=== PATIENT | female | born 1975 ===

== ENCOUNTER 2020-05-04 12:50 | Outpatient (REF) | payer OTHER, SELFPAY ==
[2020-05-04 13:48] LABS: MANUAL DIFF FLAG NO
[2020-05-04 13:55] LABS: Basophils Percent Auto 0.4 % (0-2); Eosinophils Absolute Auto 0.2 X10*3/uL (0.0-0.4); Eosinophils Percent Auto 2.7 % (0-4); Hematocrit 44.9 % (37-47); Hemoglobin 14.5 g/dl (12.0-16.0); Imm Gran Abs Auto 0.04 X10*3/uL (0.00-0.03); Imm Gran Pct Auto 0.5 % (0.0-0.4); Lymphocytes Absolute Auto 1.8 X10*3/uL (1.2-4.9); Lymphocytes Percent Auto 20.6 % (20-40); Mean Corpuscular HGB Conc 32.3 g/dl (31.0-35.0); Mean Corpuscular Hemoglobin 30.3 pg (27.0-33.0); Mean Corpuscular Volume 93.9 fL (80-98); Mean Platelet Volume 10.6 fL (9.4-12.3); Monocytes Absolute Auto 0.7 X10*3/uL (0.1-1.2); Monocytes Percent Auto 7.8 % (2-11); Neutrophils Absolute Auto 5.8 X10*3/uL (2.0-8.3); Platelet Count 310 X10*3/uL (160-400); Red Blood Count 4.78 X10*6/uL (4.20-5.50); White Blood Count 8.5 X10*3/uL (4.8-10.8)
[2020-05-04 14:03] LABS: Estimated Average Glucose 123 mg/dL; Hemoglobin A1C 155.4979 umol/L; Hemoglobin A1c % 5.9 %
[2020-05-04 14:20] LABS: Alanine Aminotransferase 41 U/L (0-31); Albumin Level 3.8 g/dL (3.5-5.0); Alkaline Phosphatase 142 U/L (39-117); Anion Gap 10 (12-20); Aspartate Amino Transferase 20 U/L (5-31); Bilirubin Total 0.7 mg/dL (0.0-1.0); Blood Urea Nitrogen 9 mg/dL (9-16); Carbon Dioxide 29 mmol/L (22-29); Chloride 106 mmol/L (96-108); Cholesterol 189 mg/dL; Estimated Glomerular Filt Rate > 60; Glucose Fasting 106 mg/dL (60-99); HDL Cholesterol 42 mg/dL; LDL Cholesterol Calculated 130 mg/dl; Potassium 4.4 mmol/L (3.3-5.1); Sodium 141 mmol/L (135-145); Total Protein 6.8 g/dL (6.5-8.0); Triglycerides 89 mg/dL
[2020-05-04 14:35] LABS: Glucose Urine UA NEG (NEG); Leukocyte Esterase Urine NEG (NEG); Nitrite Urine NEG (NEG); Urine Blood NEG (NEG); Urine Ketones NEG (NEG); Urine Protein NEG (NEG-TRACE)
[2020-05-04 14:39] LABS: Appearance Urine HAZY; Color Urine YELLOW
[2020-05-04 14:40] LABS: Erythrocyte Sedimentation Rate 18 MM/HR (0-20); Vitamin D 25-OH Total 44.2 ng/mL (>30)
[2020-05-04 14:57] LABS: Bacteria Urine 1+ /LPF; RBC Urine 0 /HPF (0); Squamous Epithelial Cell Urine 2+ /LPF; WBC Urine 0-2 /HPF (0-4)
[2020-05-04 15:26] LABS: Microalbum/Creatinine Ratio Ur 5.2 ug/mg cr
[2020-05-04 17:40] LABS: Folate 7.5 ng/mL (> or = 4.0); Vitamin B12 855 pg/mL (200-900)
== END 2020-05-04 12:51 | disposition home or self-care (01) ==
LOC: HO.LAB 12:50
PROVIDERS: PCP Internal Medicine; Visit Provider Internal Medicine
DX: E78.5 Hyperlipidemia, unspecified (principal); E11.9 Type 2 diabetes mellitus without complications; E53.8 Deficiency of other specified B group vitamins; K21.9 Gastro-esophageal reflux disease without esophagitis; G43.109 Migraine with aura, not intractable, without status migrainosus; M79.7 Fibromyalgia; J30.9 Allergic rhinitis, unspecified; E55.9 Vitamin D deficiency, unspecified; Z20.822 Contact with and (suspected) exposure to COVID-19
CPT/HCPCS: 36415; 80053; 80061; 81001; 82043; 82306; 82607; 82746; 83036; 85025; 85652; U0003; U0005

== ENCOUNTER 2020-07-18 16:57 | Outpatient (REF) | payer OTHER, SELFPAY ==
--- NOTE | ~2020-07-18 | XR_ITS ---
EXAMINATION: XR HAND, RIGHT CLINICAL INFORMATION: Right hand pain. COMPARISON: None TECHNIQUE: PA, lateral, and oblique views of the right hand. FINDINGS: There is no evidence of acute fracture or dislocation of the right hand. No erosive change is seen. Joint spaces are maintained. No radiopaque foreign body is appreciated. There is minimal spurring seen at the 1st carpometacarpal joint. XR/XR hand RT 2V IMPRESSION: No significant bony abnormality of the right hand.
== END 2020-07-18 16:58 | disposition home or self-care (01) ==
LOC: HO.XRAY 16:57
PROVIDERS: PCP Internal Medicine; Visit Provider Internal Medicine
DX: M79.641 Pain in right hand (principal); E53.8 Deficiency of other specified B group vitamins
CPT/HCPCS: 73120

== ENCOUNTER 2020-07-20 11:27 | Outpatient (REF) | payer OTHER, SELFPAY ==
--- NOTE | 2020-07-20 11:40 | ECG_ITS ---
Test Reason : R00.2 Blood Pressure : / mmHG Vent. Rate : 074 BPM Atrial Rate : 074 BPM P-R Int : 160 ms QRS Dur : 096 ms QT Int : 338 ms P-R-T Axes : 051 048 034 degrees QTc Int : 375 ms Normal sinus rhythm Normal ECG When compared with ECG of 04-FEB-2018 12:37, No significant change was found Referred By: Mihir Elmore Electronically Signed By:NISHANT PEREIRA MD
[2020-07-20 12:29] LABS: MANUAL DIFF FLAG NO
[2020-07-20 12:34] LABS: Basophils Absolute Auto 0.1 X10*3/uL (0.0-0.2); Basophils Percent Auto 0.7 % (0-2); Eosinophils Absolute Auto 0.3 X10*3/uL (0.0-0.4); Eosinophils Percent Auto 3.1 % (0-4); Hematocrit 44.9 % (37-47); Hemoglobin 14.1 g/dl (12.0-16.0); Imm Gran Abs Auto 0.04 X10*3/uL (0.00-0.03); Imm Gran Pct Auto 0.4 % (0.0-0.4); Lymphocytes Absolute Auto 1.7 X10*3/uL (1.2-4.9); Lymphocytes Percent Auto 19.4 % (20-40); Mean Corpuscular HGB Conc 31.4 g/dl (31.0-35.0); Mean Corpuscular Hemoglobin 29.9 pg (27.0-33.0); Mean Corpuscular Volume 95.3 fL (80-98); Mean Platelet Volume 11.4 fL (9.4-12.3); Monocytes Absolute Auto 0.9 X10*3/uL (0.1-1.2); Neutrophils Percent Auto 66.4 % (45-73); Platelet Count 306 X10*3/uL (160-400); Red Blood Count 4.71 X10*6/uL (4.20-5.50); Red Cell Distribution Width 15.3 % (11.0-16.0)
[2020-07-20 13:12] LABS: TSH reflex Free T4 2.03 uIU/mL (0.32-4.0)
== END 2020-07-20 11:28 | disposition home or self-care (01) ==
LOC: HO.LAB 11:27
PROVIDERS: PCP Internal Medicine; Visit Provider Internal Medicine
DX: R00.2 Palpitations (principal); I10 Essential (primary) hypertension; K62.5 Hemorrhage of anus and rectum; E78.00 Pure hypercholesterolemia, unspecified
CPT/HCPCS: 36415; 84443; 85025; 93005

== ENCOUNTER 2020-08-02 08:44 | Emergency (ER) | payer OTHER, SELFPAY ==
--- NOTE | 2020-08-02 08:48 | ED.EXTPRO ---
HPI - Extremity Problem General Chief complaint: Extremity Injury, Lower Stated complaint: AKI LEG PAIN,H/O VARICOSE VEINS Time Seen by Provider: 08/02/20 08:48 Source: patient Mode of arrival: EMS Limitations: no limitations History of Present Illness HPI Narrative: patient with 2 days of leg bilateral, no fever, slight new rash. No new medications. patient concerned that she has a blood clot MD Complaint: extremity pain and extremity swelling Onset (ago): day(s) Pain Consistency: constant Location: left and right Quality: burning and sharp Radiation: none Relieving factors: nothing Related Data Home Medications Medication Instructions Recorded Confirmed cholecalciferol (vitamin D3) 125 125 mcg PO DAILY 05/12/20 05/12/20 mcg (5,000 unit) tablet cyanocobalamin (vitamin B-12) mcg IM 05/12/20 05/12/20 1,000 mcg/mL injection solution docusate sodium 100 mg capsule 100 mg PO BID 05/12/20 05/12/20 fluticasone propionate 50 1 spray INTRANASAL DAILY 05/12/20 05/12/20 mcg/actuation nasal spray,suspension omeprazole 20 mg capsule,delayed 20 mg PO DAILY 05/12/20 05/12/20 release simvastatin 20 mg tablet 20 mg PO BEDTIME 05/12/20 05/12/20 sumatriptan succinate 100 mg tablet 100 mg PO DAILY PRN 05/12/20 05/12/20 syringe with needle 3 mL 23 x 1 #1 ea 05/12/20 Previous Rx's Medication Instructions Recorded cyanocobalamin (vitamin B-12) 100 100 mcg PO DAILY #90 tab 04/22/20 mcg tablet albuterol sulfate 2.5 mg CONTINUOUS NEBULIZATION Q6H 05/12/20 PRN 30 Days #120 vial albuterol sulfate 90 mcg/actuation 2 puff PO Q6H PRN 30 Days #8.5 g 05/12/20 aerosol inhaler lancets 28 gauge #100 ea 05/12/20 nystatin 100,000 unit/gram topical 1 appl TOPICAL TID 10 Days #60 g 05/12/20 powder loratadine 10 mg tablet 10 mg PO DAILY PRN 90 Days #90 tab 05/26/20 blood sugar diagnostic See Rx Instructions .ROUTE DAILY 06/01/20 #100 strip epinephrine 0.3 mg/0.3 mL 0.3 mg IM ONCE PRN 360 Days #2 ea 06/13/20 injection, auto-injector topiramate 25 mg tablet 25 mg PO BEDTIME #90 tab 06/30/20 fluocinolone 1 appl TOPICAL BID #60 g 08/02/20 naproxen [Naprosyn] 500 mg PO BID #20 tab 08/02/20 Allergies Allergy/AdvReac Type Severity Reaction Status Date / Time Gadolinium-Containing Allergy Severe ANAPHYLAXIS Verified 05/12/20 12:10 Contrast Medi [GADOLINIUM-CONTAINING CONTRAST] Iodinated Contrast Media Allergy Severe ANAPHYLAXIS Verified 05/12/20 12:10 [IV Dye, Iodine Containing] acetaminophen [From Percocet] Allergy Mild RASH Verified 05/12/20 12:10 aspirin [Aspirin] Allergy Mild ITCH Verified 05/12/20 12:10 ibuprofen [Ibuprofen] Allergy Mild NAUSEA Verified 05/12/20 12:10 oxycodone [From Percocet] Allergy Mild RASH Verified 05/12/20 12:10 Penicillins Allergy Mild ITCH Verified 05/12/20 12:10 Sulfa (Sulfonamide Allergy Mild ITCH Verified 05/12/20 12:10 Antibiotics) morphine [MORPHINE] Allergy Unknown NAUSEA Verified 05/12/20 12:10 penicillin V Allergy Unknown Itch Verified 05/12/20 12:10 seafoods Allergy Unknown Unknown Verified 05/12/20 12:10 LIQUID SOAPS Allergy Intermediate ITCHING Uncoded 05/12/20 12:10 AND REDNESS CHIHUAHUA Allergy Mild RASH Uncoded 05/12/20 12:10 ITCHING Review of Systems Constitutional: Constitutional: Reports no additional constitutional complaints Eyes: Eyes: Reports no additional eye complaints ENT: Denies dizziness Cardiovascular: Cardiovascular: Reports no additional cardiovascular complaints Respiratory: Respiratory: Reports as per HPI Gastrointestinal: Gastrointestinal: Reports no additional gastrointestinal complaints Genitourinary: Genitourinary: Reports no additional female genitourinary complaints Musculoskeletal: Musculoskeletal: Reports no additional musculoskeletal complaints Integumentary/Breasts: Skin/Breast: Denies rash Neurologic: Reports system reviewed and no additional complaints, except as documented, Denies dizziness and Denies Sensory deficit (Neuro) Psychiatric: Psychiatric: Denies anxiety PMFSH Past Medical History Medical History Asthma Constipation Diabetes mellitus Fibromyalgia GERD without esophagitis Hand pain, right Intertrigo Migraine headache with aura Mixed stress and urge urinary incontinence Morbid obesity with BMI of 50.0-59.9, adult Obstructive sleep apnea Palpitations Primary osteoarthritis of both knees Pure hypercholesterolemia Rectal bleeding Tremor of both hands Vitamin B12 deficiency Vitamin D deficiency Surgical History No pertinent past surgical history Family History Family History Father Medical history unknown Mother Hypertension Kidney stones Maternal Grandmother Colon cancer Maternal Aunt Breast cancer Sister No problems noted. Sister No problems noted. Social History Social History Alcohol intake: never Advance Directives: No Advance Directives Information Provided: No Physical Exam Vital Signs: Vital Signs: Last Vital Signs Temp 98.6 F 08/02/20 08:50 Pulse 89 08/02/20 08:50 Resp 14 08/02/20 08:50 BP 185/96 H 08/02/20 08:50 Pulse Ox 100 08/02/20 08:50 Body Mass Index 48.4 Const: Other: resting comfortably Nutritional Appearance: obese Orientation/consciousness: oriented to person and patient oriented x3 Limitations: no limitations HENMT: Head: Yes normal to inspection Ears: external ears normal General nose exam: Normal external nose present Mouth: Normal oral and palatal mucosa present and oropharynx normal Throat: Yes posterior oropharynx normal Eyes: General: appearance normal, both eyes and all related structures Neck: Other: supple Neck: Yes normal visual inspection Chest: Chest palpation & inspection: normal inspection of the chest Resp: Auscultation: clear to auscultation bilaterally Cardio: Jugular venous distension: no JVD Rate: regular rate Rhythm: regular rhythm Heart sounds: S1 normal heart sound present and S2 normal heart sound present GI: Inspection: Yes normal to inspection Palpation (GI): Soft to palpation, nontender and No hepatosplenomegaly present Auscultation: normal bowel sounds : General: Yes no CVA tenderness Back/Spine/Pelvis: Back: no CVA tenderness Skin: Other: eczematous changes on lower legs Neuro: General: oriented to person and patient oriented x3 Cranial nerves: Yes CN's II-XII intact bilaterally Motor exam (neuro): 5/5 motor strength present throughout Sensory Exam: No Sensory deficit (Neuro) Extrem: Other: large legs bilaterally, good DP and PT pulses Psych: Appearance: grossly normal Course Course Course Narrative: DDimer negative, labs normal, no physical evidence for clot. Will dc home. Will start steroid cream for excema on legs MDM - Extremity (Nontraumatic) Lab Data Result diagrams: 08/02/20 09:20 08/02/20 09:20 Labs: Lab Results 08/02/20 08/02/20 08/02/20 Range/Units 09:19 09:20 09:20 WBC 8.3 (4.8-10.8) X10*3/uL RBC 4.67 (4.20-5.50) X10*6/uL Hgb 14.2 (12.0-16.0) g/dl Hct 44.0 (37-47) % MCV 94.2 (80-98) fL MCH 30.4 (27.0-33.0) pg MCHC 32.3 (31.0-35.0) g/dl RDW 15.5 (11.0-16.0) % Plt Count 305 (160-400) X10*3/uL MPV 10.7 (9.4-12.3) fL Immature Gran % (Auto) 0.5 H (0.0-0.4) % Neut % (Auto) 69.5 (45-73) % Lymph % (Auto) 17.9 L (20-40) % [place] % (Auto) 8.6 (2-11) % Eos % (Auto) 3.0 (0-4) % Baso % (Auto) 0.5 (0-2) % Lymph # (Auto) 1.5 (1.2-4.9) X10*3/uL [place] # (Auto) 0.7 (0.1-1.2) X10*3/uL Eos # (Auto) 0.3 (0.0-0.4) X10*3/uL Baso # (Auto) 0.0 (0.0-0.2) X10*3/uL Abs Immat Gran (auto) 0.04 H (0.00-0.03) X10*3/uL Absolute Neuts (auto) 5.8 (2.0-8.3) X10*3/uL Absolute Nucleated RBC 0.000 (0.0-0.012) X10*3/uL Nucleated RBC % (auto) 0.0 (0.0-0.2) /100WBC D-Dimer < 200 NG/ML Sodium (135-145) mmol/L Potassium (3.3-5.1) mmol/L Chloride (96-108) mmol/L Carbon Dioxide (22-29) mmol/L Anion Gap (12-20) BUN (9-16) mg/dL Creatinine (0.5-1.4) mg/dL Estim Creat Clear Calc Estimated GFR Random Glucose (60-115) mg/dL Calcium (8.4-10.2) mg/dL Total Creatine Kinase (26-140) U/L Urine Color YELLOW Urine Appearance CLEAR Urine pH 7.0 (5.0-8.0) Ur Specific [place] 1.020 (1.005-1.025) Urine Protein NEG (NEG-TRACE) MG/DL Urine Glucose (UA) NEG (NEG) MG/DL Urine Ketones NEG (NEG) MG/DL Urine Blood NEG (NEG) Urine Nitrite NEG (NEG) Ur Leukocyte Esterase NEG (NEG) 08/02/20 Range/Units 09:20 WBC (4.8-10.8) X10*3/uL RBC (4.20-5.50) X10*6/uL Hgb (12.0-16.0) g/dl Hct (37-47) % MCV (80-98) fL MCH (27.0-33.0) pg MCHC (31.0-35.0) g/dl RDW (11.0-16.0) % Plt Count (160-400) X10*3/uL MPV (9.4-12.3) fL Immature Gran % (Auto) (0.0-0.4) % Neut % (Auto) (45-73) % Lymph % (Auto) (20-40) % [place] % (Auto) (2-11) % Eos % (Auto) (0-4) % Baso % (Auto) (0-2) % Lymph # (Auto) (1.2-4.9) X10*3/uL [place] # (Auto) (0.1-1.2) X10*3/uL Eos # (Auto) (0.0-0.4) X10*3/uL Baso # (Auto) (0.0-0.2) X10*3/uL Abs Immat Gran (auto) (0.00-0.03) X10*3/uL Absolute Neuts (auto) (2.0-8.3) X10*3/uL Absolute Nucleated RBC (0.0-0.012) X10*3/uL Nucleated RBC % (auto) (0.0-0.2) /100WBC D-Dimer NG/ML Sodium 141 (135-145) mmol/L Potassium 4.7 (3.3-5.1) mmol/L Chloride 105 (96-108) mmol/L Carbon Dioxide 28 (22-29) mmol/L Anion Gap 13 (12-20) BUN 13 (9-16) mg/dL Creatinine 0.80 (0.5-1.4) mg/dL Estim Creat Clear Calc 123.5 Estimated GFR > 60 Random Glucose 115 (60-115) mg/dL Calcium 10.4 H (8.4-10.2) mg/dL Total Creatine Kinase 99 (26-140) U/L Urine Color Urine Appearance Urine pH (5.0-8.0) Ur Specific [place] (1.005-1.025) Urine Protein (NEG-TRACE) MG/DL Urine Glucose (UA) (NEG) MG/DL Urine Ketones (NEG) MG/DL Urine Blood (NEG) Urine Nitrite (NEG) Ur Leukocyte Esterase (NEG) Discharge Plan Discharge Clinical Impression: Myalgia Eczema Qualifiers: Eczema type: other Qualified Code(s): L30.8 - Other specified dermatitis Patient Disposition: Home, Self-Care Instructions: Eczema (ED), Musculoskeletal Pain (ED) Prescriptions: New naproxen [Naprosyn] 500 mg tablet 500 mg PO BID Qty: 20 RF: 0 fluocinolone 0.025 % cream 1 appl topical BID Qty: 60 RF: 0 No Action cyanocobalamin (vitamin B-12) 100 mcg tablet 100 mcg PO DAILY Qty: 90 RF: 2 loratadine 10 mg tablet 10 mg PO DAILY PRN (Reason: allergy symptoms) 90 Days Qty: 90 RF: 3 blood sugar diagnostic [FreeStyle Lite Strips] Strip See Rx Instructions .ROUTE DAILY Qty: 100 RF: 3 epinephrine [EpiPen 2-Fili] 0.3 mg/0.3 mL auto-injector 0.3 mg IM ONCE PRN (Reason: anaphylaxis) 360 Days Qty: 2 RF: 0 topiramate 25 mg tablet 25 mg PO BEDTIME Qty: 90 RF: 1 fluticasone propionate 50 mcg/actuation spray,suspension 1 spray intranasal DAILY RF: 0 cholecalciferol (vitamin D3) 125 mcg (5,000 unit) tablet 125 mcg PO DAILY RF: 0 (DME) BD Luer-Delia Syringe 3 mL 23 x 1 syringe See Rx Instructions syringe IM Q2W Qty: 1 RF: 0 simvastatin 20 mg tablet 20 mg PO BEDTIME RF: 0 omeprazole 20 mg capsule,delayed release(DR/EC) 20 mg PO DAILY RF: 0 cyanocobalamin (vitamin B-12) 1,000 mcg/mL solution IM RF: 0 docusate sodium 100 mg capsule 100 mg PO BID RF: 0 sumatriptan succinate 100 mg tablet 100 mg PO DAILY PRNRF: 0 nystatin 100,000 unit/gram powder 1 appl topical TID 10 Days Qty: 60 RF: 3 albuterol sulfate 90 mcg/actuation HFA aerosol inhaler 2 puff PO Q6H PRN (Reason: shortness of breath or wheezing) 30 Days Qty: 8.5 RF: 5 albuterol sulfate 2.5 mg /3 mL (0.083 %) solution for nebulization 2.5 mg continuous nebulization Q6H PRN (Reason: shortness of breath or wheezing) 30 Days Qty: 120 RF: 5 (DME) lancets 28 gauge misc See Rx Instructions ea topical DAILY Qty: 100 RF: 5
[2020-08-02 08:50] VITALS: BP 136/86; BP 185/96; PULSE 76; PULSE 89; RESP 14; TEMP 37; O2SAT 100; O2SAT 98; BMI 48.4
[2020-08-02 09:25] LABS: MANUAL DIFF FLAG NO
[2020-08-02] MEDS: Ketorolac Tromethamine 30 MG/ML VIAL IVPUSH (09:26)
[2020-08-02 09:28] LABS: Basophils Percent Auto 0.5 % (0-2); Eosinophils Absolute Auto 0.3 X10*3/uL (0.0-0.4); Hemoglobin 14.2 g/dl (12.0-16.0); Imm Gran Abs Auto 0.04 X10*3/uL (0.00-0.03); Imm Gran Pct Auto 0.5 % (0.0-0.4); Lymphocytes Absolute Auto 1.5 X10*3/uL (1.2-4.9); Lymphocytes Percent Auto 17.9 % (20-40); Mean Corpuscular HGB Conc 32.3 g/dl (31.0-35.0); Mean Corpuscular Hemoglobin 30.4 pg (27.0-33.0); Mean Corpuscular Volume 94.2 fL (80-98); Mean Platelet Volume 10.7 fL (9.4-12.3); Monocytes Absolute Auto 0.7 X10*3/uL (0.1-1.2); Monocytes Percent Auto 8.6 % (2-11); Neutrophils Absolute Auto 5.8 X10*3/uL (2.0-8.3); Neutrophils Percent Auto 69.5 % (45-73); Platelet Count 305 X10*3/uL (160-400); Red Blood Count 4.67 X10*6/uL (4.20-5.50); Red Cell Distribution Width 15.5 % (11.0-16.0); White Blood Count 8.3 X10*3/uL (4.8-10.8)
[2020-08-02 09:30] LABS: Glucose Urine UA NEG (NEG); Leukocyte Esterase Urine NEG (NEG); Nitrite Urine NEG (NEG); Urine Blood NEG (NEG); Urine Ketones NEG (NEG); Urine Protein NEG (NEG-TRACE)
[2020-08-02 09:31] LABS: Appearance Urine CLEAR; Color Urine YELLOW
[2020-08-02 09:40] LABS: D Dimer < 200 NG/ML
[2020-08-02] MEDS: Magnesium Hydrox/Alum Hydrox 30 ML ORAL.SUSP PO (09:43)
[2020-08-02 10:09] LABS: Anion Gap 13 (12-20); Blood Urea Nitrogen 13 mg/dL (9-16); Calcium 10.4 mg/dL (8.4-10.2); Carbon Dioxide 28 mmol/L (22-29); Chloride 105 mmol/L (96-108); Creatinine Clr Calc Pharmacy 123.5; Estimated Glomerular Filt Rate > 60; Glucose Random 115 mg/dL (60-115); Potassium 4.7 mmol/L (3.3-5.1); Sodium 141 mmol/L (135-145)
== END 2020-08-02 11:45 | disposition home or self-care (01) ==
PROVIDERS: Emergency Provider Emergency Medicine; PCP Internal Medicine
DX: L30.8 Other specified dermatitis (principal); M79.605 Pain in left leg; M79.604 Pain in right leg; Z79.899 Other long term (current) drug therapy
CPT/HCPCS: 36415; 80048; 81003; 82550; 85025; 85379; 96374; 99283; 99284; J1885

== ENCOUNTER 2020-10-18 08:27 | Outpatient (REF) | payer OTHER, SELFPAY ==
--- NOTE | ~2020-10-18 | US_ITS ---
EXAMINATION: US ABDOMEN COMPLETE CLINICAL INFORMATION: Right upper quadrant pain. COMPARISON: CT abdomen and pelvis 08/17/2019. Ultrasound abdomen complete 10/29/2018. TECHNIQUE: Real-time imaging of the abdominal viscera. Technically limited study secondary to bowel gas and body habitus. FINDINGS: Limited exam due to patient's body habitus. PANCREAS: The pancreas is homogeneous in echotexture without enlargement. ABDOMINAL AORTA: The abdominal aorta is normal in its course and caliber. INFERIOR VENA CAVA: Visualized portions are normal. LIVER: The liver is normal in size. The liver contour is normal. There is diffuse increased liver echogenicity. No focal hepatic lesion. There is no intrahepatic biliary duct dilatation seen. GALLBLADDER: There are echogenic non-mobile lesions measuring 0.4 x 0.4 cm question polyp versus radiolucent stones. The gallbladder is physiologically distended. No gallbladder wall thickening or pericholecystic fluid collection. COMMON BILE DUCT: Normal in caliber measuring 0.5 cm in diameter. RIGHT KIDNEY: The lower pole is not well visualized. No hydronephrosis. No renal calculi or focal parenchymal lesions. The kidney measures 10.2 cm in maximum dimension. LEFT KIDNEY: Normal. No hydronephrosis. No renal calculi or focal parenchymal lesions. The kidney measures 10.2 cm in maximum dimension. SPLEEN: Normal. The spleen measures 9.8 cm in maximum dimension. FREE FLUID: None. US/US abdomen complete IMPRESSION: Likely non mobile echogenic gallbladder polyp or radiolucent stone. No wall thickening. Mild hepatic steatosis without focal lesion.
== END 2020-10-18 08:28 | disposition home or self-care (01) ==
LOC: HO.US 08:27
PROVIDERS: Visit Provider Internal Medicine
DX: R10.11 Right upper quadrant pain (principal)
CPT/HCPCS: 76700

== ENCOUNTER 2020-11-09 10:32 | Outpatient (REF) | payer OTHER, SELFPAY ==
[2020-11-09 11:20] LABS: MANUAL DIFF FLAG NO
[2020-11-09 11:30] LABS: Basophils Percent Auto 0.5 % (0-2); Eosinophils Absolute Auto 0.3 X10*3/uL (0.0-0.4); Hematocrit 44.1 % (37-47); Hemoglobin 14.2 g/dl (12.0-16.0); Imm Gran Abs Auto 0.03 X10*3/uL (0.00-0.03); Imm Gran Pct Auto 0.3 % (0.0-0.4); Lymphocytes Absolute Auto 1.7 X10*3/uL (1.2-4.9); Lymphocytes Percent Auto 19.1 % (20-40); Mean Corpuscular HGB Conc 32.2 g/dl (31.0-35.0); Mean Platelet Volume 11.5 fL (9.4-12.3); Monocytes Absolute Auto 0.9 X10*3/uL (0.1-1.2); Monocytes Percent Auto 10.7 % (2-11); Neutrophils Absolute Auto 5.8 X10*3/uL (2.0-8.3); Neutrophils Percent Auto 66.4 % (45-73); Platelet Count 297 X10*3/uL (160-400); Red Blood Count 4.74 X10*6/uL (4.20-5.50); Red Cell Distribution Width 14.7 % (11.0-16.0); White Blood Count 8.7 X10*3/uL (4.8-10.8)
[2020-11-09 11:31] LABS: Glucose Urine UA NEG (NEG); Leukocyte Esterase Urine NEG (NEG); Nitrite Urine NEG (NEG); Specific Gravity - Urine >= 1.030 (1.005-1.025); Urine Blood NEG (NEG); Urine Ketones NEG (NEG); Urine Protein NEG (NEG-TRACE)
[2020-11-09 11:34] LABS: Appearance Urine CLEAR; Color Urine YELLOW
[2020-11-09 12:04] LABS: Alanine Aminotransferase 34 U/L (0-31); Albumin Level 3.9 g/dL (3.5-5.0); Alkaline Phosphatase 148 U/L (39-117); Anion Gap 9 (12-20); Aspartate Amino Transferase 17 U/L (5-31); Bilirubin Total 0.5 mg/dL (0.0-1.0); Blood Urea Nitrogen 13 mg/dL (9-16); C Reactive Protein 1.11 mg/dL (< or = 0.50); Calcium 10.3 mg/dL (8.4-10.2); Carbon Dioxide 27 mmol/L (22-29); Chloride 108 mmol/L (96-108); Cholesterol 178 mg/dL; Estimated Glomerular Filt Rate > 60; Glucose Fasting 129 mg/dL (60-99); HDL Cholesterol 39 mg/dL; LDL Cholesterol Calculated 110 mg/dl; Potassium 4.2 mmol/L (3.3-5.1); Sodium 140 mmol/L (135-145); Total Protein 6.8 g/dL (6.5-8.0); Triglycerides 148 mg/dL
[2020-11-09 12:05] LABS: TSH reflex Free T4 1.83 uIU/mL (0.32-4.0); Vitamin D 25-OH Total 35.7 ng/mL (>30)
[2020-11-09 12:14] LABS: Erythrocyte Sedimentation Rate 16 MM/HR (0-20)
[2020-11-09 12:15] LABS: Creatinine Urine 115.15 mg/dL; Microalbum/Creatinine Ratio Ur 4.3 ug/mg cr
[2020-11-09 12:19] LABS: Estimated Average Glucose 117 mg/dL; Hemoglobin A1c % 5.7 %
[2020-11-09 12:31] LABS: Folate 7.2 ng/mL (> or = 4.0); Vitamin B12 651 pg/mL (200-900)
== END 2020-11-09 10:33 | disposition home or self-care (01) ==
LOC: HO.LAB 10:32
PROVIDERS: PCP Internal Medicine; Visit Provider Internal Medicine
DX: K82.4 Cholesterolosis of gallbladder (principal); E66.01 Morbid (severe) obesity due to excess calories; Z68.43 Body mass index [BMI] 50.0-59.9, adult; M94.0 Chondrocostal junction syndrome [Tietze]; E11.9 Type 2 diabetes mellitus without complications; E55.9 Vitamin D deficiency, unspecified; E53.8 Deficiency of other specified B group vitamins; K21.9 Gastro-esophageal reflux disease without esophagitis; M79.7 Fibromyalgia; E78.00 Pure hypercholesterolemia, unspecified
CPT/HCPCS: 36415; 80053; 80061; 81003; 82043; 82306; 82607; 82746; 83036; 84443; 85025; 85652; 86140; 99202

== ENCOUNTER 2020-11-23 01:17 | Emergency (ER) | payer OTHER, SELFPAY ==
[2020-11-23 01:24] VITALS: BP 140/90; BP 154/81; PULSE 86; PULSE 88; RESP 16; TEMP 36.5; O2SAT 98; BMI 50.1
--- NOTE | 2020-11-23 01:39 | ED.GENADULT ---
HPI - General Adult General Chief complaint: General Medical Stated complaint: difficulty swallowing Time Seen by Provider: 11/23/20 01:26 Source: patient Limitations: no limitations History of Present Illness HPI narrative: Patient presents complaining of sore throat. Pain is mostly on the right side of her throat. It started yesterday. She has never had this before. It is difficult to swallow. No difficulty breathing. The pain goes down into her chest and occasionally radiates to her right ear. No fevers or chills. No cough. No sick contacts Related Data Home Medications Medication Instructions Recorded Confirmed docusate sodium 100 mg capsule 100 mg PO BID 05/12/20 11/09/20 fluticasone propionate 50 1 spray INTRANASAL DAILY 05/12/20 11/09/20 mcg/actuation nasal spray,suspension sumatriptan succinate 100 mg tablet 100 mg PO DAILY PRN 05/12/20 11/09/20 syringe with needle 3 mL 23 x 1 #1 ea 05/12/20 11/09/20 cetirizine 10 mg tablet 10 mg PO DAILY PRN 11/07/20 11/09/20 Previous Rx's Medication Instructions Recorded cyanocobalamin (vitamin B-12) 100 100 mcg PO DAILY #90 tab 04/22/20 mcg tablet albuterol sulfate 90 mcg/actuation 2 puff PO Q6H PRN 30 Days #8.5 g 05/12/20 aerosol inhaler lancets 28 gauge #100 ea 05/12/20 nystatin 100,000 unit/gram topical 1 appl TOPICAL TID 10 Days #60 g 05/12/20 powder loratadine 10 mg tablet 10 mg PO DAILY PRN 90 Days #90 tab 05/26/20 blood sugar diagnostic (FreeStyle See Rx Instructions .ROUTE DAILY 06/01/20 Lite Strips) #100 strip epinephrine 0.3 mg/0.3 mL 0.3 mg IM ONCE PRN 360 Days #2 ea 06/13/20 injection, auto-injector (EpiPen 2-Fili) topiramate 25 mg tablet 25 mg PO BEDTIME #90 tab 06/30/20 fluocinolone 0.025 % topical cream 1 appl TOPICAL BID #60 g 08/02/20 naproxen 500 mg tablet (Naprosyn) 500 mg PO BID #20 tab 08/02/20 albuterol sulfate 2.5 mg INHALATION Q4H PRN #600 ml 08/09/20 cyanocobalamin (vitamin B-12) 1,000 mcg IM Q4W 90 Days #4 ml 09/08/20 1,000 mcg/mL injection solution gabapentin 100 mg capsule 100 mg PO TID 30 Days #90 cap 09/08/20 lancets 28 gauge (FreeStyle #100 ea 09/08/20 Lancets) simvastatin 20 mg tablet 20 mg PO BEDTIME 90 Days #90 tab 09/08/20 cholecalciferol (vitamin D3) 125 125 mcg PO DAILY #30 cap 09/28/20 mcg (5,000 unit) capsule clindamycin HCl 300 mg capsule 300 mg PO TID #30 cap 11/23/20 prednisone 20 mg tablet 40 mg PO DAILY #10 tab 11/23/20 Allergies Allergy/AdvReac Type Severity Reaction Status Date / Time Gadolinium-Containing Allergy Severe ANAPHYLAXIS Verified 11/09/20 11:09 Contrast Medi [GADOLINIUM-CONTAINING CONTRAST] Iodinated Contrast Media Allergy Severe ANAPHYLAXIS Verified 11/09/20 11:09 [IV Dye, Iodine Containing] aspirin [Aspirin] Allergy Mild ITCH Verified 11/09/20 11:09 ibuprofen [Ibuprofen] Allergy Mild NAUSEA Verified 11/09/20 11:09 oxycodone [From Percocet] Allergy Mild RASH Verified 11/09/20 11:09 Penicillins Allergy Mild ITCH Verified 11/09/20 11:09 Sulfa (Sulfonamide Allergy Mild ITCH Verified 11/09/20 11:09 Antibiotics) morphine [MORPHINE] Allergy Unknown NAUSEA Verified 11/09/20 11:09 penicillin V Allergy Unknown Itch Verified 11/09/20 11:09 seafoods Allergy Unknown Unknown Verified 11/09/20 11:09 LIQUID SOAPS Allergy Intermediate ITCHING Uncoded 09/08/20 11:31 AND REDNESS CHIHUAHUA Allergy Mild RASH Uncoded 09/08/20 11:31 ITCHING Review of Systems Constitutional: Constitutional: Denies fever(s) ENT: Comments: Sore throat. Mostly on right Cardiovascular: Cardiovascular: Denies chest pain and Denies dyspnea Respiratory: Respiratory: Denies cough and Denies dyspnea Gastrointestinal: Gastrointestinal: Denies abdominal pain, Denies nausea and Denies vomiting Hematologic/Lymphatic: Comments: Positive swollen lymph nodes, right submandibular PMFSH Past Medical History Medical History (Updated 11/23/20 @ 01:45 by Joao John MD) Asthma Calculus of kidney Constipation Costochondritis Diabetes mellitus Fibromyalgia Gallbladder polyp GERD without esophagitis Hand pain, right Intertrigo Migraine headache with aura Mixed stress and urge urinary incontinence Morbid obesity Morbid obesity with BMI of 50.0-59.9, adult Obstructive sleep apnea Palpitations Primary osteoarthritis of both knees Pure hypercholesterolemia Rectal bleeding Tremor of both hands Vitamin B12 deficiency Vitamin D deficiency Surgical History No pertinent past surgical history Family History Family History Father Medical history unknown Mother Hypertension Kidney stones Maternal Grandmother Colon cancer Maternal Aunt Breast cancer Sister No problems noted. Sister No problems noted. Social History Social History Housing: Apartment Alcohol intake: never Patient Tobacco Use Status: Never used Tobacco Second Hand Smoke Exposure: No Advance Directives: No Advance Directives Information Provided: Yes service: No Current occupational status: disabled Physical Exam Vital Signs: Vital Signs: Last Vital Signs Temp 97.7 F 11/23/20 01:24 Pulse 86 11/23/20 01:24 Resp 16 11/23/20 01:24 BP 154/81 H 11/23/20 01:24 Pulse Ox 98 11/23/20 01:24 Body Mass Index 50.1 Const: Other: Is awake and alert. Nontoxic but very anxious, tearful HENMT: Other: Throat shows right tonsillar enlargement without obvious abscess formation. Rugae still intact. No tonsillar exudate. Right-sided anterior and submandibular lymphadenopathy. No Yobani's angina Resp: Other: Clear and equal bilaterally without wheezes rales or rhonchi. Good air entry Cardio: Other: Regular rate and rhythm without murmurs rubs or gallops. Chest wall is tender and reproduces symptoms GI: Other: Abdomen soft nontender nondistended Skin: Other: Warm pink and dry without diaphoresis Neuro: Other: Alert and oriented x3 without obvious focal neuro deficit Course Course Course Narrative: Pharyngitis Peritonsillar cellulitis without evidence of abscess. Strep throat possible. Chest pain, musculoskeletal versus cardiac EKG shows normal sinus rhythm without ischemia or dysrhythmia. Given the reproducible nature of pain radiating from obvious tonsillitis, there is no evidence for acute coronary syndrome at this time Given discomfort will treat with IV fluids, IV Solu-Medrol, IV clindamycin this patient is pen allergic. Tylenol for pain as she has multiple other pain medication allergies. Although acetaminophen is listed as an allergy, patient states that she takes at home without difficulty. Discharge Plan Discharge Clinical Impression: Infective tonsillitis Patient Disposition: Home, Self-Care Instructions: Tonsillitis (ED) Additional Instructions: Drink plenty of water. Take clindamycin to treat the throat infection. Prednisone is to help with swelling. Without take Tylenol/acetaminophen for discomfort. Prescriptions: New clindamycin HCl 300 mg capsule 300 mg PO TID Qty: 30 RF: 0 prednisone 20 mg tablet 40 mg PO DAILY Qty: 10 RF: 0 No Action cyanocobalamin (vitamin B-12) 100 mcg tablet 100 mcg PO DAILY Qty: 90 RF: 2 loratadine 10 mg tablet 10 mg PO DAILY PRN (Reason: allergy symptoms) 90 Days Qty: 90 RF: 3 blood sugar diagnostic [FreeStyle Lite Strips] Strip See Rx Instructions .ROUTE DAILY Qty: 100 RF: 3 epinephrine [EpiPen 2-Fili] 0.3 mg/0.3 mL auto-injector 0.3 mg IM ONCE PRN (Reason: anaphylaxis) 360 Days Qty: 2 RF: 0 topiramate 25 mg tablet 25 mg PO BEDTIME Qty: 90 RF: 1 albuterol sulfate 2.5 mg /3 mL (0.083 %) solution for nebulization 2.5 mg inhalation Q4H PRN (Reason: shortness of breath or wheezing) Qty: 600 RF: 1 cholecalciferol (vitamin D3) 125 mcg (5,000 unit) capsule 125 mcg PO DAILY Qty: 30 RF: 6 naproxen [Naprosyn] 500 mg tablet 500 mg PO BID Qty: 20 RF: 0 fluocinolone 0.025 % cream 1 appl topical BID Qty: 60 RF: 0 cetirizine 10 mg tablet 10 mg PO DAILY PRNRF: 0 fluticasone propionate 50 mcg/actuation spray,suspension 1 spray intranasal DAILY RF: 0 (DME) BD Luer-Delia Syringe 3 mL 23 x 1 syringe See Rx Instructions syringe IM Q2W Qty: 1 RF: 0 docusate sodium 100 mg capsule 100 mg PO BID RF: 0 sumatriptan succinate 100 mg tablet 100 mg PO DAILY PRNRF: 0 nystatin 100,000 unit/gram powder 1 appl topical TID 10 Days Qty: 60 RF: 3 albuterol sulfate 90 mcg/actuation HFA aerosol inhaler 2 puff PO Q6H PRN (Reason: shortness of breath or wheezing) 30 Days Qty: 8.5 RF: 5 (DME) lancets 28 gauge misc See Rx Instructions ea topical DAILY Qty: 100 RF: 5 gabapentin 100 mg capsule 100 mg PO TID 30 Days Qty: 90 RF: 3 cyanocobalamin (vitamin B-12) 1,000 mcg/mL solution 1,000 mcg IM Q4W 90 Days Qty: 4 RF: 3 simvastatin 20 mg tablet 20 mg PO BEDTIME 90 Days Qty: 90 RF: 3 (DME) lancets [FreeStyle Lancets] 28 gauge misc See Rx Instructions .ROUTE .MEDSUPPLY Qty: 100 RF: 12
--- NOTE | 2020-11-23 01:40 | ECG_ITS ---
Test Reason : CP Blood Pressure : / mmHG Vent. Rate : 084 BPM Atrial Rate : 084 BPM P-R Int : 170 ms QRS Dur : 088 ms QT Int : 328 ms P-R-T Axes : 054 041 032 degrees QTc Int : 387 ms Normal sinus rhythm Normal ECG When compared with ECG of 20-JUL-2020 11:54, No significant change was found Referred By: Joao John Electronically Signed By:WOOD OLGUIN
[2020-11-23] MEDS: Acetaminophen 325 MG TABLET 650 MG PO (01:52)
[2020-11-23] MEDS: LORazepam 2 MG/ML VIAL 0.5 MG IVPUSH (01:52)
[2020-11-23] MEDS: Clindamycin Phosphate/D5W 300 MG/50 ML PIGGYBACK 100 MG IV (01:52)
[2020-11-23] MEDS: methylPREDNISolone Sod Succ 125 MG/2 ML VIAL IVPUSH (01:52)
== END 2020-11-23 02:33 | disposition home or self-care (01) ==
PROVIDERS: Emergency Provider Emergency Medicine
DX: J03.90 Acute tonsillitis, unspecified (principal); R13.10 Dysphagia, unspecified; Z79.899 Other long term (current) drug therapy
CPT/HCPCS: 93005; 96365; 96375; 99284; J2060; J2930

== ENCOUNTER 2020-12-07 08:38 | Outpatient (REF) | payer OTHER, SELFPAY ==
--- NOTE | ~2020-12-07 | US_ITS ---
EXAMINATION: US RETROPERITONEAL LIMITED (RENAL ONLY) CLINICAL INFORMATION: Calculus of kidney. COMPARISON: Ultrasound abdomen complete 10/18/2020 and 10/29/2018. CT abdomen and pelvis 08/17/2019. TECHNIQUE: Real-time imaging of the kidneys. Technically limited study secondary to bowel gas and body habitus. FINDINGS: RIGHT KIDNEY: 11.0 x 4.7 x 4.5 cm (SAG x AP x TRV). The kidney is normal in size, contour, and echogenicity. Renal cortical thickness is normal. No calculi or focal parenchymal lesions. No hydronephrosis. LEFT KIDNEY: 11.2 x 5.3 x 4.5 cm (SAG x AP x TRV). The kidney is normal in size, contour, and echogenicity. Renal cortical thickness is normal. There is question of a 2 x 4 mm stone in the midpole. No focal parenchymal lesions or hydronephrosis. US/US renal BI IMPRESSION: Limited exam. Question small left renal stone.
== END 2020-12-07 08:39 | disposition home or self-care (01) ==
LOC: HO.US 08:38
PROVIDERS: Visit Provider Urology
DX: N20.0 Calculus of kidney (principal)
CPT/HCPCS: 76775

== ENCOUNTER → 2020-12-26 10:24 | Outpatient (BNVA) | payer OTHER, SELFPAY | PROVIDERS: PCP Internal Medicine; Referring Provider Internal Medicine; Visit Provider Nurse Practitioner Family | DX: K58.2 Mixed irritable bowel syndrome (principal); K21.9 Gastro-esophageal reflux disease without esophagitis; R10.11 Right upper quadrant pain; R14.0 Abdominal distension (gaseous) | CPT/HCPCS: 99202 ==

== ENCOUNTER 2021-01-03 09:09 | Outpatient (REF) | payer OTHER, SELFPAY ==
[2021-01-03 10:38] LABS: Alanine Aminotransferase 32 U/L (0-31); Albumin Level 4.1 g/dL (3.5-5.0); Alkaline Phosphatase 143 U/L (39-117); Aspartate Amino Transferase 17 U/L (5-31); Bilirubin Direct 0.2 mg/dL (0.0-0.5); Bilirubin Total 0.5 mg/dL (0.0-1.0); Lipase 29 U/L (8-78)
[2021-01-03 10:59] LABS: TSH reflex Free T4 2.37 uIU/mL (0.32-4.0)
[2021-01-04 16:15] LABS: Transglutaminase Ab IgG <1.0 U/mL; Transglutaminase IgA <1.0 U/mL
[2021-01-07 13:17] LABS: Vitamin D 25-OH, D2 <4 ng/mL; Vitamin D 25-OH, D3 38 ng/mL; Vitamin D 25-OH, Total 38 ng/mL (30-100)
== END 2021-01-03 09:10 | disposition home or self-care (01) ==
LOC: HO.LAB 09:09
PROVIDERS: Visit Provider Nurse Practitioner Family
DX: R10.11 Right upper quadrant pain (principal); R14.0 Abdominal distension (gaseous); Z12.11 Encounter for screening for malignant neoplasm of colon
CPT/HCPCS: 36415; 80076; 82306; 83516; 83690; 84443

== ENCOUNTER 2021-01-05 10:30 | Outpatient (REF) | payer OTHER, SELFPAY | END 2021-01-05 10:31 | disposition home or self-care (01) | LOC: HO.LNP 10:30 | PROVIDERS: Visit Provider Nurse Practitioner Family | DX: K21.9 Gastro-esophageal reflux disease without esophagitis (principal) | CPT/HCPCS: 87338 ==

== ENCOUNTER 2021-01-17 13:49 | Outpatient (REF) | payer OTHER, SELFPAY ==
[2021-01-17 14:49] LABS: Influenza A PCR NEGATIVE (Negative); Influenza B PCR NEGATIVE (Negative); Resp Syncy Virus RNA Qual PCR NEGATIVE (Negative); SARS COV2 PCR INHOUSE NEGATIVE (Negative)
== END 2021-01-17 13:50 | disposition home or self-care (01) ==
LOC: HO.LAB 13:49
PROVIDERS: PCP Internal Medicine; Visit Provider Internal Medicine
DX: Z20.822 Contact with and (suspected) exposure to COVID-19 (principal); R07.2 Precordial pain; R00.2 Palpitations; E66.01 Morbid (severe) obesity due to excess calories; E11.8 Type 2 diabetes mellitus with unspecified complications; G47.33 Obstructive sleep apnea (adult) (pediatric)
CPT/HCPCS: 0241U; 36415; 99202

== ENCOUNTER 2021-01-19 08:26 | Emergency (ER) | payer OTHER, SELFPAY ==
--- NOTE | ~2021-01-19 | XR_ITS ---
EXAMINATION: XR CHEST CLINICAL INFORMATION: Shortness of breath COMPARISON: Chest radiographs 05/02/2017, 05/02/2013 TECHNIQUE: Portable upright AP view of the chest was obtained. FINDINGS: There are low lung volumes with inspiration to the eighth posterior intercostal spaces. There is no lobar or segmental airspace consolidation or groundglass opacity or effusion. The vascularity is normal. The heart is normal in size. The hilar and mediastinal contours are unremarkable. There is a mild dextrocurvature thoracic spine. No visible acute bony abnormality. XR/XR chest 1V IMPRESSION: Unremarkable examination.
--- NOTE | 2021-01-19 08:39 | ED.ASTHMA ---
HPI - Asthma General Chief Complaint: Upper Respiratory Symptoms Stated Complaint: cough, flank pain Time Seen by Provider: 01/19/21 08:34 History of Present Illness HPI Narrative: Patient is a 45-year-old female with a history of coughing congestion upper respiratory symptoms. Seen in the emergency department 2 days prior had a COVID test which was negative. Patient is already immunized for COVID. Patient complaining of continuing coughing postnasal drip that is done resolving. She has a history of asthma never been hospitalized. Patient from home. Claims the albuterol inhalers are not working. There is no fever no chills. There is positive postnasal drip. No history of congestive heart failure no history of heart attacks in the past. Related Data Home Medications Medication Instructions Recorded Confirmed fluticasone propionate 50 1 spray INTRANASAL DAILY 05/12/20 01/17/21 mcg/actuation nasal spray,suspension sumatriptan succinate 100 mg tablet 100 mg PO DAILY PRN 05/12/20 01/17/21 syringe with needle 3 mL 23 x 1 #1 ea 05/12/20 01/17/21 Previous Rx's Medication Instructions Recorded nystatin 100,000 unit/gram topical 1 appl TOPICAL TID 10 Days #60 g 05/12/20 powder loratadine 10 mg tablet 10 mg PO DAILY PRN 90 Days #90 tab 05/26/20 epinephrine 0.3 mg/0.3 mL 0.3 mg (0.3 mL) IM ONCE PRN 360 06/13/20 injection, auto-injector (Epi Days #2 ea 2-Fili) fluocinolone 0.025 % topical cream 1 appl TOPICAL BID #60 g 08/02/20 naproxen 500 mg tablet (Naprosyn) 500 mg PO BID #20 tab 08/02/20 cyanocobalamin (vitamin B-12) 1,000 mcg IM Q4W 90 Days #4 ml 09/08/20 1,000 mcg/mL injection solution gabapentin 100 mg capsule 100 mg PO TID 30 Days #90 cap 09/08/20 lancets 28 gauge (FreeStyle #100 ea 09/08/20 Lancets) simvastatin 20 mg tablet 20 mg PO BEDTIME 90 Days #90 tab 09/08/20 cetirizine 10 mg tablet 10 mg PO DAILY PRN #30 tab 11/27/20 cholecalciferol (vitamin D3) 125 125 mcg PO DAILY #30 cap 11/27/20 mcg (5,000 unit) capsule docusate sodium 100 mg capsule 100 mg PO BEDTIME #30 cap 12/26/20 famotidine 20 mg tablet (Pepcid) 20 mg PO BEDTIME #30 tab 12/26/20 sennosides 8.6 mg tablet (Natural 8.6 mg PO BEDTIME #30 tab 12/26/20 Senna Laxative) topiramate 25 mg tablet 25 mg PO BEDTIME #90 tab 12/27/20 blood-glucose meter (FreeStyle #1 ea 01/05/21 Lite Meter) metformin 500 mg tablet,extended 500 mg PO DAILY #30 tab 01/05/21 release 24 hr albuterol sulfate 2.5 mg (3 mL) INHALATION Q4-6H PRN 01/17/21 #180 ml albuterol sulfate 90 mcg/actuation 2 puff PO Q6H PRN #8.5 ea 01/17/21 aerosol inhaler fluticasone propionate 50 2 spray INTRANASAL DAILY 14 Days g 01/19/21 mcg/actuation nasal spray,suspension (Flonase Allergy Relief) fluticasone propionate 50 2 spray INTRANASAL DAILY 14 Days g 01/19/21 mcg/actuation nasal spray,suspension (Flonase Allergy Relief) prednisone 20 mg tablet 40 mg PO DAILY #10 tab 01/19/21 prednisone 20 mg tablet 40 mg PO DAILY #10 tab 01/19/21 Allergies Allergy/AdvReac Type Severity Reaction Status Date / Time Gadolinium-Containing Allergy Severe ANAPHYLAXIS Verified 01/17/21 14:13 Contrast Medi [GADOLINIUM-CONTAINING CONTRAST] Iodinated Contrast Media Allergy Severe ANAPHYLAXIS Verified 01/17/21 14:13 [IV Dye, Iodine Containing] aspirin [Aspirin] Allergy Mild ITCH Verified 01/17/21 14:13 ibuprofen [Ibuprofen] Allergy Mild NAUSEA Verified 01/17/21 14:13 oxycodone [From Percocet] Allergy Mild RASH Verified 01/17/21 14:13 Penicillins Allergy Mild ITCH Verified 01/17/21 14:13 Sulfa (Sulfonamide Allergy Mild ITCH Verified 01/17/21 14:13 Antibiotics) morphine [MORPHINE] Allergy Unknown NAUSEA Verified 01/17/21 14:13 penicillin V Allergy Unknown Itch Verified 01/17/21 14:13 seafoods Allergy Unknown Unknown Verified 01/17/21 14:13 LIQUID SOAPS Allergy Intermediate ITCHING Uncoded 01/17/21 14:13 AND REDNESS CHIHUAHUA Allergy Mild RASH Uncoded 01/17/21 14:13 ITCHING Review of Systems Review of Systems: Positive coughing upper respiratory symptoms Positive generalized malaise All systems reviewed otherwise negative Yes all other systems are reviewed and are negative [facility] Past Medical History Attestation statement: The following information was validated with the patient. Medical History Asthma Calculus of kidney Constipation Costochondritis Diabetes mellitus Fibromyalgia Gallbladder polyp GERD without esophagitis Hand pain, right Intertrigo Migraine headache with aura Mixed stress and urge urinary incontinence Morbid obesity Morbid obesity with BMI of 50.0-59.9, adult Obstructive sleep apnea Palpitations Primary osteoarthritis of both knees Pure hypercholesterolemia Rectal bleeding Tremor of both hands Vitamin B12 deficiency Vitamin D deficiency Surgical History No pertinent past surgical history Family History Family History Father Medical history unknown Mother Hypertension Kidney stones Maternal Grandmother Colon cancer Maternal Aunt Breast cancer Sister No problems noted. Sister No problems noted. Social History Social History Housing: Apartment Alcohol intake: never Patient Tobacco Use Status: Never used Tobacco e-Cigarette/Vaping Use: Never Used Second Hand Smoke Exposure: No Use of substances other than those prescribed or required for medical reasons: No Advance Directives: Yes Advance Directives on File: Yes Advance Directives Date on File: 01/03/21 service: No Current occupational status: disabled Physical Exam Vital Signs: Vital Signs: Last Vital Signs Temp 98.4 F 01/19/21 08:40 Pulse 99 01/19/21 08:40 Resp 20 01/19/21 08:40 BP 155/86 H 01/19/21 08:40 Pulse Ox 98 01/19/21 08:40 Body Mass Index 46.0 Appearance: Alert. Oriented X3. No acute distress. Eyes: Pupils equal, round and reactive to light. ENT: Pharynx normal. Neck: Normal inspection. Neck supple. No lymph nodes noted. No crepitus CVS: Normal heart rate and rhythm. Pulses normal. Normal S1 and S2 Respiratory: No respiratory distress. Breath sounds normal. No Wheezing. No rales Abdomen: Soft and nontender. No rigidity. No distention. good BS x4 Skin: Skin warm and dry. Normal skin color. Normal skin turgor. Extremities: No lower extremity edema. Neurovascular intact to all extremities. No Lacerations. No Rash Neuro: Oriented X 3. No motor deficit. No sensory deficit. Moving all extermities. No slurred speech MDM - Asthma MDM Narrative Medical decision making narrative: Well-appearing lungs are clear O2 sat is normal positive chest pain with coughing. Will get chest x-ray to rule out pneumonia pneumothorax. Will give steroids. Patient to follow-up on an outpatient basis. In stable condition. Patient's chest x-ray grossly negative for any acute evidence of infiltrate. Will start patient on a tapered dose of steroid. Follow-up on an outpatient basis. Flonase ordered. In stable condition. Lab Data Labs: Lab Results 01/19/21 Range/Units 09:08 S. pyogenes GrpA RADHA Negative (Negative) Discharge Plan Discharge Clinical Impression: Asthma Patient Disposition: Home, Self-Care Instructions: Asthma (ED) Prescriptions: New fluticasone propionate [Flonase Allergy Relief] 50 mcg/actuation spray,suspension 2 spray intranasal DAILY 14 Days RF: 0 prednisone 20 mg tablet 40 mg PO DAILY Qty: 10 RF: 0 prednisone 20 mg tablet 40 mg PO DAILY Qty: 10 RF: 0 fluticasone propionate [Flonase Allergy Relief] 50 mcg/actuation spray,suspension 2 spray intranasal DAILY 14 Days RF: 0 No Action loratadine 10 mg tablet 10 mg PO DAILY PRN (Reason: allergy symptoms) 90 Days Qty: 90 RF: 3 epinephrine [EpiPen 2-Fili] 0.3 mg/0.3 mL auto-injector 0.3 mg IM ONCE PRN (Reason: anaphylaxis) 360 Days Qty: 2 RF: 0 cetirizine 10 mg tablet 10 mg PO DAILY PRN (Reason: allergy symptoms) Qty: 30 RF: 3 cholecalciferol (vitamin D3) 125 mcg (5,000 unit) capsule 125 mcg PO DAILY Qty: 30 RF: 6 topiramate 25 mg tablet 25 mg PO BEDTIME Qty: 90 RF: 1 albuterol sulfate 90 mcg/actuation HFA aerosol inhaler 2 puff PO Q6H PRN (Reason: bronchospasm) Qty: 8.5 RF: 5 albuterol sulfate 2.5 mg /3 mL (0.083 %) solution for nebulization 2.5 mg inhalation Q4-6H PRN (Reason: shortness of breath or wheezing) Qty: 180 RF: 0 naproxen [Naprosyn] 500 mg tablet 500 mg PO BID Qty: 20 RF: 0 fluocinolone 0.025 % cream 1 appl topical BID Qty: 60 RF: 0 fluticasone propionate 50 mcg/actuation spray,suspension 1 spray intranasal DAILY RF: 0 (DME) BD Luer-Delia Syringe 3 mL 23 x 1 syringe See Rx Instructions syringe IM Q2W Qty: 1 RF: 0 sumatriptan succinate 100 mg tablet 100 mg PO DAILY PRNRF: 0 nystatin 100,000 unit/gram powder 1 appl topical TID 10 Days Qty: 60 RF: 3 gabapentin 100 mg capsule 100 mg PO TID 30 Days Qty: 90 RF: 3 cyanocobalamin (vitamin B-12) 1,000 mcg/mL solution 1,000 mcg IM Q4W 90 Days Qty: 4 RF: 3 simvastatin 20 mg tablet 20 mg PO BEDTIME 90 Days Qty: 90 RF: 3 (DME) lancets [FreeStyle Lancets] 28 gauge misc See Rx Instructions .ROUTE .MEDSUPPLY Qty: 100 RF: 12 (DME) blood-glucose meter [FreeStyle Lite Meter] Kit See Rx Instructions .Route Qty: 1 RF: 0 metformin 500 mg tablet extended release 24 hr 500 mg PO DAILY Qty: 30 RF: 0 docusate sodium 100 mg capsule 100 mg PO BEDTIME Qty: 30 RF: 3 sennosides [Natural Senna Laxative] 8.6 mg tablet 8.6 mg PO BEDTIME Qty: 30 RF: 3 famotidine [Pepcid] 20 mg tablet 20 mg PO BEDTIME Qty: 30 RF: 3 Referrals: Mihir Elmore MD [Primary Care Provider] - 2 days
[2021-01-19 08:40] VITALS: BP 128/80; BP 155/86; PULSE 94; PULSE 99; RESP 20; TEMP 36.9; O2SAT 100; O2SAT 98; BMI 46.0
[2021-01-19] MEDS: predniSONE 20 MG TABLET 60 MG PO (08:51)
[2021-01-19 09:27] LABS: IDNOW Serial# 9DD0AD1C; Strep A Nucleic Acid Negative (Negative)
== END 2021-01-19 09:45 | disposition home or self-care (01) ==
PROVIDERS: Emergency Provider Emergency Medicine Emergency Medical Services; PCP Internal Medicine
DX: J45.909 Unspecified asthma, uncomplicated (principal); E11.9 Type 2 diabetes mellitus without complications; Z79.899 Other long term (current) drug therapy
CPT/HCPCS: 36415; 71045; 87651; 99283; 99284

== ENCOUNTER → 2021-02-06 06:53 | Outpatient (REF) | payer OTHER, SELFPAY ==
--- NOTE | 2021-02-06 06:55 | HM_ITS ---
Conclusion: 1. Patient was monitored for total period of 2 days and 23 hours 2. Baseline was normal sinus rhythm with average heart rate 93 beats per minute 3. Frequent sinus tachycardia noted with 34.3% of the time heart rate greater than 100 beats per minute 4. No significant arrhythmias or ectopy noted 5. No patient reported events MTDD
== END ==
LOC: HO.CARD 06:53
PROVIDERS: Visit Provider Internal Medicine
DX: R00.2 Palpitations (principal)
CPT/HCPCS: 93242

== ENCOUNTER 2021-02-09 07:16 | Outpatient (REF) | payer OTHER, SELFPAY ==
[2021-02-09 08:41] LABS: Alanine Aminotransferase 36 U/L (0-31); Albumin Level 3.8 g/dL (3.5-5.0); Alkaline Phosphatase 127 U/L (39-117); Anion Gap 11 (12-20); Aspartate Amino Transferase 18 U/L (5-31); Bilirubin Total 0.6 mg/dL (0.0-1.0); Blood Urea Nitrogen 13 mg/dL (9-16); Calcium 10.5 mg/dL (8.4-10.2); Carbon Dioxide 30 mmol/L (22-29); Chloride 107 mmol/L (96-108); Estimated Glomerular Filt Rate 59; Glucose Random 107 mg/dL (60-115); Potassium 4.7 mmol/L (3.3-5.1); Sodium 143 mmol/L (135-145); Total Protein 6.6 g/dL (6.5-8.0)
[2021-02-09 10:50] LABS: Creatinine Urine 133.58 mg/dL; Microalbum/Creatinine Ratio Ur 3.7 ug/mg cr
== END 2021-02-09 07:17 | disposition home or self-care (01) ==
LOC: HO.LAB 07:16
PROVIDERS: PCP Internal Medicine; Visit Provider Nurse Practitioner Family
DX: E11.65 Type 2 diabetes mellitus with hyperglycemia (principal)
CPT/HCPCS: 36415; 80053; 82043

== ENCOUNTER → 2021-02-12 11:02 | Outpatient (BNVA) | payer OTHER, SELFPAY | PROVIDERS: PCP Internal Medicine; Referring Provider Internal Medicine; Visit Provider Surgery | DX: K82.4 Cholesterolosis of gallbladder (principal) | CPT/HCPCS: 99212 ==

== ENCOUNTER → 2021-04-09 08:43 | Outpatient (REF) | payer OTHER, SELFPAY ==
--- NOTE | 2021-04-09 08:46 | CA_ITS ---
Transthoracic Echocardiogram Patient (Last, First, Middle): Ivy Vazquez, Gender: Female Date of : 1975 Age: 46 Procedure Date: 04/09/2021 Procedure Type: Transthoracic Echocardiogram Location: OP Height: 167.64 cm Weight: 134.27 kg BSA: 2.36 m2 Heart Rate: bpm BP: 136 / 84 mmHg Director Marketing Communications: Referring MD: Chin Chavez MD Symptoms: R07.2 - Precordial pain Study Quality: Fair ECG Rhythm: Sinus Conclusions: - The left ventricular systolic function is normal. The visually estimated ejection fraction is between 55-60%. - No obvious valvular pathology seen on this study. Findings Left Ventricle Normal left ventricular cavity size. There is mildly increased left ventricular wall thickness. The left ventricular systolic function is normal. The visually estimated ejection fraction is between 55-60%. There is no evidence of regional wall motion abnormalities. Diastolic function is normal for age. Right Ventricle Normal right ventricular cavity size and systolic function. Atria Both atria are normal in size. Aortic Valve The aortic valve was not well visualized. There is no aortic valve stenosis. The mean gradient is 5 mmHg. There is no aortic valve regurgitation. Minimal speck of calcium on aortic valve. Mitral Valve The mitral valve appears normal. There is trace mitral valve regurgitation. There is no mitral valve stenosis. Pulmonic Valve The pulmonic valve was not well visualized. Tricuspid Valve There is trace tricuspid valve regurgitation. The pulmonary artery systolic pressure is normal. Great Vessels The aortic annulus, sinuses of valsalva, and asc aorta are normal in size. Venous The inferior vena cava is normal in size and collapses greater than 50% with inspiration. Pericardium/Pleural There is no evidence of pericardial effusion. Prior Study Comparison No prior study available for comparison. Recommendations, Care & Conclusions No obvious valvular pathology seen on this study. Measurements 2D Linear Measurements IVSd: 1.09 0.6-0.9/0.6-1.0 cm LVIDd: 4.45 3.9-5.3/4.2-5.9 cm LVIDd Index: 1.89 2.4-3.2/2.2-3.1 cm/m2 LVIDs: 2.95 2.0-3.6 cm LVPWd: 1.14 0.7-1.1 cm Ao Root: 2.80 2.1-3.5 cm LA Diam: 3.00 2.7-3.8/3.0-4.0 cm LAIDs Index: 1.27 1.5-2.3 cm/m2 LV Mass: 218.35 67-162/88-224 g LV Mass Index: 92.52 43-95/49-115 g/m2 LVOT Diam: 2.10 3.0+(-)1.3 cm Mitral Valve MV Pk E: 1.08 MV PK A: 0.91 MV Decel Time: 123.00 E/A: 1.20 E'Lateral: 10.00 E'Medial: 13.30 E/E' Med: 8.10 E/E' Lat: 10.80 PHT: 36.00 MVA PHT: 6.11 Decel Dallas: 8.82 Aortic Valve AoV Pk Reuben: 1.59 AoV Mn Reuben: 1.00 AoV VTI: 0.32 AoV Pk Grad: 10.00 Aov Mn Grad: 5.00 CAITLIN Cont.VTI: 2.16 LVOT LVOT Pk Reuben: 0.97 LVOT Mn Reuben: 0.72 LVOT VTI: 0.20 LVOT Pk Grad: 4.00 LVOT Mn Grad: 2.00 LVOT Diam: 2.10 LVOT Area: 3.46 Diastolic Function MV Pk E: 1.08 MV Pk A: 0.91 E/A: 1.20 E'Medial: 13.30 E/E' Med: 8.10 E' Laterial: 10.00 E/E' Lat: 10.80 Right Ventricle TAPSE (mm): 27.00 Tricuspid Valve TR Pk Reuben: 1.95 TR Pk Grad: 15.00 Great Vessels Aorta Ao Root-2D: 2.80 2.0-3.7 cm Pulmonary Valve PV Pk Reuben: 1.11 Peak PV Grad: 5.00 Updated in Other Vendor System with Status of Final Chin Chavez MD electronically signed on 04/09/2021 1:15:04 PM with status of Final
== END ==
LOC: HO.CARD 08:43
PROVIDERS: PCP Internal Medicine; Visit Provider Internal Medicine
DX: R07.2 Precordial pain (principal)
CPT/HCPCS: 93306

== ENCOUNTER → 2021-04-12 12:27 | Outpatient (BNVA) | payer OTHER, SELFPAY | PROVIDERS: PCP Internal Medicine; Referring Provider Internal Medicine; Visit Provider Internal Medicine | DX: R07.2 Precordial pain (principal); R00.2 Palpitations; I51.7 Cardiomegaly; G47.33 Obstructive sleep apnea (adult) (pediatric); E66.01 Morbid (severe) obesity due to excess calories; E11.8 Type 2 diabetes mellitus with unspecified complications; Z68.42 Body mass index [BMI] 45.0-49.9, adult | CPT/HCPCS: 99212 ==

== ENCOUNTER → 2021-05-11 10:03 | Outpatient (BNVA) | payer OTHER, SELFPAY | PROVIDERS: PCP Internal Medicine; Referring Provider Internal Medicine; Visit Provider Nurse Practitioner Family | DX: K59.00 Constipation, unspecified (principal); K21.9 Gastro-esophageal reflux disease without esophagitis; R10.10 Upper abdominal pain, unspecified | CPT/HCPCS: 99212 ==

== ENCOUNTER 2021-05-16 12:29 | Outpatient (REF) | payer OTHER, SELFPAY ==
[2021-05-16 13:00] LABS: MANUAL DIFF FLAG NO
[2021-05-16 13:15] LABS: Basophils Absolute Auto 0.1 X10*3/uL (0.0-0.2); Basophils Percent Auto 0.7 % (0-2); Eosinophils Absolute Auto 0.2 X10*3/uL (0.0-0.4); Eosinophils Percent Auto 2.3 % (0-4); Hemoglobin 14.7 g/dl (12.0-16.0); Imm Gran Abs Auto 0.05 X10*3/uL (0.00-0.03); Imm Gran Pct Auto 0.6 % (0.0-0.4); Lymphocytes Absolute Auto 1.9 X10*3/uL (1.2-4.9); Lymphocytes Percent Auto 21.4 % (20-40); Mean Corpuscular Hemoglobin 30.1 pg (27.0-33.0); Mean Corpuscular Volume 94.1 fL (80.0-98.0); Mean Platelet Volume 10.3 fL (9.4-12.3); Monocytes Absolute Auto 0.8 X10*3/uL (0.1-1.2); Monocytes Percent Auto 9.3 % (2-11); Neutrophils Absolute Auto 5.8 x10*3/uL (2.0-8.3); Neutrophils Percent Auto 65.7 % (45-73); Platelet Count 307 X10*3/uL (160-400); Red Blood Count 4.89 X10*6/uL (4.20-5.50); Red Cell Distribution Width 15.2 % (11.0-16.0); White Blood Count 8.8 X10*3/uL (4.8-10.8)
[2021-05-16 13:44] LABS: Alanine Aminotransferase 45 U/L (0-31); Albumin Level 3.7 g/dL (3.5-5.0); Alkaline Phosphatase 117 U/L (39-117); Anion Gap 10 (12-20); Aspartate Amino Transferase 20 U/L (5-31); Bilirubin Total 0.5 mg/dL (0.0-1.0); Blood Urea Nitrogen 9 mg/dL (9-16); Calcium 10.8 mg/dL (8.4-10.2); Carbon Dioxide 30 mmol/L (22-29); Chloride 106 mmol/L (96-108); Estimated Glomerular Filt Rate > 60; Glucose Random 104 mg/dL (60-115); Potassium 4.4 mmol/L (3.3-5.1); Sodium 142 mmol/L (135-145); Total Protein 6.7 g/dL (6.5-8.0)
[2021-05-16 13:48] LABS: Cholesterol 169 mg/dL; HDL Cholesterol 43 mg/dL; LDL Cholesterol Calculated 105 mg/dl; Triglycerides 106 mg/dL
[2021-05-16 14:07] LABS: Estimated Average Glucose 120 mg/dL; Hemoglobin A1c % 5.8 %
[2021-05-16 14:08] LABS: TSH reflex Free T4 2.85 uIU/mL (0.32-4.0); Vitamin D 25-OH Total 62.3 ng/mL (>30)
[2021-05-16 14:55] LABS: Appearance Urine HAZY; Color Urine YELLOW; Glucose Urine UA NEG (NEG); Leukocyte Esterase Urine NEG (NEG); Nitrite Urine NEG (NEG); Specific Gravity - Urine 1.025 (1.005-1.025); Urine Blood NEG (NEG); Urine Ketones NEG (NEG); Urine Protein NEG (NEG-TRACE)
[2021-05-16 15:28] LABS: Creatinine Urine 147.91 mg/dL
== END 2021-05-16 12:30 | disposition home or self-care (01) ==
LOC: HO.LAB 12:29
PROVIDERS: Nurse Practitioner Family; Absent Provider Internal Medicine; PCP Internal Medicine; Visit Provider Nurse Practitioner Family
DX: I10 Essential (primary) hypertension (principal); E11.9 Type 2 diabetes mellitus without complications; E78.00 Pure hypercholesterolemia, unspecified; E66.01 Morbid (severe) obesity due to excess calories; E55.9 Vitamin D deficiency, unspecified
CPT/HCPCS: 36415; 80053; 80061; 81003; 82043; 82306; 83036; 84443; 85025

== ENCOUNTER 2021-05-21 02:30 | Emergency (ER) | payer OTHER, SELFPAY ==
--- NOTE | ~2021-05-21 | CT_ITS ---
EXAMINATION: CT ABDOMEN AND PELVIS WITHOUT CONTRAST CLINICAL INFORMATION: Right lower quadrant pain COMPARISON: 08/17/2019 TECHNIQUE: Multidetector volumetric imaging was performed from the superior aspect of the liver through the pubic symphysis. Sagittal and coronal reformatted images were obtained on the technologist's workstation. This CT examination was performed using dose optimization techniques as appropriate, variously including the following: *Automated exposure control *Adjustment of mA and/or kV according to patient size (this includes techniques or standardized protocols for targeted exams where dose is matched to indication/reason for exam; i.e. extremities or head) *Use of iterative reconstruction technique DLP: 1227 mGy-cm FINDINGS: LUNG BASES: Mild bibasilar atelectasis. LIVER, GALLBLADDER, AND BILIARY TREE: There is hypoattenuation of the liver consistent with fatty infiltration. No focal hepatic lesion or biliary ductal dilatation is identified. Gallbladder is physiologically distended. There are several scattered, approximately 4 mm calcific foci along the periphery of the gallbladder, in keeping with ultrasound from 10/18/2020 which demonstrated small polyps versus gallstones. PANCREAS: Unremarkable. SPLEEN: Unremarkable. ADRENAL GLANDS: Unremarkable. KIDNEYS AND URETERS: The kidneys are normal in size, shape, and attenuation. No hydronephrosis, hydroureter, or calculi seen. BLADDER: Minimally distended and grossly unremarkable. GASTROINTESTINAL TRACT: No evidence of bowel obstruction or significant wall thickening. The appendix is unremarkable. No free fluid or free air is seen. ABDOMINAL WALL: No significant hernia is appreciated. LYMPH NODES: Normal. VASCULAR: Trace atherosclerotic calcification is noted. PELVIC VISCERA: Unremarkable. OSSEOUS STRUCTURES: Degenerative changes are noted in the spine at L4-L5 and L5-S1 with degenerative disc disease and surrounding endplate osteophyte formation. CT/CT abdomen pelvis wo con IMPRESSION: 1. Several scattered tiny calcifications along the periphery of the gallbladder, in keeping with ultrasound findings from 10/18/2020 which demonstrated small polyps versus gallstones. 2. Hepatic steatosis. 3. Normal appendix. Fleischner guidelines were followed.
[2021-05-21 03:21] VITALS: BP 149/89; PULSE 100; O2SAT 97
[2021-05-21 03:25] VITALS: BP 175/95; PULSE 96; RESP 20; TEMP 37.1; O2SAT 100; BMI 48.4
[2021-05-21 03:41] LABS: MANUAL DIFF FLAG NO
[2021-05-21 03:43] LABS: Basophils Percent Auto 0.4 % (0-2); Eosinophils Absolute Auto 0.2 X10*3/uL (0.0-0.4); Eosinophils Percent Auto 1.9 % (0-4); Hematocrit 46.4 % (37.0-47.0); Hemoglobin 14.8 g/dl (12.0-16.0); Imm Gran Abs Auto 0.04 X10*3/uL (0.00-0.03); Imm Gran Pct Auto 0.4 % (0.0-0.4); Lymphocytes Absolute Auto 1.8 X10*3/uL (1.2-4.9); Lymphocytes Percent Auto 16.1 % (20-40); Mean Corpuscular HGB Conc 31.9 g/dl (31.0-35.0); Mean Corpuscular Hemoglobin 30.5 pg (27.0-33.0); Mean Corpuscular Volume 95.7 fL (80.0-98.0); Mean Platelet Volume 10.8 fL (9.4-12.3); Monocytes Percent Auto 9.1 % (2-11); Neutrophils Percent Auto 72.1 % (45-73); Platelet Count 334 X10*3/uL (160-400); Red Blood Count 4.85 X10*6/uL (4.20-5.50); Red Cell Distribution Width 15.2 % (11.0-16.0)
[2021-05-21 03:46] LABS: Appearance Urine HAZY; Color Urine YELLOW; Glucose Urine UA NEG (NEG); Leukocyte Esterase Urine NEG (NEG); Nitrite Urine NEG (NEG); Specific Gravity - Urine 1.025 (1.005-1.025); UPreg QC Valid YES; Urine Blood NEG (NEG); Urine Ketones NEG (NEG); Urine Pregnancy NEGATIVE (NEGATIVE); Urine Protein NEG (NEG-TRACE)
[2021-05-21 04:08] LABS: Alanine Aminotransferase 52 U/L (0-31); Alkaline Phosphatase 121 U/L (39-117); Anion Gap 12 (12-20); Aspartate Amino Transferase 25 U/L (5-31); Bilirubin Direct 0.2 mg/dL (0.0-0.5); Bilirubin Total 0.4 mg/dL (0.0-1.0); Blood Urea Nitrogen 9 mg/dL (9-16); Calcium 11.1 mg/dL (8.4-10.2); Carbon Dioxide 30 mmol/L (22-29); Chloride 103 mmol/L (96-108); Creatinine Clr Calc Pharmacy 88.8; Estimated Glomerular Filt Rate 53; Glucose Random 96 mg/dL (60-115); Lipase 35 U/L (8-78); Potassium 4.7 mmol/L (3.3-5.1); Sodium 140 mmol/L (135-145); Total Protein 7.1 g/dL (6.5-8.0)
--- NOTE | 2021-05-21 05:29 | ED_ITS ---
HPI - Abdominal Pain General Chief Complaint: Abdominal Pain Stated Complaint: ABD Pain Time Seen by Provider: 05/21/21 05:18 Source: patient Mode of arrival: ambulatory Limitations: no limitations History of Present Illness HPI narrative: Patient comes to emergency room complaining of nausea, vomiting, diarrhea, right lower quadrant pain. Patient's symptoms started 2-3 days ago. Patient also complaining of rectal bleeding. However, patient is known to have internal hemorrhoids. Patient also complaining of dysuria. Related Data Home Medications Medication Instructions Recorded Confirmed sumatriptan succinate 100 mg tablet 100 mg PO DAILY PRN 05/12/20 04/12/21 syringe with needle 3 mL 23 x 1 #1 ea 05/12/20 04/12/21 Previous Rx's Medication Instructions Recorded nystatin 100,000 unit/gram topical 1 appl TOPICAL TID 10 Days #60 g 05/12/20 powder epinephrine 0.3 mg/0.3 mL 0.3 mg (0.3 mL) IM ONCE PRN 360 06/13/20 injection, auto-injector (EpiPen Days #2 ea 2-Fili) fluocinolone 0.025 % topical cream 1 appl TOPICAL BID #60 g 08/02/20 naproxen 500 mg tablet (Naprosyn) 500 mg PO BID #20 tab 08/02/20 gabapentin 100 mg capsule 100 mg PO TID 30 Days #90 cap 09/08/20 lancets 28 gauge (FreeStyle #100 ea 09/08/20 Lancets) simvastatin 20 mg tablet 20 mg PO BEDTIME 90 Days #90 tab 09/08/20 cholecalciferol (vitamin D3) 125 125 mcg PO DAILY #30 cap 11/27/20 mcg (5,000 unit) capsule docusate sodium 100 mg capsule 100 mg PO BEDTIME #30 cap 12/26/20 topiramate 25 mg tablet 25 mg PO BEDTIME #90 tab 12/27/20 blood-glucose meter (FreeStyle #1 ea 01/05/21 Lite Meter) albuterol sulfate 2.5 mg (3 mL) INHALATION Q4-6H PRN 01/17/21 #180 ml albuterol sulfate 90 mcg/actuation 2 puff PO Q6H PRN #8.5 ea 01/17/21 aerosol inhaler fluticasone propionate 50 2 spray INTRANASAL DAILY 14 Days g 11/12/21 mcg/actuation nasal spray,suspension (Flonase Allergy Relief) cyanocobalamin (vitamin B-12) 1,000 mcg IM Q4W 90 Days #4 ml 02/05/21 1,000 mcg/mL injection solution benzonatate 200 mg capsule 200 mg PO TID PRN #30 cap 02/12/21 fluticasone 250 mcg-salmeterol 50 1 inh INHALATION BID 30 Days #60 ea 02/12/21 mcg/dose blistr powdr for inhalation (Wixela Inhub) metformin 500 mg tablet,extended 500 mg PO DAILY #90 tab 02/12/21 release 24 hr cetirizine 10 mg tablet 10 mg PO DAILY PRN #90 tab 02/20/21 famotidine 40 mg tablet 40 mg PO BEDTIME #30 tab 05/11/21 sennosides 8.6 mg tablet (Natural 17.2 mg PO BEDTIME #60 tab 05/11/21 Senna Laxative) blood sugar diagnostic (FreeStyle #50 ea 05/14/21 Lite Strips) loratadine 10 mg tablet 10 mg PO DAILY PRN 90 Days #90 tab 05/15/21 hydrochlorothiazide 25 mg tablet 25 mg PO DAILY #30 tab 05/21/21 hyoscyamine sulfate 0.125 mg tablet 0.125 mg PO QID PRN #7 tab 05/21/21 loperamide 2 mg capsule 2 mg PO Q6H PRN #10 cap 05/21/21 ondansetron HCl 4 mg tablet 4 mg PO Q6H PRN #10 tab 05/21/21 Allergies Allergy/AdvReac Type Severity Reaction Status Date / Time Gadolinium-Containing Allergy Severe ANAPHYLAXIS Verified 05/11/21 10:13 Contrast Medi [GADOLINIUM-CONTAINING CONTRAST] Iodinated Contrast Media Allergy Severe ANAPHYLAXIS Verified 05/11/21 10:13 [IV Dye, Iodine Containing] aspirin [Aspirin] Allergy Mild ITCH Verified 05/11/21 10:13 ibuprofen [Ibuprofen] Allergy Mild NAUSEA Verified 05/11/21 10:13 oxycodone [From Percocet] Allergy Mild RASH Verified 05/11/21 10:13 Penicillins Allergy Mild ITCH Verified 05/11/21 10:13 Sulfa (Sulfonamide Allergy Mild ITCH Verified 05/11/21 10:13 Antibiotics) morphine [MORPHINE] Allergy Unknown NAUSEA Verified 05/11/21 10:13 penicillin V Allergy Unknown Itch Verified 05/11/21 10:13 seafoods Allergy Unknown Unknown Verified 05/11/21 10:13 LIQUID SOAPS Allergy Intermediate ITCHING Uncoded 05/11/21 10:13 AND REDNESS CHIHUAHUA Allergy Mild RASH Uncoded 05/11/21 10:13 ITCHING Review of Systems Review of Systems Constitutional : No Weight loss, No Fever, No Chills, No Night Sweats, No Fatigue, No Malaise ENT/Mouth : No Hearing loss, No Ear Pain, No Nasal Congestion, No Sinus Pain, No Hoarseness, No sore throat, No Rhinorrhea, No Swallowing Difficulty Eyes: No Eye Pain, No Swelling, No Redness, No Foreign Body, No Discharge, No Vision Changes Cardiovascular : No Chest Pain, No SOB, No Dyspnea on Exertion, No Orthopnea, No Edema, No Palpitations Respiratory : No Cough, No Sputum, No Wheezing, No Smoke Exposure, No Dyspnea Gastrointestinal : Complaining of nausea vomiting and diarrhea No Constipation, complaining of right lower quadrant pain No Hematochezia, No Melena. Complaining of rectal bleeding intermittently with bowel movements Genitourinary : no irregular bleeding, complaining of Dysuria, No Urinary Frequency, No Hematuria, No Urinary Incontinence, No Urgency, No Flank Pain, No Urinary Flow Changes, No Hesitancy Musculoskeletal : No joint pain, No Myalgias, No Joint Swelling Skin : No Skin Lesions, No rash Neuro : No Weakness, No Numbness, No Paresthesias, No Loss of Consciousness, No Dizziness, No Headache Psych : No Anxiety/Panic, No Depression, No SI/HI/AH/VH, No Social Issues, Heme/Lymph: No Bruising, No Bleeding,No Lymphadenopathy Endocrine : No Polyuria, No Polydipsia, No Temperature Intolerance FOR[facility]LY [facility] Past Medical History Medical History Asthma Calculus of kidney Constipation Costochondritis Diabetes mellitus Fibromyalgia Gallbladder polyp GERD without esophagitis Hand pain, right Intertrigo Migraine headache with aura Mixed stress and urge urinary incontinence Morbid obesity Morbid obesity with BMI of 50.0-59.9, adult Obstructive sleep apnea Palpitations Primary osteoarthritis of both knees Pure hypercholesterolemia Rectal bleeding Tremor of both hands Vitamin B12 deficiency Vitamin D deficiency Surgical History No pertinent past surgical history Family History Family History Father Medical history unknown Mother Hypertension Kidney stones Maternal Grandmother Colon cancer Maternal Aunt Breast cancer Sister No problems noted. Sister No problems noted. Social History Social History Housing: Apartment Alcohol intake: never Patient Tobacco Use Status: Never used Tobacco e-Cigarette/Vaping Use: Never Used Second Hand Smoke Exposure: No Advance Directives: Yes Advance Directives on File: Yes Advance Directives Date on File: 01/03/21 Patient : No service: No Current occupational status: disabled Physical Exam ED Vital Signs: Vital Signs - 24 hr 05/21/21 03:25 Temperature 98.8 F Pulse Rate 96 Respiratory Rate 20 Blood Pressure 175/95 H Pulse Oximetry 100 BMI result Body Mass Index 48.4 Const Other: Appearance: Alert. Oriented X3. No acute distress. Eyes: Pupils equal, round and reactive to light. ENT: Pharynx normal. Neck: Normal inspection. Neck supple. No lymph nodes noted. No crepitus CVS: Normal heart rate and rhythm. Pulses normal. Normal S1 and S2 Respiratory: No respiratory distress. Breath sounds normal. No Wheezing. No rales Abdomen: Soft, distended, tenderness to palpation in the right inguinal canal, not so much on the right lower quadrant. Digital rectal exam shows brown stool Skin: Skin warm and dry. Normal skin color. Normal skin turgor. Extremities: No lower extremity edema. No Lacerations. No Rash Neuro: Oriented X 3. No motor deficit. No sensory deficit. Moving all extremit ies. No slurred speech. CN 2 through 12 grossly intact Psych: calm, cooperative, normal affect Course Course Course Narrative: I discussed the labs and CT scan with the patient, no acute findings. Patient likely having a viral syndrome. Patient states that her blood pressure has been elevated between 160 and 170 for almost year and half. Patient states that every time she goes to a different appointment with either Gastroenterology, pulmonology, to the emergency room or even a when she checks it in pharmacy, her blood pressure is always elevated. And states that she has never been started on treatment. Since patient has had multiple reads of high blood pressure and it has been going on for several years, we will go ahead and start treatment patient states that she will follow- up with the primary care physician. MDM - Abdominal Pain Lab Data Result diagrams: 05/21/21 03:33 05/21/21 03:33 Labs: Lab Results 05/21/21 05/21/21 05/21/21 Range/Units 03:33 03:33 03:33 WBC 11.0 H (4.8-10.8) X10*3/uL RBC 4.85 (4.20-5.50) X10*6/uL Hgb 14.8 (12.0-16.0) g/dl Hct 46.4 (37.0-47.0) % MCV 95.7 (80.0-98.0) fL MCH 30.5 (27.0-33.0) pg MCHC 31.9 (31.0-35.0) g/dl RDW 15.2 (11.0-16.0) % Plt Count 334 (160-400) X10*3/uL MPV 10.8 (9.4-12.3) fL Immature Gran % (Auto) 0.4 (0.0-0.4) % Neut % (Auto) 72.1 (45-73) % Lymph % (Auto) 16.1 L (20-40) % [place] % (Auto) 9.1 (2-11) % Eos % (Auto) 1.9 (0-4) % Baso % (Auto) 0.4 (0-2) % Lymph # (Auto) 1.8 (1.2-4.9) X10*3/uL [place] # (Auto) 1.0 (0.1-1.2) X10*3/uL Eos # (Auto) 0.2 (0.0-0.4) X10*3/uL Baso # (Auto) 0.0 (0.0-0.2) X10*3/uL Abs Immat Gran (auto) 0.04 H (0.00-0.03) X10*3/uL Absolute Neuts (auto) 8.0 (2.0-8.3) x10*3/uL Absolute Nucleated RBC 0.000 (0.0-0.012) X10*3/uL Nucleated RBC % (auto) 0.0 (0.0-0.2) /100WBC Sodium 140 (135-145) mmol/L Potassium 4.7 (3.3-5.1) mmol/L Chloride 103 (96-108) mmol/L Carbon Dioxide 30 H (22-29) mmol/L Anion Gap 12 (12-20) BUN 9 (9-16) mg/dL Creatinine 1.10 (0.5-1.4) mg/dL Estim Creat Clear Calc 88.8 Estimated GFR 53 Random Glucose 96 (60-115) mg/dL Calcium 11.1 H (8.4-10.2) mg/dL Total Bilirubin 0.4 (0.0-1.0) mg/dL Direct Bilirubin 0.2 (0.0-0.5) mg/dL AST 25 (5-31) U/L ALT 52 H (0-31) U/L Alkaline Phosphatase 121 H (39-117) U/L Total Protein 7.1 (6.5-8.0) g/dL Albumin 4.0 (3.5-5.0) g/dL Lipase 35 (8-78) U/L Urine Color YELLOW Urine Appearance HAZY Urine pH 7.0 (5.0-8.0) Ur Specific [place] 1.025 (1.005-1.025) Urine Protein NEG (NEG-TRACE) MG/DL Urine Glucose (UA) NEG (NEG) MG/DL Urine Ketones NEG (NEG) MG/DL Urine Blood NEG (NEG) Urine Nitrite NEG (NEG) Ur Leukocyte Esterase NEG (NEG) Urine Test (NEGATIVE) Stool Occult Blood (NEGATIVE) 05/21/21 05/21/21 Range/Units 03:33 05:31 WBC (4.8-10.8) X10*3/uL RBC (4.20-5.50) X10*6/uL Hgb (12.0-16.0) g/dl Hct (37.0-47.0) % MCV (80.0-98.0) fL MCH (27.0-33.0) pg MCHC (31.0-35.0) g/dl RDW (11.0-16.0) % Plt Count (160-400) X10*3/uL MPV (9.4-12.3) fL Immature Gran % (Auto) (0.0-0.4) % Neut % (Auto) (45-73) % Lymph % (Auto) (20-40) % [place] % (Auto) (2-11) % Eos % (Auto) (0-4) % Baso % (Auto) (0-2) % Lymph # (Auto) (1.2-4.9) X10*3/uL [place] # (Auto) (0.1-1.2) X10*3/uL Eos # (Auto) (0.0-0.4) X10*3/uL Baso # (Auto) (0.0-0.2) X10*3/uL Abs Immat Gran (auto) (0.00-0.03) X10*3/uL Absolute Neuts (auto) (2.0-8.3) x10*3/uL Absolute Nucleated RBC (0.0-0.012) X10*3/uL Nucleated RBC % (auto) (0.0-0.2) /100WBC Sodium (135-145) mmol/L Potassium (3.3-5.1) mmol/L Chloride (96-108) mmol/L Carbon Dioxide (22-29) mmol/L Anion Gap (12-20) BUN (9-16) mg/dL Creatinine (0.5-1.4) mg/dL Estim Creat Clear Calc Estimated GFR Random Glucose (60-115) mg/dL Calcium (8.4-10.2) mg/dL Total Bilirubin (0.0-1.0) mg/dL Direct Bilirubin (0.0-0.5) mg/dL AST (5-31) U/L ALT (0-31) U/L Alkaline Phosphatase (39-117) U/L Total Protein (6.5-8.0) g/dL Albumin (3.5-5.0) g/dL Lipase (8-78) U/L Urine Color Urine Appearance Urine pH (5.0-8.0) Ur Specific [place] (1.005-1.025) Urine Protein (NEG-TRACE) MG/DL Urine Glucose (UA) (NEG) MG/DL Urine Ketones (NEG) MG/DL Urine Blood (NEG) Urine Nitrite (NEG) Ur Leukocyte Esterase (NEG) Urine Test NEGATIVE (NEGATIVE) Stool Occult Blood NEGATIVE (NEGATIVE) Imaging Data CT scan - abdomen: Radiologist's impression: FINDINGS: LUNG BASES: Mild bibasilar atelectasis.? LIVER, GALLBLADDER, AND BILIARY TREE: There is hypoattenuation of the liver consistent with fatty infiltration. No focal hepatic lesion or biliary ductal dilatation is identified. Gallbladder is physiologically distended. There are several scattered, approximately 4 mm calcific foci along the periphery of the gallbladder, in keeping with ultrasound from 10/18/2020 which demonstrated small polyps versus gallstones. PANCREAS: Unremarkable.? SPLEEN: Unremarkable.? ADRENAL GLANDS: Unremarkable.? KIDNEYS AND URETERS: The kidneys are normal in size, shape, and attenuation. No hydronephrosis, hydroureter, or calculi seen. BLADDER: Minimally distended and grossly unremarkable. GASTROINTESTINAL TRACT: No evidence of bowel obstruction or significant wall thickening. The appendix is unremarkable. No free fluid or free air is seen. ABDOMINAL WALL: No significant hernia is appreciated.? LYMPH NODES: Normal. VASCULAR: Trace atherosclerotic calcification is noted. PELVIC VISCERA: Unremarkable.? OSSEOUS STRUCTURES: Degenerative changes are noted in the spine at L4-L5 and L5-S1 with degenerative disc disease and surrounding endplate osteophyte formation. CT/CT abdomen pelvis wo con IMPRESSION: 1.? Several scattered tiny calcifications along the periphery of the gallbladder, in keeping with ultrasound findings from 10/18/2020 which demonstrated small polyps versus gallstones. 2.? Hepatic steatosis. 3.? Normal appendix. ? Fleischner guidelines were followed. Discharge Plan Discharge Clinical Impression: Abdominal pain, Hypertension, Nausea vomiting and diarrhea Patient Disposition: Home, Self-Care Instructions: Acute Nausea and Vomiting (ED), Abdominal Pain (ED), Hypertension (ED) Additional Instructions: Please follow-up with your primary care physician tomorrow. If you have any worsening or new symptoms, please return to the emergency room or call 911 Prescriptions: New ondansetron HCl 4 mg tablet 4 mg PO Q6H PRN (Reason: nausea and vomiting) Qty: 10 0RF loperamide 2 mg capsule 2 mg PO Q6H PRN (Reason: loose stool) Qty: 10 0RF hyoscyamine sulfate 0.125 mg tablet 0.125 mg PO QID PRN (Reason: dyspepsia) Qty: 7 0RF hydrochlorothiazide 25 mg tablet 25 mg PO DAILY Qty: 30 1RF No Action epinephrine [EpiPen 2-Fili] 0.3 mg/0.3 mL auto-injector 0.3 mg IM ONCE PRN (Reason: anaphylaxis) 360 Days Qty: 2 0RF Rx Instructions: for 2 doses cholecalciferol (vitamin D3) 125 mcg (5,000 unit) capsule 125 mcg PO DAILY Qty: 30 6RF topiramate 25 mg tablet 25 mg PO BEDTIME Qty: 90 1RF albuterol sulfate 90 mcg/actuation HFA aerosol inhaler 2 puff PO Q6H PRN (Reason: bronchospasm) Qty: 8.5 5RF albuterol sulfate 2.5 mg /3 mL (0.083 %) solution for nebulization 2.5 mg inhalation Q4-6H PRN (Reason: shortness of breath or wheezing) Qty: 180 0RF cetirizine 10 mg tablet 10 mg PO DAILY PRN (Reason: for allergies) Qty: 90 1RF (DME) FreeStyle Lite Strips Strip See Rx Instructions .Route Qty: 50 1RF Rx Instructions: As directed- to test blood sugar once a day loratadine 10 mg tablet 10 mg PO DAILY PRN (Reason: allergy symptoms) 90 Days Qty: 90 3RF naproxen [Naprosyn] 500 mg tablet 500 mg PO BID Qty: 20 0RF fluocinolone 0.025 % cream 1 appl topical BID Qty: 60 0RF fluticasone propionate [Flonase Allergy Relief] 50 mcg/actuation spray,suspension 2 spray intranasal DAILY 14 Days 0RF Rx Instructions: administer into each nostril benzonatate 200 mg capsule 200 mg PO TID PRN (Reason: cough) Qty: 30 0RF fluticasone propion-salmeterol [Wixela Inhub] 250-50 mcg/dose blister with device 1 inh inhalation BID 30 Days Qty: 60 3RF metformin 500 mg tablet extended release 24 hr 500 mg PO DAILY Qty: 90 1RF (DME) BD Luer-Delia Syringe 3 mL 23 x 1 syringe See Rx Instructions syringe IM Q2W Qty: 1 0RF Rx Instructions: As directed sumatriptan succinate 100 mg tablet 100 mg PO DAILY PRN0RF nystatin 100,000 unit/gram powder 1 appl topical TID 10 Days Qty: 60 3RF gabapentin 100 mg capsule 100 mg PO TID 30 Days Qty: 90 3RF simvastatin 20 mg tablet 20 mg PO BEDTIME 90 Days Qty: 90 3RF (DME) lancets [FreeStyle Lancets] 28 gauge misc See Rx Instructions .ROUTE .MEDSUPPLY Qty: 100 12RF Rx Instructions: As directed - E11.9 -- Diabetes (DME) blood-glucose meter [FreeStyle Lite Meter] Kit See Rx Instructions .Route Qty: 1 0RF Rx Instructions: Test Once Daily cyanocobalamin (vitamin B-12) 1,000 mcg/mL solution 1,000 mcg IM Q4W 90 Days Qty: 4 3RF docusate sodium 100 mg capsule 100 mg PO BEDTIME Qty: 30 3RF famotidine 40 mg tablet 40 mg PO BEDTIME Qty: 30 3RF sennosides [Natural Senna Laxative] 8.6 mg tablet 17.2 mg PO BEDTIME Qty: 60 1RF
[2021-05-21 05:34] LABS: OBS Int Ctl Valid YES; OBS1 NEGATIVE (NEGATIVE)
--- NOTE | 2021-05-21 05:48 | PC.NURSE ---
provider into assess pt. Rectal examination with Rn at the bedside. pt awaiting to be scanned .
[2021-05-21 06:26] VITALS: BP 166/103; PULSE 81; RESP 14; O2SAT 97
[2021-05-21] MEDS: Ondansetron ODT 4 MG TAB.RAPDIS TRANSLINGU (06:33)
[2021-05-21] MEDS: Loperamide HCl 2 MG CAPSULE 4 MG PO (06:33)
[2021-05-21] MEDS: hydroCHLOROthiazide 25 MG TABLET PO (06:33)
--- NOTE | 2021-05-21 06:35 | PC.NURSE ---
pt medicated per May. Reviewed with discharge instructions .
== END 2021-05-21 06:42 | disposition home or self-care (01) ==
PROVIDERS: Emergency Provider Emergency Medicine; PCP Internal Medicine
DX: R10.9 Unspecified abdominal pain (principal); I10 Essential (primary) hypertension; R11.2 Nausea with vomiting, unspecified; R19.7 Diarrhea, unspecified; E11.9 Type 2 diabetes mellitus without complications; E66.01 Morbid (severe) obesity due to excess calories; E78.00 Pure hypercholesterolemia, unspecified; Z79.02 Long term (current) use of antithrombotics/antiplatelets
CPT/HCPCS: 36415; 74176; 80048; 80076; 81003; 81025; 82272; 83690; 85025; 99283; 99284

== ENCOUNTER 2021-06-19 02:43 | Emergency (ER) | payer OTHER, SELFPAY ==
--- NOTE | 2021-06-19 | ECG_ITS ---
Test Reason : CHEST PAIN Blood Pressure : / mmHG Vent. Rate : 093 BPM Atrial Rate : 093 BPM P-R Int : 168 ms QRS Dur : 084 ms QT Int : 334 ms P-R-T Axes : 049 033 019 degrees QTc Int : 415 ms Normal sinus rhythm Normal ECG When compared with ECG of 23-NOV-2020 01:44, No significant change was found Referred By: Generic ED Physician Electronically Signed By:Cliff Cartagena
--- NOTE | ~2021-06-19 | XR_ITS ---
EXAMINATION: XR CHEST CLINICAL INFORMATION: Chest pain COMPARISON: 01/19/2021 TECHNIQUE: 2 views of the chest were obtained. FINDINGS: Normal symmetric lung volumes. No parenchymal consolidation. No pleural effusion. No pneumothorax. Cardiomediastinal silhouette and pulmonary vascularity are within normal limits. Aorta is atherosclerotic. No acute osseous abnormalities. XR/XR chest 2V IMPRESSION: Unremarkable examination.
[2021-06-19 02:49] VITALS: BP 128/79; PULSE 100; O2SAT 100; BMI 46.1
[2021-06-19 03:12] LABS: MANUAL DIFF FLAG NO
[2021-06-19 03:13] LABS: Basophils Percent Auto 0.4 % (0-2); Eosinophils Absolute Auto 0.2 X10*3/uL (0.0-0.4); Eosinophils Percent Auto 2.1 % (0-4); Hematocrit 44.8 % (37.0-47.0); Hemoglobin 14.7 g/dl (12.0-16.0); Imm Gran Abs Auto 0.02 X10*3/uL (0.00-0.03); Imm Gran Pct Auto 0.2 % (0.0-0.4); Lymphocytes Absolute Auto 1.7 X10*3/uL (1.2-4.9); Lymphocytes Percent Auto 16.3 % (20-40); Mean Corpuscular HGB Conc 32.8 g/dl (31.0-35.0); Mean Corpuscular Hemoglobin 30.7 pg (27.0-33.0); Mean Corpuscular Volume 93.5 fL (80.0-98.0); Mean Platelet Volume 10.9 fL (9.4-12.3); Monocytes Absolute Auto 0.7 X10*3/uL (0.1-1.2); Monocytes Percent Auto 6.8 % (2-11); Neutrophils Absolute Auto 7.7 x10*3/uL (2.0-8.3); Neutrophils Percent Auto 74.2 % (45-73); Platelet Count 304 X10*3/uL (160-400); Red Blood Count 4.79 X10*6/uL (4.20-5.50); Red Cell Distribution Width 15.3 % (11.0-16.0); White Blood Count 10.4 X10*3/uL (4.8-10.8)
[2021-06-19 03:31] LABS: Troponin-I High Sensitivity < 3.5 ng/L (<3.5-17.0)
[2021-06-19 03:36] LABS: Alanine Aminotransferase 56 U/L (0-31); Albumin Level 3.8 g/dL (3.5-5.0); Alkaline Phosphatase 105 U/L (39-117); Anion Gap 18 (12-20); Aspartate Amino Transferase 32 U/L (5-31); Bilirubin Total 0.4 mg/dL (0.0-1.0); Blood Urea Nitrogen 11 mg/dL (9-16); Calcium 10.8 mg/dL (8.4-10.2); Carbon Dioxide 22 mmol/L (22-29); Chloride 105 mmol/L (96-108); Creatinine Clr Calc Pharmacy 104.4; Estimated Glomerular Filt Rate > 60; Glucose Random 141 mg/dL (60-115); Potassium 4.1 mmol/L (3.3-5.1); Sodium 141 mmol/L (135-145); Total Protein 6.9 g/dL (6.5-8.0)
--- NOTE | 2021-06-19 03:50 | ED.CHESTPAIN ---
HPI - Chest Pain General Chief Complaint: Chest Pain Stated Complaint: high bp/cp Time Seen by Provider: 06/19/21 03:50 Source: patient Mode of arrival: EMS Limitations: no limitations History of Present Illness HPI narrative: epigastric and chest pain that happened 7 times. The pain radiated to the left arm. She also feels that she is having reflux. Yesterday her blood pressure was high. She was feeling headache and nausea yesterday so she has been rechecking her blood pressure. The pain lasted a few seconds and it comes and goes. Patient was admitted for chest pain and her work up was negative. MD complaint: chest discomfort Onset (ago): minute(s) Timing of current episode: episodic Onset: during rest Pain location: epigastric Pain radiation: left arm Quality: aching Related Data Home Medications Medication Instructions Recorded Confirmed syringe with needle 3 mL 23 x 1 #1 ea 05/12/20 05/28/21 Previous Rx's Medication Instructions Recorded nystatin 100,000 unit/gram topical 1 appl TOPICAL TID 10 Days #60 g 05/12/20 powder epinephrine 0.3 mg/0.3 mL 0.3 mg (0.3 mL) IM ONCE PRN 360 06/13/20 injection, auto-injector (EpiPen Days #2 ea 2-Fili) fluocinolone 0.025 % topical cream 1 appl TOPICAL BID #60 g 08/02/20 naproxen 500 mg tablet (Naprosyn) 500 mg PO BID #20 tab 08/02/20 gabapentin 100 mg capsule 100 mg PO TID 30 Days #90 cap 09/08/20 lancets 28 gauge (FreeStyle #100 ea 09/08/20 Lancets) simvastatin 20 mg tablet 20 mg PO BEDTIME 90 Days #90 tab 09/08/20 cholecalciferol (vitamin D3) 125 125 mcg PO DAILY #30 cap 11/27/20 mcg (5,000 unit) capsule docusate sodium 100 mg capsule 100 mg PO BEDTIME #30 cap 12/26/20 topiramate 25 mg tablet 25 mg PO BEDTIME #90 tab 12/27/20 blood-glucose meter (FreeStyle #1 ea 01/05/21 Lite Meter) albuterol sulfate 2.5 mg (3 mL) INHALATION Q4-6H PRN 01/17/21 #180 ml fluticasone propionate 50 2 spray INTRANASAL DAILY 14 Days g 01/19/21 mcg/actuation nasal spray,suspension (Flonase Allergy Relief) cyanocobalamin (vitamin B-12) 1,000 mcg IM Q4W 90 Days #4 ml 02/05/21 1,000 mcg/mL injection solution fluticasone 250 mcg-salmeterol 50 1 inh INHALATION BID 30 Days #60 ea 02/12/21 mcg/dose blistr powdr for inhalation (Wixela Inhub) cetirizine 10 mg tablet 10 mg PO DAILY PRN #90 tab 02/20/21 famotidine 40 mg tablet 40 mg PO BEDTIME #30 tab 05/11/21 sennosides 8.6 mg tablet (Natural 17.2 mg PO BEDTIME #60 tab 05/11/21 Senna Laxative) blood sugar diagnostic (FreeStyle #50 ea 05/14/21 Lite Strips) loratadine 10 mg tablet 10 mg PO DAILY PRN 90 Days #90 tab 05/15/21 hyoscyamine sulfate 0.125 mg tablet 0.125 mg PO QID PRN #7 tab 05/21/21 loperamide 2 mg capsule 2 mg PO Q6H PRN #10 cap 05/21/21 albuterol sulfate 90 mcg/actuation 2 puff PO Q6H PRN #8.5 ea 05/28/21 aerosol inhaler blood pressure monitor #1 ea 05/28/21 citalopram 10 mg tablet 10 mg PO DAILY 30 Days #30 tab 05/28/21 hydrochlorothiazide 25 mg tablet 25 mg PO QAM 30 Days #30 tab 05/28/21 metformin 500 mg tablet,extended 500 mg PO DAILY #90 tab 05/28/21 release 24 hr ondansetron HCl 4 mg tablet 4 mg PO Q6H PRN 10 Days #40 tab 05/28/21 quetiapine 100 mg tablet 100 mg PO BEDTIME 30 Days #30 tab 05/28/21 sumatriptan succinate 100 mg tablet 100 mg PO DAILY PRN #9 tab 06/06/21 Allergies Allergy/AdvReac Type Severity Reaction Status Date / Time Gadolinium-Containing Allergy Severe ANAPHYLAXIS Verified 05/28/21 12:31 Contrast Medi [GADOLINIUM-CONTAINING CONTRAST] Iodinated Contrast Media Allergy Severe ANAPHYLAXIS Verified 05/28/21 12:31 [IV Dye, Iodine Containing] aspirin [Aspirin] Allergy Mild ITCH Verified 05/28/21 12:31 ibuprofen [Ibuprofen] Allergy Mild NAUSEA Verified 05/28/21 12:31 oxycodone [From Percocet] Allergy Mild RASH Verified 05/28/21 12:31 Penicillins Allergy Mild ITCH Verified 05/28/21 12:31 Sulfa (Sulfonamide Allergy Mild ITCH Verified 05/28/21 12:31 Antibiotics) morphine [MORPHINE] Allergy Unknown NAUSEA Verified 05/28/21 12:31 penicillin V Allergy Unknown Itch Verified 05/28/21 12:31 seafoods Allergy Unknown Unknown Verified 05/28/21 12:31 LIQUID SOAPS Allergy Intermediate ITCHING Uncoded 05/28/21 12:31 AND REDNESS CHIHUAHUA Allergy Mild RASH Uncoded 05/28/21 12:31 ITCHING Review of Systems Constitutional: Constitutional: Reports no additional constitutional complaints Eyes: Eyes: Reports no additional eye complaints ENT: Denies dizziness Cardiovascular: Cardiovascular: Reports no additional cardiovascular complaints Respiratory: Respiratory: Reports as per HPI Gastrointestinal: Gastrointestinal: Reports no additional gastrointestinal complaints Genitourinary: Genitourinary: Reports no additional female genitourinary complaints Musculoskeletal: Musculoskeletal: Reports no additional musculoskeletal complaints Integumentary/Breasts: Skin/Breast: Denies rash Neurologic: Reports system reviewed and no additional complaints, except as documented, Denies dizziness and Denies Sensory deficit (Neuro) Psychiatric: Psychiatric: Denies anxiety PMFSH Past Medical History Medical History Asthma Benign essential hypertension Calculus of kidney Constipation Costochondritis Diabetes mellitus Fibromyalgia Gallbladder polyp GERD without esophagitis Hand pain, right Intertrigo Migraine headache with aura Mixed stress and urge urinary incontinence Morbid obesity Morbid obesity with BMI of 50.0-59.9, adult Obstructive sleep apnea Palpitations Primary osteoarthritis of both knees Pure hypercholesterolemia Rectal bleeding Tremor of both hands Vitamin B12 deficiency Vitamin D deficiency Surgical History No pertinent past surgical history Family History Family History Father Medical history unknown Mother Hypertension Kidney stones Maternal Grandmother Colon cancer Maternal Aunt Breast cancer Sister No problems noted. Sister No problems noted. Social History Social History Housing: Apartment Alcohol intake: never Patient Tobacco Use Status: Never used Tobacco e-Cigarette/Vaping Use: Never Used Second Hand Smoke Exposure: No Use of substances other than those prescribed or required for medical reasons: No Advance Directives: Yes Advance Directives on File: Yes Advance Directives Date on File: 01/03/21 service: No Current occupational status: disabled Physical Exam Vital Signs: Vital Signs: BMI result Body Mass Index 46.1 Const: General: healthy appearing Nutritional Appearance: obese Orientation/consciousness: oriented to person and patient oriented x3 Limitations: no limitations HEENT: Head: Yes normal to inspection Ears: external ears normal General nose exam: Normal external nose present Mouth: Normal oral and palatal mucosa present and oropharynx normal Throat: Yes posterior oropharynx normal Eyes: General: appearance normal, both eyes and all related structures Neck: Other: supple Neck: Yes normal visual inspection Chest: Chest palpation & inspection: normal inspection of the chest Resp: Auscultation: clear to auscultation bilaterally Cardio: Jugular venous distension: no JVD Rate: regular rate Rhythm: regular rhythm Heart sounds: S1 normal heart sound present and S2 normal heart sound present GI: Inspection: Yes normal to inspection Palpation (GI): Soft to palpation, nontender and No hepatosplenomegaly present Auscultation: normal bowel sounds : General: Yes no CVA tenderness Back/Spine/Pelvis: Back: no CVA tenderness Skin: General skin exam: no rashes or lesions noted Neuro: General: oriented to person and patient oriented x3 Cranial nerves: Yes CN's II-XII intact bilaterally Motor exam (neuro): 5/5 motor strength present throughout Sensory Exam: No Sensory deficit (Neuro) Extrem: General: Yes normal to inspection Psych: Appearance: grossly normal Course Reevaluation(s) Reevaluation #1: patient remains pain free, EKG and troponins are normal will dc home Time: 06:11 MDM - Chest Pain Lab Data Result diagrams: 06/19/21 03:06 06/19/21 03:06 Labs: Lab Results 06/19/21 06/19/21 06/19/21 Range/Units 03:06 03:06 03:06 WBC 10.4 (4.8-10.8) X10*3/uL RBC 4.79 (4.20-5.50) X10*6/uL Hgb 14.7 (12.0-16.0) g/dl Hct 44.8 (37.0-47.0) % MCV 93.5 (80.0-98.0) fL MCH 30.7 (27.0-33.0) pg MCHC 32.8 (31.0-35.0) g/dl RDW 15.3 (11.0-16.0) % Plt Count 304 (160-400) X10*3/uL MPV 10.9 (9.4-12.3) fL Immature Gran % (Auto) 0.2 (0.0-0.4) % Neut % (Auto) 74.2 H (45-73) % Lymph % (Auto) 16.3 L (20-40) % [place] % (Auto) 6.8 (2-11) % Eos % (Auto) 2.1 (0-4) % Baso % (Auto) 0.4 (0-2) % Lymph # (Auto) 1.7 (1.2-4.9) X10*3/uL [place] # (Auto) 0.7 (0.1-1.2) X10*3/uL Eos # (Auto) 0.2 (0.0-0.4) X10*3/uL Baso # (Auto) 0.0 (0.0-0.2) X10*3/uL Abs Immat Gran (auto) 0.02 (0.00-0.03) X10*3/uL Absolute Neuts (auto) 7.7 (2.0-8.3) x10*3/uL Absolute Nucleated RBC 0.000 (0.0-0.012) X10*3/uL Nucleated RBC % (auto) 0.0 (0.0-0.2) /100WBC Sodium 141 (135-145) mmol/L Potassium 4.1 (3.3-5.1) mmol/L Chloride 105 (96-108) mmol/L Carbon Dioxide 22 (22-29) mmol/L Anion Gap 18 (12-20) BUN 11 (9-16) mg/dL Creatinine 0.91 (0.5-1.4) mg/dL Estim Creat Clear Calc 104.4 Estimated GFR > 60 Random Glucose 141 H (60-115) mg/dL Calcium 10.8 H (8.4-10.2) mg/dL Total Bilirubin 0.4 (0.0-1.0) mg/dL AST 32 H (5-31) U/L ALT 56 H (0-31) U/L Alkaline Phosphatase 105 (39-117) U/L Troponin I High Sens < 3.5 (<3.5-17.0) ng/L Total Protein 6.9 (6.5-8.0) g/dL Albumin 3.8 (3.5-5.0) g/dL 06/19/21 Range/Units 05:16 WBC (4.8-10.8) X10*3/uL RBC (4.20-5.50) X10*6/uL Hgb (12.0-16.0) g/dl Hct (37.0-47.0) % MCV (80.0-98.0) fL MCH (27.0-33.0) pg MCHC (31.0-35.0) g/dl RDW (11.0-16.0) % Plt Count (160-400) X10*3/uL MPV (9.4-12.3) fL Immature Gran % (Auto) (0.0-0.4) % Neut % (Auto) (45-73) % Lymph % (Auto) (20-40) % [place] % (Auto) (2-11) % Eos % (Auto) (0-4) % Baso % (Auto) (0-2) % Lymph # (Auto) (1.2-4.9) X10*3/uL [place] # (Auto) (0.1-1.2) X10*3/uL Eos # (Auto) (0.0-0.4) X10*3/uL Baso # (Auto) (0.0-0.2) X10*3/uL Abs Immat Gran (auto) (0.00-0.03) X10*3/uL Absolute Neuts (auto) (2.0-8.3) x10*3/uL Absolute Nucleated RBC (0.0-0.012) X10*3/uL Nucleated RBC % (auto) (0.0-0.2) /100WBC Sodium (135-145) mmol/L Potassium (3.3-5.1) mmol/L Chloride (96-108) mmol/L Carbon Dioxide (22-29) mmol/L Anion Gap (12-20) BUN (9-16) mg/dL Creatinine (0.5-1.4) mg/dL Estim Creat Clear Calc Estimated GFR Random Glucose (60-115) mg/dL Calcium (8.4-10.2) mg/dL Total Bilirubin (0.0-1.0) mg/dL AST (5-31) U/L ALT (0-31) U/L Alkaline Phosphatase (39-117) U/L Troponin I High Sens < 3.5 (<3.5-17.0) ng/L Total Protein (6.5-8.0) g/dL Albumin (3.5-5.0) g/dL Imaging Data Chest x-ray: Radiologist's impression: FINDINGS: Normal symmetric lung volumes. No parenchymal consolidation. No pleural effusion. No pneumothorax.? Cardiomediastinal silhouette and pulmonary vascularity are within normal limits. Aorta is atherosclerotic. No acute osseous abnormalities. XR/XR chest 2V IMPRESSION: Unremarkable examination. Discharge Plan Discharge Clinical Impression: Chest pain Patient Disposition: Home, Self-Care Instructions: Chest Pain (ED) Prescriptions: No Action epinephrine [EpiPen 2-Fili] 0.3 mg/0.3 mL auto-injector 0.3 mg IM ONCE PRN (Reason: anaphylaxis) 360 Days Qty: 2 0RF Rx Instructions: for 2 doses cholecalciferol (vitamin D3) 125 mcg (5,000 unit) capsule 125 mcg PO DAILY Qty: 30 6RF topiramate 25 mg tablet 25 mg PO BEDTIME Qty: 90 1RF albuterol sulfate 2.5 mg /3 mL (0.083 %) solution for nebulization 2.5 mg inhalation Q4-6H PRN (Reason: shortness of breath or wheezing) Qty: 180 0RF cetirizine 10 mg tablet 10 mg PO DAILY PRN (Reason: for allergies) Qty: 90 1RF (DME) FreeStyle Lite Strips Strip See Rx Instructions .Route Qty: 50 1RF Rx Instructions: As directed- to test blood sugar once a day loratadine 10 mg tablet 10 mg PO DAILY PRN (Reason: allergy symptoms) 90 Days Qty: 90 3RF sumatriptan succinate 100 mg tablet 100 mg PO DAILY PRN (Reason: migraine headache) Qty: 9 12RF naproxen [Naprosyn] 500 mg tablet 500 mg PO BID Qty: 20 0RF fluocinolone 0.025 % cream 1 appl topical BID Qty: 60 0RF fluticasone propionate [Flonase Allergy Relief] 50 mcg/actuation spray,suspension 2 spray intranasal DAILY 14 Days 0RF Rx Instructions: administer into each nostril loperamide 2 mg capsule 2 mg PO Q6H PRN (Reason: loose stool) Qty: 10 0RF hyoscyamine sulfate 0.125 mg tablet 0.125 mg PO QID PRN (Reason: dyspepsia) Qty: 7 0RF fluticasone propion-salmeterol [Wixela Inhub] 250-50 mcg/dose blister with device 1 inh inhalation BID 30 Days Qty: 60 3RF (DME) BD Luer-Delia Syringe 3 mL 23 x 1 syringe See Rx Instructions syringe IM Q2W Qty: 1 0RF Rx Instructions: As directed nystatin 100,000 unit/gram powder 1 appl topical TID 10 Days Qty: 60 3RF gabapentin 100 mg capsule 100 mg PO TID 30 Days Qty: 90 3RF simvastatin 20 mg tablet 20 mg PO BEDTIME 90 Days Qty: 90 3RF (DME) lancets [FreeStyle Lancets] 28 gauge misc See Rx Instructions .ROUTE .MEDSUPPLY Qty: 100 12RF Rx Instructions: As directed - E11.9 -- Diabetes (DME) blood-glucose meter [FreeStyle Lite Meter] Kit See Rx Instructions .Route Qty: 1 0RF Rx Instructions: Test Once Daily cyanocobalamin (vitamin B-12) 1,000 mcg/mL solution 1,000 mcg IM Q4W 90 Days Qty: 4 3RF hydrochlorothiazide 25 mg tablet 25 mg PO QAM 30 Days Qty: 30 2RF ondansetron HCl 4 mg tablet 4 mg PO Q6H PRN (Reason: nausea and vomiting) 10 Days Qty: 40 2RF citalopram 10 mg tablet 10 mg PO DAILY 30 Days Qty: 30 1RF quetiapine 100 mg tablet 100 mg PO BEDTIME 30 Days Qty: 30 1RF metformin 500 mg tablet extended release 24 hr 500 mg PO DAILY Qty: 90 1RF albuterol sulfate 90 mcg/actuation HFA aerosol inhaler 2 puff PO Q6H PRN (Reason: bronchospasm) Qty: 8.5 5RF (DME) blood pressure monitor Kit See Rx Instructions .Route Qty: 1 0RF Rx Instructions: As directed docusate sodium 100 mg capsule 100 mg PO BEDTIME Qty: 30 3RF famotidine 40 mg tablet 40 mg PO BEDTIME Qty: 30 3RF sennosides [Natural Senna Laxative] 8.6 mg tablet 17.2 mg PO BEDTIME Qty: 60 1RF
[2021-06-19] MEDS: Pantoprazole Sodium 40 MG/10 ML VIAL IVPUSH (04:11)
[2021-06-19 05:34] VITALS: PULSE 84
--- NOTE | 2021-06-19 05:36 | PC.NURSE ---
I assumed nursing care of Ivy upon her arrival to bed 19 via EMS. She presents for evaluation of chest pain. Ivy is alert, oriented x 3, makes eye contact with Rn and is calm and cooperative. Respirations are spontaneous and non-labored, no cyanosis, she speaks in full sentences, room air sats are WNL. She denies nausea, denies vomiting. She denies any changes in her bowel or bladder pattern. IV access/labs/EKG were obtained. Second troponin obtained at 0500. Pt has ambulated throughout her room independently and with steady gait. She has taken PO food and fluids without difficulty. We will continue to monitor Ivy.
[2021-06-19 05:41] LABS: Troponin-I High Sensitivity < 3.5 ng/L (<3.5-17.0)
== END 2021-06-19 06:28 | disposition home or self-care (01) ==
PROVIDERS: Emergency Provider Emergency Medicine; PCP Internal Medicine
DX: R07.9 Chest pain, unspecified (principal); E11.9 Type 2 diabetes mellitus without complications; I10 Essential (primary) hypertension
CPT/HCPCS: 36415; 71046; 80053; 84484; 85025; 93005; 96374; 99284; 99285

== ENCOUNTER → 2021-06-22 09:24 | Outpatient (BNVA) | payer OTHER, SELFPAY | PROVIDERS: PCP Internal Medicine; Referring Provider Internal Medicine; Visit Provider Nurse Practitioner Family | DX: G47.33 Obstructive sleep apnea (adult) (pediatric) (principal); K21.9 Gastro-esophageal reflux disease without esophagitis; K62.5 Hemorrhage of anus and rectum; R14.0 Abdominal distension (gaseous); R10.13 Epigastric pain | CPT/HCPCS: 99212 ==

== ENCOUNTER 2021-06-27 09:29 | Outpatient (REF) | payer OTHER, SELFPAY ==
[2021-06-27 09:52] LABS: Appearance Urine CLOUDY; Color Urine YELLOW; Glucose Urine UA NEG (NEG); Leukocyte Esterase Urine NEG (NEG); Nitrite Urine NEG (NEG); PH 5.5 (5.0-8.0); Specific Gravity - Urine >= 1.030 (1.005-1.025); Urine Blood NEG (NEG); Urine Ketones NEG (NEG); Urine Protein NEG (NEG-TRACE)
[2021-06-27 09:59] LABS: MANUAL DIFF FLAG NO
[2021-06-27 10:29] LABS: Basophils Absolute Auto 0.1 X10*3/uL (0.0-0.2); Basophils Percent Auto 0.6 % (0-2); Eosinophils Absolute Auto 0.3 X10*3/uL (0.0-0.4); Eosinophils Percent Auto 2.7 % (0-4); Hematocrit 44.6 % (37.0-47.0); Hemoglobin 14.6 g/dl (12.0-16.0); Imm Gran Abs Auto 0.03 X10*3/uL (0.00-0.03); Imm Gran Pct Auto 0.3 % (0.0-0.4); Lymphocytes Percent Auto 20.4 % (20-40); Mean Corpuscular HGB Conc 32.7 g/dl (31.0-35.0); Mean Corpuscular Hemoglobin 30.4 pg (27.0-33.0); Mean Corpuscular Volume 92.9 fL (80.0-98.0); Monocytes Absolute Auto 0.9 X10*3/uL (0.1-1.2); Neutrophils Absolute Auto 6.5 x10*3/uL (2.0-8.3); Platelet Count 339 X10*3/uL (160-400); White Blood Count 9.7 X10*3/uL (4.8-10.8)
[2021-06-27 10:54] LABS: Creatinine Urine 241.29 mg/dL; Microalbum/Creatinine Ratio Ur 4.1 ug/mg cr
[2021-06-27 10:56] LABS: Estimated Average Glucose 120 mg/dL; Hemoglobin A1c % 5.8 %
[2021-06-27 11:15] LABS: TSH reflex Free T4 1.91 uIU/mL (0.32-4.0); Vitamin D 25-OH Total 66.3 ng/mL (>30)
[2021-06-27 11:16] LABS: Alanine Aminotransferase 54 U/L (0-31); Alkaline Phosphatase 114 U/L (39-117); Anion Gap 13 (12-20); Aspartate Amino Transferase 24 U/L (5-31); Bilirubin Total 0.4 mg/dL (0.0-1.0); Blood Urea Nitrogen 13 mg/dL (9-16); Calcium 11.7 mg/dL (8.4-10.2); Carbon Dioxide 30 mmol/L (22-29); Chloride 101 mmol/L (96-108); Cholesterol 165 mg/dL; Estimated Glomerular Filt Rate 59; Glucose Fasting 112 mg/dL (60-99); HDL Cholesterol 44 mg/dL; LDL Cholesterol Calculated 103 mg/dl; Potassium 4.3 mmol/L (3.3-5.1); Sodium 140 mmol/L (135-145); Total Protein 7.2 g/dL (6.5-8.0); Triglycerides 94 mg/dL
[2021-07-05 19:35] LABS: Pancreatic Elastase-1 >500 mcg/g
== END 2021-06-27 09:30 | disposition home or self-care (01) ==
LOC: HO.LAB 09:29
PROVIDERS: PCP Internal Medicine; Visit Provider Nurse Practitioner Family
DX: R10.9 Unspecified abdominal pain (principal); I10 Essential (primary) hypertension; E11.9 Type 2 diabetes mellitus without complications; K21.9 Gastro-esophageal reflux disease without esophagitis; E78.00 Pure hypercholesterolemia, unspecified; E55.9 Vitamin D deficiency, unspecified
CPT/HCPCS: 36415; 80053; 80061; 81003; 82043; 82306; 82656; 83036; 84443; 85025; 87338

== ENCOUNTER → 2021-07-25 09:56 | Outpatient (BNVA) | payer OTHER, SELFPAY | PROVIDERS: PCP Internal Medicine; Visit Provider Internal Medicine | DX: E66.01 Morbid (severe) obesity due to excess calories (principal); G47.33 Obstructive sleep apnea (adult) (pediatric); J45.41 Moderate persistent asthma with (acute) exacerbation; J98.4 Other disorders of lung; Z68.42 Body mass index [BMI] 45.0-49.9, adult | CPT/HCPCS: 99212 ==

== ENCOUNTER → 2021-08-29 11:06 | Outpatient (BNVA) | payer OTHER, SELFPAY | PROVIDERS: PCP Internal Medicine; Visit Provider Internal Medicine | DX: R07.89 Other chest pain (principal); J45.41 Moderate persistent asthma with (acute) exacerbation; G47.33 Obstructive sleep apnea (adult) (pediatric); E66.01 Morbid (severe) obesity due to excess calories; Z68.42 Body mass index [BMI] 45.0-49.9, adult | CPT/HCPCS: 99212 ==

== ENCOUNTER 2021-09-25 02:21 | Emergency (ER) | payer OTHER, SELFPAY ==
[2021-09-25 02:25] VITALS: BP 142/80; PULSE 91; O2SAT 99
[2021-09-25 02:33] VITALS: BP 152/103; PULSE 98; RESP 22; TEMP 36.8; O2SAT 99; BMI 46.0
[2021-09-25 02:45] LABS: MANUAL DIFF FLAG NO
[2021-09-25 02:46] LABS: Basophils Absolute Auto 0.1 X10*3/uL (0.0-0.2); Basophils Percent Auto 0.4 % (0-2); Eosinophils Absolute Auto 0.2 X10*3/uL (0.0-0.4); Eosinophils Percent Auto 1.8 % (0-4); Hematocrit 43.9 % (37.0-47.0); Hemoglobin 14.6 g/dl (12.0-16.0); Imm Gran Abs Auto 0.09 X10*3/uL (0.00-0.03); Imm Gran Pct Auto 0.7 % (0.0-0.4); Lymphocytes Absolute Auto 2.2 X10*3/uL (1.2-4.9); Lymphocytes Percent Auto 17.1 % (20-40); Mean Corpuscular HGB Conc 33.3 g/dl (31.0-35.0); Mean Corpuscular Hemoglobin 31.3 pg (27.0-33.0); Mean Corpuscular Volume 94.2 fL (80.0-98.0); Mean Platelet Volume 10.2 fL (9.4-12.3); Neutrophils Absolute Auto 9.4 x10*3/uL (2.0-8.3); Platelet Count 340 X10*3/uL (160-400); Red Blood Count 4.66 X10*6/uL (4.20-5.50); Red Cell Distribution Width 15.2 % (11.0-16.0); White Blood Count 13.1 X10*3/uL (4.8-10.8)
[2021-09-25] MEDS: Ondansetron ODT 4 MG TAB.RAPDIS TRANSLINGU (03:02)
[2021-09-25 03:12] LABS: Alanine Aminotransferase 69 U/L (0-31); Alkaline Phosphatase 107 U/L (39-117); Anion Gap 11 (12-20); Aspartate Amino Transferase 31 U/L (5-31); Bilirubin Direct 0.3 mg/dL (0.0-0.5); Bilirubin Total 0.5 mg/dL (0.0-1.0); Blood Urea Nitrogen 10 mg/dL (9-16); Calcium 11.5 mg/dL (8.4-10.2); Carbon Dioxide 31 mmol/L (22-29); Chloride 100 mmol/L (96-108); Creatinine Clr Calc Pharmacy 95.7; Estimated Glomerular Filt Rate 60; Glucose Random 119 mg/dL (60-115); Lipase 23 U/L (8-78); Potassium 4.3 mmol/L (3.3-5.1); Sodium 138 mmol/L (135-145); Total Protein 7.1 g/dL (6.5-8.0)
--- NOTE | 2021-09-25 04:46 | PC.NURSE ---
pt a&o, no sob or chest pain. pt transported by EMS and sent to triage and waiting room. Labs drawn. Pt upset that she was not given a room right away. Due to acuity and bed available pt was sent to waiting room. Pt is being monitored. Regulatory Affairs Coordinator aware and addressed pt concerns.
== END 2021-09-25 08:35 | disposition left against medical advice (07) ==
PROVIDERS: Emergency Provider Emergency Medicine; PCP Internal Medicine
DX: R10.11 Right upper quadrant pain (principal); E11.9 Type 2 diabetes mellitus without complications; I10 Essential (primary) hypertension; E78.00 Pure hypercholesterolemia, unspecified; K21.9 Gastro-esophageal reflux disease without esophagitis; E66.01 Morbid (severe) obesity due to excess calories; Z68.42 Body mass index [BMI] 45.0-49.9, adult; Z87.442 Personal history of urinary calculi
CPT/HCPCS: 36415; 80053; 82248; 83690; 85025; 99281; 99283

== ENCOUNTER 2021-10-01 12:39 | Outpatient (REF) | payer OTHER, SELFPAY ==
--- NOTE | 2021-10-01 14:20 | PFT_ITS ---
FLOWS: FEV1 49% of predicted at 1.50 L. FVC 45% of predicted at 1.69 L. FEV1 to FVC ratio of 0.89. No bronchodilator response. LUNG VOLUMES: Total lung capacity 58% of predicted at 3.13 L. Residual volume 53% of predicted at 1.00 L. Slow vital capacity 61% of predicted at 2.13 L. Diffusion capacity is moderately decreased, diffusion capacity corrects to normal after adjustment for alveolar ventilation. IMPRESSION: Moderate restrictive ventilatory defect with no bronchodilator response. Decreased expiratory reserve volume suggests extrathoracic restriction likely secondary to abdominal obesity. Rodriguez Fernandes MD AP/MODL / [id number]
== END 2021-10-01 12:40 | disposition home or self-care (01) ==
LOC: HO.RESP 12:39
PROVIDERS: PCP Internal Medicine; Visit Provider Internal Medicine
DX: G47.33 Obstructive sleep apnea (adult) (pediatric) (principal); J45.41 Moderate persistent asthma with (acute) exacerbation; J98.4 Other disorders of lung
CPT/HCPCS: 94060; 94727; 94729

== ENCOUNTER 2021-10-10 08:29 | Day surgery (SDC) | payer OTHER, SELFPAY ==
--- NOTE | 2021-10-09 08:16 | HO.ANESPROP2 ---
Documented by User: Felipa Camacho NP 10/09/21 08:22 HPI - Anesthesia Eval Consult details Narrative: 46yo F for Upper Endoscopy and Colonoscopy Cardiac cleared *Multiple Med Allergies* PMFSH Active Problems Active Problems: All Active Problems (Updated 08/29/21 @ 12:08 by Maritza Dorado MD) Right-sided chest wall pain (Acute) Restrictive lung disease (Acute) GERD (gastroesophageal reflux disease) (Acute) Vaginal bleeding (Acute) Hallucinations (Acute) Benign essential hypertension (Acute) LVH (left ventricular hypertrophy) (Acute) Onychomycosis (Acute) Type 2 diabetes mellitus with unspecified complications (Acute) Precordial chest pain (Acute) Diabetes mellitus with hyperglycemia (Acute) Heavy menses (Acute) Morbid obesity (Acute) Costochondritis (Acute) Gallbladder polyp (Acute) Cholelithiasis (Acute) Calculus of kidney (Acute) RUQ abdominal pain (Acute) Rectal bleeding (Acute) Palpitations (Acute) Morbid obesity with BMI of 50.0-59.9, adult (Acute) Vitamin D deficiency (Acute) Vitamin B12 deficiency (Acute) Primary osteoarthritis of both knees (Acute) Fibromyalgia (Acute) Obstructive sleep apnea (Acute) Asthma (Acute) Migraine headache with aura (Acute) Diabetes mellitus (Acute) Pure hypercholesterolemia (Acute) Mixed stress and urge urinary incontinence (Acute) Tremor of both hands (Acute) Hand pain, right (Acute) Intertrigo (Acute) Past Medical History Medical History Asthma Benign essential hypertension Calculus of kidney Costochondritis Diabetes mellitus Fibromyalgia Gallbladder polyp GERD (gastroesophageal reflux disease) Hand pain, right Intertrigo Migraine headache with aura Mixed stress and urge urinary incontinence Morbid obesity Morbid obesity with BMI of 50.0-59.9, adult Obstructive sleep apnea Palpitations Primary osteoarthritis of both knees Pure hypercholesterolemia Rectal bleeding Restrictive lung disease Tremor of both hands Vitamin B12 deficiency Vitamin D deficiency Family History Family History Father Medical history unknown Mother Hypertension Kidney stones Maternal Grandmother Colon cancer Maternal Aunt Breast cancer Sister No problems noted. Sister No problems noted. Surgical History Surgical History No pertinent past surgical history Social History Social History Housing: Apartment Alcohol intake: never Patient Tobacco Use Status: Never used Tobacco e-Cigarette/Vaping Use: Never Used Second Hand Smoke Exposure: No Advance Directives: Yes Advance Directives on File: Yes Advance Directives Date on File: 01/03/21 service: No Current occupational status: disabled Meds Allergies Allergy/AdvReac Type Severity Reaction Status Date / Time Gadolinium-Containing Allergy Severe ANAPHYLAXIS Verified 10/04/21 16:47 Contrast Medi [GADOLINIUM-CONTAINING CONTRAST] Iodinated Contrast Media Allergy Severe ANAPHYLAXIS Verified 10/04/21 16:47 [IV Dye, Iodine Containing] aspirin [Aspirin] Allergy Mild ITCH Verified 10/04/21 16:47 ibuprofen [Ibuprofen] Allergy Mild NAUSEA Verified 10/04/21 16:47 oxycodone [From Percocet] Allergy Mild RASH Verified 10/04/21 16:47 Penicillins Allergy Mild ITCH Verified 10/04/21 16:47 Sulfa (Sulfonamide Allergy Mild ITCH Verified 10/04/21 16:47 Antibiotics) morphine [MORPHINE] Allergy Unknown NAUSEA Verified 10/04/21 16:47 penicillin V Allergy Unknown Itch Verified 10/04/21 16:47 seafoods Allergy Unknown Unknown Verified 10/04/21 16:47 LIQUID SOAPS Allergy Intermediate ITCHING Uncoded 10/04/21 16:47 AND REDNESS CHIHUAHUA Allergy Mild RASH Uncoded 10/04/21 16:47 ITCHING Home Medications Medication Instructions Recorded Confirmed Last Taken Type syringe with needle 3 mL 23 x 1 #1 ea 05/12/20 05/28/21 Unknown History mecobalamin (vitamin B12) 1,000 1,000 mcg PO DAILY 07/02/21 10/04/21 Unknown History mcg chewable tablet Exam Exam Date and Time: October 09, 2021 0816 Pertinent Lab Results Pertinent Lab Results: Laboratory Tests 09/25/21 09/25/21 02:40 02:40 WBC 13.1 H Hgb 14.6 Hct 43.9 Plt Count 340 Sodium 138 Potassium 4.3 Chloride 100 Carbon Dioxide 31 H BUN 10 Creatinine 0.99 Narrative Narrative: EKG 06/2021 Vent. Rate : 093 BPM ? ? Atrial Rate : 093 BPM ?? P-R Int : 168 ms? QRS Dur : 084 ms ? ? QT Int : 334 ms ? ? ? P-R-T Axes : 049 033 019 degrees ?? QTc Int : 415 ms ? Normal sinus rhythm Normal ECG When compared with ECG of 23-NOV-2020 01:44, No significant change was found ECHO 03/2021 Conclusions: - The left ventricular systolic function is normal.? The visually estimated ejection fraction is between 55-60%. ? - No obvious valvular pathology seen on this study.?? Holter 01/2021 Conclusion: 1. Patient was monitored for total period of 2 days and 23 hours 2. Baseline was normal sinus rhythm with average heart rate 93 beats per minute 3. Frequent sinus tachycardia noted with 34.3% of the time heart rate greater than 100 beats per minute 4. No significant arrhythmias or ectopy noted 5. No patient reported events Assessment and Plan Assessment Anesthesia Assessment: Chart Reviewed Documented by User: Jose Enrique Mcdonald MD 10/10/21 08:47 PMFSH Past Medical History Medical History Asthma Benign essential hypertension Calculus of kidney Costochondritis Diabetes mellitus Fibromyalgia Gallbladder polyp GERD (gastroesophageal reflux disease) Hand pain, right Intertrigo Migraine headache with aura Mixed stress and urge urinary incontinence Morbid obesity Morbid obesity with BMI of 50.0-59.9, adult Obstructive sleep apnea Palpitations Primary osteoarthritis of both knees Pure hypercholesterolemia Rectal bleeding Restrictive lung disease Tremor of both hands Vitamin B12 deficiency Vitamin D deficiency Family History Family History Father Medical history unknown Mother Hypertension Kidney stones Maternal Grandmother Colon cancer Maternal Aunt Breast cancer Sister No problems noted. Sister No problems noted. Family history of problems with anesthesia: No Surgical History Surgical History No pertinent past surgical history History of Problems with Anesthesia: No Social History Social History Housing: Apartment Alcohol intake: never Patient Tobacco Use Status: Never used Tobacco e-Cigarette/Vaping Use: Never Used Second Hand Smoke Exposure: No Advance Directives: Yes Advance Directives on File: Yes Advance Directives Date on File: 01/03/21 service: No Current occupational status: disabled Meds Allergies Allergy/AdvReac Type Severity Reaction Status Date / Time Gadolinium-Containing Allergy Severe ANAPHYLAXIS Verified 10/04/21 16:47 Contrast Medi [GADOLINIUM-CONTAINING CONTRAST] Iodinated Contrast Media Allergy Severe ANAPHYLAXIS Verified 10/04/21 16:47 [IV Dye, Iodine Containing] aspirin [Aspirin] Allergy Mild ITCH Verified 10/04/21 16:47 ibuprofen [Ibuprofen] Allergy Mild NAUSEA Verified 10/04/21 16:47 oxycodone [From Percocet] Allergy Mild RASH Verified 10/04/21 16:47 Penicillins Allergy Mild ITCH Verified 10/04/21 16:47 Sulfa (Sulfonamide Allergy Mild ITCH Verified 10/04/21 16:47 Antibiotics) morphine [MORPHINE] Allergy Unknown NAUSEA Verified 10/04/21 16:47 penicillin V Allergy Unknown Itch Verified 10/04/21 16:47 seafoods Allergy Unknown Unknown Verified 10/04/21 16:47 LIQUID SOAPS Allergy Intermediate ITCHING Uncoded 10/04/21 16:47 AND REDNESS CHIHUAHUA Allergy Mild RASH Uncoded 10/04/21 16:47 ITCHING Home Medications Medication Instructions Recorded Confirmed Last Taken Type syringe with needle 3 mL 23 x 1 #1 ea 05/12/20 05/28/21 Unknown History mecobalamin (vitamin B12) 1,000 1,000 mcg PO DAILY 07/02/21 10/04/21 Unknown History mcg chewable tablet Exam Airway Mallampati Class: III TM Dist: >3cm Neck ROM: Full Assessment and Plan Assessment Anesthesia Assessment: Anesthesia Plan Discussed Final Anesthetic Review Family History of Problems with Anesthesia: No History of Problems with Anesthesia: No NPO: Yes ASA Class: III Final Preanesthetic Review: No Changes in Pt Med Stat, Meds/Allgs Chart Reviewed, Consent Obtained/Reviewed and Anes Risks/Benef Reviewed Patient Risk: Intermediate Procedure Risk: Low Anesthetic Plan Anesthetic Plan: MAC: Disposition: Standard PACU
[2021-10-10] VITALS (9 sets, daily range): BP systolic 116–159; BP diastolic 59–95; PULSE 77–103; RESP 16–20; TEMP 36–36.4; O2SAT 96–99; BMI 46.7
[2021-10-10 08:50] LABS: Glucose, Whole Blood 102 mg/dL (60-115)
[2021-10-10 09:11] LABS: UPreg QC Valid YES; Urine Pregnancy NEGATIVE (NEGATIVE)
[2021-10-10] MEDS: Lactated Ringers 1,000 ML 100 ML IVCONT (09:22)
--- NOTE | 2021-10-10 11:25 | P.BOP_ITS ---
Brief Operative Note Date of Service: 10/10/21 Pre-op diagnosis: GERD, Rectal bleeding Post-op diagnosis: other (Colon polyps, Gastric polyps, GERD) Procedure: Colonoscopy to the cecum and TI with hot snare polypectomy x 2, placement of 2 Resolution clips at 25cm, submucosal ink marking at 25cm; EGD with biopsies Surgeon: Anirudh Lino Anesthesia: GETA and MAC Was an Doweling Machine Operator used for this Procedure?: No Estimated blood loss (mL): 2.0 Pathology: other (A. Colon polyp at 50cm B. Colon polyp at 25cm C. Gastric antrum D. EG Junction at 39cm E. Gastric polyps)
[2021-10-10] MEDS: ondansetron HCL 4 MG/2 ML VIAL IVPUSH (12:18)
--- NOTE | 2021-10-10 12:43 | OP_ITS ---
SURGEON: Anirudh Lino MD INDICATIONS: The patient presents for evaluation of intermittent hematochezia and gastroesophageal reflux. Full consent has been obtained from her for both procedures, including risks of bleeding and perforation. PREOPERATIVE DIAGNOSIS: POSTOPERATIVE DIAGNOSIS: PROCEDURE PERFORMED: Colonoscopy to the cecum and terminal ileum with hot snare polypectomy, placement of 2 resolution clips, marking with submucosal ink, and esophagogastroduodenoscopy with biopsies. ESTIMATED BLOOD LOSS: COMPLICATIONS: ANESTHESIA: Monitored anesthesia care was used for the colonoscopy, but the procedure was converted to general anesthesia for the upper endoscopy. ASSISTANTS: SPECIMENS: PREOPERATIVE DIAGNOSES: Hematochezia and gastroesophageal reflux. POSTOPERATIVE DIAGNOSES: Hematochezia, gastroesophageal reflux, colon polyps, diverticulosis, internal hemorrhoids, small hiatal hernia, gastric polyps. DESCRIPTION OF PROCEDURE: The patient was placed in the left lateral decubitus position. The digital rectal exam revealed no abnormalities. The Velostack video pediatric colonoscope was entered into the rectum and advanced easily to the cecum. Once in the cecum, I did identify a normal-appearing cecal pouch with appendiceal orifice and a normal-appearing ileocecal valve. The terminal ileum was cannulated and appeared normal. The scope was withdrawn back in the colon. The entire cecum and ileocecal valve appeared normal. The scope was slowly withdrawn assessing all mucosal surfaces carefully. Preparation was excellent. At 50 cm was an approximately 6 to 8 mm polyp, which was removed by hot snare polypectomy and recovered by suction. The polypectomy site appeared clean, without any sign of residual polyp nor bleeding. At 25 cm was a large approximately 2.5 cm polyp with some associated friability and small areas of ulceration on a stalk. The polyp was removed at the base of the stalk with hot snare polypectomy and then recovered with the retrieval net by taking the scope out of the patient. The scope was advanced back to the polypectomy site. Two resolution clips were placed on the polypectomy site with good deployment and good hemostasis. I also placed a submucosal ink shea just proximal and just distal to the polypectomy site. There was no sign of any residual polyp nor bleeding. I did not visualize any other polyps, colitis, or angiodysplasia. There were occasional diverticula in the sigmoid colon. In the rectum, the scope was retroflexed visualizing some small internal hemorrhoids, but no other pathology. The rectal mucosa appeared normal. The scope was straightened and withdrawn from the patient. She was then turned around for the upper endoscopy. The patient was under General Anesthesia for the upper endoscopy. The patient was in the supine position. The Olympus video gastroscope was passed in the posterior oropharynx and upper esophagus under direct vision. The scope was passed slowly into the distal esophagus. The gastroesophageal junction appeared at 39 cm. There was some slight erythema and edema but no ulceration nor Espinoza's mucosa. The scope entered into the stomach. There was a small hiatal hernia. The scope was advanced to the pylorus, and the duodenum was cannulated to the descending portion. The duodenum including the bulb appeared normal without mass or ulceration. The scope was withdrawn back into the stomach. The gastric antrum and body appeared normal with good peristalsis. Biopsies were obtained from the gastric antrum. The scope was retroflexed visualizing the proximal stomach carefully, which appeared normal, without mass or ulceration, other than multiple hyperplastic-appearing gastric polyps. Two of the larger ones in the more proximal stomach were biopsied. The scope was withdrawn back in the esophagus. Biopsies were obtained at the EG junction at 39 cm. Proximal to that, the esophageal mucosa appeared normal. The scope was withdrawn from the patient. She tolerated both procedures well and was returned to the recovery area in stable condition. IMPRESSION: 1. Colon polyps. 2. Diverticulosis. 3. Internal hemorrhoids. 4. Small hiatal hernia, gastroesophageal reflux. 5. Gastric polyps. PLAN: The results of the pathology will be checked. If the larger polyp is only adenomatous, and without any sign of carcinoma, then I would recommend repeat colonoscopy in 1 year. She was advised not to use any aspirin or NSAIDs for at least 1 week. She will start omeprazole 20 mg daily since she reports that her famotidine is not helping her reflux. She was advised to see me by the [facility] for a followup visit as well. MD SUDHIR Rowe/ADONIS / [phone] LAURIE
== END 2021-10-10 13:47 | disposition home or self-care (01) ==
PROVIDERS: Nurse Practitioner; PCP Internal Medicine; Visit Provider Internal Medicine
PROC: (CPT 45385; principal; 2021-10-10 08:30)
DX: K62.5 Hemorrhage of anus and rectum (principal); D12.5 Benign neoplasm of sigmoid colon; K57.30 Diverticulosis of large intestine without perforation or abscess without bleeding; K64.8 Other hemorrhoids; K58.0 Irritable bowel syndrome with diarrhea; K21.9 Gastro-esophageal reflux disease without esophagitis; K31.7 Polyp of stomach and duodenum; K44.9 Diaphragmatic hernia without obstruction or gangrene; J45.909 Unspecified asthma, uncomplicated; G47.33 Obstructive sleep apnea (adult) (pediatric); F41.8 Other specified anxiety disorders; E11.9 Type 2 diabetes mellitus without complications; E78.00 Pure hypercholesterolemia, unspecified; E66.01 Morbid (severe) obesity due to excess calories; Z68.42 Body mass index [BMI] 45.0-49.9, adult; Z79.51 Long term (current) use of inhaled steroids; Z79.84 Long term (current) use of oral hypoglycemic drugs; Z99.89 Dependence on other enabling machines and devices; Z79.899 Other long term (current) drug therapy; Z88.0 Allergy status to penicillin; Z88.2 Allergy status to sulfonamides; Z88.8 Allergy status to other drugs, medicaments and biological substances; Z91.041 Radiographic dye allergy status
CPT/HCPCS: 45385; 45381; 43239; 81025; 82947; 88305; 88342; J0330; J2250; J2405

== ENCOUNTER → 2021-12-06 11:18 | Outpatient (BNVA) | payer OTHER, SELFPAY | PROVIDERS: PCP Internal Medicine; Referring Provider Internal Medicine; Visit Provider Surgery | DX: K82.4 Cholesterolosis of gallbladder (principal); E66.01 Morbid (severe) obesity due to excess calories; Z68.42 Body mass index [BMI] 45.0-49.9, adult | CPT/HCPCS: 99212 ==

== ENCOUNTER → 2021-12-12 10:05 | Outpatient (BNVA) | payer OTHER, SELFPAY | PROVIDERS: PCP Internal Medicine; Referring Provider Internal Medicine; Visit Provider Internal Medicine | DX: R00.2 Palpitations (principal); R07.2 Precordial pain; G47.33 Obstructive sleep apnea (adult) (pediatric); E66.01 Morbid (severe) obesity due to excess calories; E11.8 Type 2 diabetes mellitus with unspecified complications; I51.7 Cardiomegaly; Z68.42 Body mass index [BMI] 45.0-49.9, adult | CPT/HCPCS: 99212 ==

== ENCOUNTER 2021-12-26 11:59 | Outpatient (REF) | payer OTHER, SELFPAY ==
[2021-12-26 13:12] LABS: Alanine Aminotransferase 70 U/L (0-31); Albumin Level 3.9 g/dL (3.5-5.0); Alkaline Phosphatase 123 U/L (39-117); Anion Gap 14 (12-20); Aspartate Amino Transferase 30 U/L (5-31); Bilirubin Total 0.5 mg/dL (0.0-1.0); Blood Urea Nitrogen 11 mg/dL (9-16); Calcium 10.8 mg/dL (8.4-10.2); Carbon Dioxide 28 mmol/L (22-29); Chloride 103 mmol/L (96-108); Estimated Glomerular Filt Rate > 60; Glucose Fasting 119 mg/dL (60-99); Sodium 141 mmol/L (135-145); Total Protein 6.8 g/dL (6.5-8.0)
== END 2021-12-26 12:00 | disposition home or self-care (01) ==
LOC: HO.LAB 11:59
PROVIDERS: PCP Internal Medicine; Visit Provider Internal Medicine
DX: E78.00 Pure hypercholesterolemia, unspecified (principal); J98.4 Other disorders of lung; E66.01 Morbid (severe) obesity due to excess calories; J45.41 Moderate persistent asthma with (acute) exacerbation; G47.33 Obstructive sleep apnea (adult) (pediatric)
CPT/HCPCS: 36415; 80053; 99212

== ENCOUNTER 2022-01-04 10:53 | Outpatient (REF) | payer OTHER, SELFPAY ==
[2022-01-04 11:10] LABS: MANUAL DIFF FLAG NO
[2022-01-04 12:14] LABS: Basophils Absolute Auto 0.1 X10*3/uL (0.0-0.2); Basophils Percent Auto 0.6 % (0-2); Eosinophils Absolute Auto 0.3 X10*3/uL (0.0-0.4); Eosinophils Percent Auto 2.7 % (0-4); Hematocrit 44.3 % (37.0-47.0); Hemoglobin 14.6 g/dl (12.0-16.0); Imm Gran Abs Auto 0.05 X10*3/uL (0.00-0.03); Imm Gran Pct Auto 0.5 % (0.0-0.4); Lymphocytes Absolute Auto 1.9 X10*3/uL (1.2-4.9); Mean Corpuscular Hemoglobin 30.9 pg (27.0-33.0); Mean Corpuscular Volume 93.9 fL (80.0-98.0); Mean Platelet Volume 11.2 fL (9.4-12.3); Monocytes Absolute Auto 0.9 X10*3/uL (0.1-1.2); Monocytes Percent Auto 8.6 % (2-11); Neutrophils Absolute Auto 6.9 x10*3/uL (2.0-8.3); Neutrophils Percent Auto 68.6 % (45-73); Platelet Count 318 X10*3/uL (160-400); Red Blood Count 4.72 X10*6/uL (4.20-5.50); Red Cell Distribution Width 14.6 % (11.0-16.0)
[2022-01-04 12:26] LABS: Estimated Average Glucose 123 mg/dL; Hemoglobin A1C 148.9552 umol/L; Hemoglobin A1c % 5.9 %
[2022-01-04 12:32] LABS: Appearance Urine Clear; Color Urine Yellow; Glucose Urine UA Negative (Negative); Leukocyte Esterase Urine Negative (Negative); Nitrite Urine Negative (Negative); PH 5.5 (5.0-9.0); Specific Gravity - Urine 1.025 (1.005-1.025); Urine Blood Negative (Negative); Urine Ketones Trace mg/dL (Negative); Urine Protein Negative (Neg-Trace)
[2022-01-04 12:51] LABS: Cholesterol 168 mg/dL; HDL Cholesterol 40 mg/dL; LDL Cholesterol Calculated 103 mg/dl; Triglycerides 129 mg/dL
[2022-01-04 13:04] LABS: TSH reflex Free T4 2.85 uIU/mL (0.32-4.0); Vitamin D 25-OH Total 61.5 ng/mL (>30)
== END 2022-01-04 10:54 | disposition home or self-care (01) ==
LOC: HO.LAB 10:53
PROVIDERS: PCP Internal Medicine; Visit Provider Internal Medicine
DX: E78.00 Pure hypercholesterolemia, unspecified (principal); I10 Essential (primary) hypertension; E55.9 Vitamin D deficiency, unspecified; E11.9 Type 2 diabetes mellitus without complications; R30.0 Dysuria
CPT/HCPCS: 36415; 80061; 81003; 82306; 83036; 84443; 85025

== ENCOUNTER 2022-01-14 11:18 | Emergency (ER) | payer OTHER, SELFPAY ==
--- NOTE | ~2022-01-14 | CT_ITS ---
EXAMINATION: CT ABDOMEN AND PELVIS WITHOUT CONTRAST CLINICAL INFORMATION: Left flank pain. COMPARISON: 05/21/2021 TECHNIQUE: Multidetector volumetric imaging was performed from the superior aspect of the liver through the pubic symphysis. Sagittal and coronal reformatted images were obtained on the technologist's workstation. This CT examination was performed using dose optimization techniques as appropriate, variously including the following: *Automated exposure control *Adjustment of mA and/or kV according to patient size (this includes techniques or standardized protocols for targeted exams where dose is matched to indication/reason for exam; i.e. extremities or head) *Use of iterative reconstruction technique DLP: 1240 mGy-cm FINDINGS: LUNG BASES: The visualized lung bases are unremarkable. LIVER, GALLBLADDER, AND BILIARY TREE: Hepatic steatosis. No focal lesions. No biliary dilatation. Cholelithiasis. Nondistended gallbladder. PANCREAS: Unremarkable. SPLEEN: Unremarkable. ADRENAL GLANDS: Unremarkable. KIDNEYS AND URETERS: There is a 2.5 mm stone in the distal left ureter, just proximal to the ureterovesical junction associated with mild upstream hydroureter and pelvocaliectasis and trace perinephric fat stranding. An additional punctate nonobstructive calculus is present in the lower pole left kidney. Right kidney unremarkable. BLADDER: Unremarkable. GASTROINTESTINAL TRACT: Scattered colonic diverticula. No evidence of diverticulitis. Normal appendix. Stomach and small bowel unremarkable. ABDOMINAL WALL: No significant hernia is appreciated. LYMPH NODES: Normal. VASCULAR: Unremarkable. PELVIC VISCERA: Unremarkable. OSSEOUS STRUCTURES: Discogenic degenerative disease at L4-L5 and L5-S1 with vacuum disc phenomena. Small endplate osteophytes present at these levels. CT/CT abdomen pelvis wo IV con IMPRESSION: * There is a 2.5 mm stone in the distal LEFT ureter, just proximal to the ureterovesical junction associated with mild upstream hydroureter and pelvocaliectasis. * Additional punctate nonobstructive calculus in the lower pole left kidney. * Hepatic steatosis. * Cholelithiasis. * Scattered colonic diverticula without evidence of diverticulitis. Fleischner guidelines were followed.
[2022-01-14 11:25] VITALS: BP 160/80; BP 189/96; PULSE 80; PULSE 81; RESP 16; TEMP 36.4; O2SAT 100; O2SAT 98; BMI 46.9
--- NOTE | 2022-01-14 11:32 | ED_ITS ---
HPI - Abdominal Pain General Chief Complaint: Urogenital-Female Stated Complaint: ABD PAIN,BLOOD IN URINE Time Seen by Provider: 01/14/22 11:22 Source: patient and EMS Mode of arrival: EMS Limitations: no limitations History of Present Illness HPI narrative: 46-year-old female came in for evaluation of left flank pain. Pain is started this morning few hours ago, pain was localized to the left flank area described as severe sudden dull aching pain with radiation to the left groin area, pain has moved to the left groin area, pain is associated with nausea, frequent urination, and dark urine, may be blood in the urine not sure. No vomiting, no diarrhea, no chest pain, no fever, no chills. no history of abdominal surgery. Related Data Home Medications Medication Instructions Recorded Confirmed syringe with needle 3 mL 23 x 1 #1 ea 05/12/20 01/01/22 aripiprazole 2 mg tablet 2 mg PO DAILY 12/06/21 01/01/22 Previous Rx's Medication Instructions Recorded fluocinolone 0.025 % topical cream 1 appl topical BID #60 grams 08/02/20 docusate sodium 100 mg capsule 100 mg PO BEDTIME #30 caps 12/26/20 blood-glucose meter (FreeStyle #1 ea 01/05/21 Lite Meter kit) albuterol sulfate 2.5 mg/3 mL 2.5 mg (3 mL) inhalation Q4-6H PRN 01/17/21 (0.083 %) solution for nebulization shortness of breath or wheezing #180 mL blood sugar diagnostic (FreeStyle #50 ea 05/14/21 Lite Strips) loratadine 10 mg tablet 10 mg PO DAILY PRN allergy 05/15/21 symptoms 90 days #90 tabs loperamide 2 mg capsule 2 mg PO Q6H PRN loose stool #10 05/21/21 caps blood pressure monitor #1 ea 05/28/21 ondansetron HCl 4 mg tablet 4 mg PO Q6H PRN nausea and 05/28/21 vomiting 10 days #40 tabs sumatriptan succinate 100 mg tablet 100 mg PO DAILY PRN migraine 06/06/21 headache #9 tabs sucralfate 1 gram tablet 1 g PO BID #60 tabs 06/22/21 lancets 28 gauge (FreeStyle #100 ea 11/23/21 Lancets) topiramate 25 mg tablet 25 mg PO BEDTIME #90 tabs 12/19/21 DIABETIC SHOES (1 pair) #2 ea 12/31/21 albuterol sulfate 90 mcg/actuation 2 puff PO Q6H PRN bronchospasm 01/01/22 aerosol inhaler #8.5 ea cetirizine 10 mg tablet 10 mg PO DAILY PRN for allergies 01/01/22 90 days #90 tabs cholecalciferol (vitamin D3) 125 125 mcg PO DAILY #30 caps 01/01/22 mcg (5,000 unit) capsule cyanocobalamin (vitamin B-12) 1,000 mcg IM Q4W 90 days #4 mL 01/01/22 1,000 mcg/mL injection solution cyanocobalamin (vitamin B-12) 100 100 mcg PO DAILY #90 tabs 01/01/22 mcg tablet epinephrine 0.3 mg/0.3 mL 0.3 mg (0.3 mL) IM ONCE PRN 01/01/22 injection, auto-injector (EpiPen anaphylaxis 360 days #2 ea 2-Fili) fluticasone 250 mcg-salmeterol 50 1 inh inhalation BID 30 days #60 ea 01/01/22 mcg/dose blistr powdr for inhalation (Wixela Inhub) fluticasone propionate 50 2 spray intranasal DAILY 2 weeks 01/01/22 mcg/actuation nasal #16 grams spray,suspension (Flonase Allergy Relief) hydrochlorothiazide 25 mg tablet 25 mg PO QAM 30 days #30 tabs 01/01/22 metformin 500 mg tablet,extended 500 mg PO DAILY #90 tabs 01/01/22 release 24 hr simvastatin 20 mg tablet 20 mg PO BEDTIME 90 days #90 tabs 01/01/22 hydromorphone 2 mg tablet 2 mg PO Q8H PRN pain #7 tabs 01/14/22 (Dilaudid) prednisone 20 mg tablet 20 mg PO BID #10 tabs 01/14/22 tamsulosin 0.4 mg capsule (Flomax) 0.4 mg PO BEDTIME #6 caps 01/14/22 Allergies Allergy/AdvReac Type Severity Reaction Status Date / Time Gadolinium-Containing Allergy Severe ANAPHYLAXIS Verified 01/01/22 04:32 Contrast Medi [GADOLINIUM-CONTAINING CONTRAST] Iodinated Contrast Media Allergy Severe ANAPHYLAXIS Verified 01/01/22 04:32 [IV Dye, Iodine Containing] aspirin [Aspirin] Allergy Mild ITCH Verified 01/01/22 04:32 ibuprofen [Ibuprofen] Allergy Mild NAUSEA Verified 01/01/22 04:32 oxycodone [From Percocet] Allergy Mild RASH Verified 01/01/22 04:32 Penicillins Allergy Mild ITCH Verified 01/01/22 04:32 Sulfa (Sulfonamide Allergy Mild ITCH Verified 01/01/22 04:32 Antibiotics) morphine [MORPHINE] Allergy Unknown NAUSEA Verified 01/01/22 04:32 penicillin V Allergy Unknown Itch Verified 01/01/22 04:32 seafoods Allergy Unknown Unknown Verified 01/01/22 04:32 LIQUID SOAPS Allergy Intermediate ITCHING Uncoded 01/01/22 04:32 AND REDNESS CHIHUAHUA Allergy Mild RASH Uncoded 01/01/22 04:32 ITCHING Review of Systems Review of Systems All other systems are reviewed and are negative Constitutional: Reports as per HPI and Reports no additional constitutional complaints Eyes: Reports as per HPI and Reports no additional eye complaints Reports system reviewed and no additional complaints, except as documented Cardiovascular: Reports as per HPI and Reports no additional cardiovascular complaints Respiratory: Reports as per HPI and Reports no additional respiratory complaints Gastrointestinal: Reports as per HPI and Reports no additional gastrointestinal complaints Genitourinary: Reports no additional female genitourinary complaints Musculoskeletal: Reports no additional musculoskeletal complaints Skin/Breast: Reports system reviewed and no additional complaints, except as docu Psychiatric: Reports no additional psychiatric complaints Endocrine: Reports no additional endocrine complaints Hematologic/Lymphatic: Reports no additional hematologic/lymphatic complaints Allergic/Immunologic: Reports no additional allergic/immunologic complaints Reports system reviewed and no additional complaints, except as documented and Reports Abnormal speech present [facility] Past Medical History Medical History Asthma Benign essential hypertension Calculus of kidney Costochondritis Diabetes mellitus Fibromyalgia Gallbladder polyp GERD (gastroesophageal reflux disease) Hand pain, right Intertrigo Migraine headache with aura Mixed stress and urge urinary incontinence Morbid obesity Morbid obesity with BMI of 50.0-59.9, adult Obstructive sleep apnea Palpitations Primary osteoarthritis of both knees Pure hypercholesterolemia Rectal bleeding Restrictive lung disease Tremor of both hands Vitamin B12 deficiency Vitamin D deficiency Surgical History No pertinent past surgical history Family History Family History Father Medical history unknown Mother Hypertension Kidney stones Maternal Grandmother Colon cancer Maternal Aunt Breast cancer Sister No problems noted. Sister No problems noted. Social History Social History Housing: Apartment Alcohol intake: never Patient Tobacco Use Status: Never used Tobacco e-Cigarette/Vaping Use: Never Used Second Hand Smoke Exposure: No Advance Directives: Yes Advance Directives on File: Yes Advance Directives Date on File: 01/03/21 service: No Current occupational status: disabled Cognitive needs: No Hearing needs: No Vision needs: No Physical Exam ED Vital Signs: Vital Signs - 24 hr 01/14/22 11:25 01/14/22 12:00 Temperature 97.6 F 97.4 F Pulse Rate 80 53 Respiratory Rate 16 17 Blood Pressure 189/96 H 164/85 H Pulse Oximetry 98 96 Oxygen Delivery Method Room Air Room Air BMI result Body Mass Index 46.9 vital signs have been reviewed as appeared to be correct. Blood pressure normal. Heart rate normal. Respiration rate normal. Temperature normal. Oxygen saturation normal. Appearance: Alert. Oriented X3. No acute distress. Head: Normal external exam. Normocephalic. Atraumatic. No Norman signs noted. No raccoon eyes noted Eyes: PERRLA. EOMI. Conjunctiva and sclera normal. Eyelids normal. ENT: TM's Normal. Pharynx normal. Uvula midline. Moist mucous membranes. No trismus noted. No drooling noted. No muffled voice noted. Neck: Normal inspection. Neck supple. FROM. No adenopathy. Thyroid Normal. No meningeal signs. No neck mass noted. CVS: Normal heart rate and rhythm. Heart sound normal. No murmurs noted. Pulses normal throughout. Respiratory: No respiratory distress. Painless inspiration. Breath sounds normal. No wheezes/rales/rhonchi noted. Chest nontender. No accessory muscle usage noted or decreased air movement noted. Abdomen: Soft and nontender. Bowel sounds normal in all 4 quadrants. No distention noted. No organomegaly noted. No visible injury noted. Back: Left CVA tenderness. Full range of motion noted. Skin: Skin warm and dry. Normal skin color. Normal skin turgor. No rashes/lesions/lacerations noted. Extremities: No lower extremity edema. Extremities exhibit normal range of motion. Extremities nontender. Neuro: Oriented X 3. Cranial nerve exam: II-XII are grossly intact No motor deficit. No sensory deficit. Reflexes normal. Course Course Course Narrative: 46-year-old female came in with sudden left flank pain with history of kidney stone physical exam, UA findings, CT scan is consistent with 2.5 mm ureteric stone. in the ED patient received Dilaudid that relieved the pain, patient was instructed to drink plenty of fluids and patient will be prescribed Flomax, Dilaudid p.o., prednisone and follow up with Dr. Hastings as an outpatient. Medications Administered Discontinued Medications Generic Name Dose Route Start Last Admin Trade Name Freq PRN Reason Stop Dose Admin Hydromorphone HCl 0.5 mg 01/14/22 11:31 01/14/22 11:46 Hydromorphone Hcl 0.5 Mg/0.5 Ml Syringe IVPUSH 01/14/22 11:32 0.5 mg ONCE ONE Administration Protocol Sodium Chloride 1,000 mls @ 999 mls/hr 01/14/22 11:29 01/14/22 11:47 Ns IV 01/14/22 12:29 999 mls/hr .Q1H1M ONE Administration Ondansetron HCl 4 mg 01/14/22 12:46 01/14/22 13:06 Ondansetron Hcl 4 Mg/2 Ml Vial IVPUSH 01/14/22 12:47 4 mg ONCE ONE Administration MDM - Abdominal Pain Lab Data Attestation: I reviewed the patient's lab results. Result diagrams: 01/14/22 11:39 01/14/22 11:40 Labs: Lab Results 01/14/22 01/14/22 01/14/22 Range/Units 11:35 11:39 11:40 WBC 8.6 (4.8-10.8) X10*3/uL RBC 5.05 (4.20-5.50) X10*6/uL Hgb 15.3 (12.0-16.0) g/dl Hct 47.2 H (37.0-47.0) % MCV 93.5 (80.0-98.0) fL MCH 30.3 (27.0-33.0) pg MCHC 32.4 (31.0-35.0) g/dl RDW 14.8 (11.0-16.0) % Plt Count 327 (160-400) X10*3/uL MPV 10.8 (9.4-12.3) fL Immature Gran % (Auto) 0.3 (0.0-0.4) % Neut % (Auto) 67.3 (45-73) % Lymph % (Auto) 20.6 (20-40) % [place] % (Auto) 8.5 (2-11) % Eos % (Auto) 3.0 (0-4) % Baso % (Auto) 0.3 (0-2) % Lymph # (Auto) 1.8 (1.2-4.9) X10*3/uL [place] # (Auto) 0.7 (0.1-1.2) X10*3/uL Eos # (Auto) 0.3 (0.0-0.4) X10*3/uL Baso # (Auto) 0.0 (0.0-0.2) X10*3/uL Abs Immat Gran (auto) 0.03 (0.00-0.03) X10*3/uL Absolute Neuts (auto) 5.8 (2.0-8.3) x10*3/uL Absolute Nucleated RBC 0.000 (0.0-0.012) X10*3/uL Nucleated RBC % (auto) 0.0 (0.0-0.2) /100WBC Sodium 142 (135-145) mmol/L Potassium 4.2 (3.3-5.1) mmol/L Chloride 103 (96-108) mmol/L Carbon Dioxide 28 (22-29) mmol/L Anion Gap 15 (12-20) BUN 14 (9-16) mg/dL Creatinine 1.14 (0.5-1.4) mg/dL Estim Creat Clear Calc 81.3 Estimated GFR 51 Random Glucose 152 H (60-115) mg/dL Calcium 11.4 H (8.4-10.2) mg/dL Total Bilirubin 0.6 (0.0-1.0) mg/dL Direct Bilirubin 0.2 (0.0-0.5) mg/dL AST 30 (5-31) U/L ALT 73 H (0-31) U/L Alkaline Phosphatase 139 H (39-117) U/L Total Protein 7.3 (6.5-8.0) g/dL Albumin 4.1 (3.5-5.0) g/dL Lipase 37 (8-78) U/L Urine Color Yellow Urine Appearance Turbid Urine pH 7.0 (5.0-9.0) Ur Specific [place] 1.020 (1.005-1.025) Urine Protein Negative (Neg-Trace) mg/dL Urine Glucose (UA) Negative (Negative) mg/dL Urine Ketones Negative (Negative) mg/dL Urine Blood Large (3+) H (Negative) Urine Nitrite Negative (Negative) Ur Leukocyte Esterase Trace H (Negative) Urine RBC >20 H (0-2) /HPF Urine WBC 0-5 (0-5) /HPF Ur Squamous Epith Cells 3-5 (0-2) /HPF Urine Bacteria None Seen (None Seen) Hyaline Casts 0-2 (0-2) /LPF Imaging Data Abdomen and pelvis CT: Attestation: I personally reviewed and interpreted this imaging study as follows: Radiologist's impression: There is a 2.5 mm stone in the distal LEFT ureter, just proximal to the ureterovesical junction associated with mild upstream hydroureter and pelvocaliectasis. *? Additional punctate nonobstructive calculus in the lower pole left kidney. *? Hepatic steatosis. *? Cholelithiasis. *? Scattered colonic diverticula without evidence of diverticulitis. ? Discharge Plan Discharge Clinical Impression: Calculus of left ureter, Renal colic Patient Disposition: Home, Self-Care Instructions: Ureteral Stones (ED) Prescriptions: New hydromorphone [Dilaudid] 2 mg tablet 2 mg PO Q8H PRN (Reason: pain) Qty: 7 0RF Rx Instructions: Partial Fill upon patient request. tamsulosin [Flomax] 0.4 mg capsule 0.4 mg PO BEDTIME Qty: 6 0RF prednisone 20 mg tablet 20 mg PO BID Qty: 10 0RF No Action albuterol sulfate 2.5 mg /3 mL (0.083 %) solution for nebulization 2.5 mg inhalation Q4-6H PRN (Reason: shortness of breath or wheezing) Qty: 180 0RF (DME) FreeStyle Lite Strips Strip See Rx Instructions .Route Qty: 50 1RF Rx Instructions: As directed- to test blood sugar once a day loratadine 10 mg tablet 10 mg PO DAILY PRN (Reason: allergy symptoms) 90 Days Qty: 90 3RF sumatriptan succinate 100 mg tablet 100 mg PO DAILY PRN (Reason: migraine headache) Qty: 9 12RF (DME) lancets [FreeStyle Lancets] 28 gauge misc See Rx Instructions .ROUTE .MEDSUPPLY Qty: 100 12RF Rx Instructions: As directed - E11.9 -- Diabetes topiramate 25 mg tablet 25 mg PO BEDTIME Qty: 90 1RF fluocinolone 0.025 % cream 1 appl topical BID Qty: 60 0RF loperamide 2 mg capsule 2 mg PO Q6H PRN (Reason: loose stool) Qty: 10 0RF (DME) BD Luer-Delia Syringe 3 mL 23 x 1 syringe See Rx Instructions IM Q2W Qty: 1 Rx Instructions: As directed (DME) blood-glucose meter [FreeStyle Lite Meter] Kit See Rx Instructions .Route Qty: 1 0RF Rx Instructions: Test Once Daily (DME) DIABETIC SHOES (1 pair) 10 W See Rx Instructions .Route .MEDSUPPLY Qty: 2 0RF Rx Instructions: As directed albuterol sulfate 90 mcg/actuation HFA aerosol inhaler 2 puff PO Q6H PRN (Reason: bronchospasm) Qty: 8.5 5RF cholecalciferol (vitamin D3) 125 mcg (5,000 unit) capsule 125 mcg PO DAILY Qty: 30 6RF cyanocobalamin (vitamin B-12) 1,000 mcg/mL solution 1,000 mcg IM Q4W 90 Days Qty: 4 3RF cyanocobalamin (vitamin B-12) 100 mcg tablet 100 mcg PO DAILY Qty: 90 2RF epinephrine [EpiPen 2-Fili] 0.3 mg/0.3 mL auto-injector 0.3 mg IM ONCE PRN (Reason: anaphylaxis) 360 Days Qty: 2 0RF Rx Instructions: for 2 doses fluticasone propion-salmeterol [Wixela Inhub] 250-50 mcg/dose blister with device 1 inh inhalation BID 30 Days Qty: 60 3RF fluticasone propionate [Flonase Allergy Relief] 50 mcg/actuation spray,suspension 2 spray intranasal DAILY 14 Days Qty: 16 5RF Rx Instructions: administer into each nostril hydrochlorothiazide 25 mg tablet 25 mg PO QAM 30 Days Qty: 30 2RF metformin 500 mg tablet extended release 24 hr 500 mg PO DAILY Qty: 90 1RF simvastatin 20 mg tablet 20 mg PO BEDTIME 90 Days Qty: 90 3RF cetirizine 10 mg tablet 10 mg PO DAILY PRN (Reason: for allergies) 90 Days Qty: 90 3RF ondansetron HCl 4 mg tablet 4 mg PO Q6H PRN (Reason: nausea and vomiting) 10 Days Qty: 40 2RF (DME) blood pressure monitor Kit See Rx Instructions .Route Qty: 1 0RF Rx Instructions: As directed docusate sodium 100 mg capsule 100 mg PO BEDTIME Qty: 30 3RF sucralfate 1 gram tablet 1 g PO BID Qty: 60 1RF aripiprazole 2 mg tablet 2 mg PO DAILY Referrals: Mihir Elmore MD [Primary Care Provider] - Beto Hastings MD [Physician] -
[2022-01-14 11:43] LABS: MANUAL DIFF FLAG NO
[2022-01-14] MEDS: HYDROmorphone HCl 0.5 MG/0.5 ML SYRINGE IVPUSH ×2 (11:46→14:16)
[2022-01-14] MEDS: 0.9 % Sodium Chloride 1,000 ML 999 ML IV (11:47)
[2022-01-14 11:51] LABS: Appearance Urine Turbid; Glucose Urine UA Negative (Negative); Leukocyte Esterase Urine Trace (Negative); Nitrite Urine Negative (Negative); UMIC TRIGGER UACC YES; Urine Blood Large (3+) (Negative); Urine Ketones Negative (Negative); Urine Protein Negative (Neg-Trace)
[2022-01-14 11:52] LABS: Color Urine Yellow
[2022-01-14 11:52] LABS: Basophils Percent Auto 0.3 % (0-2); Eosinophils Absolute Auto 0.3 X10*3/uL (0.0-0.4); Hematocrit 47.2 % (37.0-47.0); Hemoglobin 15.3 g/dl (12.0-16.0); Imm Gran Abs Auto 0.03 X10*3/uL (0.00-0.03); Imm Gran Pct Auto 0.3 % (0.0-0.4); Lymphocytes Absolute Auto 1.8 X10*3/uL (1.2-4.9); Lymphocytes Percent Auto 20.6 % (20-40); Mean Corpuscular HGB Conc 32.4 g/dl (31.0-35.0); Mean Corpuscular Hemoglobin 30.3 pg (27.0-33.0); Mean Corpuscular Volume 93.5 fL (80.0-98.0); Mean Platelet Volume 10.8 fL (9.4-12.3); Monocytes Absolute Auto 0.7 X10*3/uL (0.1-1.2); Monocytes Percent Auto 8.5 % (2-11); Neutrophils Absolute Auto 5.8 x10*3/uL (2.0-8.3); Neutrophils Percent Auto 67.3 % (45-73); Platelet Count 327 X10*3/uL (160-400); Red Blood Count 5.05 X10*6/uL (4.20-5.50); Red Cell Distribution Width 14.8 % (11.0-16.0); White Blood Count 8.6 X10*3/uL (4.8-10.8)
[2022-01-14 11:53] LABS: Bacteria Urine None Seen (None Seen); Hyaline Casts Urine 0-2 /LPF (0-2); RBC Urine >20 /HPF (0-2); WBC Urine 0-5 /HPF (0-5)
[2022-01-14 12:00] VITALS: BP 164/85; PULSE 53; RESP 17; TEMP 36.3; O2SAT 96
[2022-01-14 12:08] LABS: Alanine Aminotransferase 73 U/L (0-31); Albumin Level 4.1 g/dL (3.5-5.0); Alkaline Phosphatase 139 U/L (39-117); Anion Gap 15 (12-20); Aspartate Amino Transferase 30 U/L (5-31); Bilirubin Direct 0.2 mg/dL (0.0-0.5); Bilirubin Total 0.6 mg/dL (0.0-1.0); Blood Urea Nitrogen 14 mg/dL (9-16); Carbon Dioxide 28 mmol/L (22-29); Chloride 103 mmol/L (96-108); Creatinine Clr Calc Pharmacy 81.3; Estimated Glomerular Filt Rate 51; Glucose Random 152 mg/dL (60-115); Lipase 37 U/L (8-78); Potassium 4.2 mmol/L (3.3-5.1); Sodium 142 mmol/L (135-145); Total Protein 7.3 g/dL (6.5-8.0)
[2022-01-14 12:13] LABS: Calcium 11.4 mg/dL (8.4-10.2)
[2022-01-14] MEDS: ondansetron HCL 4 MG/2 ML VIAL IVPUSH (13:06)
[2022-01-14 14:46] VITALS: BP 143/86; PULSE 79; RESP 18; O2SAT 100
[2022-01-14 14:48] VITALS: BP 133/74; PULSE 80; RESP 18; TEMP 36.4; O2SAT 96
--- NOTE | 2022-01-14 15:05 | PC.NURSE ---
PLAN IS FOR DC HOME. PT REPORTS FEELING BETTER AFTER DILAUDID IV REMOVED AMBULATORY, GAIT STEADY
== END 2022-01-14 15:12 | disposition home or self-care (01) ==
PROVIDERS: Emergency Provider Emergency Medicine; PCP Internal Medicine
DX: N13.4 Hydroureter (principal); N20.1 Calculus of ureter; R10.9 Unspecified abdominal pain; I10 Essential (primary) hypertension; E78.5 Hyperlipidemia, unspecified; E11.9 Type 2 diabetes mellitus without complications; E66.9 Obesity, unspecified; Z68.42 Body mass index [BMI] 45.0-49.9, adult; Z87.442 Personal history of urinary calculi; Z79.02 Long term (current) use of antithrombotics/antiplatelets; Z79.899 Other long term (current) drug therapy
CPT/HCPCS: 36415; 74176; 80048; 80076; 81001; 83690; 85025; 96361; 96374; 96375; 96376; 99283; 99284; J1170; J2405

== ENCOUNTER → 2022-01-24 08:57 | Outpatient (BNVA) | payer OTHER, SELFPAY | PROVIDERS: PCP Internal Medicine; Visit Provider Dietitian, Registered | DX: E11.65 Type 2 diabetes mellitus with hyperglycemia (principal) | CPT/HCPCS: 97802 ==

== ENCOUNTER → 2022-02-08 11:00 | Outpatient (BNVA) | payer OTHER, SELFPAY | PROVIDERS: PCP Internal Medicine; Visit Provider Urology | DX: N13.2 Hydronephrosis with renal and ureteral calculous obstruction (principal) | CPT/HCPCS: 99202 ==

== ENCOUNTER → 2022-03-05 13:07 | Outpatient (BNVA) | payer OTHER, SELFPAY | PROVIDERS: PCP Internal Medicine; Visit Provider Internal Medicine | DX: J45.41 Moderate persistent asthma with (acute) exacerbation (principal); J98.4 Other disorders of lung; K21.9 Gastro-esophageal reflux disease without esophagitis; R05.9 Cough, unspecified; G47.33 Obstructive sleep apnea (adult) (pediatric); Z79.899 Other long term (current) drug therapy | CPT/HCPCS: 99212 ==

== ENCOUNTER 2022-04-09 09:01 | Outpatient (REF) | payer OTHER, SELFPAY ==
[2022-04-09 09:18] LABS: MANUAL DIFF FLAG NO
[2022-04-09 10:10] LABS: Appearance Urine Clear; Color Urine Yellow; Glucose Urine UA Negative (Negative); Leukocyte Esterase Urine Negative (Negative); Nitrite Urine Negative (Negative); PH 6.5 (5.0-9.0); Specific Gravity - Urine 1.025 (1.005-1.025); Urine Blood Negative (Negative); Urine Ketones Negative (Negative); Urine Protein Negative (Neg-Trace)
[2022-04-09 10:11] LABS: Basophils Absolute Auto 0.1 X10*3/uL (0.0-0.2); Basophils Percent Auto 0.6 % (0-2); Eosinophils Absolute Auto 0.3 X10*3/uL (0.0-0.4); Eosinophils Percent Auto 3.4 % (0-4); Hematocrit 44.4 % (37.0-47.0); Hemoglobin 14.4 g/dl (12.0-16.0); Imm Gran Abs Auto 0.03 X10*3/uL (0.00-0.03); Imm Gran Pct Auto 0.3 % (0.0-0.4); Lymphocytes Percent Auto 20.7 % (20-40); Mean Corpuscular HGB Conc 32.4 g/dl (31.0-35.0); Mean Corpuscular Hemoglobin 30.2 pg (27.0-33.0); Mean Corpuscular Volume 93.1 fL (80.0-98.0); Mean Platelet Volume 10.8 fL (9.4-12.3); Monocytes Absolute Auto 0.9 X10*3/uL (0.1-1.2); Monocytes Percent Auto 9.2 % (2-11); Neutrophils Absolute Auto 6.2 x10*3/uL (2.0-8.3); Neutrophils Percent Auto 65.8 % (45-73); Platelet Count 345 X10*3/uL (160-400); Red Blood Count 4.77 X10*6/uL (4.20-5.50); Red Cell Distribution Width 14.8 % (11.0-16.0); White Blood Count 9.4 X10*3/uL (4.8-10.8)
[2022-04-09 10:44] LABS: Estimated Average Glucose 128 mg/dL; Hemoglobin A1c % 6.1 %
[2022-04-09 10:54] LABS: Creatinine Urine 164.59 mg/dL; Microalbum/Creatinine Ratio Ur 4.8 ug/mg cr
[2022-04-09 11:07] LABS: Alanine Aminotransferase 95 U/L (0-31); Albumin Level 3.9 g/dL (3.5-5.0); Alkaline Phosphatase 122 U/L (39-117); Anion Gap 14 (12-20); Aspartate Amino Transferase 48 U/L (5-31); Bilirubin Total 0.5 mg/dL (0.0-1.0); Blood Urea Nitrogen 12 mg/dL (9-16); Calcium 11.1 mg/dL (8.4-10.2); Carbon Dioxide 30 mmol/L (22-29); Chloride 102 mmol/L (96-108); Cholesterol 176 mg/dL; Estimated Glomerular Filt Rate > 60; Glucose Fasting 121 mg/dL (60-99); HDL Cholesterol 38 mg/dL; LDL Cholesterol Calculated 112 mg/dl; Potassium 4.3 mmol/L (3.3-5.1); Sodium 142 mmol/L (135-145); Total Protein 6.8 g/dL (6.5-8.0); Triglycerides 133 mg/dL
[2022-04-09 11:08] LABS: TSH reflex Free T4 3.32 uIU/mL (0.32-4.0); Vitamin D 25-OH Total 60.8 ng/mL (>30)
== END 2022-04-09 09:02 | disposition home or self-care (01) ==
LOC: HO.LAB 09:01
PROVIDERS: PCP Internal Medicine; Visit Provider Internal Medicine
DX: R30.0 Dysuria (principal); E11.9 Type 2 diabetes mellitus without complications; I10 Essential (primary) hypertension; E55.9 Vitamin D deficiency, unspecified; E78.00 Pure hypercholesterolemia, unspecified
CPT/HCPCS: 36415; 80053; 80061; 81003; 82043; 82306; 83036; 84443; 85025

== ENCOUNTER → 2022-04-18 09:22 | Outpatient (REF) | payer OTHER, SELFPAY ==
--- NOTE | 2022-04-18 09:26 | CA_ITS ---
Acquisition Time: 2022-04-18 10:11:12 Total Exercise Time: 00:02:55 Test Indications: CP, PALPITATIONS Medications: SEE H Protocol: PHILIP Max HR: 133 BPM 77% of Pred: 171 BPM Max BP: 164/084 mmHG Max Work Load: 4.3 METS Exercise stress test with exercise 2 min 55 sec of Philip protocol ( for last minute speed reduced to 1.5mph) , achieving 77% MPHR, with moderate sob and fartigue and need to stop, without chest discomfort, with normotensive response to exercise, with nondiagnostic EKG for ischemia due to suboptimal heart rate, however no ischemic changes noted at achieved workload. In recovery her sob quickly improved. Test reviewed with Dr Oswald Referred By: Chin Chavez Overread By: HERO CHEUNG
== END ==
LOC: HO.CARD 09:22
PROVIDERS: PCP Internal Medicine; Visit Provider Internal Medicine
DX: R07.2 Precordial pain (principal)
CPT/HCPCS: 93017

== ENCOUNTER → 2022-05-30 10:21 | Outpatient (BNVA) | payer OTHER, SELFPAY | PROVIDERS: PCP Internal Medicine; Visit Provider Surgery | DX: K80.20 Calculus of gallbladder without cholecystitis without obstruction (principal) | CPT/HCPCS: 99212 ==

== ENCOUNTER → 2022-06-05 11:20 | Outpatient (BNVA) | payer OTHER, SELFPAY | PROVIDERS: PCP Internal Medicine; Visit Provider Internal Medicine | DX: J45.41 Moderate persistent asthma with (acute) exacerbation (principal); J98.4 Other disorders of lung; G47.33 Obstructive sleep apnea (adult) (pediatric); E66.01 Morbid (severe) obesity due to excess calories; Z68.42 Body mass index [BMI] 45.0-49.9, adult | CPT/HCPCS: 99212 ==

== ENCOUNTER → 2022-06-20 11:02 | Outpatient (BNVA) | payer OTHER, SELFPAY | PROVIDERS: PCP Internal Medicine; Referring Provider Internal Medicine; Visit Provider Internal Medicine | DX: R00.2 Palpitations (principal); R07.2 Precordial pain; I51.7 Cardiomegaly; G47.33 Obstructive sleep apnea (adult) (pediatric); E11.9 Type 2 diabetes mellitus without complications; E66.01 Morbid (severe) obesity due to excess calories; Z68.42 Body mass index [BMI] 45.0-49.9, adult | CPT/HCPCS: 93005; 99212 ==

== ENCOUNTER 2022-07-17 09:23 | Outpatient (REF) | payer OTHER, SELFPAY ==
--- NOTE | 2022-07-17 09:37 | HM_ITS ---
* Total monitoring time 1 day 9 hours. * Underlying rhythm is sinus. Average ventricular rate 87/Min. Range 61 to 150/Min. * Sinus tachycardia noted 7% the time. * No significant ectopy, Yonathan or tachyarrhythmias. * No significant pauses or AV blocks. * Patient marker used once in association with sinus rhythm. MTDD
[2022-07-17 10:05] LABS: MANUAL DIFF FLAG NO
[2022-07-17 10:45] LABS: Basophils Percent Auto 0.5 % (0-2); Eosinophils Absolute Auto 0.3 X10*3/uL (0.0-0.4); Eosinophils Percent Auto 4.1 % (0-4); Hematocrit 44.6 % (37.0-47.0); Hemoglobin 14.4 g/dl (12.0-16.0); Imm Gran Abs Auto 0.04 X10*3/uL (0.00-0.03); Imm Gran Pct Auto 0.5 % (0.0-0.4); Lymphocytes Percent Auto 24.4 % (20-40); Mean Corpuscular HGB Conc 32.3 g/dl (31.0-35.0); Mean Corpuscular Hemoglobin 30.1 pg (27.0-33.0); Mean Corpuscular Volume 93.1 fL (80.0-98.0); Mean Platelet Volume 10.8 fL (9.4-12.3); Monocytes Absolute Auto 0.7 X10*3/uL (0.1-1.2); Monocytes Percent Auto 8.6 % (2-11); Neutrophils Absolute Auto 5.2 x10*3/uL (2.0-8.3); Neutrophils Percent Auto 61.9 % (45-73); Platelet Count 304 X10*3/uL (160-400); Red Blood Count 4.79 X10*6/uL (4.20-5.50); Red Cell Distribution Width 15.2 % (11.0-16.0); White Blood Count 8.3 X10*3/uL (4.8-10.8)
[2022-07-17 10:58] LABS: Estimated Average Glucose 126 mg/dL
[2022-07-17 10:58] LABS: Appearance Urine Cloudy; Color Urine Yellow; Glucose Urine UA Negative (Negative); Leukocyte Esterase Urine Trace (Negative); Nitrite Urine Negative (Negative); Specific Gravity - Urine 1.025 (1.005-1.025); UMIC TRIGGER UACC YES; Urine Blood Negative (Negative); Urine Ketones Negative (Negative); Urine Protein Negative (Neg-Trace)
[2022-07-17 11:05] LABS: Bacteria Urine 1+ (None Seen); Hyaline Casts Urine 0-2 /LPF (0-2); WBC Urine 0-5 /HPF (0-5)
[2022-07-17 11:13] LABS: Alanine Aminotransferase 125 U/L (0-31); Alkaline Phosphatase 122 U/L (39-117); Anion Gap 11 (12-20); Aspartate Amino Transferase 59 U/L (5-31); Bilirubin Total 0.7 mg/dL (0.0-1.0); Blood Urea Nitrogen 14 mg/dL (9-16); Calcium 11.4 mg/dL (8.4-10.2); Carbon Dioxide 32 mmol/L (22-29); Chloride 104 mmol/L (96-108); Cholesterol 165 mg/dL; Estimated Glomerular Filt Rate > 60; Glucose Fasting 114 mg/dL (60-99); HDL Cholesterol 42 mg/dL; LDL Cholesterol Calculated 104 mg/dl; Potassium 4.7 mmol/L (3.3-5.1); Sodium 142 mmol/L (135-145); Total Protein 6.8 g/dL (6.5-8.0); Triglycerides 97 mg/dL
[2022-07-17 11:35] LABS: TSH reflex Free T4 2.82 uIU/mL (0.32-4.0); Vitamin D 25-OH Total 83.5 ng/mL (>30)
[2022-07-17 11:37] LABS: Creatinine Urine 187.52 mg/dL; Microalbum/Creatinine Ratio Ur 5.3 ug/mg cr
== END 2022-07-17 09:24 | disposition home or self-care (01) ==
LOC: HO.LAB 09:23
PROVIDERS: PCP Internal Medicine; Visit Provider Internal Medicine
DX: R00.2 Palpitations (principal); E78.00 Pure hypercholesterolemia, unspecified; I10 Essential (primary) hypertension; E55.9 Vitamin D deficiency, unspecified; E11.9 Type 2 diabetes mellitus without complications
CPT/HCPCS: 36415; 80053; 80061; 81001; 82043; 82306; 83036; 84443; 85025; 93246

== ENCOUNTER 2022-07-22 14:30 | Outpatient (AMB) | payer OTHER, SELFPAY ==
[2022-07-22 14:36] VITALS: BP 122/78; PULSE 89; O2SAT 98; BMI 47.8
--- NOTE | 2022-07-22 14:36 | A.OFFPC_ITS ---
Vital Signs 07/22/22 14:36 Height 5 ft 5 in Weight 287 lb 4 oz BMI 47.8 BP 122/78 Blood Pressure Location Lt brachial Position Sitting Pulse 89 Pulse Source Pulse Oximeter Pulse Oximetry (%) 98 Oxygen Delivery Method Room Air Intake Visit Reasons: Follow Up/ Neck Pain, all right side Intake Note: Patient is here for a follow up and is having pain all on the right side of her body. Mill Representative Required: No Accompanied by: Self / Same As Patient Allergies Gadolinium-Containing Contrast Medi [GADOLINIUM-CONTAINING CONTRAST] Allergy (Severe, Verified 10/31/22 11:26) ANAPHYLAXIS Iodinated Contrast Media [IV Dye, Iodine Containing] Allergy (Severe, Verified 10/31/22 11:26) ANAPHYLAXIS aspirin [Aspirin] Allergy (Mild, Verified 10/31/22 11:26) ITCH ibuprofen [Ibuprofen] Allergy (Mild, Verified 10/31/22 11:26) NAUSEA oxycodone [From Percocet] Allergy (Mild, Verified 10/31/22 11:26) RASH Penicillins Allergy (Mild, Verified 10/31/22 11:26) ITCH Sulfa (Sulfonamide Antibiotics) Allergy (Mild, Verified 10/31/22 11:26) ITCH morphine [MORPHINE] Allergy (Unknown, Verified 10/31/22 11:26) NAUSEA penicillin V Allergy (Unknown, Verified 10/31/22 11:26) Itch seafood Allergy (Unknown, Verified 10/31/22 11:26) Unknown LIQUID SOAPS Allergy (Intermediate, Uncoded 10/31/22 11:26) ITCHING AND REDNESS CHIHUAHUA Allergy (Mild, Uncoded 10/31/22 11:26) RASH ITCHING Medication List - Last Reconciled 07/22/22 by Mihir Elmore MD albuterol sulfate 2.5 mg (3 mL) inhalation Q4-6H PRN albuterol sulfate 90 mcg/actuation 2 puffs PO Q6H PRN aripiprazole 2 mg PO DAILY blood pressure monitor As directed blood pressure test kit-wrist As directed blood sugar diagnostic (OneTouch Ultra Test strips) As directed once a day blood sugar diagnostic As directed blood-glucose meter As directed blood-glucose meter (OneTouch Ultra2 Meter kit) As directed cetirizine 10 mg PO DAILY PRN 90 days cholecalciferol (vitamin D3) 125 mcg PO DAILY cyanocobalamin (vitamin B-12) 100 mcg PO DAILY cyanocobalamin (vitamin B-12) 1,000 mcg IM Q4W 90 days [DIABETIC SHOES (1 pair) As directed] docusate sodium 100 mg PO BEDTIME epinephrine (EpiPen 2-Fili) 0.3 mg (0.3 mL) IM ONCE PRN 360 days fluocinolone 0.025% 1 appl topical BID fluticasone propion-salmeterol 250-50 mcg/dose (Wixela Inhub) 1 inh inhalation BID 30 days fluticasone propionate 50 mcg/actuation (Flonase Allergy Relief) 2 sprays intranasal DAILY 2 weeks hydrochlorothiazide 25 mg PO QAM lancets (FreeStyle Lancets) As directed - E11.9 -- Diabetes lancets As directed lancets (OneTouch UltraSoft Lancets) As directed once a day loperamide 2 mg PO Q6H PRN loratadine 10 mg PO DAILY PRN 90 days metformin ER 500 mg PO DAILY omeprazole 40 mg PO QAM simvastatin 20 mg PO BEDTIME 90 days sucralfate 1 g PO BID sumatriptan succinate 100 mg PO DAILY PRN syringe with needle As directed topiramate 25 mg PO BEDTIME Tobacco use date assessed: 07/22/22 HPI Follow Up/ Neck Pain, all right side HPI Details Patient comes in today for her follow up visit States that she has been experiencing recurrent right-sided neck pain, right- sided chest pain and on and off right-sided abdominal pain for few weeks now Also relates right arm and right leg pain at times Is not sure what is causing her symptoms and is concerned that she may be having some symptoms of a stroke Does not recall any recent injury or trauma to her right side Also reports occasional right-sided headaches recently Denies any blurring of her vision; denies any dizziness or unilateral weakness Denies any exertional chest pains, no increased shortness of breath lately - states that she continues to use her asthma inhalers as prescribed and they appear to be helping well No nausea/ vomiting and no change in bowel habits noted recently Had her follow-up labs done a few days ago - to discuss her results [facility] Medical History Acute bronchitis Asthma Benign essential hypertension Calculus of kidney Costochondritis Cough Diabetes mellitus Fibromyalgia Gallbladder polyp GERD (gastroesophageal reflux disease) Hand pain, right Hypercalcemia Intertrigo Migraine headache with aura Mixed stress and urge urinary incontinence Morbid obesity Morbid obesity with BMI of 50.0-59.9, adult Obstructive sleep apnea Palpitations Primary osteoarthritis of both knees Pure hypercholesterolemia Rectal bleeding Restrictive lung disease Tremor of both hands Vitamin B12 deficiency Vitamin D deficiency Surgical History No pertinent past surgical history Family History Father Medical history unknown Mother Hypertension Kidney stones Maternal Grandmother Colon cancer Maternal Aunt Breast cancer Sister No problems noted. Sister No problems noted. Social History Housing: Apartment Alcohol intake: never Patient Tobacco Use Status: Never used Tobacco e-Cigarette/Vaping Use: Never Used Second Hand Smoke Exposure: No Advance Directives Date on File: 01/03/21 service: No Current occupational status: disabled Cognitive needs: No Hearing needs: No Vision needs: No Questionnaire PHQ-9 Over the last 2 weeks, how often have you been bothered by any of the following problems? 1. Little interest or pleasure in doing things: several days 2. Feeling down, depressed, or hopeless: several days 3. Trouble falling or staying asleep, or sleeping too much: several days 4. Feeling tired or having little energy: several days 5. Poor appetite or overeating: not at all 6. Feeling bad about yourself - or that you are a failure or have let yourself or your family down: not at all 7. Trouble concentrating on things, such as reading the newspaper or watching television: not at all 8. Moving or speaking so slowly that other people could have noticed. Or the opposite - being so fidgety or restless that you have been moving around a lot more than usual: not at all 9. Thoughts that you would be better off or of hurting yourself in some way: not at all Total score: 4 Depression Screening Interpretation: Positive Depression Screening Follow-up: Existing condition and Community Mental Health Worker F/U [id number] - PHQ-9 Billing: Yes Source: Developed by Drs. Anirudh Mckeon, Sabas Khalil and colleagues, with an educational marlena from [employer]. Thrive Questionnaire Date Thrive assessed: 07/22/22 I am a: Patient What is your living situation today?: I have a steady place to live Within the past 12 months, did the food you bought not last and you didn't have the money to get more?: Never true Within the past 12 months, did you worry whether your food would run out before you got money to buy more?: Never true Do you have trouble paying for medicines?: No Do you have trouble getting transportation to medical appointments?: No Do you have trouble paying your heating and electricity bill?: No Do you have trouble taking care of your child, family member or friend?: No Do you have trouble with day-to-day activities such as bathing, preparing meals, shopping, managing finances, etc.?: No Are you currently unemployed and looking for a job?: No Are you interested in more education?: No Currently or been in a relationship where the following occur: no concerns reported AUDIT C Alcohol Use Questionnaire (AUDIT-C) 1. How often do you have a drink containing alcohol?: Never 3. How often do you have six or more drinks on one occasion?: Never Total Score: 0 Score Reviewed/Action Taken: Yes KIMO-7 AMB Questionnaire KIMO-7 Date KIMO - 7 assessed: 07/22/22 Feeling nervous, anxious, or on edge: 2 = More than half the days Not being able to stop or control worryin = More than half the days Worrying too much about different things: 2 = More than half the days Trouble relaxin = More than half the days Being so restless that it is hard to sit still: 2 = More than half the days Becoming easily annoyed or irritable: 2 = More than half the days Feeling afraid as if something awful might happen: 2 = More than half the days Total KIMO-7 score (0-4 normal; 5-9 mild; 10-14 moderate; 15-21 severe): 14 Source: Developed by Drs. Anirudh Mckeon, Sabas Khalil and colleagues, with an educational marlena from [employer]. Review of Systems Const Denies chills, Reports fatigue, Denies fever(s) and Reports headache(s) (occasional, right-sided) ENT Denies dysphagia, Denies dizziness, Denies otalgia, Reports headache(s) (occasional, right-sided), Denies nasal congestion, Reports neck pain (especially over the right side), Denies odynophagia and Denies sore throat Card Reports chest pain (on and off right-sided sharp pains), Denies palpitations and Denies dyspnea Resp Denies chest congestion, Reports cough (occasional, non-productive), Denies excessive phlegm production, Denies dyspnea and Denies wheezing GI Reports abdominal pain (on and off right-sided sharp pains), Denies constipation, Denies dysphagia, Denies heartburn, Denies diarrhea, Denies nausea, Denies odynophagia and Denies vomiting Denies hematuria, Denies dysuria and Reports urinary incontinence Musc Reports back pain, Reports arthralgias (multiple) and Reports neck pain (especially over the right side) Neuro Denies dizziness, Reports headache(s) (occasional, right-sided) and Reports tremor(s) (in both hands, occasionally) Endo Reports fatigue and Denies palpitations Aller/Immun Denies wheezing Physical exam (Primary Care) Vital Signs: Last Vital Signs Pulse 89 07/22/22 14:36 BP 122/78 07/22/22 14:36 Pulse Ox 98 07/22/22 14:36 Oxygen Delivery Method Room Air 07/22/22 14:36 BMI result Body Mass Index 47.8 Tobacco/Smoking Status: Tobacco use Status Tobacco use date assessed 07/22/22 07/22/22 14:42 Patient Tobacco Use Status Never used Tobacco 07/22/22 14:42 e-Cigarette/Vaping Use Never Used 07/22/22 14:42 PHQ-9: PHQ-9 Score PHQ-9: Total score 4 11/01/22 05:12 Depression Screening Interpretation: Positive Depression Screening Follow-up: Existing condition and Community Mental Health Worker F/U Thrive Assessment: Date of Thrive Assessment Date Thrive assessed 07/22/22 07/22/22 14:42 Currently or been in a relationship where the following occur: no concerns reported Const General: no acute distress and alert HENMT Ears: TM's normal bilaterally and EAC's normal Throat: Yes posterior oropharynx normal and Yes tonsils normal (no TP congestion) Neck Neck: Yes no lymphadenopathy and Yes supple Resp Auscultation: clear to auscultation bilaterally, no rales and no wheezes Cardio Rate: regular rate Rhythm: regular rhythm Heart sounds: no murmurs GI Palpation (GI): Soft to palpation, nontender, no guarding and No Rebound tenderness present Auscultation: normal bowel sounds Skin Rashes: no rashes Extrem General: Yes no clubbing, cyanosis or edema Results Reviewed Results Reviewed: Laboratory Tests 07/17/22 07/17/22 07/17/22 10:02 10:02 10:03 WBC 8.3 Hgb 14.4 Hct 44.6 Plt Count 304 Sodium Potassium Creatinine Estimated GFR Fasting Glucose Hemoglobin A1c % Calcium AST ALT Triglycerides Cholesterol LDL Cholesterol, Calc HDL Cholesterol 25-OH Vitamin D Total TSH Ur Specific [place] 1.025 Urine Glucose (UA) Negative Urine Blood Negative Microalb/Creat Ratio 5.3 07/17/22 07/17/22 10:03 10:03 WBC Hgb Hct Plt Count Sodium 142 Potassium 4.7 Creatinine 0.89 Estimated GFR > 60 Fasting Glucose 114 H Hemoglobin A1c % 6.0 Calcium 11.4 H AST 59 H ALT 125 H Triglycerides 97 Cholesterol 165 LDL Cholesterol, Calc 104 HDL Cholesterol 42 25-OH Vitamin D Total 83.5 TSH 2.82 Ur Specific [place] Urine Glucose (UA) Urine Blood Microalb/Creat Ratio Assessment and Plan Assessment & Plan (1) Hypercalcemia: Code(s): E83.52 - Hypercalcemia Plan: Advised that her serum calcium level has been noted to be consistently elevated over the past 1-2 years now and despite correction of her vitamin-D level recently, her numbers did not improve or resolve Suspect hypercalcemia - will send her for an additional lab PHILIPPE to check her PTH level and ionized calcium level Advised that if her PTH level is elevated, will need to refer her to Endocrinology for further evaluation and that she may eventually need parathyroidectomy to correct her condition (2) Benign essential hypertension: Code(s): I10 - Essential (primary) hypertension Plan: Reinforced low sodium diet - goal is systolic BP of at least 120 to 130 mm or less Continue HCTZ 25 mg QD Patient is instructed to continue monitoring her blood pressure regularly (3) Asthma: Comment: THE PULMONARY FUNCTION TEST DID NOT SHOW ANY SIGNIFICANT OBSTRUCTIVE DISORDER. BUT CLINICALLY SHE DOES HAVE BRONCHIAL ASTHMA/ MILD COPD. SHE IS BENEFITING FROM THE USE OF WIXELA AND PROAIR P.R.N.. TX: ADVISED CONTINUE USING WIXELA 250-50 1 INHALATION B.I.D. AND PROAIR 2 PUFFS Q 4-6 HOURS P.R.N.( may use it for any persistent bouts of cough also.) Code(s): J45.909 - Unspecified asthma, uncomplicated Qualifiers: Asthma severity: moderate Asthma persistence: persistent Asthma complication type: with acute exacerbation Qualified Code(s): J45.41 - Moderate persistent asthma with (acute) exacerbation Plan: Stable/controlled lately Continue Wixela 250-50 mcg 1 inhalation BID and Albuterol HFA 2 puffs 4 times a day as needed (4) Diabetes mellitus: Code(s): E11.9 - Type 2 diabetes mellitus without complications Qualifiers: Diabetes mellitus type: type 2 Diabetes mellitus skilled nursing insulin use: without skilled nursing use Diabetes mellitus complication status: without complication Qualified Code(s): E11.9 - Type 2 diabetes mellitus without complications Plan: HgbA1c was at 6.0% on her labs done a few days ago (was previously at 6.1% earlier this year) - goal is < 7.0% Reinforced diabetic diet Continue Metformin ER 500 mg QD (5) Pure hypercholesterolemia: Code(s): E78.00 - Pure hypercholesterolemia, unspecified Plan: Results of her labs done a few days ago reviewed and discussed with patient Reinforced low cholesterol diet Continue Simvastatin 20 mg QD Will recheck her labs in 3 months for follow up (6) Migraine headache with aura: Code(s): G43.109 - Migraine with aura, not intractable, without status migrainosus Qualifiers: Status migrainosus presence: without status migrainosus Intractability: not intractable Qualified Code(s): G43.109 - Migraine with aura, not intractable, without status migrainosus Plan: Stable on prophylactic Tx with Topiramate 25 mg Q HS Continue Sumatriptan 100 mg PRN (7) Fibromyalgia: Code(s): M79.7 - Fibromyalgia Plan: Was started on Gabapentin 100 mg TID last year but she stopped taking them due to increased dizziness while on the Rx Follow up with rheumatology as scheduled (8) GERD without esophagitis: Code(s): K21.9 - Gastro-esophageal reflux disease without esophagitis Plan: Dietary restrictions reinforced Follow up with GI as scheduled (9) Vitamin D deficiency: Code(s): E55.9 - Vitamin D deficiency, unspecified Plan: Continue Vitamin D3 5000 units QD Will recheck her vitamin-D level in 3 months for follow-up (10) Vitamin B12 deficiency: Code(s): E53.8 - Deficiency of other specified B group vitamins Plan: Continue Vitamin B12 injections 1000 mcg once a month (11) Psoriasis: Code(s): L40.9 - Psoriasis, unspecified Plan: Follow up with dermatology (Dr. Guardado) as scheduled (12) Morbid obesity with BMI of 50.0-59.9, adult: Code(s): E66.01 - Morbid (severe) obesity due to excess calories; Z68.43 - Body mass index [BMI] 50.0-59.9, adult Plan: Reinforced diet/exercise as tolerated/lose weight Plan Follow up in 3 months Orders: Orders Calcium, Ionized 07/22/22 E83.52 - Hypercalcemia PTHI 07/22/22 E83.52 - Hypercalcemia LUCI Reflex Titer and Pattern 07/22/22 E83.52 - Hypercalcemia, R21 - Rash and other nonspecific skin eruption Comprehensive Carbon. Panel Fast 3 Months E78.00 - Pure hypercholesterolemia, unspecified Hemoglobin A1c 3 Months E11.9 - Type 2 diabetes mellitus without complications Lipid Panel 3 Months E78.00 - Pure hypercholesterolemia, unspecified TSH reflex Free T4 3 Months E78.00 - Pure hypercholesterolemia, unspecified Vitamin D 25-OH Total 3 Months E55.9 - Vitamin D deficiency, unspecified Microalbumin, Random (w Creat) 3 Months E11.9 - Type 2 diabetes mellitus without complications Complete Blood Count Auto Diff 3 Months I10 - Essential (primary) hypertension UA CC w/rflx Micro + Cult 3 Months R30.0 - Dysuria Medications: Changed From albuterol sulfate 2.5 mg (3 mL) inhalation Q4-6H PRN 180 mL 0RF shortness of breath or wheezing To albuterol sulfate 2.5 mg (3 mL) continuous nebulization Q4-6H PRN 180 mL 3RF shortness of breath or wheezing Coding Level of Care Code Est Pt Level 4 (39062) Diagnoses Hypercalcemia E83.52 Benign essential hypertension I10 Asthma J45.41 Asthma severity: moderate Asthma persistence: persistent Asthma complication type: with acute exacerbation Diabetes mellitus E11.9 Diabetes mellitus type: type 2 Diabetes mellitus extermination inspector insulin use: without extermination inspector use Diabetes mellitus complication status: without complication Pure hypercholesterolemia E78.00 Migraine headache with aura G43.109 Status migrainosus presence: without status migrainosus Intractability: not intractable Fibromyalgia M79.7 GERD without esophagitis K21.9 Vitamin D deficiency E55.9 Vitamin B12 deficiency E53.8 Psoriasis L40.9 Morbid obesity with BMI of 50.0-59.9, adult E66.01; Z68.43
== END 2022-07-22 16:13 | disposition home or self-care (01) ==
LOC: HO.HMGH 14:30
PROVIDERS: PCP Internal Medicine; Visit Provider Internal Medicine
DX: E83.52 Hypercalcemia (principal); I10 Essential (primary) hypertension; J45.41 Moderate persistent asthma with (acute) exacerbation; E11.9 Type 2 diabetes mellitus without complications; G43.109 Migraine with aura, not intractable, without status migrainosus; E78.00 Pure hypercholesterolemia, unspecified; M79.7 Fibromyalgia; K21.9 Gastro-esophageal reflux disease without esophagitis; E55.9 Vitamin D deficiency, unspecified; E53.8 Deficiency of other specified B group vitamins; L40.9 Psoriasis, unspecified; E66.01 Morbid (severe) obesity due to excess calories
CPT/HCPCS: 99214

== ENCOUNTER 2022-07-22 16:30 | Outpatient (REF) | payer OTHER, SELFPAY ==
[2022-07-22 17:57] LABS: Appearance Urine Clear; Color Urine Yellow; Glucose Urine UA Negative (Negative); Leukocyte Esterase Urine Negative (Negative); Nitrite Urine Negative (Negative); PH 6.5 (5.0-9.0); Specific Gravity - Urine 1.015 (1.005-1.025); Urine Blood Negative (Negative); Urine Ketones Negative (Negative); Urine Protein Negative (Neg-Trace)
[2022-07-23 14:59] LABS: Calcium (PTHI) 11.3 mg/dL (8.6-10.2); PTHI 147 pg/mL (16-77)
[2022-07-24 14:48] LABS: Anti Nuclear Antibody Screen NEGATIVE (NEGATIVE)
[2022-07-24 15:18] LABS: Calcium, Ionized 5.9 mg/dL (4.7-5.5)
== END 2022-07-22 16:31 | disposition home or self-care (01) ==
LOC: HO.LAB 16:30
PROVIDERS: PCP Internal Medicine; Visit Provider Internal Medicine
DX: E83.52 Hypercalcemia (principal); R30.0 Dysuria; R21 Rash and other nonspecific skin eruption
CPT/HCPCS: 36415; 81003; 82330; 83970; 86038

== ENCOUNTER → 2022-08-12 10:26 | Outpatient (BNVA) | payer OTHER, SELFPAY | PROVIDERS: PCP Internal Medicine; Visit Provider Urology | DX: N20.0 Calculus of kidney (principal); R39.15 Urgency of urination; R32 Unspecified urinary incontinence | CPT/HCPCS: 51798; 99212 ==

== ENCOUNTER 2022-09-27 16:05 | Outpatient (AMB) | payer OTHER, SELFPAY ==
--- NOTE | 2022-09-27 16:38 | AM.OFFVISNUR ---
Intake Intake Visit Reasons: B12 Allergies Gadolinium-Containing Contrast Medi [GADOLINIUM-CONTAINING CONTRAST] Allergy (Severe, Verified 08/12/22 10:35) ANAPHYLAXIS Iodinated Contrast Media [IV Dye, Iodine Containing] Allergy (Severe, Verified 08/12/22 10:35) ANAPHYLAXIS aspirin [Aspirin] Allergy (Mild, Verified 08/12/22 10:35) ITCH ibuprofen [Ibuprofen] Allergy (Mild, Verified 08/12/22 10:35) NAUSEA oxycodone [From Percocet] Allergy (Mild, Verified 08/12/22 10:35) RASH Penicillins Allergy (Mild, Verified 08/12/22 10:35) ITCH Sulfa (Sulfonamide Antibiotics) Allergy (Mild, Verified 08/12/22 10:35) ITCH morphine [MORPHINE] Allergy (Unknown, Verified 08/12/22 10:35) NAUSEA penicillin V Allergy (Unknown, Verified 08/12/22 10:35) Itch seafood Allergy (Unknown, Verified 08/12/22 10:35) Unknown LIQUID SOAPS Allergy (Intermediate, Uncoded 08/12/22 10:35) ITCHING AND REDNESS CHIHUAHUA Allergy (Mild, Uncoded 08/12/22 10:35) RASH ITCHING Office Meds cyanocobalamin (vitamin B-12) Performing Provider: Mihir Elmore MD Administered by: Diane Ragland RN on 09/27/22 16:39 Dose Route Admin Location Lot Number Expiration Date NDC Marker Machine 1,000 mcg IM left deltoid [id number] 12/08/23 47113-290-06 ERYN [employer] Coding Diagnoses Assessment & Plan Assessment & Plan Orders: Orders AMB Vitamin B12 Injection Patient Supplied Today E53.8 - Deficiency of other specified B group vitamins
--- NOTE | 2022-09-27 16:40 | AM.OFFVISNUR ---
Intake Intake Visit Reasons: B12 Allergies Gadolinium-Containing Contrast Medi [GADOLINIUM-CONTAINING CONTRAST] Allergy (Severe, Verified 08/12/22 10:35) ANAPHYLAXIS Iodinated Contrast Media [IV Dye, Iodine Containing] Allergy (Severe, Verified 08/12/22 10:35) ANAPHYLAXIS aspirin [Aspirin] Allergy (Mild, Verified 08/12/22 10:35) ITCH ibuprofen [Ibuprofen] Allergy (Mild, Verified 08/12/22 10:35) NAUSEA oxycodone [From Percocet] Allergy (Mild, Verified 08/12/22 10:35) RASH Penicillins Allergy (Mild, Verified 08/12/22 10:35) ITCH Sulfa (Sulfonamide Antibiotics) Allergy (Mild, Verified 08/12/22 10:35) ITCH morphine [MORPHINE] Allergy (Unknown, Verified 08/12/22 10:35) NAUSEA penicillin V Allergy (Unknown, Verified 08/12/22 10:35) Itch seafood Allergy (Unknown, Verified 08/12/22 10:35) Unknown LIQUID SOAPS Allergy (Intermediate, Uncoded 08/12/22 10:35) ITCHING AND REDNESS CHIHUAHUA Allergy (Mild, Uncoded 08/12/22 10:35) RASH ITCHING Office Meds cyanocobalamin (vitamin B-12) Performing Provider: Mihir Elmore MD Administered by: Diane Ragland RN on 09/27/22 16:39 Dose Route Admin Location Lot Number Expiration Date NDC Improvement Auditor 1,000 mcg IM left deltoid [id number] 12/08/23 02258-546-24 ERYN [employer]ARMACEUT Coding Diagnoses Assessment & Plan Assessment & Plan Orders: Orders AMB Vitamin B12 Injection Patient Supplied Today E53.8 - Deficiency of other specified B group vitamins
== END 2022-09-27 16:38 | disposition home or self-care (01) ==
PROVIDERS: PCP Internal Medicine; Visit Provider Internal Medicine
DX: E53.8 Deficiency of other specified B group vitamins (principal)
CPT/HCPCS: 96372; J3420

== ENCOUNTER 2022-10-15 12:30 | Outpatient (AMB) | payer OTHER, SELFPAY ==
--- NOTE | 2022-10-15 12:45 | MHC.OFFVIS ---
Intake Vital Signs 10/15/22 12:46 Height 5 ft 5 in Weight 288 lb 5.834 oz BMI 48.0 BP 116/70 Blood Pressure Location Rt radial Position Sitting Pulse 86 Pulse Source Pulse Oximeter Intake Visit Reasons: Hypercalcemia, Hyperparathyroidism Intake Note: New patient present today for Hypercalcemia and Hyperparathyroidism. Carpet Layer Helper Required: Yes Carpet Layer Helper Language: Rn Operating Room Name: Yoko, Medical Staff Information Interpreted: non-clinical & clinical Accompanied by: Self / Same As Patient Allergies Gadolinium-Containing Contrast Medi [GADOLINIUM-CONTAINING CONTRAST] Allergy (Severe, Verified 10/15/22 12:50) ANAPHYLAXIS Iodinated Contrast Media [IV Dye, Iodine Containing] Allergy (Severe, Verified 10/15/22 12:50) ANAPHYLAXIS aspirin [Aspirin] Allergy (Mild, Verified 10/15/22 12:50) ITCH ibuprofen [Ibuprofen] Allergy (Mild, Verified 10/15/22 12:50) NAUSEA oxycodone [From Percocet] Allergy (Mild, Verified 10/15/22 12:50) RASH Penicillins Allergy (Mild, Verified 10/15/22 12:50) ITCH Sulfa (Sulfonamide Antibiotics) Allergy (Mild, Verified 10/15/22 12:50) ITCH morphine [MORPHINE] Allergy (Unknown, Verified 10/15/22 12:50) NAUSEA penicillin V Allergy (Unknown, Verified 10/15/22 12:50) Itch seafood Allergy (Unknown, Verified 10/15/22 12:50) Unknown LIQUID SOAPS Allergy (Intermediate, Uncoded 10/15/22 12:50) ITCHING AND REDNESS CHIHUAHUA Allergy (Mild, Uncoded 10/15/22 12:50) RASH ITCHING Medication List - Last Reconciled 10/15/22 by Anirudh Claudio MD albuterol sulfate 2.5 mg (3 mL) continuous nebulization Q4-6H PRN albuterol sulfate 90 mcg/actuation 2 puffs PO Q6H PRN aripiprazole 2 mg PO DAILY blood pressure monitor As directed blood pressure test kit-wrist As directed blood sugar diagnostic ([employer] Ultra Test strips) As directed once a day blood sugar diagnostic As directed blood-glucose meter As directed blood-glucose meter As directed cetirizine 10 mg PO DAILY PRN 90 days cholecalciferol (vitamin D3) 125 mcg PO DAILY cyanocobalamin (vitamin B-12) 100 mcg PO DAILY cyanocobalamin (vitamin B-12) 1,000 mcg IM Q4W 90 days [DIABETIC SHOES (1 pair) As directed] docusate sodium 100 mg PO BEDTIME epinephrine (EpiPen 2-Fili) 0.3 mg (0.3 mL) IM ONCE PRN 360 days fluocinolone 0.025% 1 appl topical BID fluticasone propion-salmeterol 250-50 mcg/dose (Wixela Inhub) 1 inh inhalation BID 30 days fluticasone propionate 50 mcg/actuation (Flonase Allergy Relief) 2 sprays intranasal DAILY 2 weeks hydrochlorothiazide 25 mg PO QAM lancets (FreeStyle Lancets) As directed - E11.9 -- Diabetes lancets As directed lancets (OneTouch UltraSoft Lancets) As directed once a day loperamide 2 mg PO Q6H PRN loratadine 10 mg PO DAILY PRN 90 days metformin ER 500 mg PO DAILY nystatin 1 appl topical TID 10 days omeprazole 40 mg PO QAM [RAISED TOLET SEAT As directed] simvastatin 20 mg PO BEDTIME 90 days solifenacin (Vesicare) 10 mg PO DAILY sucralfate 1 g PO BID sumatriptan succinate 100 mg PO DAILY PRN syringe with needle As directed topiramate 25 mg PO BEDTIME HPI HPI Comments History of Present Illness Details 47 YO F withwho is seen in consultation at the request of PCP for Hypercalcemia. First noted to have high calcium for couple of months . Not Currently using Calcium supplement but . Takes 5000 IU of Vitamin D daily. Currently using HCTZ 25 mg . On HCTZ for 3 yrs Kidney stones: Y Osteoporosis: N History of [place] use: No Biotin use: N Family history of high calcium or kidney stones: mom has kidney stones Renal imagin12/07/20 = COMPARISON: Ultrasound abdomen complete 10/18/2020 and 10/29/2018. CT abdomen and pelvis 08/17/2019. TECHNIQUE: Real-time imaging of the kidneys.? Technically limited study secondary to bowel gas and body habitus. FINDINGS: RIGHT KIDNEY: 11.0 x 4.7 x 4.5 cm (SAG x AP x TRV). The kidney is normal in size, contour, and echogenicity. Renal cortical thickness is normal. No calculi or focal parenchymal lesions. No hydronephrosis. LEFT KIDNEY: 11.2 x 5.3 x 4.5 cm (SAG x AP x TRV). The kidney is normal in size, contour, and echogenicity. Renal cortical thickness is normal. There is question of a 2 x 4 mm stone in the midpole. No focal parenchymal lesions or hydronephrosis. US/US renal BI IMPRESSION: Limited exam. Question small left renal stone DXA: Labs: [facility] Medical History Asthma Benign essential hypertension Calculus of kidney Costochondritis Cough Diabetes mellitus Fibromyalgia Gallbladder polyp GERD (gastroesophageal reflux disease) Hand pain, right Hypercalcemia Intertrigo Migraine headache with aura Mixed stress and urge urinary incontinence Morbid obesity Morbid obesity with BMI of 50.0-59.9, adult Obstructive sleep apnea Palpitations Primary osteoarthritis of both knees Pure hypercholesterolemia Rectal bleeding Restrictive lung disease Tremor of both hands Vitamin B12 deficiency Vitamin D deficiency Surgical History No pertinent past surgical history Family History Father Medical history unknown Mother Hypertension Kidney stones Maternal Grandmother Colon cancer Maternal Aunt Breast cancer Sister No problems noted. Sister No problems noted. Social History Housing: Apartment Alcohol intake: never Patient Tobacco Use Status: Never used Tobacco e-Cigarette/Vaping Use: Never Used Second Hand Smoke Exposure: No Advance Directives Date on File: 01/03/21 service: No Current occupational status: disabled Cognitive needs: No Hearing needs: No Vision needs: No Physical Exam Vital Signs: Last Vital Signs Pulse 86 10/15/22 12:46 BP 116/70 10/15/22 12:46 BMI result Body Mass Index 48.0 There are no Cushingoid features. Neck exam shows nl thyroid about 15 gms. Lungs CTA. Heart S1 S2 Reg R/R -MRG. Abdomina exam benign . Muscle strength 5/5 proximally. No hirsuitism present. t. Skin exam without lesion Assessment & Plan Assessment & Plan (1) Hypercalcemia: Code(s): E83.52 - Hypercalcemia Plan: This is a 47-year-old female with a history of PTH-dependent hypercalcemia. Differential diagnosis includes primary hyperparathyroidism versus hydrochlorothiazide induced hyper calcemia Plan is to communicate with the primary care provider regarding holding the hydrochlorothiazide for 6 weeks time and rechecking calcium and PTH. If calcium and PTH normalized, patient returned to the care of her her primary care provider. If calcium and PTH remained elevated, further workup for primary hyperparathyroidism will be initiated Orders: Orders PTHI 6 Weeks E83.52 - Hypercalcemia Coding Level of Care Code New Pt Level 4 (24686) Diagnoses Hypercalcemia E83.52
[2022-10-15 12:46] VITALS: BP 116/70; PULSE 86; BMI 48.0
== END 2022-10-15 13:22 | disposition home or self-care (01) ==
PROVIDERS: PCP Internal Medicine; Visit Provider Internal Medicine Endocrinology, Diabetes & Metabolism
DX: E83.52 Hypercalcemia (principal)
CPT/HCPCS: 99204

== ENCOUNTER → 2022-10-15 12:30 | Outpatient (BNVA) | payer OTHER, SELFPAY | PROVIDERS: PCP Internal Medicine; Visit Provider Internal Medicine Endocrinology, Diabetes & Metabolism | DX: E83.52 Hypercalcemia (principal) | CPT/HCPCS: 99202 ==

== ENCOUNTER 2022-10-22 10:24 | Outpatient (AMB) | payer OTHER, SELFPAY ==
[2022-10-22 10:56] VITALS: BP 110/62; PULSE 75; O2SAT 100; BMI 46.8
--- NOTE | 2022-10-22 10:56 | A.OFFVIS_ITS ---
Intake Vital Signs 10/22/22 10:56 Height 5 ft 5 in Weight 281 lb BMI 46.8 BP 110/62 Blood Pressure Location Lt radial Position Sitting Pulse 75 Pulse Source Pulse Oximeter Pulse Oximetry (%) 100 Oxygen Delivery Method Room Air Intake Visit Reasons: Asthma Intake Note: pt is here for sick visit, she is wheezy, coughing, nebulizer and inhalers not helping. Allergies Gadolinium-Containing Contrast Medi [GADOLINIUM-CONTAINING CONTRAST] Allergy (Severe, Verified 10/22/22 11:13) ANAPHYLAXIS Iodinated Contrast Media [IV Dye, Iodine Containing] Allergy (Severe, Verified 10/22/22 11:13) ANAPHYLAXIS aspirin [Aspirin] Allergy (Mild, Verified 10/22/22 11:13) ITCH ibuprofen [Ibuprofen] Allergy (Mild, Verified 10/22/22 11:13) NAUSEA oxycodone [From Percocet] Allergy (Mild, Verified 10/22/22 11:13) RASH Penicillins Allergy (Mild, Verified 10/22/22 11:13) ITCH Sulfa (Sulfonamide Antibiotics) Allergy (Mild, Verified 10/22/22 11:13) ITCH morphine [MORPHINE] Allergy (Unknown, Verified 10/22/22 11:13) NAUSEA penicillin V Allergy (Unknown, Verified 10/22/22 11:13) Itch seafood Allergy (Unknown, Verified 10/22/22 11:13) Unknown LIQUID SOAPS Allergy (Intermediate, Uncoded 10/22/22 11:13) ITCHING AND REDNESS CHIHUAHUA Allergy (Mild, Uncoded 10/22/22 11:13) RASH ITCHING Medication List - Last Reconciled 10/22/22 by Maritza Dorado MD albuterol sulfate 2.5 mg (3 mL) continuous nebulization Q4-6H PRN albuterol sulfate 90 mcg/actuation 2 puffs PO Q6H PRN aripiprazole 2 mg PO DAILY blood pressure monitor As directed blood pressure test kit-wrist As directed blood sugar diagnostic ([employer] Ultra Test strips) As directed once a day blood sugar diagnostic As directed blood-glucose meter As directed cetirizine 10 mg PO DAILY PRN 90 days cholecalciferol (vitamin D3) 125 mcg PO DAILY cyanocobalamin (vitamin B-12) 100 mcg PO DAILY cyanocobalamin (vitamin B-12) 1,000 mcg IM Q4W 90 days [DIABETIC SHOES (1 pair) As directed] docusate sodium 100 mg PO BEDTIME epinephrine (EpiPen 2-Fili) 0.3 mg (0.3 mL) IM ONCE PRN 360 days fluocinolone 0.025% 1 appl topical BID fluticasone propion-salmeterol 250-50 mcg/dose (Wixela Inhub) 1 inh inhalation BID 30 days fluticasone propionate 50 mcg/actuation (Flonase Allergy Relief) 2 sprays intranasal DAILY 2 weeks hydrochlorothiazide 25 mg PO QAM lancets (FreeStyle Lancets) As directed - E11.9 -- Diabetes lancets As directed lancets (OneTouch UltraSoft Lancets) As directed once a day loperamide 2 mg PO Q6H PRN loratadine 10 mg PO DAILY PRN 90 days metformin ER 500 mg PO DAILY nystatin 1 appl topical TID 10 days omeprazole 40 mg PO QAM [RAISED TOLET SEAT As directed] simvastatin 20 mg PO BEDTIME 90 days solifenacin (Vesicare) 10 mg PO DAILY sucralfate 1 g PO BID sumatriptan succinate 100 mg PO DAILY PRN syringe with needle As directed topiramate 25 mg PO BEDTIME Do you need a note to return to daycare/school/sports/work: No HPI Asthma HPI Details THIS 47 YEARS OLD VERY PLEASANT FEMALE WHO IS MORBIDLY OBESE AND USES CPAP REGULARLY TO SLEEP. SHE ALSO HAS CHRONIC BRONCHIAL ASTHMA/ COPD. WHICH HAS BEEN WELL CONTROLLED WITH THE USE OF INHALERS. TODAY SHE COMES FOR A URGENT VISIT BECAUSE OF PERSISTENT COUGH FOR ABOUT 2 WEEKS. IT HAS BEEN WORSE FOR THE LAST 1 WEEK TO THE POINT THAT SHE KEEPS ON HAVING FREQUENT COUGH AND CANNOT. SLEEP AT NIGHT. DENIES FEVER OR CH,ILLS BUT DOES HAVE DISCOMFORT IN THE BACK OF HER CHEST MOSTLY DUE TO COUGH. [facility] Medical History (Updated 10/22/22 @ 11:31 by Maritza Dorado MD) Acute bronchitis Asthma Benign essential hypertension Calculus of kidney Costochondritis Cough Diabetes mellitus Fibromyalgia Gallbladder polyp GERD (gastroesophageal reflux disease) Hand pain, right Hypercalcemia Intertrigo Migraine headache with aura Mixed stress and urge urinary incontinence Morbid obesity Morbid obesity with BMI of 50.0-59.9, adult Obstructive sleep apnea Palpitations Primary osteoarthritis of both knees Pure hypercholesterolemia Rectal bleeding Restrictive lung disease Tremor of both hands Vitamin B12 deficiency Vitamin D deficiency Surgical History No pertinent past surgical history Family History Father Medical history unknown Mother Hypertension Kidney stones Maternal Grandmother Colon cancer Maternal Aunt Breast cancer Sister No problems noted. Sister No problems noted. Social History Housing: Apartment Alcohol intake: never Patient Tobacco Use Status: Never used Tobacco e-Cigarette/Vaping Use: Never Used Second Hand Smoke Exposure: No Advance Directives Date on File: 01/03/21 service: No Current occupational status: disabled Cognitive needs: No Hearing needs: No Vision needs: No Review of Systems Const All systems reviewed & are unremarkable except as noted in HPI and below Eyes Reports no additional complaints ENT Reports no additional complaints Card Denies chest pain, Denies irregular heart rhythm and Denies leg edema Resp Reports as per HPI and Reports other (Has the chest pain over the lower right ribcage, probably due to costochond) GI Reports dyspepsia and Reports heartburn Reports no additional complaints Musc Reports myalgias Skin/Breast Reports system reviewed and no additional complaints, except as documented Neuro Reports no additional complaints Physical Exam Vital Signs: Last Vital Signs Pulse 75 10/22/22 10:56 BP 110/62 10/22/22 10:56 Pulse Ox 100 10/22/22 10:56 Oxygen Delivery Method Room Air 10/22/22 10:56 BMI result Body Mass Index 46.8 Const General: healthy appearing (Except for being overweight), comfortable, no acute distress, alert and awake Orientation/consciousness: patient oriented x3 HEENT Head: Yes normal to inspection General nose exam: No nasal polyps present and No nasal discharge present Face and sinus: Yes sinuses nontender Mouth: oropharynx normal Throat: Yes posterior oropharynx normal Eyes General: appearance normal, both eyes and all related structures Neck Neck: Yes normal visual inspection, Yes no lymphadenopathy, Yes trachea midline and Yes no JVD Thyroid: Thyroid normal Chest Chest palpation & inspection: normal inspection of the chest, normal palpation of entire chest wall and no tenderness Resp Other: Percussion note not very perceptible because of obesity, breath sounds are decreased over the basilar areas of the chest, SHE HAS FREQUENT COUGH DURING INSPIRATION. A FEW SCATTER.ED EXPIRATORY WHEEZES ARE HEARD NO CREPITATIONSN. Cardio Palpation: normal PMI Rate: regular rate Rhythm: regular rhythm Heart sounds: no gallops and Murmur heart sound present Peripheral pulses: Peripheral pulses 2+ throughout GI Palpation (GI): Soft to palpation, nontender, No hepatosplenomegaly present, no masses and Other GI palpation findings present (Abdomen is grossly obese and protuberant) Auscultation: normal bowel sounds Back/Spine/Pelvis Thoracic/Lumbar Spine: thoracic and lumbar spine normal to inspection and thoraco-lumbar ROM limited Skin General skin exam: no rashes or lesions noted Neuro General: patient oriented x3 and no focal motor deficits Cranial nerves: Yes CN's II-XII intact bilaterally Extrem General: Yes normal to inspection, Yes no clubbing, cyanosis or edema and Yes no calf tenderness Psych Appearance: grossly normal and well kempt Speech and movement: Normal speech and movement present Assessment & Plan Assessment & Plan (1) Asthma: Comment: THE PULMONARY FUNCTION TEST DID NOT SHOW ANY SIGNIFICANT OBSTRUCTIVE DISORDER. BUT CLINICALLY SHE DOES HAVE BRONCHIAL ASTHMA/ MILD COPD. SHE IS BENEFITING FROM THE USE OF WIXELA AND PROAIR P.R.N.. TX: ADVISED CONTINUE USING WIXELA 250-50 1 INHALATION B.I.D. AND PROAIR 2 PUFFS Q 4-6 HOURS P.R.N.( may use it for any persistent bouts of cough also.) Code(s): J45.909 - Unspecified asthma, uncomplicated Qualifiers: Asthma complication type: with acute exacerbation Asthma persistence: persistent Asthma severity: moderate Qualified Code(s): J45.41 - Moderate persistent asthma with (acute) exacerbation (2) Obstructive sleep apnea: Comment: SHE IS A REGULAR USES OF CPAP WHICH BENEFITS HER, AND WILL CONT.INUE TO USE IT Code(s): G47.33 - Obstructive sleep apnea (adult) (pediatric) (3) Restrictive lung disease: Comment: VERY SIGNIFICANT DEGREE OF RESTRICTIVE LUNG DISEASE SECONDARY TO HER MORBID OBESITY. PLAN : Weight reduction is stressed. Continue doing deep breathing exercises 2 to 3 times a day. Code(s): J98.4 - Other disorders of lung (4) Acute bronchitis: Comment: TODAY SHE HAS ACUTE, DIFFUSE BRONCHITIS. TX: COURSE OF AZITHROMYCIN FOR 5 DAYS. PREDNISONE 20 MG A DAY FOR 1 WEEK. ROBITUSSIN SYRUP 0 2 TSP .T.I.D. FOR COUGH PATIENT WILL BE RECHECKED IN 2 WEEKS. Code(s): J20.9 - Acute bronchitis, unspecified Medications: New azithromycin For 250 mg dose pack: take 500 mg today (day 1), then 250 mg for 4 days (days 2-5) PO 6 tabs 0RF prednisone 10 mg PO BID 14 tabs 0RF eXCEARBATION OF ASTHMA 7 days MDD EXCARBATION OF ASTHMA Coding Level of Care Code Est Pt Level 3 (59449) Diagnoses Asthma J45.41 Asthma complication type: with acute exacerbation Asthma persistence: persistent Asthma severity: moderate Obstructive sleep apnea G47.33 Restrictive lung disease J98.4 Acute bronchitis J20.9
== END 2022-10-22 11:22 | disposition home or self-care (01) ==
PROVIDERS: PCP Internal Medicine; Visit Provider Internal Medicine
DX: J45.41 Moderate persistent asthma with (acute) exacerbation (principal); G47.33 Obstructive sleep apnea (adult) (pediatric); J98.4 Other disorders of lung; J20.9 Acute bronchitis, unspecified
CPT/HCPCS: 99213

== ENCOUNTER → 2022-10-22 10:24 | Outpatient (BNVA) | payer OTHER, SELFPAY | PROVIDERS: PCP Internal Medicine; Visit Provider Internal Medicine | DX: J45.41 Moderate persistent asthma with (acute) exacerbation (principal); G47.33 Obstructive sleep apnea (adult) (pediatric); J98.4 Other disorders of lung; J20.9 Acute bronchitis, unspecified | CPT/HCPCS: 99212 ==

== ENCOUNTER 2022-10-28 08:20 | Outpatient (REF) | payer OTHER, SELFPAY ==
[2022-10-28 08:48] LABS: MANUAL DIFF FLAG NO
[2022-10-28 08:56] LABS: Basophils Absolute Auto 0.1 X10*3/uL (0.0-0.2); Basophils Percent Auto 0.5 % (0-2); Eosinophils Absolute Auto 0.1 X10*3/uL (0.0-0.4); Eosinophils Percent Auto 1.1 % (0-4); Hematocrit 43.9 % (37.0-47.0); Hemoglobin 14.3 g/dl (12.0-16.0); Imm Gran Abs Auto 0.06 X10*3/uL (0.00-0.03); Imm Gran Pct Auto 0.5 % (0.0-0.4); Lymphocytes Absolute Auto 1.8 X10*3/uL (1.2-4.9); Lymphocytes Percent Auto 14.7 % (20-40); Mean Corpuscular HGB Conc 32.6 g/dl (31.0-35.0); Mean Corpuscular Hemoglobin 30.6 pg (27.0-33.0); Mean Platelet Volume 10.8 fL (9.4-12.3); Monocytes Absolute Auto 0.9 X10*3/uL (0.1-1.2); Monocytes Percent Auto 7.2 % (2-11); Neutrophils Absolute Auto 9.4 x10*3/uL (2.0-8.3); Platelet Count 336 X10*3/uL (160-400); Red Blood Count 4.67 X10*6/uL (4.20-5.50); White Blood Count 12.4 X10*3/uL (4.8-10.8)
[2022-10-28 09:05] LABS: Estimated Average Glucose 117 mg/dL; Hemoglobin A1C 151.5554 umol/L; Hemoglobin A1c % 5.7 %
[2022-10-28 09:35] LABS: Alanine Aminotransferase 83 U/L (0-31); Albumin Level 3.7 g/dL (3.5-5.0); Alkaline Phosphatase 123 U/L (39-117); Anion Gap 11 (12-20); Aspartate Amino Transferase 36 U/L (5-31); Bilirubin Total 0.3 mg/dL (0.0-1.0); Blood Urea Nitrogen 13 mg/dL (9-16); Calcium 11.1 mg/dL (8.4-10.2); Carbon Dioxide 29 mmol/L (22-29); Chloride 105 mmol/L (96-108); Cholesterol 166 mg/dL; Estimated Glomerular Filt Rate > 60; Glucose Fasting 144 mg/dL (60-99); HDL Cholesterol 46 mg/dL; LDL Cholesterol Calculated 90 mg/dl; Potassium 4.1 mmol/L (3.3-5.1); Sodium 141 mmol/L (135-145); Total Protein 7.1 g/dL (6.5-8.0); Triglycerides 150 mg/dL
[2022-10-28 09:56] LABS: Appearance Urine Cloudy; Color Urine Yellow; Glucose Urine UA Negative (Negative); Leukocyte Esterase Urine Trace (Negative); Nitrite Urine Negative (Negative); PH 7.5 (5.0-9.0); UMIC TRIGGER UACC YES; Urine Blood Negative (Negative); Urine Ketones Negative (Negative); Urine Protein Negative (Neg-Trace)
[2022-10-28 09:58] LABS: TSH reflex Free T4 1.66 uIU/mL (0.32-4.0); Vitamin D 25-OH Total 58.5 ng/mL (>30)
[2022-10-28 10:07] LABS: Bacteria Urine 1+ (None Seen); Hyaline Casts Urine 0-2 /LPF (0-2); RBC Urine 0-2 /HPF (0-2); WBC Urine 0-5 /HPF (0-5)
[2022-10-28 10:37] LABS: Creatinine Urine 115.75 mg/dL; Microalbumin Urine < 5.0 mg/L
== END 2022-10-28 08:21 | disposition home or self-care (01) ==
LOC: HO.LAB 08:20
PROVIDERS: PCP Internal Medicine; Visit Provider Internal Medicine
DX: E11.9 Type 2 diabetes mellitus without complications (principal); E78.00 Pure hypercholesterolemia, unspecified; I10 Essential (primary) hypertension; E55.9 Vitamin D deficiency, unspecified
CPT/HCPCS: 36415; 80053; 80061; 81001; 81003; 82043; 82306; 83036; 84443; 85025

== ENCOUNTER 2022-10-30 10:22 | Outpatient (REF) | payer OTHER, SELFPAY ==
[2022-10-30 12:43] LABS: Influenza A PCR NEGATIVE (Negative); Influenza B PCR NEGATIVE (Negative); Resp Syncy Virus RNA Qual PCR NEGATIVE (Negative); SARS COV2 PCR INHOUSE NEGATIVE (Negative)
== END 2022-10-30 10:23 | disposition home or self-care (01) ==
LOC: HO.LAB 10:22
PROVIDERS: Absent Provider Internal Medicine; PCP Internal Medicine; Visit Provider Surgery
DX: Z20.822 Contact with and (suspected) exposure to COVID-19 (principal); R05.9 Cough, unspecified; K80.20 Calculus of gallbladder without cholecystitis without obstruction; E66.01 Morbid (severe) obesity due to excess calories
CPT/HCPCS: 0241U; 99212

== ENCOUNTER 2022-10-30 10:22 | Outpatient (AMB) | payer OTHER, SELFPAY ==
--- NOTE | 2022-10-30 10:30 | MHC.OFFVIS ---
Intake Vital Signs 10/30/22 10:55 Height 5 ft 5 in Weight 284 lb BMI 47.3 BP 135/69 Blood Pressure Location Rt radial Position Sitting Pulse 82 Intake Visit Reasons: gallbladder polyp Intake Note: Thsi patient presents for a follow-up assessment for gallbladder polyp. Patient c/o; reports RUQ pain and it has radiated to the RLQ, Hx of gallbladder polyp, reports currently having brochitis which is being treated with abx and prednisone.. Gear Hobber Required: Yes Gear Hobber Language: Health Information Director Name: Pt declined gluer and slicer hand Allergies Gadolinium-Containing Contrast Medi [GADOLINIUM-CONTAINING CONTRAST] Allergy (Severe, Verified 10/30/22 10:55) ANAPHYLAXIS Iodinated Contrast Media [IV Dye, Iodine Containing] Allergy (Severe, Verified 10/30/22 10:55) ANAPHYLAXIS aspirin [Aspirin] Allergy (Mild, Verified 10/30/22 10:55) ITCH ibuprofen [Ibuprofen] Allergy (Mild, Verified 10/30/22 10:55) NAUSEA oxycodone [From Percocet] Allergy (Mild, Verified 10/30/22 10:55) RASH Penicillins Allergy (Mild, Verified 10/30/22 10:55) ITCH Sulfa (Sulfonamide Antibiotics) Allergy (Mild, Verified 10/30/22 10:55) ITCH morphine [MORPHINE] Allergy (Unknown, Verified 10/30/22 10:55) NAUSEA penicillin V Allergy (Unknown, Verified 10/30/22 10:55) Itch seafood Allergy (Unknown, Verified 10/30/22 10:55) Unknown LIQUID SOAPS Allergy (Intermediate, Uncoded 10/30/22 10:55) ITCHING AND REDNESS CHIHUAHUA Allergy (Mild, Uncoded 10/30/22 10:55) RASH ITCHING Medication List - Last Reconciled 10/30/22 by Adithya Wiggins MD albuterol sulfate 2.5 mg (3 mL) continuous nebulization Q4-6H PRN albuterol sulfate 90 mcg/actuation 2 puffs PO Q6H PRN amlodipine 2.5 mg PO DAILY 30 days aripiprazole 2 mg PO DAILY azithromycin For 250 mg dose pack: take 500 mg today (day 1), then 250 mg for 4 days (days 2-5) PO blood pressure monitor As directed blood pressure test kit-wrist As directed blood sugar diagnostic ([employer] Ultra Test strips) As directed once a day blood sugar diagnostic As directed blood-glucose meter As directed cetirizine 10 mg PO DAILY PRN 90 days cholecalciferol (vitamin D3) 125 mcg PO DAILY cyanocobalamin (vitamin B-12) 100 mcg PO DAILY cyanocobalamin (vitamin B-12) 1,000 mcg IM Q4W 90 days [DIABETIC SHOES (1 pair) As directed] docusate sodium 100 mg PO BEDTIME epinephrine (EpiPen 2-Fili) 0.3 mg (0.3 mL) IM ONCE PRN 360 days fluocinolone 0.025% 1 appl topical BID fluticasone propion-salmeterol 250-50 mcg/dose (Wixela Inhub) 1 inh inhalation BID 30 days fluticasone propionate 50 mcg/actuation (Flonase Allergy Relief) 2 sprays intranasal DAILY 2 weeks hydrochlorothiazide 25 mg PO QAM lancets (FreeStyle Lancets) As directed - E11.9 -- Diabetes lancets As directed lancets (OneTouch UltraSoft Lancets) As directed once a day loperamide 2 mg PO Q6H PRN loratadine 10 mg PO DAILY PRN 90 days metformin ER 500 mg PO DAILY nystatin 1 appl topical TID 10 days omeprazole 40 mg PO QAM prednisone 10 mg PO BID 7 days MDD EXCARBATION OF ASTHMA [RAISED TOLET SEAT As directed] simvastatin 20 mg PO BEDTIME 90 days solifenacin (Vesicare) 10 mg PO DAILY sucralfate 1 g PO BID sumatriptan succinate 100 mg PO DAILY PRN syringe with needle As directed topiramate 25 mg PO BEDTIME HPI gallbladder polyp HPI Details She is here for a follow-up for her history of gallstones. She says that in this regard, she seems to have been doing well and has been largely asymptomatic. She describes having right lower quadrant pain about 2 days ago but this had resolved spontaneously. She has good oral intake She says she has had a lot of things going on with regards to his health. She says she is being worked up for hypercalcemia and is being closely followed by her freight car builder. She says that she may need to have her parathyroids removed. She is also following with her solvent process extractor operator as well as carpenter assistant installer. She says she is being treated currently for bronchitis. She says she has been on steroid as well as antibiotics. [facility] Medical History Acute bronchitis Asthma Benign essential hypertension Calculus of kidney Costochondritis Cough Diabetes mellitus Fibromyalgia Gallbladder polyp GERD (gastroesophageal reflux disease) Hand pain, right Hypercalcemia Intertrigo Migraine headache with aura Mixed stress and urge urinary incontinence Morbid obesity Morbid obesity with BMI of 50.0-59.9, adult Obstructive sleep apnea Palpitations Primary osteoarthritis of both knees Pure hypercholesterolemia Rectal bleeding Restrictive lung disease Tremor of both hands Vitamin B12 deficiency Vitamin D deficiency Surgical History No pertinent past surgical history Family History Father Medical history unknown Mother Hypertension Kidney stones Maternal Grandmother Colon cancer Maternal Aunt Breast cancer Sister No problems noted. Sister No problems noted. Social History Housing: Apartment Alcohol intake: never Patient Tobacco Use Status: Never used Tobacco e-Cigarette/Vaping Use: Never Used Second Hand Smoke Exposure: No Advance Directives Date on File: 01/03/21 service: No Current occupational status: disabled Cognitive needs: No Hearing needs: No Vision needs: No Review of Systems Const Denies chills and Denies fever(s) Card Denies chest pain and Reports dyspnea on exertion Resp Reports cough and Reports dyspnea on exertion GI Denies abdominal pain, Denies diarrhea and Denies vomiting Physical Exam Vital Signs: Last Vital Signs Pulse 82 10/30/22 10:55 BP 135/69 10/30/22 10:55 BMI result Body Mass Index 47.3 Const Other: Morbidly obese General: comfortable and no acute distress Resp Effort & Inspection: normal respiratory effort Cardio Rate: regular rate GI Palpation (GI): Soft to palpation, not firm and nontender Assessment & Plan Assessment & Plan (1) Cholelithiasis: Code(s): K80.20 - Calculus of gallbladder without cholecystitis without obstruction Plan: She seems to have been fairly asymptomatic with regards to her gallstones She admits that she has a lot of other medical issues that she needs to attend to at this time. She says she has being managed for hypercalcemia and may need to have her parathyroids removed. She also is being followed by her solvent process extractor operator . In view of the absence of significant symptoms at this time, we will hold off on her cholecystectomy until she is able to address all her other medical issues including her morbid obesity. She says she is planning to weight management clinic after her hypercalcemia is taken care of. I can see her in the office in about 3-4 months to see how she is doing. (2) Morbid obesity: Code(s): E66.01 - Morbid (severe) obesity due to excess calories Coding Level of Care Code Est Pt Level 4 (23564) Diagnoses Cholelithiasis K80.20 Morbid obesity E66.01
[2022-10-30 10:55] VITALS: BP 135/69; PULSE 82; BMI 47.3
== END 2022-10-30 11:04 | disposition home or self-care (01) ==
PROVIDERS: PCP Internal Medicine; Visit Provider Surgery
DX: K80.20 Calculus of gallbladder without cholecystitis without obstruction (principal); E66.01 Morbid (severe) obesity due to excess calories
CPT/HCPCS: 99214

== ENCOUNTER 2022-10-31 10:25 | Outpatient (REF) | payer OTHER, SELFPAY ==
[2022-10-31 14:03] LABS: Appearance Urine Cloudy; Color Urine Yellow; Glucose Urine UA Negative (Negative); Leukocyte Esterase Urine Trace (Negative); Nitrite Urine Negative (Negative); PH 5.5 (5.0-9.0); Specific Gravity - Urine 1.025 (1.005-1.025); UMIC TRIGGER UACC YES; Urine Blood Negative (Negative); Urine Ketones Negative (Negative); Urine Protein Negative (Neg-Trace)
[2022-10-31 14:20] LABS: Creatinine Urine 155.17 mg/dL; Microalbum/Creatinine Ratio Ur 3.8 ug/mg cr (<30)
[2022-10-31 14:23] LABS: Bacteria Urine 2+ (None Seen); Calcium Oxalate Crystals Urine Present; Hyaline Casts Urine 0-2 /LPF (0-2); RBC Urine 0-2 /HPF (0-2); UACC Culture Trigger YES
== END 2022-10-31 10:26 | disposition home or self-care (01) ==
LOC: HO.LAB 10:25
PROVIDERS: PCP Internal Medicine; Visit Provider Internal Medicine
DX: E11.9 Type 2 diabetes mellitus without complications (principal); R30.0 Dysuria
CPT/HCPCS: 81001; 81003; 82043; 87086

== ENCOUNTER 2022-10-31 10:37 | Outpatient (AMB) | payer OTHER, SELFPAY ==
[2022-10-31 10:43] VITALS: BP 128/80; PULSE 78; O2SAT 97; BMI 47.1
--- NOTE | 2022-10-31 10:43 | MHC.PC.OV ---
Vital Signs 10/31/22 10:43 Height 5 ft 5 in Weight 283 lb 4 oz BMI 47.1 BP 128/80 Blood Pressure Location Lt brachial Position Sitting Pulse 78 Pulse Source Pulse Oximeter Pulse Oximetry (%) 97 Oxygen Delivery Method Room Air Intake Visit Reasons: DM, hyperlipidemia, hypercalcemia, elevated LFTs Medical Unit Secretary Required: No Accompanied by: Self / Same As Patient Allergies Gadolinium-Containing Contrast Medi [GADOLINIUM-CONTAINING CONTRAST] Allergy (Severe, Verified 10/31/22 11:26) ANAPHYLAXIS Iodinated Contrast Media [IV Dye, Iodine Containing] Allergy (Severe, Verified 10/31/22 11:26) ANAPHYLAXIS aspirin [Aspirin] Allergy (Mild, Verified 10/31/22 11:26) ITCH ibuprofen [Ibuprofen] Allergy (Mild, Verified 10/31/22 11:26) NAUSEA oxycodone [From Percocet] Allergy (Mild, Verified 10/31/22 11:26) RASH Penicillins Allergy (Mild, Verified 10/31/22 11:26) ITCH Sulfa (Sulfonamide Antibiotics) Allergy (Mild, Verified 10/31/22 11:26) ITCH morphine [MORPHINE] Allergy (Unknown, Verified 10/31/22 11:26) NAUSEA penicillin V Allergy (Unknown, Verified 10/31/22 11:26) Itch seafood Allergy (Unknown, Verified 10/31/22 11:26) Unknown LIQUID SOAPS Allergy (Intermediate, Uncoded 10/31/22 11:26) ITCHING AND REDNESS CHIHUAHUA Allergy (Mild, Uncoded 10/31/22 11:26) RASH ITCHING Medication List - Last Reconciled 10/31/22 by Mihir Elmore MD albuterol sulfate 2.5 mg (3 mL) continuous nebulization Q4-6H PRN albuterol sulfate 90 mcg/actuation 2 puffs PO Q6H PRN amlodipine 2.5 mg PO DAILY 30 days aripiprazole 2 mg PO DAILY azithromycin For 250 mg dose pack: take 500 mg today (day 1), then 250 mg for 4 days (days 2-5) PO blood pressure monitor As directed blood pressure test kit-wrist As directed blood sugar diagnostic (Vidcasteruch Ultra Test strips) As directed once a day blood sugar diagnostic As directed blood-glucose meter As directed cetirizine 10 mg PO DAILY PRN 90 days cholecalciferol (vitamin D3) 125 mcg PO DAILY cyanocobalamin (vitamin B-12) 100 mcg PO DAILY cyanocobalamin (vitamin B-12) 1,000 mcg IM Q4W 90 days [DIABETIC SHOES (1 pair) As directed] docusate sodium 100 mg PO BEDTIME epinephrine (EpiPen 2-Fili) 0.3 mg (0.3 mL) IM ONCE PRN 360 days fluocinolone 0.025% 1 appl topical BID fluticasone propion-salmeterol 250-50 mcg/dose (Wixela Inhub) 1 inh inhalation BID 30 days fluticasone propionate 50 mcg/actuation (Flonase Allergy Relief) 2 sprays intranasal DAILY 2 weeks hydrochlorothiazide 25 mg PO QAM lancets (FreeStyle Lancets) As directed - E11.9 -- Diabetes lancets As directed lancets (OneTouch UltraSoft Lancets) As directed once a day loperamide 2 mg PO Q6H PRN loratadine 10 mg PO DAILY PRN 90 days metformin ER 500 mg PO DAILY nystatin 1 appl topical TID 10 days omeprazole 40 mg PO QAM prednisone 10 mg PO BID 7 days MDD EXCARBATION OF ASTHMA [RAISED TOLET SEAT As directed] simvastatin 20 mg PO BEDTIME 90 days solifenacin (Vesicare) 10 mg PO DAILY sucralfate 1 g PO BID sumatriptan succinate 100 mg PO DAILY PRN syringe with needle As directed topiramate 25 mg PO BEDTIME Tobacco use date assessed: 10/31/22 Dental Screening Dental Screen Date: 10/31/22 Did you have a dental visit in the last 12 months?: No Did you have a dental problem in the last 6 months where you did not have access to dental care?: No Was dental information given to patient?: Patient has dentist HPI DM, hyperlipidemia, hypercalcemia, elevated LFTs HPI Details Patient comes in today for her follow up visit States that she just finished her Azithromycin antibiotic prescription a couple of days ago Still has some mild chest congestion and recurrent cough but states that her symptoms feel much better after her recent antibiotic treatment She continues to use her Albuterol inhaler as needed in the meantime to help with her symptoms As she is scheduled to leave for [place] in a couple of weeks (will be gone from 11/14/2022 through 11/24/2022), would like to know if she can continue using her Albuterol while she is in [place] States that she feels okay otherwise Denies any fever or sore throat; denies any headaches or dizziness Denies any chest pains, no increased shortness of breath although her chest still feels congested at times No nausea/vomiting, no abdominal pain also she reported experiencing some sharp pains over the right side of her abdomen yesterday, mostly over the mid to lower right abdomen Was seen by Dr. Wiggins for follow-up her gallstones yesterday and was advised that her symptoms are not due to her gallstones No change in bowel habits noted Had her follow up labs done a few days ago - to discuss her results She was also seen by Dr. Claudio for her hypercalcemia few weeks ago and is currently undergoing further workups for this and that is the reason her previous HCTZ was switched over to Amlodipine, which she seems to be tolerating so far Was reportedly advised that she may be referred to Dr. Spicer at [facility] for consideration for parathyroidectomy if tests are consistent with a diagnosis of hyperparathyroidism [facility] Medical History Acute bronchitis Asthma Benign essential hypertension Calculus of kidney Costochondritis Cough Diabetes mellitus Fibromyalgia Gallbladder polyp GERD (gastroesophageal reflux disease) Hand pain, right Hypercalcemia Intertrigo Migraine headache with aura Mixed stress and urge urinary incontinence Morbid obesity Morbid obesity with BMI of 50.0-59.9, adult Obstructive sleep apnea Palpitations Primary osteoarthritis of both knees Pure hypercholesterolemia Rectal bleeding Restrictive lung disease Tremor of both hands Vitamin B12 deficiency Vitamin D deficiency Surgical History No pertinent past surgical history Family History Father Medical history unknown Mother Hypertension Kidney stones Maternal Grandmother Colon cancer Maternal Aunt Breast cancer Sister No problems noted. Sister No problems noted. Social History Housing: Apartment Alcohol intake: never Patient Tobacco Use Status: Never used Tobacco e-Cigarette/Vaping Use: Never Used Second Hand Smoke Exposure: No Advance Directives Date on File: 01/03/21 service: No Current occupational status: disabled Cognitive needs: No Hearing needs: No Vision needs: No Questionnaire PHQ-9 Over the last 2 weeks, how often have you been bothered by any of the following problems? 1. Little interest or pleasure in doing things: several days 2. Feeling down, depressed, or hopeless: several days 3. Trouble falling or staying asleep, or sleeping too much: several days 4. Feeling tired or having little energy: several days 5. Poor appetite or overeating: not at all 6. Feeling bad about yourself - or that you are a failure or have let yourself or your family down: not at all 7. Trouble concentrating on things, such as reading the newspaper or watching television: not at all 8. Moving or speaking so slowly that other people could have noticed. Or the opposite - being so fidgety or restless that you have been moving around a lot more than usual: not at all 9. Thoughts that you would be better off or of hurting yourself in some way: not at all Total score: 4 Depression Screening Interpretation: Positive Depression Screening Follow-up: Existing condition and Community Mental Health Worker F/U 42020 - PHQ-9 Billing: Yes Source: Developed by Drs. Anirudh Mckeon, Sarita Mobley, Sabas De La Fuente and colleagues, with an educational marlena from [employer]. Thrive Questionnaire Date Thrive assessed: 10/31/22 I am a: Patient What is your living situation today?: I have a steady place to live Within the past 12 months, did the food you bought not last and you didn't have the money to get more?: Never true Within the past 12 months, did you worry whether your food would run out before you got money to buy more?: Never true Do you have trouble paying for medicines?: No Do you have trouble getting transportation to medical appointments?: No Do you have trouble paying your heating and electricity bill?: No Do you have trouble taking care of your child, family member or friend?: No Do you have trouble with day-to-day activities such as bathing, preparing meals, shopping, managing finances, etc.?: No Are you currently unemployed and looking for a job?: No Are you interested in more education?: No Please select the resources that you would like help with: None Currently or been in a relationship where the following occur: no concerns reported AUDIT C Alcohol Use Questionnaire (AUDIT-C) 1. How often do you have a drink containing alcohol?: Never 3. How often do you have six or more drinks on one occasion?: Never Total Score: 0 Score Reviewed/Action Taken: Yes KIMO-7 AMB Questionnaire KIMO-7 Date KIMO - 7 assessed: 10/31/22 Feeling nervous, anxious, or on edge: 2 = More than half the days Not being able to stop or control worryin = More than half the days Worrying too much about different things: 2 = More than half the days Trouble relaxin = More than half the days Being so restless that it is hard to sit still: 2 = More than half the days Becoming easily annoyed or irritable: 2 = More than half the days Feeling afraid as if something awful might happen: 2 = More than half the days Total KIMO-7 score (0-4 normal; 5-9 mild; 10-14 moderate; 15-21 severe): 14 Source: Developed by Drs. Anirudh Mckeon, Sarita Mobley, Sabas De La Fuente and colleagues, with an educational marlena from [employer]. Review of Systems Const Denies chills, Reports fatigue, Denies fever(s) and Denies headache(s) ENT Denies dysphagia, Denies dizziness, Denies otalgia, Denies headache(s), Denies nasal congestion, Reports neck pain, Denies odynophagia and Denies sore throat Card Denies chest pain, Denies palpitations and Denies dyspnea Resp Reports chest congestion (at times), Reports cough (recurrent, non-productive), Denies excessive phlegm production, Denies dyspnea and Denies wheezing GI Denies abdominal pain, Denies constipation, Denies dysphagia, Denies heartburn, Denies diarrhea, Denies nausea, Denies odynophagia and Denies vomiting Denies hematuria, Denies dysuria and Reports urinary incontinence Musc Reports back pain, Reports arthralgias (multiple) and Reports neck pain Neuro Denies dizziness, Denies headache(s) and Reports tremor(s) (in both hands, occasionally) Endo Reports fatigue and Denies palpitations Aller/Immun Denies wheezing Physical exam (Primary Care) Vital Signs: Last Vital Signs Pulse 78 10/31/22 10:43 BP 128/80 10/31/22 10:43 Pulse Ox 97 10/31/22 10:43 Oxygen Delivery Method Room Air 10/31/22 10:43 BMI result Body Mass Index 47.1 Tobacco/Smoking Status: Tobacco use Status Tobacco use date assessed 10/31/22 10/31/22 10:48 Patient Tobacco Use Status Never used Tobacco 10/31/22 10:48 e-Cigarette/Vaping Use Never Used 10/31/22 10:48 PHQ-9: PHQ-9 Score PHQ-9: Total score 4 10/31/22 11:27 Depression Screening Interpretation: Positive Depression Screening Follow-up: Existing condition and Community Mental Health Worker F/U Thrive Assessment: Date of Thrive Assessment Date Thrive assessed 10/31/22 10/31/22 10:48 Currently or been in a relationship where the following occur: no concerns reported Const General: no acute distress and alert HENMT Ears: TM's normal bilaterally and EAC's normal Throat: Yes posterior oropharynx normal and Yes tonsils normal (no TP congestion) Neck Neck: Yes no lymphadenopathy and Yes supple Resp Auscultation: clear to auscultation bilaterally, no rales, rhonchi (occasional) throughout and no wheezes Cardio Rate: regular rate Rhythm: regular rhythm Heart sounds: no murmurs GI Palpation (GI): Soft to palpation and nontender Auscultation: normal bowel sounds Skin Rashes: no rashes Extrem General: Yes no clubbing, cyanosis or edema Results AMB Random Glucose (hemocue) AMB Random Glucose (hemocue) 86 mg/dL Last Edit by Kindra Hilliard on 10/31/22 11:20 Results Reviewed Results Reviewed: Laboratory Last Values Random Glu (Clinic) 86 mg/dL 10/31/22 11:18 Laboratory Tests 10/28/22 10/28/22 10/28/22 08:46 08:46 08:47 WBC 12.4 H Hgb 14.3 Hct 43.9 Plt Count 336 Sodium Potassium Creatinine Estimated GFR Random Glu (Clinic) Fasting Glucose Hemoglobin A1c % Calcium AST ALT Alkaline Phosphatase Triglycerides Cholesterol LDL Cholesterol, Calc HDL Cholesterol 25-OH Vitamin D Total TSH Ur Specific [place] 1.020 Urine Protein Negative Urine Glucose (UA) Negative Urine Blood Negative Microalb/Creat Ratio TNP 10/28/22 10/28/22 10/31/22 08:47 08:47 11:18 WBC Hgb Hct Plt Count Sodium 141 Potassium 4.1 Creatinine 0.85 Estimated GFR > 60 Random Glu (Clinic) 86 Fasting Glucose 144 H Hemoglobin A1c % 5.7 Calcium 11.1 H AST 36 H ALT 83 H Alkaline Phosphatase 123 H Triglycerides 150 Cholesterol 166 LDL Cholesterol, Calc 90 HDL Cholesterol 46 25-OH Vitamin D Total 58.5 TSH 1.66 Ur Specific [place] Urine Protein Urine Glucose (UA) Urine Blood Microalb/Creat Ratio Assessment and Plan Assessment & Plan (1) Benign essential hypertension: Code(s): I10 - Essential (primary) hypertension Plan: Reinforced low sodium diet - goal is systolic BP of at least 120 to 130 mm or less Was previously on HCTZ 25 mg QD but this was switched recently to Amlodipine 2.5 mg QD as she is currently being worked up for her hypercalcemia, which is likely due to primary hyperparathyroidism She appears to be tolerating Amlodipine well and her BP seems to be adequately controlled on 2.5 mg QD so far Patient is instructed to continue monitoring her blood pressure regularly (2) Asthma: Comment: THE PULMONARY FUNCTION TEST DID NOT SHOW ANY SIGNIFICANT OBSTRUCTIVE DISORDER. BUT CLINICALLY SHE DOES HAVE BRONCHIAL ASTHMA/ MILD COPD. SHE IS BENEFITING FROM THE USE OF WIXELA AND PROAIR P.R.N.. TX: ADVISED CONTINUE USING WIXELA 250-50 1 INHALATION B.I.D. AND PROAIR 2 PUFFS Q 4-6 HOURS P.R.N.( may use it for any persistent bouts of cough also.) Code(s): J45.909 - Unspecified asthma, uncomplicated Qualifiers: Asthma complication type: with acute exacerbation Asthma persistence: persistent Asthma severity: moderate Qualified Code(s): J45.41 - Moderate persistent asthma with (acute) exacerbation Plan: Is just getting over a bout of bronchitis and just finished her Azithromycin fili about 3 days ago Continue Wixela 250-50 mcg 1 inhalation BID and Albuterol HFA 2 puffs 4 times a day as needed She is reassured that she should be able to continue using her inhalers as instructed while she is in [place] next month (3) Diabetes mellitus: Code(s): E11.9 - Type 2 diabetes mellitus without complications Qualifiers: Diabetes mellitus complication status: without complication Diabetes mellitus senior living insulin use: without senior living use Diabetes mellitus type: type 2 Qualified Code(s): E11.9 - Type 2 diabetes mellitus without complications Plan: HgbA1c was at 5.7% on her labs done a few days ago (was previously at 5.8) - goal is < 7.0% Reinforced diabetic diet Continue Metformin ER 500 mg QD (4) Pure hypercholesterolemia: Code(s): E78.00 - Pure hypercholesterolemia, unspecified Plan: Results of her labs done a few days ago reviewed and discussed with patient Reinforced low cholesterol diet Continue Simvastatin 20 mg QD Will recheck her labs in 3 months for follow up (5) Migraine headache with aura: Code(s): G43.109 - Migraine with aura, not intractable, without status migrainosus Qualifiers: Intractability: not intractable Status migrainosus presence: without status migrainosus Qualified Code(s): G43.109 - Migraine with aura, not intractable, without status migrainosus Plan: Stable on prophylactic Tx with Topiramate 25 mg Q HS Continue Sumatriptan 100 mg PRN (6) Fibromyalgia: Code(s): M79.7 - Fibromyalgia Plan: Was started on Gabapentin 100 mg TID last year but she stopped taking them due to increased dizziness while on the Rx Follow up with rheumatology as scheduled (7) Hyperparathyroidism: Code(s): E21.3 - Hyperparathyroidism, unspecified Plan: Is currently undergoing further workups of her hypercalcemia, which is likely due to hyperparathyroidism Has been advised by Dr. Claudio that she may be referred for prior thyroidectomy when her workup are complete Follow-up with endocrinology as scheduled (8) GERD without esophagitis: Code(s): K21.9 - Gastro-esophageal reflux disease without esophagitis Plan: Dietary restrictions reinforced Follow up with GI as scheduled (9) Vitamin B12 deficiency: Code(s): E53.8 - Deficiency of other specified B group vitamins Plan: Continue Vitamin B12 injections 1000 mcg once a month (10) Vitamin D deficiency: Code(s): E55.9 - Vitamin D deficiency, unspecified Plan: Continue Vitamin D3 5000 units QD (11) Psoriasis: Code(s): L40.9 - Psoriasis, unspecified Plan: Follow up with dermatology (Dr. Guardado) as scheduled (12) Morbid obesity with BMI of 50.0-59.9, adult: Code(s): E66.01 - Morbid (severe) obesity due to excess calories; Z68.43 - Body mass index [BMI] 50.0-59.9, adult Plan: Reinforced diet/exercise as tolerated/lose weight Plan Follow up in 3 months Orders: Orders Vitamin B12 and Folate 3 Months E53.8 - Deficiency of other specified B group vitamins Comprehensive Decker. Panel Fast 3 Months E78.00 - Pure hypercholesterolemia, unspecified Hemoglobin A1c 3 Months E11.9 - Type 2 diabetes mellitus without complications Lipid Panel 3 Months E78.00 - Pure hypercholesterolemia, unspecified TSH reflex Free T4 3 Months E78.00 - Pure hypercholesterolemia, unspecified Vitamin D 25-OH Total 3 Months E55.9 - Vitamin D deficiency, unspecified Microalbumin, Random (w Creat) 10/31/22 E11.9 - Type 2 diabetes mellitus without complications Complete Blood Count Auto Diff 3 Months I10 - Essential (primary) hypertension UA CC w/rflx Micro + Cult 10/31/22 R30.0 - Dysuria AMB Random Glucose (hemocue) 10/31/22 Z13.9 - Encounter for screening, unspecified Medications: Discontinued azithromycin Discontinued Reason: Patient Completed Course For 250 mg dose pack: take 500 mg today (day 1), then 250 mg for 4 days (days 2-5) PO 6 tabs 0RF Coding Level of Care Code Est Pt Level 4 (20249) Diagnoses Benign essential hypertension I10 Asthma J45.41 Asthma complication type: with acute exacerbation Asthma persistence: persistent Asthma severity: moderate Diabetes mellitus E11.9 Diabetes mellitus complication status: without complication Diabetes mellitus longwall foreman insulin use: without longwall foreman use Diabetes mellitus type: type 2 Pure hypercholesterolemia E78.00 Migraine headache with aura G43.109 Intractability: not intractable Status migrainosus presence: without status migrainosus Fibromyalgia M79.7 Hyperparathyroidism E21.3 GERD without esophagitis K21.9 Vitamin B12 deficiency E53.8 Vitamin D deficiency E55.9 Psoriasis L40.9 Morbid obesity with BMI of 50.0-59.9, adult E66.01; Z68.43
== END 2022-10-31 11:46 | disposition home or self-care (01) ==
PROVIDERS: Visit Provider Internal Medicine
DX: I10 Essential (primary) hypertension (principal); J45.41 Moderate persistent asthma with (acute) exacerbation; E11.9 Type 2 diabetes mellitus without complications; E55.9 Vitamin D deficiency, unspecified; E21.3 Hyperparathyroidism, unspecified; E66.01 Morbid (severe) obesity due to excess calories; Z68.42 Body mass index [BMI] 45.0-49.9, adult; L40.9 Psoriasis, unspecified; E78.00 Pure hypercholesterolemia, unspecified; M79.7 Fibromyalgia
CPT/HCPCS: 82948; 99214

== ENCOUNTER 2022-11-01 15:34 | Outpatient (AMB) | payer OTHER, SELFPAY ==
--- NOTE | 2022-11-01 16:09 | AM.OFFVISNUR ---
Intake Intake Visit Reasons: B12 injection Allergies Gadolinium-Containing Contrast Medi [GADOLINIUM-CONTAINING CONTRAST] Allergy (Severe, Verified 10/31/22 11:26) ANAPHYLAXIS Iodinated Contrast Media [IV Dye, Iodine Containing] Allergy (Severe, Verified 10/31/22 11:26) ANAPHYLAXIS aspirin [Aspirin] Allergy (Mild, Verified 10/31/22 11:26) ITCH ibuprofen [Ibuprofen] Allergy (Mild, Verified 10/31/22 11:26) NAUSEA oxycodone [From Percocet] Allergy (Mild, Verified 10/31/22 11:26) RASH Penicillins Allergy (Mild, Verified 10/31/22 11:26) ITCH Sulfa (Sulfonamide Antibiotics) Allergy (Mild, Verified 10/31/22 11:26) ITCH morphine [MORPHINE] Allergy (Unknown, Verified 10/31/22 11:26) NAUSEA penicillin V Allergy (Unknown, Verified 10/31/22 11:26) Itch seafood Allergy (Unknown, Verified 10/31/22 11:26) Unknown LIQUID SOAPS Allergy (Intermediate, Uncoded 10/31/22 11:26) ITCHING AND REDNESS CHIHUAHUA Allergy (Mild, Uncoded 10/31/22 11:26) RASH ITCHING Office Meds cyanocobalamin (vitamin B-12) Performing Provider: Mihir Elmore MD Administered by: Diane Ragland RN on 11/01/22 16:09 Dose Route Admin Location Lot Number Expiration Date [place] [employer] Project [employer] 1,000 mcg IM right deltoid [id number] 05/07/24 18271-600-50 [employer] Coding Diagnoses Assessment & Plan Assessment & Plan Orders: Orders AMB Vitamin B12 Injection Patient Supplied Today E53.8 - Deficiency of other specified B group vitamins
== END 2022-11-01 16:11 | disposition home or self-care (01) ==
PROVIDERS: PCP Internal Medicine; Visit Provider Internal Medicine
DX: E53.8 Deficiency of other specified B group vitamins (principal)
CPT/HCPCS: 96372; J3420

== ENCOUNTER 2022-11-06 11:23 | Outpatient (AMB) | payer OTHER, SELFPAY ==
[2022-11-06 11:27] VITALS: BP 138/72; PULSE 85; O2SAT 99; BMI 46.8
--- NOTE | 2022-11-06 11:27 | MHC.OFFVIS ---
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 Accompanied by: Self / Same As Patient Allergies Gadolinium-Containing Contrast Medi [GADOLINIUM-CONTAINING CONTRAST] Allergy (Severe, Verified 11/06/22 11:41) ANAPHYLAXIS Iodinated Contrast Media [IV Dye, Iodine Containing] Allergy (Severe, Verified 11/06/22 11:41) ANAPHYLAXIS aspirin [Aspirin] Allergy (Mild, Verified 11/06/22 11:41) ITCH ibuprofen [Ibuprofen] Allergy (Mild, Verified 11/06/22 11:41) NAUSEA oxycodone [From Percocet] Allergy (Mild, Verified 11/06/22 11:41) RASH Penicillins Allergy (Mild, Verified 11/06/22 11:41) ITCH Sulfa (Sulfonamide Antibiotics) Allergy (Mild, Verified 11/06/22 11:41) ITCH morphine [MORPHINE] Allergy (Unknown, Verified 11/06/22 11:41) NAUSEA penicillin V Allergy (Unknown, Verified 11/06/22 11:41) Itch seafood Allergy (Unknown, Verified 11/06/22 11:41) Unknown LIQUID SOAPS Allergy (Intermediate, Uncoded 11/06/22 11:41) ITCHING AND REDNESS CHIHUAHUA Allergy (Mild, Uncoded 11/06/22 11:41) RASH ITCHING Medication List - Last Reconciled 11/06/22 by Maritza Dorado MD albuterol sulfate 2.5 mg (3 mL) continuous nebulization Q4-6H PRN albuterol sulfate 90 mcg/actuation 2 puffs PO Q6H PRN amlodipine 2.5 mg PO DAILY 30 days aripiprazole 2 mg PO DAILY blood pressure monitor As directed blood pressure test kit-wrist As directed blood sugar diagnostic ([employer] Ultra Test strips) As directed once a day blood sugar diagnostic As directed blood-glucose meter As directed cetirizine 10 mg PO DAILY PRN 90 days cholecalciferol (vitamin D3) 125 mcg PO DAILY cyanocobalamin (vitamin B-12) 100 mcg PO DAILY cyanocobalamin (vitamin B-12) 1,000 mcg IM Q4W 90 days [DIABETIC SHOES (1 pair) As directed] docusate sodium 100 mg PO BEDTIME epinephrine (EpiPen 2-Fili) 0.3 mg (0.3 mL) IM ONCE PRN 360 days fluocinolone 0.025% 1 appl topical BID fluticasone propion-salmeterol 250-50 mcg/dose (Wixela Inhub) 1 inh inhalation BID 30 days fluticasone propionate 50 mcg/actuation (Flonase Allergy Relief) 2 sprays intranasal DAILY 2 weeks lancets (FreeStyle Lancets) As directed - E11.9 -- Diabetes lancets As directed lancets (OneTouch UltraSoft Lancets) As directed once a day loperamide 2 mg PO Q6H PRN loratadine 10 mg PO DAILY PRN 90 days metformin ER 500 mg PO DAILY nystatin 1 appl topical TID 10 days omeprazole 40 mg PO QAM prednisone 10 mg PO BID 7 days MDD EXCARBATION OF ASTHMA [RAISED TOLET SEAT As directed] simvastatin 20 mg PO BEDTIME 90 days solifenacin (Vesicare) 10 mg PO DAILY sucralfate 1 g PO BID sumatriptan succinate 100 mg PO DAILY PRN syringe with needle As directed topiramate 25 mg PO BEDTIME Do you need a note to return to daycare/school/sports/work: No HPI Shortness of breath HPI Details THIS IS A 47 YEARS OLD FEMALE, MORBIDLY OBESE AND WITH DIAGNOSIS OF BONITA, FOR WHICH SHE USES CPAP REGULARLY AND SLEEPS WELL, ALSO HAS CHRONIC BRONCHIAL ASTHMA. SHE WAS SEEN 2 WEEKS AGO WITH AN ACUTE EXACERBATION AND TREATED WITH A SHORT COURSE OF PREDNISONE PLUS Z-FILI. COMES BACK FOR FOLLOW-UP AND CLAIMS THAT SHE FEELS MUCH BETTER. COUGH IS ALMOST GONE COMPLETELY, . SHE HAS NO WHEEZING SHE STILL GETS SHORT OF BREATH WHEN SHE WALKS AROUND OR CLIMBS STAIRS. SHE IS PLANNING TO GO TO [place] FOR A FEW WEEKS. [facility] Medical History Acute bronchitis Asthma Benign essential hypertension Calculus of kidney Costochondritis Cough Diabetes mellitus Fibromyalgia Gallbladder polyp GERD (gastroesophageal reflux disease) Hand pain, right Hypercalcemia Intertrigo Migraine headache with aura Mixed stress and urge urinary incontinence Morbid obesity Morbid obesity with BMI of 50.0-59.9, adult Obstructive sleep apnea Palpitations Primary osteoarthritis of both knees Pure hypercholesterolemia Rectal bleeding Restrictive lung disease Tremor of both hands Vitamin B12 deficiency Vitamin D deficiency Surgical History No pertinent past surgical history Family History Father Medical history unknown Mother Hypertension Kidney stones Maternal Grandmother Colon cancer Maternal Aunt Breast cancer Sister No problems noted. Sister No problems noted. Social History Housing: Apartment Alcohol intake: never Patient Tobacco Use Status: Never used Tobacco e-Cigarette/Vaping Use: Never Used Second Hand Smoke Exposure: No Advance Directives Date on File: 01/03/21 service: No Current occupational status: disabled Cognitive needs: No Hearing needs: No Vision needs: No Review of Systems Const All systems reviewed & are unremarkable except as noted in HPI and below Eyes Reports no additional complaints ENT Reports no additional complaints Card Denies chest pain, Denies irregular heart rhythm and Denies leg edema Resp Reports as per HPI and Reports other (Has the chest pain over the lower right ribcage, probably due to costochond) GI Reports dyspepsia and Reports heartburn Reports no additional complaints Musc Reports myalgias Skin/Breast Reports system reviewed and no additional complaints, except as documented Neuro Reports no additional complaints Physical Exam Vital Signs: Last Vital Signs Pulse 85 11/06/22 11:27 BP 138/72 11/06/22 11:27 Pulse Ox 99 11/06/22 11:27 Oxygen Delivery Method Room Air 11/06/22 11:27 BMI result Body Mass Index 46.8 Const General: healthy appearing (Except for being overweight), comfortable, no acute distress, alert and awake Orientation/consciousness: patient oriented x3 HEENT Head: Yes normal to inspection General nose exam: No nasal polyps present and No nasal discharge present Face and sinus: Yes sinuses nontender Mouth: oropharynx normal Throat: Yes posterior oropharynx normal Eyes General: appearance normal, both eyes and all related structures Neck Neck: Yes normal visual inspection, Yes no lymphadenopathy, Yes trachea midline and Yes no JVD Thyroid: Thyroid normal Chest Chest palpation & inspection: normal inspection of the chest, normal palpation of entire chest wall and no tenderness Resp Other: Percussion note not very perceptible because of obesity, breath sounds are decreased over the basilar areas of the chest, Today she does not have any wheezes or crepitations. Cardio Palpation: normal PMI Rate: regular rate Rhythm: regular rhythm Heart sounds: no gallops and Murmur heart sound present Peripheral pulses: Peripheral pulses 2+ throughout GI Palpation (GI): Soft to palpation, nontender, No hepatosplenomegaly present, no masses and Other GI palpation findings present (Abdomen is grossly obese and protuberant) Auscultation: normal bowel sounds Back/Spine/Pelvis Thoracic/Lumbar Spine: thoracic and lumbar spine normal to inspection and thoraco-lumbar ROM limited Skin General skin exam: no rashes or lesions noted Neuro General: patient oriented x3 and no focal motor deficits Cranial nerves: Yes CN's II-XII intact bilaterally Extrem General: Yes normal to inspection, Yes no clubbing, cyanosis or edema and Yes no calf tenderness Psych Appearance: grossly normal and well kempt Speech and movement: Normal speech and movement present Assessment & Plan Assessment & Plan (1) Acute bronchitis: Comment: Has been treated for acute exacerbation due to acute bronchitis with a course of prednisone and Z-Fili and has much improved. Patient will be traveling to [place]. I have ordered a supply of prednisone 20 mg b.i.d. for 5 days, to keep on hand in case she gets an acute exacerbation while overseas. Code(s): J20.9 - Acute bronchitis, unspecified (2) Morbid obesity with BMI of 50.0-59.9, adult: Comment: She is a known case of morbid obesity and difficult for her to lose weight. But she is trying to cut down the calories and stays on low carb diet. Code(s): E66.01 - Morbid (severe) obesity due to excess calories; Z68.43 - Body mass index [BMI] 50.0-59.9, adult (3) Obstructive sleep apnea: Comment: SHE IS A REGULAR USES OF CPAP WHICH BENEFITS HER, AND WILL CONT.INUE TO USE IT Code(s): G47.33 - Obstructive sleep apnea (adult) (pediatric) (4) Asthma: Comment: THE PULMONARY FUNCTION TEST DID NOT SHOW ANY SIGNIFICANT OBSTRUCTIVE DISORDER. BUT CLINICALLY SHE DOES HAVE BRONCHIAL ASTHMA/ MILD COPD. SHE IS BENEFITING FROM THE USE OF WIXELA AND PROAIR P.R.N.. [place]: ADVISED CONTINUE USING WIXELA 250-50 1 INHALATION B.I.D. AND PROAIR 2 PUFFS Q 4-6 HOURS P.R.N.( may use it for any persistent bouts of cough also.) Code(s): J45.909 - Unspecified asthma, uncomplicated Qualifiers: Asthma severity: moderate Asthma persistence: persistent Asthma complication type: with acute exacerbation Qualified Code(s): J45.41 - Moderate persistent asthma with (acute) exacerbation Medications: New prednisone 20 mg PO BID 5 days 10 tabs 0RF asthma Coding Level of Care Code Est Pt Level 3 (22030) Diagnoses Acute bronchitis J20.9 Morbid obesity with BMI of 50.0-59.9, adult E66.01; Z68.43 Obstructive sleep apnea G47.33 Asthma J45.41 Asthma severity: moderate Asthma persistence: persistent Asthma complication type: with acute exacerbation
== END 2022-11-06 11:47 | disposition home or self-care (01) ==
PROVIDERS: PCP Internal Medicine; Visit Provider Internal Medicine
DX: J20.9 Acute bronchitis, unspecified (principal); E66.01 Morbid (severe) obesity due to excess calories; Z68.43 Body mass index [BMI] 50.0-59.9, adult; G47.33 Obstructive sleep apnea (adult) (pediatric); J45.41 Moderate persistent asthma with (acute) exacerbation
CPT/HCPCS: 99213

== ENCOUNTER → 2022-11-06 11:23 | Outpatient (BNVA) | payer OTHER, SELFPAY | PROVIDERS: Visit Provider Internal Medicine | DX: J20.9 Acute bronchitis, unspecified (principal); J45.41 Moderate persistent asthma with (acute) exacerbation; G47.33 Obstructive sleep apnea (adult) (pediatric); E66.01 Morbid (severe) obesity due to excess calories; Z68.42 Body mass index [BMI] 45.0-49.9, adult; Z79.52 Long term (current) use of systemic steroids; Z99.89 Dependence on other enabling machines and devices; Z79.899 Other long term (current) drug therapy | CPT/HCPCS: 99212 ==

== ENCOUNTER 2022-11-25 13:38 | Outpatient (AMB) | payer OTHER, SELFPAY ==
[2022-11-25 13:40] VITALS: BP 130/64; PULSE 85; BMI 43.7
--- NOTE | 2022-11-25 13:40 | MHC.OFFVIS ---
Intake Vital Signs 11/25/22 13:40 Height 5 ft 6 in Weight 270 lb 11.642 oz BMI 43.7 BP 130/64 Blood Pressure Location Rt radial Position Sitting Pulse 85 Intake Visit Reasons: 6 mth f/up Intake Note: 6 month follow up [employer] Operations And Training Required: No Accompanied by: Self / Same As Patient Allergies Gadolinium-Containing Contrast Medi [GADOLINIUM-CONTAINING CONTRAST] Allergy (Severe, Verified 11/25/22 13:48) ANAPHYLAXIS Iodinated Contrast Media [IV Dye, Iodine Containing] Allergy (Severe, Verified 11/25/22 13:48) ANAPHYLAXIS aspirin [Aspirin] Allergy (Mild, Verified 11/25/22 13:48) ITCH ibuprofen [Ibuprofen] Allergy (Mild, Verified 11/25/22 13:48) NAUSEA oxycodone [From Percocet] Allergy (Mild, Verified 11/25/22 13:48) RASH Penicillins Allergy (Mild, Verified 11/25/22 13:48) ITCH Sulfa (Sulfonamide Antibiotics) Allergy (Mild, Verified 11/25/22 13:48) ITCH morphine [MORPHINE] Allergy (Unknown, Verified 11/25/22 13:48) NAUSEA penicillin V Allergy (Unknown, Verified 11/25/22 13:48) Itch seafood Allergy (Unknown, Verified 11/25/22 13:48) Unknown LIQUID SOAPS Allergy (Intermediate, Uncoded 11/25/22 13:48) ITCHING AND REDNESS CHIHUAHUA Allergy (Mild, Uncoded 11/25/22 13:48) RASH ITCHING Medication List - Last Reconciled 11/25/22 by Chin Chavez MD albuterol sulfate 2.5 mg (3 mL) continuous nebulization Q4-6H PRN albuterol sulfate 90 mcg/actuation 2 puffs PO Q6H PRN amlodipine 2.5 mg PO DAILY 30 days aripiprazole 2 mg PO DAILY blood pressure monitor As directed blood pressure test kit-wrist As directed blood sugar diagnostic ([employer] Ultra Test strips) As directed once a day blood sugar diagnostic As directed blood-glucose meter As directed cetirizine 10 mg PO DAILY PRN 90 days cholecalciferol (vitamin D3) 125 mcg PO DAILY cyanocobalamin (vitamin B-12) 100 mcg PO DAILY cyanocobalamin (vitamin B-12) 1,000 mcg IM Q4W 90 days [DIABETIC SHOES (1 pair) As directed] docusate sodium 100 mg PO BEDTIME epinephrine (EpiPen 2-Fili) 0.3 mg (0.3 mL) IM ONCE PRN 360 days fluocinolone 0.025% 1 appl topical BID fluticasone propion-salmeterol 250-50 mcg/dose (Wixela Inhub) 1 inh inhalation BID 30 days fluticasone propionate 50 mcg/actuation (Flonase Allergy Relief) 2 sprays intranasal DAILY 2 weeks lancets (FreeStyle Lancets) As directed - E11.9 -- Diabetes lancets As directed lancets (RaNA TherapeuticsTouch UltraSoft Lancets) As directed once a day loperamide 2 mg PO Q6H PRN loratadine 10 mg PO DAILY PRN 90 days metformin ER 500 mg PO DAILY nystatin 1 appl topical TID 10 days omeprazole 40 mg PO QAM prednisone 20 mg PO BID 5 days prednisone 10 mg PO BID 7 days MDD EXCARBATION OF ASTHMA [RAISED TOLET SEAT As directed] simvastatin 20 mg PO BEDTIME 90 days solifenacin (Vesicare) 10 mg PO DAILY sucralfate 1 g PO BID sumatriptan succinate 100 mg PO DAILY PRN syringe with needle As directed topiramate 25 mg PO BEDTIME HPI HPI Comments History of Present Illness Details Ivy returns for follow-up. Lot of baseline anxiety. She also has risk factors including obesity, diabetes, dyslipidemia, obstructive sleep apnea. She had described various symptoms of chest discomfort, palpitations at different times. Has undergone extensive workup including echocardiogram, stress test, Holter as well as coronary CTA. Overall, no new cardiac symptoms since last seen. Still quite anxious. [facility] Medical History Acute bronchitis Hypercalcemia Cough Restrictive lung disease GERD (gastroesophageal reflux disease) Benign essential hypertension Morbid obesity Costochondritis Gallbladder polyp Calculus of kidney Rectal bleeding Palpitations Morbid obesity with BMI of 50.0-59.9, adult Vitamin D deficiency Vitamin B12 deficiency Primary osteoarthritis of both knees Fibromyalgia Obstructive sleep apnea Asthma Migraine headache with aura Diabetes mellitus Pure hypercholesterolemia Mixed stress and urge urinary incontinence Tremor of both hands Hand pain, right Intertrigo Surgical History No pertinent past surgical history Family History Father Medical history unknown Mother Hypertension Kidney stones Maternal Grandmother Colon cancer Maternal Aunt Breast cancer Sister No problems noted. Sister No problems noted. Social History Housing: Apartment Alcohol intake: never Patient Tobacco Use Status: Never used Tobacco e-Cigarette/Vaping Use: Never Used Second Hand Smoke Exposure: No Advance Directives Date on File: 01/03/21 service: No Current occupational status: disabled Cognitive needs: No Hearing needs: No Vision needs: No Review of Systems Const Denies weakness ENT Denies dizziness Card Denies chest pain, Denies chest pain with activity, Denies syncope, Denies rapid heart rate, Denies pedal edema, Denies edema, Denies leg edema, Denies lightheadedness, Denies palpitations, Denies dyspnea, Denies dyspnea on exertion and Denies orthopnea Resp Denies cough, Denies dyspnea and Denies dyspnea on exertion GI Denies hematochezia and Denies change in stool character Musc Denies abnormal gait, Denies muscle cramps, Denies muscle weakness, Denies numbness, Denies radiating pain into limb and Denies tingling Neuro Denies abnormal gait, Denies dizziness, Denies syncope, Denies numbness, Denies tingling and Denies weakness Endo Denies palpitations Physical Exam Vital Signs: Last Vital Signs Pulse 85 11/25/22 13:40 BP 130/64 11/25/22 13:40 BMI result Body Mass Index 43.7 Const General: comfortable and no acute distress Orientation/consciousness: patient oriented x3 HEENT Other: Unremarkable Head: Yes normal to inspection Neck Neck: Yes normal visual inspection Chest Chest palpation & inspection: normal inspection of the chest Resp Auscultation: clear to auscultation bilaterally Cardio Palpation: normal PMI Heart sounds: S1 normal heart sound present, S2 normal heart sound present, no gallops, no murmurs and no rubs GI Palpation (GI): Soft to palpation Back/Spine/Pelvis Other: unremarkable Skin General skin exam: no rashes or lesions noted Neuro General: patient oriented x3 Extrem General: Yes normal to inspection Psych Mental Status: mental status grossly normal Assessment & Plan Assessment & Plan (1) Palpitations: Code(s): R00.2 - Palpitations (2) Precordial chest pain: Code(s): R07.2 - Precordial pain Plan Cardiac studies reviewed. Baseline EKG is unremarkable. Echocardiogram with preserved LVEF and mild left ventricular hypertrophy but otherwise unremarkable. Minimal aortic calcification. Holter in the past with sinus rhythm, frequent sinus tachycardia but no other arrhythmias. In the most recent Holter, sinus tachycardia was only about 7% the time. In the stress test, she was able to complete only Adolfo stage I, and had to stop because of shortness of breath and fatigue. Nondiagnostic study. Calcium score is 0. Based on the about test results, mainly reassurance provided. As a calcium score is only 0, would not pursue any further ischemic workup at this time. The sinus tachycardia could be related to her weight and anxiety/deconditioning and again no specific management for that. Mild LVH related to hypertension. Overall, risk factor modification, reassurance but nothing further required from cardiac. Total time spent including review of data, counseling, documentation, coordination of care-32 minutes. Coding Level of Care Code Est Pt Level 4 (10233) Diagnoses Palpitations R00.2 Precordial chest pain R07.2
== END 2022-11-25 14:01 | disposition home or self-care (01) ==
PROVIDERS: Visit Provider Internal Medicine
DX: R00.2 Palpitations (principal); R07.2 Precordial pain
CPT/HCPCS: 99214

== ENCOUNTER → 2022-11-25 13:38 | Outpatient (BNVA) | payer OTHER, SELFPAY | PROVIDERS: Visit Provider Internal Medicine | DX: R00.2 Palpitations (principal); R07.2 Precordial pain | CPT/HCPCS: 99212 ==

== ENCOUNTER 2022-12-26 11:19 | Outpatient (REF) | payer OTHER, SELFPAY ==
--- NOTE | ~2022-12-26 | US_ITS ---
EXAMINATION: US RETROPERITONEAL LIMITED (RENAL ONLY) CLINICAL INFORMATION: Calculus of kidney. COMPARISON: CT abdomen and pelvis 01/14/2022. Renal ultrasound 12/07/2020. Ultrasound abdomen complete 10/18/2020. TECHNIQUE: Real-time imaging of the kidneys. FINDINGS: RIGHT KIDNEY: 10.4 x 4.6 x 5 cm (SAG x AP x TRV). The kidney is normal in size, contour, and echogenicity. Renal cortical thickness is normal. No calculi or focal parenchymal lesions. No hydronephrosis. LEFT KIDNEY: 11.7 x 4.5 x 4.2 cm (SAG x AP x TRV). The kidney is normal in size, contour, and echogenicity. Renal cortical thickness is normal. No calculi or focal parenchymal lesions. No hydronephrosis. Partially imaged liver appears echogenic. US/US renal BI IMPRESSION: 1. No hydronephrosis or nephrolithiasis. 2. Partially imaged liver appears echogenic which can be seen in the setting of hepatic steatosis or underlying liver disease.
[2022-12-27 18:32] LABS: Calcium (PTHI) 11.3 mg/dL (8.6-10.2); PTHI 94 pg/mL (16-77)
== END 2022-12-26 11:20 | disposition home or self-care (01) ==
LOC: HO.US 11:19
PROVIDERS: PCP Internal Medicine; Referring Provider Internal Medicine Endocrinology, Diabetes & Metabolism; Visit Provider Urology
DX: N20.0 Calculus of kidney (principal); E83.52 Hypercalcemia
CPT/HCPCS: 36415; 76775; 83970

== ENCOUNTER 2022-12-26 13:01 | Outpatient (AMB) | payer OTHER, SELFPAY ==
--- NOTE | 2022-12-26 13:08 | AM.OFFVISNUR ---
Intake Intake Visit Reasons: B12 Allergies Gadolinium-Containing Contrast Medi [GADOLINIUM-CONTAINING CONTRAST] Allergy (Severe, Verified 11/25/22 13:48) ANAPHYLAXIS Iodinated Contrast Media [IV Dye, Iodine Containing] Allergy (Severe, Verified 11/25/22 13:48) ANAPHYLAXIS aspirin [Aspirin] Allergy (Mild, Verified 11/25/22 13:48) ITCH ibuprofen [Ibuprofen] Allergy (Mild, Verified 11/25/22 13:48) NAUSEA oxycodone [From Percocet] Allergy (Mild, Verified 11/25/22 13:48) RASH Penicillins Allergy (Mild, Verified 11/25/22 13:48) ITCH Sulfa (Sulfonamide Antibiotics) Allergy (Mild, Verified 11/25/22 13:48) ITCH morphine [MORPHINE] Allergy (Unknown, Verified 11/25/22 13:48) NAUSEA penicillin V Allergy (Unknown, Verified 11/25/22 13:48) Itch seafood Allergy (Unknown, Verified 11/25/22 13:48) Unknown LIQUID SOAPS Allergy (Intermediate, Uncoded 11/25/22 13:48) ITCHING AND REDNESS CHIHUAHUA Allergy (Mild, Uncoded 11/25/22 13:48) RASH ITCHING Office Meds cyanocobalamin (vitamin B-12) 1,000 mcg/mL injection solution Performing Provider: Mihir Elmore MD [facility] Administered by: Yessica Nieto RN on 12/26/22 13:08 Dose Route Admin Location Dispensed Lot Number Expiration Date [employer] 1,000 mcg IM right deltoid 1 mL [id number] 10/06/24 89319-873-08 [employer] Coding Assessment & Plan Assessment & Plan Orders: Orders AMB Vitamin B12 Injection Patient Supplied Today E53.8 - Deficiency of other specified B group vitamins
== END 2022-12-26 13:10 | disposition home or self-care (01) ==
PROVIDERS: PCP Internal Medicine; Visit Provider Internal Medicine
DX: E53.8 Deficiency of other specified B group vitamins (principal)
CPT/HCPCS: 96372; J3420

== ENCOUNTER 2023-01-22 09:28 | Day surgery (SDC) | payer OTHER, SELFPAY ==
--- NOTE | 2023-01-21 08:37 | HO.ANESPROP2 ---
Documented by User: Felipa Camacho NP 01/21/23 14:06 HPI - Anesthesia Eval Consult details Narrative: 47yo F for Colonoscopy Follows [facility] cardiology for palps, tachy. Extensive w/u reassuring for non-cardiac per 11/2022 office visit *Multiple Allergies* PMFSH Active Problems Active Problems: All Active Problems (Updated 11/06/22 @ 11:51 by Maritza Dorado MD) Acute bronchitis (Acute) Hyperparathyroidism (Acute) Urinary incontinence (Acute) Urinary urgency (Acute) Hypercalcemia (Acute) Tremor (Acute) Cough (Acute) Kidney stones (Acute) Ureteral stone with hydronephrosis (Acute) Eye pressure (Acute) Eyelid twitch (Acute) Psoriasis (Acute) Right-sided chest wall pain (Acute) Restrictive lung disease (Acute) GERD (gastroesophageal reflux disease) (Acute) Vaginal bleeding (Acute) Hallucinations (Acute) Benign essential hypertension (Acute) LVH (left ventricular hypertrophy) (Acute) Onychomycosis (Acute) Type 2 diabetes mellitus with unspecified complications (Acute) Precordial chest pain (Acute) Diabetes mellitus with hyperglycemia (Acute) Heavy menses (Acute) Morbid obesity (Acute) Costochondritis (Acute) Gallbladder polyp (Acute) Cholelithiasis (Acute) Calculus of kidney (Acute) RUQ abdominal pain (Acute) Rectal bleeding (Acute) Palpitations (Acute) Morbid obesity with BMI of 50.0-59.9, adult (Acute) Vitamin D deficiency (Acute) Vitamin B12 deficiency (Acute) Primary osteoarthritis of both knees (Acute) Fibromyalgia (Acute) Obstructive sleep apnea (Acute) Asthma (Acute) Migraine headache with aura (Acute) Diabetes mellitus (Acute) Pure hypercholesterolemia (Acute) Mixed stress and urge urinary incontinence (Acute) Tremor of both hands (Acute) Hand pain, right (Acute) Intertrigo (Acute) Past Medical History Medical History IBS (irritable bowel syndrome) Depression with anxiety Acute bronchitis Hypercalcemia Cough Restrictive lung disease GERD (gastroesophageal reflux disease) Benign essential hypertension Costochondritis Gallbladder polyp Calculus of kidney Rectal bleeding Palpitations Morbid obesity with BMI of 50.0-59.9, adult Vitamin D deficiency Vitamin B12 deficiency Primary osteoarthritis of both knees Fibromyalgia Obstructive sleep apnea Asthma Migraine headache with aura Diabetes mellitus Pure hypercholesterolemia Mixed stress and urge urinary incontinence Tremor of both hands Hand pain, right Intertrigo Family History Family History Father Medical history unknown Mother Hypertension Kidney stones Maternal Grandmother Colon cancer Maternal Aunt Breast cancer Sister No problems noted. Sister No problems noted. Family history of problems with anesthesia: No Surgical History Surgical History H/O colonoscopy History of esophagogastroduodenoscopy (EGD) History of Problems with Anesthesia: No Social History Social History Housing: Apartment Alcohol intake: never Patient Tobacco Use Status: Former Tobacco user e-Cigarette/Vaping Use: Never Used Second Hand Smoke Exposure: No Advance Directives Date on File: 01/03/21 service: No Current occupational status: disabled Cognitive needs: No Hearing needs: No Vision needs: No Meds Allergies Allergy/AdvReac Type Severity Reaction Status Date / Time Gadolinium-Containing Allergy Severe ANAPHYLAXIS Verified 11/25/22 13:48 Contrast Medi [GADOLINIUM-CONTAINING CONTRAST] Iodinated Contrast Media Allergy Severe ANAPHYLAXIS Verified 11/25/22 13:48 [IV Dye, Iodine Containing] aspirin [Aspirin] Allergy Mild ITCH Verified 11/25/22 13:48 ibuprofen [Ibuprofen] Allergy Mild NAUSEA Verified 11/25/22 13:48 oxycodone [From Percocet] Allergy Mild RASH Verified 11/25/22 13:48 Penicillins Allergy Mild ITCH Verified 11/25/22 13:48 Sulfa (Sulfonamide Allergy Mild ITCH Verified 11/25/22 13:48 Antibiotics) morphine [MORPHINE] Allergy Unknown NAUSEA Verified 11/25/22 13:48 penicillin V Allergy Unknown Itch Verified 11/25/22 13:48 seafood Allergy Unknown Unknown Verified 11/25/22 13:48 LIQUID SOAPS Allergy Intermediate ITCHING Uncoded 11/25/22 13:48 AND REDNESS CHIHUAHUA Allergy Mild RASH Uncoded 11/25/22 13:48 ITCHING Home Medications Medication Instructions Recorded Confirmed Last Taken Type syringe with needle 3 mL 23 x 1 #1 ea 05/12/20 10/31/22 Unknown History aripiprazole 2 mg tablet 2 mg PO DAILY 12/06/21 11/25/22 Unknown History omeprazole 40 mg capsule,delayed 40 mg PO QAM 12/27/22 09/18/23 Unknown History release Exam Exam Date and Time: January 21, 2023 0837 Pertinent Lab Results Pertinent Lab Results: Laboratory Tests 10/28/22 08:47 WBC 12.4 H Hgb 14.3 Hct 43.9 Plt Count 336 Sodium 141 Potassium 4.1 Chloride 105 Carbon Dioxide 29 BUN 13 Creatinine 0.85 Narrative Narrative: Per 11/2022 cardiology office visit: Baseline EKG is unremarkable. Echocardiogram with preserved LVEF and mild left ventricular hypertrophy but otherwise unremarkable. Minimal aortic calcification. Holter in the past with sinus rhythm, frequent sinus tachycardia but no other arrhythmias. In the most recent Holter, sinus tachycardia was only about 7% the time. In the stress test, she was able to complete only Aodlfo stage I, and had to stop because of shortness of breath and fatigue. Nondiagnostic study. Calcium score is 0. Based on the about test results, mainly reassurance provided. As a calcium score is only 0, would not pursue any further ischemic workup at this time. The sinus tachycardia could be related to her weight and anxiety/deconditioning and again no specific management for that. Mild LVH related to hypertension. Overall, risk factor modification, reassurance but nothing further required from cardiac. Assessment and Plan Assessment Anesthesia Assessment: Chart Reviewed Final Anesthetic Review Family History of Problems with Anesthesia: No History of Problems with Anesthesia: No Documented by User: Twyla Gracia MD 01/22/23 11:27 [facility] Active Problems Active Problems: All Active Problems (Updated 01/22/23 @ 10:43 by Twyla Gracia MD) Acute bronchitis (Acute) Hyperparathyroidism (Acute) Urinary incontinence (Acute) Urinary urgency (Acute) Hypercalcemia (Acute) Tremor (Acute) Cough (Acute) Kidney stones (Acute) Ureteral stone with hydronephrosis (Acute) Eye pressure (Acute) Eyelid twitch (Acute) Psoriasis (Acute) Right-sided chest wall pain (Acute) Restrictive lung disease (Acute) GERD (gastroesophageal reflux disease) (Acute) Vaginal bleeding (Acute) Hallucinations (Acute) Benign essential hypertension (Acute) LVH (left ventricular hypertrophy) (Acute) Onychomycosis (Acute) Type 2 diabetes mellitus with unspecified complications (Acute) Precordial chest pain (Acute) Diabetes mellitus with hyperglycemia (Acute) Heavy menses (Acute) Morbid obesity (Acute) Costochondritis (Acute) Gallbladder polyp (Acute) Cholelithiasis (Acute) Calculus of kidney (Acute) RUQ abdominal pain (Acute) Rectal bleeding (Acute) Palpitations (Acute) Morbid obesity with BMI of 50.0-59.9, adult (Acute) Vitamin D deficiency (Acute) Vitamin B12 deficiency (Acute) Primary osteoarthritis of both knees (Acute) Fibromyalgia (Acute) Obstructive sleep apnea (Acute) Asthma (Acute) Migraine headache with aura (Acute) Diabetes mellitus (Acute) Pure hypercholesterolemia (Acute) Mixed stress and urge urinary incontinence (Acute) Tremor of both hands (Acute) Hand pain, right (Acute) Intertrigo (Acute) Past Medical History Medical History IBS (irritable bowel syndrome) Depression with anxiety Acute bronchitis Hypercalcemia Cough Restrictive lung disease GERD (gastroesophageal reflux disease) Benign essential hypertension Costochondritis Gallbladder polyp Calculus of kidney Rectal bleeding Palpitations Morbid obesity with BMI of 50.0-59.9, adult Vitamin D deficiency Vitamin B12 deficiency Primary osteoarthritis of both knees Fibromyalgia Obstructive sleep apnea Asthma Migraine headache with aura Diabetes mellitus Pure hypercholesterolemia Mixed stress and urge urinary incontinence Tremor of both hands Hand pain, right Intertrigo Family History Family History Father Medical history unknown Mother Hypertension Kidney stones Maternal Grandmother Colon cancer Maternal Aunt Breast cancer Sister No problems noted. Sister No problems noted. Surgical History Surgical History H/O colonoscopy History of esophagogastroduodenoscopy (EGD) History of Problems with Anesthesia: Yes (Had a problem during last EGD/Colonoscopy. MAC converted to GETA for EGD. Eyes bloodshot and swollen. Was told she was coughing a lot) Social History Social History Housing: Apartment Alcohol intake: never Patient Tobacco Use Status: Former Tobacco user e-Cigarette/Vaping Use: Never Used Second Hand Smoke Exposure: No Advance Directives Date on File: 01/03/21 service: No Current occupational status: disabled Cognitive needs: No Hearing needs: No Vision needs: No Meds Allergies Allergy/AdvReac Type Severity Reaction Status Date / Time Gadolinium-Containing Allergy Severe ANAPHYLAXIS Verified 11/25/22 13:48 Contrast Medi [GADOLINIUM-CONTAINING CONTRAST] Iodinated Contrast Media Allergy Severe ANAPHYLAXIS Verified 11/25/22 13:48 [IV Dye, Iodine Containing] aspirin [Aspirin] Allergy Mild ITCH Verified 11/25/22 13:48 ibuprofen [Ibuprofen] Allergy Mild NAUSEA Verified 11/25/22 13:48 oxycodone [From Percocet] Allergy Mild RASH Verified 11/25/22 13:48 Penicillins Allergy Mild ITCH Verified 11/25/22 13:48 Sulfa (Sulfonamide Allergy Mild ITCH Verified 11/25/22 13:48 Antibiotics) morphine [MORPHINE] Allergy Unknown NAUSEA Verified 11/25/22 13:48 penicillin V Allergy Unknown Itch Verified 11/25/22 13:48 seafood Allergy Unknown Unknown Verified 11/25/22 13:48 LIQUID SOAPS Allergy Intermediate ITCHING Uncoded 11/25/22 13:48 AND REDNESS CHIHUAHUA Allergy Mild RASH Uncoded 11/25/22 13:48 ITCHING Home Medications Medication Instructions Recorded Confirmed Last Taken Type syringe with needle 3 mL 23 x 1 #1 ea 05/12/20 10/31/22 Unknown History aripiprazole 2 mg tablet 2 mg PO DAILY 12/06/21 11/25/22 Unknown History omeprazole 40 mg capsule,delayed 40 mg PO QAM 03/05/22 11/25/22 Unknown History release Exam Height,Weight and Vital Signs: Height 5 ft 6 in Weight 122.47 kg Vital Signs Temp Pulse Resp BP Pulse Ox O2 Del Method 01/22/23 11:02 98.1 F 95 18 144/79 H 96 Room Air Pertinent Lab Results Pertinent Lab Results: Laboratory Tests 10/28/22 08:47 WBC 12.4 H Hgb 14.3 Hct 43.9 Plt Count 336 Sodium 141 Potassium 4.1 Chloride 105 Carbon Dioxide 29 BUN 13 Creatinine 0.85 Lab Results 01/22/23 Range/Units 09:45 Urine Test NEGATIVE (NEGATIVE) Airway Mallampati Class: II TM Dist: >3cm Neck ROM: Full Loose/Missing/Broken Teeth: Yes (Some missing. Cap top front intact. Denies broken or loose teeth) Heart: RRR Lungs: CTAB Assessment and Plan Assessment Anesthesia Assessment: Anesthesia Plan Discussed Final Anesthetic Review History of Problems with Anesthesia: Yes (Had a problem during last EGD/Colonoscopy. MAC converted to GETA for EGD. Eyes bloodshot and swollen. Was told she was coughing a lot) NPO: Yes ASA Class: III Final Preanesthetic Review: No Changes in Pt Med Stat, Meds/Allgs Chart Reviewed, Consent Obtained/Reviewed and Anes Risks/Benef Reviewed Patient Risk: Intermediate Procedure Risk: Low Assessment/Block/Sedation in SS: Assess/Block/Sedation-SS Anesthetic Plan Anesthetic Plan: GA, MAC: and Other (Discussed anesthetic plan with patient- very low threshold for GA. Patient resistant to GA. States has never had before but review of old records(per Dr Blanco's note) states she had GA for cystoscopy. Understands that she may end up with GA if that is deemed to be safer for her) Disposition: Standard PACU
[2023-01-22 10:30] LABS: UPreg QC Valid YES; Urine Pregnancy NEGATIVE (NEGATIVE)
[2023-01-22 10:45] LABS: Glucose, Whole Blood 96 mg/dL (60-115)
[2023-01-22 11:02] VITALS: BP 144/79; PULSE 95; RESP 18; TEMP 36.7; O2SAT 96; BMI 43.6
[2023-01-22] MEDS: Lactated Ringers 1,000 ML 100 ML IVCONT (11:07)
[2023-01-22 12:11] VITALS: BP 87/44; PULSE 99; RESP 20; TEMP 36.6; O2SAT 96
--- NOTE | 2023-01-22 12:13 | P.BOP_ITS ---
Brief Operative Note Date of Service: 01/22/23 Pre-op diagnosis: Screening Post-op diagnosis: other (Polyps) Procedure: Colonoscopy to the cecum and TI with bx/removal of cecal polyp, and hot snare polypectomy at 20cm x 3 Surgeon: Anirudh Lino MD Anesthesia: MAC Was an Thimble Press Operator used for this Procedure?: No Estimated blood loss (mL): 2.0 Pathology: other (A. Cecal polyp B. Polyps at 20cm) Condition: stable Disposition: PACU
[2023-01-22 12:15] VITALS: BP 120/65
[2023-01-22 12:26] VITALS: BP 140/81; PULSE 82; RESP 20; TEMP 37.1; O2SAT 96
--- NOTE | 2023-01-22 12:55 | OP_ITS ---
DATE OF SERVICE: 01/22/2023 SURGEON: Anirudh Lino MD INDICATIONS: The presents for evaluation of personal history of colon polyps and colorectal cancer screening. Full consent has been obtained from her for this, including risks of bleeding and perforation. PREOPERATIVE DIAGNOSIS: Colorectal cancer screening and personal history of colon polyps. POSTOPERATIVE DIAGNOSIS: PROCEDURE PERFORMED: Colonoscopy to cecum and terminal ileum with hot snare polypectomy x 3, and biopsy and removal of polyp. ESTIMATED BLOOD LOSS: COMPLICATIONS: ANESTHESIA: Monitored anesthesia care. ASSISTANTS: SPECIMENS: POSTOPERATIVE DIAGNOSES: Colorectal cancer screening and personal history of colon polyps, colon polyps, internal hemorrhoids. DESCRIPTION OF PROCEDURE: The patient was placed in the left lateral decubitus position. The digital rectal exam revealed no abnormalities. The [employer] video pediatric colonoscope was entered into the rectum and advanced easily to the cecum. Once in the cecum, I did identify normal-appearing cecal pouch other than a 3 mm polyp, which was biopsied and completely removed with the cold biopsy forceps. The remainder of the cecum including the appendiceal orifice appeared normal. The terminal ileum was cannulated and appeared normal. The scope was withdrawn back in the colon. The ileocecal valve appeared normal. The scope was slowly withdrawn assessing all mucosal surfaces carefully. Preparation was excellent. At 20 cm, in the area of previously placed submucosal ink markings, were 3 polyps. One was approximately 10 mm and grossly adenomatous and/or inflammatory. This was removed by hot snare polypectomy and recovered by suction. A second polyp just adjacent to this was approximately 5 mm in size and removed by hot snare polypectomy and recovered by suction. Immediately distal to this was another flat, approximately 6 to 8 mm polyp, which was also removed by hot snare polypectomy, although pieces were most likely not recovered. All of the polypectomy sites appeared clean, without any sign of residual polyp nor bleeding. I did not visualize any other polyps, colitis, nor angiodysplasia. In the rectum, scope was retroflexed visualizing internal hemorrhoids, but no other pathology. The rectal mucosa appeared normal. The scope was straightened and withdrawn from the patient. She tolerated the procedure well and was returned to the recovery area in stable condition. IMPRESSION: 1. Colon polyps. 2. Internal hemorrhoids. PLAN: Given her previous history and today's findings, I would recommend a repeat colonoscopy in 2 years for further screening and surveillance. She was advised not to use any aspirin and NSAIDs for 1 week. She will otherwise see me on a p.r.n. basis. MD SUDHIR Rowe/ADONIS / [phone] MTDD
== END 2023-01-22 13:30 | disposition home or self-care (01) ==
PROVIDERS: Nurse Practitioner; PCP Internal Medicine; Visit Provider Internal Medicine
PROC: 0DJD8ZZ Inspection of Lower Intestinal Tract, Via Natural or Artificial Opening Endoscopic (ICD-10-PCS; CPT 45378; principal; 2023-01-22 11:20)
DX: Z12.11 Encounter for screening for malignant neoplasm of colon (principal); D12.5 Benign neoplasm of sigmoid colon; K64.8 Other hemorrhoids; Z86.010 Personal history of colon polyps; Z80.0 Family history of malignant neoplasm of digestive organs; K62.5 Hemorrhage of anus and rectum; E11.9 Type 2 diabetes mellitus without complications; I10 Essential (primary) hypertension; E78.00 Pure hypercholesterolemia, unspecified; K21.9 Gastro-esophageal reflux disease without esophagitis; E21.3 Hyperparathyroidism, unspecified; R25.1 Tremor, unspecified; J98.4 Other disorders of lung; E55.9 Vitamin D deficiency, unspecified; E53.8 Deficiency of other specified B group vitamins; M79.7 Fibromyalgia; N39.46 Mixed incontinence; E66.9 Obesity, unspecified; Z68.42 Body mass index [BMI] 45.0-49.9, adult; G47.33 Obstructive sleep apnea (adult) (pediatric); Z99.89 Dependence on other enabling machines and devices; Z79.899 Other long term (current) drug therapy; Z79.84 Long term (current) use of oral hypoglycemic drugs
CPT/HCPCS: 45385; 45380; 81025; 82947; 88305; J2250; J2704; J3010

== ENCOUNTER 2023-01-29 10:56 | Outpatient (AMB) | payer OTHER, SELFPAY ==
--- NOTE | 2023-01-29 10:59 | A.OFFVIS_ITS ---
Intake Vital Signs 01/29/23 11:00 Height 5 ft 6 in Weight 269 lb 10.005 oz BMI 43.5 BP 112/78 Blood Pressure Location Lt brachial Position Sitting Pulse 77 Pulse Source Pulse Oximeter Intake Visit Reasons: Hypercalcemia,Hyperparathyroidism-LVM Intake Note: Patient present today for Hypercalcemia and Hyperparathyroidism follow up. Interactive Project Manager Required: Yes Interactive Project Manager Language: Israeli Information Interpreted: non-clinical & clinical Accompanied by: Self / Same As Patient Allergies Gadolinium-Containing Contrast Medi [GADOLINIUM-CONTAINING CONTRAST] Allergy (Severe, Verified 01/29/23 11:09) ANAPHYLAXIS Iodinated Contrast Media [IV Dye, Iodine Containing] Allergy (Severe, Verified 01/29/23 11:09) ANAPHYLAXIS aspirin [Aspirin] Allergy (Mild, Verified 01/29/23 11:09) ITCH ibuprofen [Ibuprofen] Allergy (Mild, Verified 01/29/23 11:09) NAUSEA oxycodone [From Percocet] Allergy (Mild, Verified 01/29/23 11:09) RASH Penicillins Allergy (Mild, Verified 01/29/23 11:09) ITCH Sulfa (Sulfonamide Antibiotics) Allergy (Mild, Verified 01/29/23 11:09) ITCH morphine [MORPHINE] Allergy (Unknown, Verified 01/29/23 11:09) NAUSEA penicillin V Allergy (Unknown, Verified 01/29/23 11:09) Itch seafood Allergy (Unknown, Verified 01/29/23 11:09) Unknown LIQUID SOAPS Allergy (Intermediate, Uncoded 11/25/22 13:48) ITCHING AND REDNESS CHIHUAHUA Allergy (Mild, Uncoded 11/25/22 13:48) RASH ITCHING HPI HPI Comments History of Present Illness Details 47 YO F withwho is seen in consultation at the request of PCP for Hypercalcemia. First noted to have high calcium for couple of months . Not Currently using Calcium supplement but . Takes 5000 IU of Vitamin D daily. Currently off HCTZ 25 mg . Kidney stones: Y Osteoporosis: N History of [place] use: No Biotin use: N Family history of high calcium or kidney stones: mom has kidney stones Renal imagin12/07/20 = COMPARISON: Ultrasound abdomen complete 10/18/2020 and 10/29/2018. CT abdomen and pelvis 08/17/2019. TECHNIQUE: Real-time imaging of the kidneys.? Technically limited study secondary to bowel gas and body habitus. FINDINGS: RIGHT KIDNEY: 11.0 x 4.7 x 4.5 cm (SAG x AP x TRV). The kidney is normal in size, contour, and echogenicity. Renal cortical thickness is normal. No calculi or focal parenchymal lesions. No hydronephrosis. LEFT KIDNEY: 11.2 x 5.3 x 4.5 cm (SAG x AP x TRV). The kidney is normal in size, contour, and echogenicity. Renal cortical thickness is normal. There is question of a 2 x 4 mm stone in the midpole. No focal parenchymal lesions or hydronephrosis. US/US renal BI IMPRESSION: Limited exam. Question small left renal stone DXA: Labs: [facility] Medical History IBS (irritable bowel syndrome) Depression with anxiety Acute bronchitis Hypercalcemia Cough Restrictive lung disease GERD (gastroesophageal reflux disease) Benign essential hypertension Costochondritis Gallbladder polyp Calculus of kidney Rectal bleeding Palpitations Morbid obesity with BMI of 50.0-59.9, adult Vitamin D deficiency Vitamin B12 deficiency Primary osteoarthritis of both knees Fibromyalgia Obstructive sleep apnea Asthma Migraine headache with aura Diabetes mellitus Pure hypercholesterolemia Mixed stress and urge urinary incontinence Tremor of both hands Hand pain, right Intertrigo Surgical History H/O colonoscopy History of esophagogastroduodenoscopy (EGD) Family History Father Medical history unknown Mother Hypertension Kidney stones Maternal Grandmother Colon cancer Maternal Aunt Breast cancer Sister No problems noted. Sister No problems noted. Housing: Apartment Alcohol intake: never Patient Tobacco Use Status: Former Tobacco user e-Cigarette/Vaping Use: Never Used Second Hand Smoke Exposure: No Advance Directives Date on File: 01/03/21 service: No Current occupational status: disabled Cognitive needs: No Hearing needs: No Vision needs: No Assessment & Plan Assessment & Plan (1) Hypercalcemia: Code(s): E83.52 - Hypercalcemia Plan: This is a 47-year-old female with a history of PTH-dependent hypercalcemia. Differential diagnosis includes primary hyperparathyroidism v. R/O FHH Plan is to talk to the patient about referral to parathyroid surgeon Dr.. Spicer considering degree of hypercalcemia, age and history of nephrolithiasis. Will check 24 hour urine for calcium and creatinine to get FeCa rule out [facility] Orders: Orders Calcium Today E83.52 - Hypercalcemia Creatinine, 24 Hr Group Today E83.52 - Hypercalcemia Calcium, 24 Hr Ur Today E83.52 - Hypercalcemia Creatinine Today E83.52 - Hypercalcemia Albumin Level Today E83.52 - Hypercalcemia Referrals General Surgery Referral E83.52 - Hypercalcemia Coding Level of Care Code Est Pt Level 3 (65905) Diagnoses Hypercalcemia E83.52
[2023-01-29 11:00] VITALS: BP 112/78; PULSE 77; BMI 43.5
== END 2023-01-29 11:29 | disposition home or self-care (01) ==
PROVIDERS: PCP Internal Medicine; Visit Provider Internal Medicine Endocrinology, Diabetes & Metabolism
DX: E83.52 Hypercalcemia (principal)
CPT/HCPCS: 99213

== ENCOUNTER → 2023-01-29 10:56 | Outpatient (BNVA) | payer OTHER, SELFPAY | PROVIDERS: PCP Internal Medicine; Visit Provider Internal Medicine Endocrinology, Diabetes & Metabolism | DX: E83.52 Hypercalcemia (principal) | CPT/HCPCS: 99212 ==

== ENCOUNTER 2023-02-04 13:10 | Outpatient (AMB) | payer OTHER, SELFPAY ==
[2023-02-04 13:18] VITALS: BP 140/70; PULSE 77; BMI 43.1
--- NOTE | 2023-02-04 13:18 | A.OFFVIS_ITS ---
Intake Vital Signs 02/04/23 13:18 02/04/23 13:47 Height 5 ft 6 in Weight 266 lb 12.149 oz BMI 43.1 BP 140/70 H 128/76 Blood Pressure Location Lt brachial Rt radial Position Sitting Sitting Pulse 77 Pulse Source Pulse Oximeter Intake Visit Reasons: follow up/palpitations/ Intake Note: follow up/ palpitations/ patient complaining of palpitations when sleeping Straight Edger Required: No Information Interpreted: non-clinical & clinical Accompanied by: Self / Same As Patient Allergies Gadolinium-Containing Contrast Medi [GADOLINIUM-CONTAINING CONTRAST] Allergy (Severe, Verified 02/04/23 13:24) ANAPHYLAXIS Iodinated Contrast Media [IV Dye, Iodine Containing] Allergy (Severe, Verified 02/04/23 13:24) ANAPHYLAXIS aspirin [Aspirin] Allergy (Mild, Verified 02/04/23 13:24) ITCH ibuprofen [Ibuprofen] Allergy (Mild, Verified 02/04/23 13:24) NAUSEA oxycodone [From Percocet] Allergy (Mild, Verified 02/04/23 13:24) RASH Penicillins Allergy (Mild, Verified 02/04/23 13:24) ITCH Sulfa (Sulfonamide Antibiotics) Allergy (Mild, Verified 02/04/23 13:24) ITCH morphine [MORPHINE] Allergy (Unknown, Verified 02/04/23 13:24) NAUSEA penicillin V Allergy (Unknown, Verified 02/04/23 13:24) Itch seafood Allergy (Unknown, Verified 02/04/23 13:24) Unknown LIQUID SOAPS Allergy (Intermediate, Uncoded 11/25/22 13:48) ITCHING AND REDNESS CHIHUAHUA Allergy (Mild, Uncoded 11/25/22 13:48) RASH ITCHING Medication List - Last Reconciled 02/04/23 by Lovely Brennan NP albuterol sulfate 2.5 mg (3 mL) continuous nebulization Q4-6H PRN albuterol sulfate 90 mcg/actuation 2 puffs PO Q6H PRN amlodipine 2.5 mg PO DAILY 30 days aripiprazole 2 mg PO DAILY blood pressure monitor As directed blood pressure test kit-wrist As directed blood sugar diagnostic (Loterityuch Ultra Test strips) As directed once a day blood sugar diagnostic As directed blood-glucose meter As directed cetirizine 10 mg PO DAILY PRN 90 days cholecalciferol (vitamin D3) 125 mcg PO DAILY cyanocobalamin (vitamin B-12) 1,000 mcg IM Q4W 90 days cyanocobalamin (vitamin B-12) 100 mcg PO DAILY [DIABETIC SHOES (1 pair) As directed] docusate sodium 100 mg PO BEDTIME epinephrine (EpiPen 2-Fili) 0.3 mg (0.3 mL) IM ONCE PRN 360 days fluocinolone 0.025% 1 appl topical BID fluticasone propion-salmeterol 250-50 mcg/dose (Wixela Inhub) 1 inh inhalation BID 30 days fluticasone propionate 50 mcg/actuation (Flonase Allergy Relief) 2 sprays intranasal DAILY 2 weeks lancets (FreeStyle Lancets) As directed - E11.9 -- Diabetes lancets As directed lancets (OneTouch UltraSoft Lancets) As directed once a day loperamide 2 mg PO Q6H PRN metformin ER 500 mg PO DAILY nystatin 1 appl topical TID 10 days omeprazole 40 mg PO QAM prednisone 20 mg PO BID 5 days prednisone 10 mg PO BID 7 days MDD EXCARBATION OF ASTHMA [RAISED TOLET SEAT As directed] rosuvastatin 5 mg PO DAILY 30 days solifenacin (Vesicare) 10 mg PO DAILY sucralfate 1 g PO BID sumatriptan succinate 100 mg PO DAILY PRN syringe with needle As directed topiramate 25 mg PO BEDTIME HPI HPI Comments History of Present Illness Details 47-year-old female presents for a follow -up on palpitations. She had a bit of work-up in the past. Including holter monitor, echocardiogram, calcium score, and stress test. 7% of the time on the holter monitor she was tachycardic otherwise work-up came back not significant for iscemia. She has a medical history of obesity, diabetes, HTN, and BONITA. [facility] Medical History IBS (irritable bowel syndrome) Depression with anxiety Acute bronchitis Hypercalcemia Cough Restrictive lung disease GERD (gastroesophageal reflux disease) Benign essential hypertension Costochondritis Gallbladder polyp Calculus of kidney Rectal bleeding Palpitations Morbid obesity with BMI of 50.0-59.9, adult Vitamin D deficiency Vitamin B12 deficiency Primary osteoarthritis of both knees Fibromyalgia Obstructive sleep apnea Asthma Migraine headache with aura Diabetes mellitus Pure hypercholesterolemia Mixed stress and urge urinary incontinence Tremor of both hands Hand pain, right Intertrigo Surgical History H/O colonoscopy History of esophagogastroduodenoscopy (EGD) Family History Father Medical history unknown Mother Hypertension Kidney stones Maternal Grandmother Colon cancer Maternal Aunt Breast cancer Sister No problems noted. Sister No problems noted. Social History Housing: Apartment Alcohol intake: never Patient Tobacco Use Status: Former Tobacco user e-Cigarette/Vaping Use: Never Used Second Hand Smoke Exposure: No Advance Directives Date on File: 01/03/21 service: No Current occupational status: disabled Cognitive needs: No Hearing needs: No Vision needs: No Review of Systems Const Denies chills, Denies fatigue, Denies fever(s), Denies frequent falls, Denies weakness, Denies weight gain and Denies weight loss ENT Denies dizziness Card Denies chest pain, Denies chest pain with activity, Denies syncope, Denies rapid heart rate, Denies pedal edema, Denies irregular heart rhythm, Denies leg edema, Denies lightheadedness, Denies palpitations, Denies dyspnea, Denies dyspnea on exertion, Denies orthopnea and Denies other (LOC) Resp Denies cough, Denies dyspnea and Denies dyspnea on exertion GI Denies hematochezia and Denies change in bowel habits Musc Denies abnormal gait, Denies arthralgias, Denies muscle weakness, Denies numbness, Denies radiating pain into limb and Denies tingling Neuro Denies abnormal gait, Denies dizziness, Denies syncope, Denies frequent falls, Denies numbness, Denies tingling and Denies weakness Endo Denies fatigue and Denies palpitations Physical Exam Vital Signs: Last Vital Signs Pulse 77 02/04/23 13:18 BP 128/76 02/04/23 13:47 BMI result Body Mass Index 43.1 Const General: healthy appearing and no acute distress Orientation/consciousness: patient oriented x3 HEENT Head: Yes normal to inspection Eyes General: appearance normal, both eyes and all related structures Neck Neck: Yes normal visual inspection Chest Chest palpation & inspection: normal inspection of the chest Resp Effort & Inspection: normal respiratory effort Auscultation: clear to auscultation bilaterally Cardio Jugular venous distension: no JVD Palpation: normal PMI Rate: regular rate Rhythm: regular rhythm Heart sounds: S1 normal heart sound present, S2 normal heart sound present, no click, no gallops, no murmurs and no rubs GI Inspection: Yes normal to inspection Palpation (GI): Soft to palpation Skin General skin exam: no rashes or lesions noted Neuro General: patient oriented x3 Extrem General: Yes normal to inspection Psych Appearance: grossly normal Assessment & Plan Assessment & Plan (1) Palpitations: Code(s): R00.2 - Palpitations Plan PT reports multiple episodes of fast heart rate a week. WIll add metoprolol succinate 25mg once a day to aid with this. Reduction of caffeine and stress mitigation discussed. Sent RX to pharmacy. Medications: New metoprolol succinate ER 25 mg PO DAILY 30 tabs 3RF Coding Level of Care Code Est Pt Level 3 (39401) Diagnoses Palpitations R00.2
[2023-02-04 13:47] VITALS: BP 128/76
== END 2023-02-04 14:03 | disposition home or self-care (01) ==
PROVIDERS: PCP Internal Medicine; Visit Provider Nurse Practitioner
DX: R00.2 Palpitations (principal)
CPT/HCPCS: 99213

== ENCOUNTER → 2023-02-04 13:10 | Outpatient (BNVA) | payer OTHER, SELFPAY | PROVIDERS: PCP Internal Medicine; Visit Provider Nurse Practitioner | DX: R00.2 Palpitations (principal) | CPT/HCPCS: 99212 ==

== ENCOUNTER 2023-02-05 07:43 | Emergency (ER) | payer OTHER, SELFPAY ==
--- NOTE | 2023-02-05 07:45 | ED_ITS ---
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 Patient states that she is having pain that starts in the left side of her neck and goes down into her left shoulder. Patient denies any dizziness, lightheadedness, abdominal pain, nausea, vomiting, fever, chills, blurry vision, double vision, loss of vision, chest pain, difficulty breathing, shortness of breath, back pain, night sweats, pain with urination, increased urinary frequency, increased urinary urgency, blood in her urine or stool, syncope or a near syncopal episode, recent trauma or falls, bowel incontinence, bladder incontinence, bowel retention, bladder retention, or any other complaints at this time. 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 Onset (ago): hour(s) Location: neck and left Radiation: extremity Severity: mild Severity scale (1-10): 3 Quality: aching and dull Pain Consistency: constant Relieving factors: none Exacerbating factors: none Associated symptoms: denies other symptoms Related Data Home Medications Medication Instructions Recorded Confirmed syringe with needle 3 mL 23 x 1 #1 ea 05/12/20 10/31/22 aripiprazole 2 mg tablet 2 mg PO DAILY 12/06/21 11/25/22 omeprazole 40 mg capsule,delayed 40 mg PO QAM 03/05/22 11/25/22 release Previous Rx's Medication Instructions Recorded fluocinolone 0.025 % topical cream 1 appl topical BID #60 grams 08/02/20 docusate sodium 100 mg capsule 100 mg PO BEDTIME #30 caps 12/26/20 loperamide 2 mg capsule 2 mg PO Q6H PRN loose stool #10 05/21/21 caps blood pressure monitor #1 ea 05/28/21 sucralfate 1 gram tablet 1 g PO BID #60 tabs 06/22/21 lancets 28 gauge (FreeStyle #100 ea 11/23/21 Lancets) DIABETIC SHOES (1 pair) #2 ea 12/31/21 epinephrine 0.3 mg/0.3 mL 0.3 mg (0.3 mL) IM ONCE PRN 01/01/22 injection, auto-injector (EpiPen anaphylaxis 360 days #2 ea 2-Fili) blood pressure test kit-wrist #1 ea 05/15/22 blood sugar diagnostic #50 ea 06/24/22 lancets #100 ea 06/24/22 blood sugar diagnostic (OneTouch #100 ea 06/25/22 Ultra Test strips) lancets (OneTouch UltraSoft #100 ea 06/25/22 Lancets) sumatriptan succinate 100 mg tablet 100 mg PO DAILY PRN migraine 06/27/22 headache #9 tabs albuterol sulfate 2.5 mg/3 mL 2.5 mg (3 mL) continuous 07/22/22 (0.083 %) solution for nebulization nebulization Q4-6H PRN shortness of breath or wheezing #180 mL blood-glucose meter #1 ea 07/30/22 solifenacin 10 mg tablet (Vesicare) 10 mg PO DAILY #90 tabs 08/12/22 RAISED TOLET SEAT #1 ea 08/19/22 cholecalciferol (vitamin D3) 125 125 mcg PO DAILY #30 caps 09/30/22 mcg (5,000 unit) capsule metformin 500 mg tablet,extended 500 mg PO DAILY #90 tabs 10/09/22 release 24 hr fluticasone 250 mcg-salmeterol 50 1 inh inhalation BID 30 days #60 ea 10/14/22 mcg/dose blistr powdr for inhalation (Wixela Inhub) prednisone 10 mg tablet 10 mg PO BID eXCEARBATION OF 10/22/22 ASTHMA 7 days #14 tabs cyanocobalamin (vitamin B-12) 1,000 mcg IM Q4W 90 days #4 mL 11/01/22 1,000 mcg/mL injection solution prednisone 20 mg tablet 20 mg PO BID asthma 5 days #10 tabs 11/06/22 cyanocobalamin (vitamin B-12) 100 100 mcg PO DAILY #90 tabs 12/12/22 mcg tablet topiramate 25 mg tablet 25 mg PO BEDTIME #90 tabs 12/12/22 fluticasone propionate 50 2 spray intranasal DAILY 2 weeks 01/04/23 mcg/actuation nasal #16 grams spray,suspension (Flonase Allergy Relief) cetirizine 10 mg tablet 10 mg PO DAILY PRN for allergies 01/16/23 90 days #90 tabs albuterol sulfate 90 mcg/actuation 2 puff PO Q6H PRN bronchospasm 01/25/23 aerosol inhaler #8.5 ea amlodipine 2.5 mg tablet 2.5 mg PO DAILY 30 days #30 tabs 01/25/23 nystatin 100,000 unit/gram topical 1 appl topical TID 10 days #60 01/25/23 powder grams rosuvastatin 5 mg tablet 5 mg PO DAILY 30 days #30 tabs 01/27/23 metoprolol succinate 25 mg 25 mg PO DAILY #30 tabs 02/04/23 tablet,extended release 24 hr cyclobenzaprine 5 mg tablet 5 mg PO TID PRN muscle spasm 7 02/05/23 days #21 tabs Allergies Allergy/AdvReac Type Severity Reaction Status Date / Time Gadolinium-Containing Allergy Severe ANAPHYLAXIS Verified 02/04/23 13:24 Contrast Medi [GADOLINIUM-CONTAINING CONTRAST] Iodinated Contrast Media Allergy Severe ANAPHYLAXIS Verified 02/04/23 13:24 [IV Dye, Iodine Containing] aspirin [Aspirin] Allergy Mild ITCH Verified 02/04/23 13:24 ibuprofen [Ibuprofen] Allergy Mild NAUSEA Verified 02/04/23 13:24 oxycodone [From Percocet] Allergy Mild RASH Verified 02/04/23 13:24 Penicillins Allergy Mild ITCH Verified 02/04/23 13:24 Sulfa (Sulfonamide Allergy Mild ITCH Verified 02/04/23 13:24 Antibiotics) morphine [MORPHINE] Allergy Unknown NAUSEA Verified 02/04/23 13:24 penicillin V Allergy Unknown Itch Verified 02/04/23 13:24 seafood Allergy Unknown Unknown Verified 02/04/23 13:24 LIQUID SOAPS Allergy Intermediate ITCHING Uncoded 11/25/22 13:48 AND REDNESS CHIHUAHUA Allergy Mild RASH Uncoded 11/25/22 13:48 ITCHING Review of Systems 2 Constitutional: Constitutional: Reports no additional constitutional complaints, Denies chills, Denies fever(s) and Denies night sweats Eyes: Eyes: Reports no additional eye complaints, Denies blurry vision, Denies change in vision, Denies diplopia, Denies eye discharge, Denies loss of vision and Denies eye pain ENT: Denies dizziness and Reports neck pain Cardiovascular: Cardiovascular: Reports no additional cardiovascular complaints, Denies chest pain, Denies lightheadedness, Denies Loss of Consciousness and Denies dyspnea Respiratory: Respiratory: Reports no additional respiratory complaints and Denies dyspnea Gastrointestinal: Gastrointestinal: Reports no additional gastrointestinal complaints, Denies abdominal pain, Denies melena, Denies hematochezia, Denies change in bowel habits and Denies change in stool character Genitourinary: Genitourinary: Denies hematuria, Denies urinary frequency, Denies dysuria, Denies urinary incontinence, Denies urinary hesitancy and Denies urinary urgency Musculoskeletal: Musculoskeletal: Reports no additional musculoskeletal complaints, Reports neck pain, Denies numbness and Denies tingling Comments: left shoulder pain Neurologic: Denies dizziness, Denies loss of vision, Denies numbness and Denies tingling Psychiatric: Psychiatric: Reports no additional psychiatric complaints Endocrine: Endocrine: Reports no additional endocrine complaints Hematologic/Lymphatic: Hematologic/Lymphatic: Reports no additional hematologic/lymphatic complaints Allergic/Immunologic: Allergic/Immunologic: Reports no additional allergic/immunologic complaints [facility] Past Medical History Attestation statement: The following information was validated with the patient. Source: old records reviewed and nursing notes reviewed Medical History Urinary urgency Ureteral stone with hydronephrosis Eye pressure Eyelid twitch Right-sided chest wall pain Vaginal bleeding Hallucinations Precordial chest pain Morbid obesity RUQ abdominal pain IBS (irritable bowel syndrome) Depression with anxiety Acute bronchitis Hypercalcemia Cough Restrictive lung disease GERD (gastroesophageal reflux disease) Benign essential hypertension Costochondritis Gallbladder polyp Calculus of kidney Rectal bleeding Palpitations Morbid obesity with BMI of 50.0-59.9, adult Vitamin D deficiency Vitamin B12 deficiency Primary osteoarthritis of both knees Fibromyalgia Obstructive sleep apnea Asthma Migraine headache with aura Diabetes mellitus Pure hypercholesterolemia Mixed stress and urge urinary incontinence Tremor of both hands Hand pain, right Intertrigo Surgical History H/O colonoscopy History of esophagogastroduodenoscopy (EGD) Family History Family History Father Medical history unknown Mother Hypertension Kidney stones Maternal Grandmother Colon cancer Maternal Aunt Breast cancer Sister No problems noted. Sister No problems noted. Social History Social History Housing: Apartment Alcohol intake: never Patient Tobacco Use Status: Former Tobacco user Smoked in Last 30 Days: No e-Cigarette/Vaping Use: Never Used Second Hand Smoke Exposure: No Use of substances other than those prescribed or required for medical reasons: No Advance Directives: Yes Advance Directives on File: Yes Advance Directives Date on File: 01/03/21 Patient : No service: No Current occupational status: disabled Cognitive needs: No Hearing needs: No Vision needs: No Physical Exam ED Vital Signs: Vital Signs - 24 hr 02/05/23 07:59 02/05/23 10:04 Temperature 98.1 F 98.1 F Pulse Rate 77 80 Respiratory Rate 17 18 Blood Pressure 142/78 H 133/73 Pulse Oximetry 100 100 Oxygen Delivery Method Room Air Room Air BMI result Body Mass Index 42.9 Const General: cooperative, no acute distress, alert and awake Nutritional Appearance: well nourished Orientation/consciousness: patient oriented x3 Limitations: no limitations HENMT Head: Yes normal to inspection and Yes atraumatic Ears: hearing grossly normal bilaterally and external ears normal General nose exam: Normal external nose present, no nasal discharge noted and no epistaxis Face and sinus: Yes normal facial exam, No abrasion and No laceration Mouth: Normal oral and palatal mucosa present, no drooling and no muffled voice Eyes General: appearance normal, both eyes and all related structures Periorbital: periorbital findings normal Eyelids: Yes eyelids normal Conjunctivae: conjunctivae normal Pupils: Equal, round and reactive pupils present EOM: EOMs intact bilaterally Neck Neck: Yes normal visual inspection, Yes full ROM and Yes no lymphadenopathy Chest Chest palpation & inspection: normal inspection of the chest Resp Effort & Inspection: normal respiratory effort and able to speak in complete sentences Auscultation: clear to auscultation bilaterally Cardio Rate: regular rate Rhythm: regular rhythm GI Inspection: Yes normal to inspection Neuro General: patient oriented x3 and moves all extremities Cranial nerves: Yes Equal, round and reactive pupils present Cognition (Neuro): normal cognition Motor exam (neuro): 5/5 motor strength present throughout Sensory Exam: Normal double simultaneous stimulation for sensation Coordination: [id number] test normal Extrem General: Yes normal to inspection, Yes full ROM and Yes capillary refill normal Psych Appearance: grossly normal Mental Status: mental status grossly normal Affect: normal affect Attitude: cooperative Thought process: Normal thought process present Thought content: Normal thought content present Insight: Good insight present (Psych) Medications Administered Discontinued Medications Generic Name Dose Route Start Last Admin Trade Name Tristian PRN Reason Stop Dose Admin Cyclobenzaprine HCl 5 mg 02/05/23 08:25 02/05/23 09:07 Cyclobenzaprine Hcl 5 Mg Tablet PO 02/05/23 08:26 5 mg ONCE ONE Administration Ketorolac Tromethamine 15 mg 02/05/23 08:25 02/05/23 09:08 Ketorolac Tromethamine 15 Mg/Ml Vial IM 02/05/23 08:26 15 mg ONCE ONE Administration Patient Own Med ( 1 each 02/05/23 10:00 02/05/23 10:11 Cyanocobalamin IM 02/05/23 10:01 1 each 1000mcg/Ml) ONCE ONE Administration Medical Decision Making Medical Decision Making MDM Narrative: Patient is a 47 year old assigned female at with a history of DM presenting to the emergency department today with left neck and shoulder pain. Patient's physical exam was unremarkable. Patient's blood work was unremarkable. Patient's urine showed a possible urinary tract infection however, the patient denies symptoms at this time. Will allow the culture to grow before starting medication. Patient's EKG was unremarkable. I explained my physical exam findings as well as all test results to the patient. I answered all questions asked by the patient. Patient received PO Flexeril which she stated helped her symptoms significantly. Finger splint was placed on the left ring finger, per patient request, without incident. Patient's PMS was intact prior to and after splint placement. I stressed the importance of the patient taking her medication as prescribed. I stressed the importance of the patient following up with her primary care provider. I stressed the importance of the patient returning to the emergency department immediately if her symptoms were to worsen or if she were to develop any dizziness, shortness of breath, difficulty breathing, chest pain, blurry vision, loss of vision, nausea, vomiting, abdominal pain, fever, chills, back pain, or any other complaints. Patient verbalized agreement and understanding with this treatment plan and discharge. Differential Diagnosis Differential Diagnoses: The differential diagnosis associated with the presentation includes Left ring finger injury / pain Left neck pain Left shoulder pain STEMI NSTEMI Cervical radiculopathy Admission/Observation Consideration of admission/observation: Escalation of care including admission/observation considered Patient would have been admitted to the hospital had her work up had any findings where hospital admission was appropriate and her clinical presentation warranted hospital admission. Lab Data MDM Lab Attestation statement: I reviewed the patient's lab results. My interpretation of these studies and their corresponding values is that they are grossly normal. 02/05/23 08:55 02/05/23 08:55 Labs: Lab Results 02/05/23 02/05/23 Range/Units 08:55 09:14 WBC 8.2 (4.8-10.8) X10*3/uL RBC 4.84 (4.20-5.50) X10*6/uL Hgb 14.8 (12.0-16.0) g/dl Hct 45.3 (37.0-47.0) % MCV 93.6 (80.0-98.0) fL MCH 30.6 (27.0-33.0) pg MCHC 32.7 (31.0-35.0) g/dl RDW 15.2 (11.0-16.0) % Plt Count 297 (160-400) X10*3/uL MPV 11.0 (9.4-12.3) fL Immature Gran % (Auto) 0.4 (0.0-0.4) % Neut % (Auto) 67.6 (45-73) % Lymph % (Auto) 20.9 (20-40) % [place] % (Auto) 8.2 (2-11) % Eos % (Auto) 2.3 (0-4) % Baso % (Auto) 0.6 (0-2) % Lymph # (Auto) 1.7 (1.2-4.9) X10*3/uL [place] # (Auto) 0.7 (0.1-1.2) X10*3/uL Eos # (Auto) 0.2 (0.0-0.4) X10*3/uL Baso # (Auto) 0.1 (0.0-0.2) X10*3/uL Abs Immat Gran (auto) 0.03 (0.00-0.03) X10*3/uL Absolute Neuts (auto) 5.5 (2.0-8.3) x10*3/uL Absolute Nucleated RBC 0.000 (0.0-0.012) X10*3/uL Nucleated RBC % (auto) 0.0 (0.0-0.2) /100WBC PT 10.6 L (11.1-13.3) SEC INR 0.9 (0.9-1.1) APTT 31.9 (26.0-36.4) SEC Sodium 141 (135-145) mmol/L Potassium 4.4 (3.3-5.1) mmol/L Chloride 104 (96-108) mmol/L Carbon Dioxide 32 H (22-29) mmol/L Anion Gap 9 L (12-20) BUN 10 (9-16) mg/dL Creatinine 0.80 (0.5-1.4) mg/dL Estim Creat Clear Calc 112.5 Estimated GFR > 60 Random Glucose 106 (60-115) mg/dL Calcium 11.8 H D (8.4-10.2) mg/dL Magnesium 2.4 (1.6-2.6) mg/dL Total Bilirubin 0.4 (0.0-1.0) mg/dL AST 26 (5-31) U/L ALT 38 H (0-31) U/L Alkaline Phosphatase 155 H (39-117) U/L Troponin I High Sens < 2.7 (<3.5-17.0) ng/L Total Protein 7.6 (6.5-8.0) g/dL Albumin 4.0 (3.5-5.0) g/dL Urine Color Yellow Urine Appearance Hazy Urine pH 7.0 (5.0-9.0) Ur Specific [place] 1.010 (1.005-1.025) Urine Protein Negative (Neg-Trace) mg/dL Urine Glucose (UA) Negative (Negative) mg/dL Urine Ketones Negative (Negative) mg/dL Urine Blood Negative (Negative) Urine Nitrite Negative (Negative) Ur Leukocyte Esterase Small (1+) H (Negative) Urine RBC 0-2 (0-2) /HPF Urine WBC 21-50 H (0-5) /HPF Ur Squamous Epith Cells 3-5 (0-2) /HPF Urine Bacteria Trace (None Seen) Hyaline Casts 0-2 (0-2) /LPF Influenza Type A (PCR) NEGATIVE (Negative) Influenza Type B (PCR) NEGATIVE (Negative) RSV RNA Qual (PCR) NEGATIVE (Negative) SARS-CoV-2 RNA (RT-PCR) NEGATIVE (Negative) Independent Interpretation I performed an independent interpretation of an: EKG Interpretation: Vent. Rate: 077 BPM Atrial Rate: 077 BPM P-R Int: 176 ms QRS Dur: 092 ms QT Int: 346 ms P-R-T Axes: 054 035 023 degrees QTc Int: 391 ms Normal sinus rhythm with sinus arrhythmia RSR' or QR pattern in V1 suggests right ventricular conduction delay ST elevation in Lateral leads Abnormal ECG When compared with ECG of 19-JUN-2021 03:15, ST more elevated in Lateral leads Electronically Signed By:PATRICK RUBIO MD Dictated By: Adithya Rubio MD Signed By: Electronically signed by Adithya Rubio MD 02/05/23 1105 Radiology Impression Discussion of test interpretation with radiology: I have reviewed the radiologist's reading. Independent Historian Clinical information obtained from an independent historian. History obtained from or confirmed by: EMS (EMS provided additional history and confirmed the history provided by the patient.) External Record Review External record reviewed: Office record and Outpatient record Chronic Conditions Patient?s care impacted by: Diabetes Discharge Plan Discharge Clinical Impression: Cervical radiculopathy Patient Disposition: Home, Self-Care Instructions: Cervical Radiculopathy (ED) Additional Instructions: Follow up with your primary care provider. Return to the emergency department immediately if your symptoms worsen or if you develop any dizziness, shortness of breath, difficulty breathing, chest pain, blurry vision, loss of vision, nausea, vomiting, abdominal pain, fever, chills, back pain, or any other complaints. Vale un seguimiento con moffett proveedor de atenci?n primaria. Regrese al departamento de emergencias inmediatamente si josé miguel s?ntomas empeoran o si presenta mareos, dificultad para respirar, dificultad para respirar, dolor en el pecho, visi?n borrosa, p?rdida de la visi?n, n?useas, v?mitos, dolor abdominal, fiebre, escalofr?os, dolor de espalda o cualquier otras quejas. Prescriptions: New cyclobenzaprine 5 mg tablet 5 mg PO TID PRN (Reason: muscle spasm) 7 Days Qty: 21 0RF No Action (DME) lancets [FreeStyle Lancets] 28 gauge misc See Rx Instructions .ROUTE .MEDSUPPLY Qty: 100 12RF Rx Instructions: As directed - E11.9 -- Diabetes (DME) blood sugar diagnostic Strip See Rx Instructions .Route Qty: 50 2RF Rx Instructions: As directed (DME) lancets Misc See Rx Instructions .Route Qty: 100 2RF Rx Instructions: As directed (DME) OneTouch Ultra Test Strip See Rx Instructions .ROUTE .MEDSUPPLY Qty: 100 5RF Rx Instructions: As directed once a day (DME) lancets [OneTouch UltraSoft Lancets] Misc See Rx Instructions .ROUTE .MEDSUPPLY Qty: 100 5RF Rx Instructions: As directed once a day sumatriptan succinate 100 mg tablet 100 mg PO DAILY PRN (Reason: migraine headache) Qty: 9 12RF (DME) blood-glucose meter Kit See Rx Instructions .ROUTE .MEDSUPPLY Qty: 1 0RF Rx Instructions: As directed (DME) RAISED TOLET SEAT See Rx Instructions .Route .MEDSUPPLY Qty: 1 0RF Rx Instructions: As directed cholecalciferol (vitamin D3) 125 mcg (5,000 unit) capsule 125 mcg PO DAILY Qty: 30 6RF metformin 500 mg tablet extended release 24 hr 500 mg PO DAILY Qty: 90 1RF fluticasone propion-salmeterol [Wixela Inhub] 250-50 mcg/dose blister with device 1 inh inhalation BID 30 Days Qty: 60 3RF cyanocobalamin (vitamin B-12) 1,000 mcg/mL solution 1,000 mcg IM Q4W 90 Days Qty: 4 3RF topiramate 25 mg tablet 25 mg PO BEDTIME Qty: 90 1RF cyanocobalamin (vitamin B-12) 100 mcg tablet 100 mcg PO DAILY Qty: 90 2RF fluticasone propionate [Flonase Allergy Relief] 50 mcg/actuation spray,suspension 2 spray intranasal DAILY 14 Days Qty: 16 5RF Rx Instructions: administer into each nostril cetirizine 10 mg tablet 10 mg PO DAILY PRN (Reason: for allergies) 90 Days Qty: 90 3RF albuterol sulfate 90 mcg/actuation HFA aerosol inhaler 2 puff PO Q6H PRN (Reason: bronchospasm) Qty: 8.5 5RF amlodipine 2.5 mg tablet 2.5 mg PO DAILY 30 Days Qty: 30 0RF Rx Instructions: HOLD Hydrochlorothiazide (HCTZ) while taking Amlodipine nystatin 100,000 unit/gram powder 1 appl topical TID 10 Days Qty: 60 3RF rosuvastatin 5 mg tablet 5 mg PO DAILY 30 Days Qty: 30 1RF fluocinolone 0.025 % cream 1 appl topical BID Qty: 60 0RF loperamide 2 mg capsule 2 mg PO Q6H PRN (Reason: loose stool) Qty: 10 0RF (DME) BD Luer-Delia Syringe 3 mL 23 x 1 syringe See Rx Instructions IM Q2W Qty: 1 Rx Instructions: As directed (DME) DIABETIC SHOES (1 pair) 10 W See Rx Instructions .Route .MEDSUPPLY Qty: 2 0RF Rx Instructions: As directed epinephrine [EpiPen 2-Fili] 0.3 mg/0.3 mL auto-injector 0.3 mg IM ONCE PRN (Reason: anaphylaxis) 360 Days Qty: 2 0RF Rx Instructions: for 2 doses albuterol sulfate 2.5 mg /3 mL (0.083 %) solution for nebulization 2.5 mg continuous nebulization Q4-6H PRN (Reason: shortness of breath or wheezing) Qty: 180 3RF (DME) blood pressure monitor Kit See Rx Instructions .Route Qty: 1 0RF Rx Instructions: As directed (DME) blood pressure test kit-wrist Kit See Rx Instructions .Route Qty: 1 0RF Rx Instructions: As directed docusate sodium 100 mg capsule 100 mg PO BEDTIME Qty: 30 3RF solifenacin [Vesicare] 10 mg tablet 10 mg PO DAILY Qty: 90 2RF omeprazole 40 mg capsule,delayed release(DR/EC) 40 mg PO QAM sucralfate 1 gram tablet 1 g PO BID Qty: 60 1RF aripiprazole 2 mg tablet 2 mg PO DAILY prednisone 20 mg tablet 20 mg PO BID 5 Days Qty: 10 0RF metoprolol succinate 25 mg tablet extended release 24 hr 25 mg PO DAILY Qty: 30 3RF prednisone 10 mg tablet 10 mg PO BID MDD EXCARBATION OF ASTHMA 7 Days Qty: 14 0RF Referrals: Mihir Elmore MD [Primary Care Provider] - Interventions: ED Discharge Assessment Last Done: 02/05/23 10:22 Discharge Date/Time: 02/05/23 10:23 Print Language: Welsh
--- NOTE | 2023-02-05 07:50 | ECG_ITS ---
Test Reason : cp Blood Pressure : / mmHG Vent. Rate : 077 BPM Atrial Rate : 077 BPM P-R Int : 176 ms QRS Dur : 092 ms QT Int : 346 ms P-R-T Axes : 054 035 023 degrees QTc Int : 391 ms Normal sinus rhythm with sinus arrhythmia RSR' or QR pattern in V1 suggests right ventricular conduction delay ST elevation in Lateral leads Abnormal ECG When compared with ECG of 19-JUN-2021 03:15, ST more elevated in Lateral leads Referred By: Shayy Ornelas Electronically Signed By:PATRICK RUBIO MD
[2023-02-05 07:59] VITALS: BP 134/86; BP 142/78; PULSE 77; PULSE 80; RESP 17; TEMP 36.7; O2SAT 100; O2SAT 99; BMI 42.9
[2023-02-05 09:00] LABS: Basophils Absolute Auto 0.1 X10*3/uL (0.0-0.2); Basophils Percent Auto 0.6 % (0-2); Eosinophils Absolute Auto 0.2 X10*3/uL (0.0-0.4); Eosinophils Percent Auto 2.3 % (0-4); Hematocrit 45.3 % (37.0-47.0); Hemoglobin 14.8 g/dl (12.0-16.0); Imm Gran Abs Auto 0.03 X10*3/uL (0.00-0.03); Imm Gran Pct Auto 0.4 % (0.0-0.4); Lymphocytes Absolute Auto 1.7 X10*3/uL (1.2-4.9); Lymphocytes Percent Auto 20.9 % (20-40); MANUAL DIFF FLAG NO; Mean Corpuscular HGB Conc 32.7 g/dl (31.0-35.0); Mean Corpuscular Hemoglobin 30.6 pg (27.0-33.0); Mean Corpuscular Volume 93.6 fL (80.0-98.0); Monocytes Absolute Auto 0.7 X10*3/uL (0.1-1.2); Monocytes Percent Auto 8.2 % (2-11); Neutrophils Absolute Auto 5.5 x10*3/uL (2.0-8.3); Neutrophils Percent Auto 67.6 % (45-73); Platelet Count 297 X10*3/uL (160-400); Red Blood Count 4.84 X10*6/uL (4.20-5.50); Red Cell Distribution Width 15.2 % (11.0-16.0); White Blood Count 8.2 X10*3/uL (4.8-10.8)
[2023-02-05] MEDS: Cyclobenzaprine HCl 5 MG TABLET PO (09:07)
[2023-02-05] MEDS: Ketorolac Tromethamine 15 MG/ML VIAL IM (09:08)
[2023-02-05 09:18] LABS: Alanine Aminotransferase 38 U/L (0-31); Alkaline Phosphatase 155 U/L (39-117); Anion Gap 9 (12-20); Aspartate Amino Transferase 26 U/L (5-31); Bilirubin Total 0.4 mg/dL (0.0-1.0); Blood Urea Nitrogen 10 mg/dL (9-16); Calcium 11.8 mg/dL (8.4-10.2); Carbon Dioxide 32 mmol/L (22-29); Chloride 104 mmol/L (96-108); Creatinine Clr Calc Pharmacy 112.5; Estimated Glomerular Filt Rate > 60; Glucose Random 106 mg/dL (60-115); Magnesium 2.4 mg/dL (1.6-2.6); Potassium 4.4 mmol/L (3.3-5.1); Sodium 141 mmol/L (135-145); Total Protein 7.6 g/dL (6.5-8.0)
[2023-02-05 09:25] LABS: Troponin-I High Sensitivity < 2.7 ng/L (<3.5-17.0)
[2023-02-05 09:26] LABS: INTERNATIONAL NORM RATIO 0.9 (0.9-1.1); Prothrombin Time 10.6 SEC (11.1-13.3)
[2023-02-05 09:26] LABS: Appearance Urine Hazy; Color Urine Yellow; Glucose Urine UA Negative (Negative); Leukocyte Esterase Urine Small (1+) (Negative); Nitrite Urine Negative (Negative); UMIC TRIGGER UACC YES; Urine Blood Negative (Negative); Urine Ketones Negative (Negative); Urine Protein Negative (Neg-Trace)
[2023-02-05 09:29] LABS: Partial Thromboplastin Time 31.9 SEC (26.0-36.4)
[2023-02-05 09:34] LABS: Bacteria Urine Trace (None Seen); Hyaline Casts Urine 0-2 /LPF (0-2); RBC Urine 0-2 /HPF (0-2); UACC Culture Trigger YES; WBC Urine 21-50 /HPF (0-5)
[2023-02-05 09:46] LABS: Influenza A PCR NEGATIVE (Negative); Influenza B PCR NEGATIVE (Negative); Resp Syncy Virus RNA Qual PCR NEGATIVE (Negative); SARS COV2 PCR INHOUSE NEGATIVE (Negative)
[2023-02-05 10:04] VITALS: BP 133/73; PULSE 80; RESP 18; TEMP 36.7; O2SAT 100
== END 2023-02-05 10:23 | disposition home or self-care (01) ==
PROVIDERS: Physician Assistant Medical; Emergency Provider Emergency Medicine; PCP Internal Medicine
DX: M54.12 Radiculopathy, cervical region (principal); M54.50 Low back pain, unspecified; M25.512 Pain in left shoulder; R07.89 Other chest pain; M54.2 Cervicalgia; Z20.822 Contact with and (suspected) exposure to COVID-19; Z20.828 Contact with and (suspected) exposure to other viral communicable diseases; Z87.891 Personal history of nicotine dependence; Z79.899 Other long term (current) drug therapy
CPT/HCPCS: 0241U; 36415; 80053; 81001; 83735; 84484; 85025; 85610; 85730; 87086; 93005; 96372; 99284; J1885

== ENCOUNTER 2023-02-26 06:41 | Emergency (ER) | payer OTHER, SELFPAY ==
--- NOTE | ~2023-02-26 | CT_ITS ---
EXAMINATION: CT ABDOMEN AND PELVIS WITHOUT CONTRAST CLINICAL INFORMATION: Right lower quadrant COMPARISON: None available. TECHNIQUE: Multidetector volumetric imaging was performed from the superior aspect of the liver through the pubic symphysis. Sagittal and coronal reformatted images were obtained on the technologist's workstation. This CT examination was performed using dose optimization techniques as appropriate, variously including the following: *Automated exposure control *Adjustment of mA and/or kV according to patient size (this includes techniques or standardized protocols for targeted exams where dose is matched to indication/reason for exam; i.e. extremities or head) *Use of iterative reconstruction technique DLP: 1048 mGy-cm FINDINGS: LUNG BASES: Lingular and bilateral lower lobe atelectasis is present. No pleural effusions. Heart size normal. LIVER, GALLBLADDER, AND BILIARY TREE: The liver is borderline enlarged at 17.2 cm but demonstrates decreased attenuation consistent with hepatic steatosis.. No focal hepatic lesion or biliary ductal dilatation is present. The gallbladder contains calcified gallstones but is otherwise unremarkable with no evidence pericholecystic inflammatory changes. PANCREAS: Unremarkable. SPLEEN: Mild splenomegaly at 12.5 cm. ADRENAL GLANDS: Unremarkable. KIDNEYS AND URETERS: The kidneys are normal in size, shape, and attenuation. There is a nonobstructing 2 mm calculus present in the left lower pole. No hydronephrosis, hydroureter, or additional calculi seen. No perinephric stranding. BLADDER: Unremarkable. GASTROINTESTINAL TRACT: The small and large bowel are unremarkable. The appendix is unremarkable. ABDOMINAL WALL: No significant hernia is appreciated. LYMPH NODES: Normal. VASCULAR: Calcific atherosclerotic changes are present in the aorta and iliac vessels. There is no evidence of an abdominal aortic aneurysm. The left renal vein is retroaortic. PELVIC VISCERA: The uterus and adnexa are unremarkable. OSSEOUS STRUCTURES: Degenerative changes are present in the spine most marked at L4-L5 and L5-S1. CT/CT abdomen pelvis wo IV con IMPRESSION: 1. A cause for the patient's right lower quadrant pain has not been found. The appendix is normal. 2. Incidental note made of cholelithiasis without cholecystitis, borderline hepatomegaly with hepatic steatosis and mild splenomegaly. 3. Nonobstructing 2 mm left renal calculus. 4. Degenerative changes in the spine. Fleischner guidelines were followed.
--- NOTE | ~2023-02-26 | US_ITS ---
EXAMINATION: US PELVIS CLINICAL INFORMATION: Right lower quadrant pain COMPARISON: CT of the abdomen and pelvis from earlier the same day TECHNIQUE: Transabdominal pelvic ultrasound FINDINGS: Exam is limited due to patient body habitus and bladder not optimally distended. Uterus is anteverted and measures 6.6 x 3.5 x 3.6 cm. Endometrial thickness is normal measuring 0.4 cm. No focal uterine lesion appreciated. Ovaries not seen. No fluid in the pelvis. US/US pelvic complete Impression: Limited exam. Normal-appearing uterus. Ovaries not seen.
[2023-02-26 07:14] VITALS: BP 152/84; PULSE 71; RESP 18; TEMP 36.6; O2SAT 98; BMI 42.0
[2023-02-26 08:06] LABS: MANUAL DIFF FLAG NO
[2023-02-26 08:07] LABS: Basophils Absolute Auto 0.1 X10*3/uL (0.0-0.2); Basophils Percent Auto 0.5 % (0-2); Eosinophils Absolute Auto 0.3 X10*3/uL (0.0-0.4); Eosinophils Percent Auto 2.6 % (0-4); Hematocrit 44.7 % (37.0-47.0); Hemoglobin 14.7 g/dl (12.0-16.0); Imm Gran Abs Auto 0.05 X10*3/uL (0.00-0.03); Imm Gran Pct Auto 0.5 % (0.0-0.4); Lymphocytes Absolute Auto 2.2 X10*3/uL (1.2-4.9); Lymphocytes Percent Auto 20.1 % (20-40); Mean Corpuscular HGB Conc 32.9 g/dl (31.0-35.0); Mean Corpuscular Hemoglobin 30.6 pg (27.0-33.0); Mean Corpuscular Volume 93.1 fL (80.0-98.0); Mean Platelet Volume 10.3 fL (9.4-12.3); Monocytes Absolute Auto 0.9 X10*3/uL (0.1-1.2); Monocytes Percent Auto 8.2 % (2-11); Neutrophils Absolute Auto 7.3 x10*3/uL (2.0-8.3); Neutrophils Percent Auto 68.1 % (45-73); Platelet Count 318 X10*3/uL (160-400); Red Cell Distribution Width 14.9 % (11.0-16.0); White Blood Count 10.7 X10*3/uL (4.8-10.8)
[2023-02-26 08:22] LABS: Alanine Aminotransferase 40 U/L (0-31); Albumin Level 3.9 g/dL (3.5-5.0); Alkaline Phosphatase 133 U/L (39-117); Anion Gap 9 (12-20); Aspartate Amino Transferase 19 U/L (5-31); Bilirubin Direct 0.3 mg/dL (0.0-0.5); Bilirubin Total 0.6 mg/dL (0.0-1.0); Blood Urea Nitrogen 11 mg/dL (9-16); Calcium 11.4 mg/dL (8.4-10.2); Carbon Dioxide 30 mmol/L (22-29); Chloride 105 mmol/L (96-108); Creatinine Clr Calc Pharmacy 107.1; Estimated Glomerular Filt Rate > 60; Glucose Random 102 mg/dL (60-115); Lipase 37 U/L (8-78); Potassium 4.2 mmol/L (3.3-5.1); Sodium 140 mmol/L (135-145); Total Protein 7.1 g/dL (6.5-8.0)
[2023-02-26 09:40] LABS: Appearance Urine Cloudy; Color Urine Yellow; Glucose Urine UA Negative (Negative); Leukocyte Esterase Urine Trace (Negative); Nitrite Urine Negative (Negative); PH 6.5 (5.0-9.0); Specific Gravity - Urine 1.015 (1.005-1.025); UMIC TRIGGER UACC YES; Urine Blood Negative (Negative); Urine Ketones Negative (Negative); Urine Protein Negative (Neg-Trace)
[2023-02-26 09:42] LABS: Bacteria Urine None Seen (None Seen); Hyaline Casts Urine 0-2 /LPF (0-2); RBC Urine 0-2 /HPF (0-2); Squamous Epithelial Cell Urine 0-2 /HPF (0-2); WBC Urine 0-5 /HPF (0-5)
[2023-02-26 09:44] LABS: UPreg QC Valid YES; Urine Pregnancy NEGATIVE (NEGATIVE)
--- NOTE | 2023-02-26 11:40 | ED.ABDPAIN ---
HPI - Abdominal Pain General Chief Complaint: Abdominal Pain Stated Complaint: right lower quadrant pain Time Seen by Provider: 02/26/23 11:13 Source: patient Mode of arrival: ambulatory Limitations: no limitations History of Present Illness HPI narrative: This is a 47-year-old female History of hypertension, diabetes, obesity, GERD, restrictive lung disease, vitamin B12 deficiency, migraine headaches, asthma presenting to the emergency department for evaluation of right lower quadrant pain with associated nausea that started yesterday, has been gradually worsening. Pain was intermittent nature now constant localized to the right lower quadrant. No radiation of symptoms. No sick contacts. Tolerating p.o. however feels nauseous. Denies vomiting, diarrhea, chest pain, shortness of breath, fevers, chills, chest pain, headache, vision changes, dizziness and weakness. Hx of kidney stones Related Data Home Medications Medication Instructions Recorded Confirmed syringe with needle 3 mL 23 x 1 #1 ea 05/12/20 10/31/22 aripiprazole 2 mg tablet 2 mg PO DAILY 12/06/21 11/25/22 omeprazole 40 mg capsule,delayed 40 mg PO QAM 03/05/22 11/25/22 release Previous Rx's Medication Instructions Recorded fluocinolone 0.025 % topical cream 1 appl topical BID #60 grams 08/02/20 docusate sodium 100 mg capsule 100 mg PO BEDTIME #30 caps 12/26/20 loperamide 2 mg capsule 2 mg PO Q6H PRN loose stool #10 05/21/21 caps blood pressure monitor #1 ea 05/28/21 sucralfate 1 gram tablet 1 g PO BID #60 tabs 06/22/21 lancets 28 gauge (FreeStyle #100 ea 11/23/21 Lancets) DIABETIC SHOES (1 pair) #2 ea 12/31/21 epinephrine 0.3 mg/0.3 mL 0.3 mg (0.3 mL) IM ONCE PRN 01/01/22 injection, auto-injector (EpiPen anaphylaxis 360 days #2 ea 2-Fili) blood pressure test kit-wrist #1 ea 05/15/22 blood sugar diagnostic #50 ea 06/24/22 lancets #100 ea 06/24/22 blood sugar diagnostic (OneTouch #100 ea 06/25/22 Ultra Test strips) lancets (OneTouch UltraSoft #100 ea 06/25/22 Lancets) sumatriptan succinate 100 mg tablet 100 mg PO DAILY PRN migraine 06/27/22 headache #9 tabs albuterol sulfate 2.5 mg/3 mL 2.5 mg (3 mL) continuous 07/22/22 (0.083 %) solution for nebulization nebulization Q4-6H PRN shortness of breath or wheezing #180 mL blood-glucose meter #1 ea 07/30/22 solifenacin 10 mg tablet (Vesicare) 10 mg PO DAILY #90 tabs 08/12/22 RAISED TOLET SEAT #1 ea 08/19/22 metformin 500 mg tablet,extended 500 mg PO DAILY #90 tabs 10/09/22 release 24 hr prednisone 10 mg tablet 10 mg PO BID eXCEARBATION OF 10/22/22 ASTHMA 7 days #14 tabs cyanocobalamin (vitamin B-12) 1,000 mcg IM Q4W 90 days #4 mL 11/01/22 1,000 mcg/mL injection solution prednisone 20 mg tablet 20 mg PO BID asthma 5 days #10 tabs 11/06/22 cyanocobalamin (vitamin B-12) 100 100 mcg PO DAILY #90 tabs 12/12/22 mcg tablet topiramate 25 mg tablet 25 mg PO BEDTIME #90 tabs 12/12/22 fluticasone propionate 50 2 spray intranasal DAILY 2 weeks 01/04/23 mcg/actuation nasal #16 grams spray,suspension (Flonase Allergy Relief) cetirizine 10 mg tablet 10 mg PO DAILY PRN for allergies 01/16/23 90 days #90 tabs albuterol sulfate 90 mcg/actuation 2 puff PO Q6H PRN bronchospasm 01/25/23 aerosol inhaler #8.5 ea nystatin 100,000 unit/gram topical 1 appl topical TID 10 days #60 01/25/23 powder grams rosuvastatin 5 mg tablet 5 mg PO DAILY 30 days #30 tabs 01/27/23 metoprolol succinate 25 mg 25 mg PO DAILY #30 tabs 02/04/23 tablet,extended release 24 hr cyclobenzaprine 5 mg tablet 5 mg PO TID PRN muscle spasm 7 02/05/23 days #21 tabs fluticasone 250 mcg-salmeterol 50 1 inh inhalation BID 30 days #60 ea 12/04/23 mcg/dose blistr powdr for inhalation (Presleyxela Inhub) amlodipine 2.5 mg tablet 2.5 mg PO DAILY 30 days #30 tabs 02/25/23 cholecalciferol (vitamin D3) 125 125 mcg PO DAILY #30 caps 02/25/23 mcg (5,000 unit) capsule morphine 15 mg immediate release 15 mg PO Q6H PRN pain 5 days #10 02/26/23 tablet tabs ondansetron 4 mg disintegrating 4 mg PO Q6H PRN nausea and 02/26/23 tablet vomiting #14 tabs Allergies Allergy/AdvReac Type Severity Reaction Status Date / Time Gadolinium-Containing Allergy Severe ANAPHYLAXIS Verified 02/26/23 07:14 Contrast Medi [GADOLINIUM-CONTAINING CONTRAST] Iodinated Contrast Media Allergy Severe ANAPHYLAXIS Verified 02/26/23 07:14 [IV Dye, Iodine Containing] aspirin [Aspirin] Allergy Mild ITCH Verified 02/26/23 07:14 ibuprofen [Ibuprofen] Allergy Mild NAUSEA Verified 02/26/23 07:14 oxycodone [From Percocet] Allergy Mild RASH Verified 02/26/23 07:14 Penicillins Allergy Mild ITCH Verified 02/26/23 07:14 Sulfa (Sulfonamide Allergy Mild ITCH Verified 02/26/23 07:14 Antibiotics) penicillin V Allergy Unknown Itch Verified 02/26/23 07:14 seafood Allergy Unknown Unknown Verified 02/26/23 07:14 LIQUID SOAPS Allergy Intermediate ITCHING Uncoded 02/26/23 07:14 AND REDNESS CHIHUAHUA Allergy Mild RASH Uncoded 02/26/23 07:14 ITCHING Review of Systems Review of Systems Constitutional : No Weight loss, No Fever, No Chills, + Fatigue, + Malaise ENT/Mouth : No sore throat, No Rhinorrhea Eyes: No Eye Pain, No Swelling, No Redness Cardiovascular : No Chest Pain, No SOB, No Dyspnea on Exertion, No Orthopnea, No Edema, No Palpitations Respiratory : No Cough, No Sputum, No Wheezing Gastrointestinal : + Nausea, No Vomiting, No Diarrhea, No Constipation, + abdominal Pain, No Hematochezia, No Melena Genitourinary : No Dysuria, No Urinary Frequency, No Hematuria, Musculoskeletal : No joint pain, No Myalgias, No Joint Swelling Skin : No Skin Lesions, No rash Neuro : No Weakness, No Numbness, No Dizziness, No Headache Psych : No Anxiety/Panic, No Depression All other systems reviewed and are negative Yes all other systems are reviewed and are negative [facility] Past Medical History Attestation statement: The following information was validated with the patient. Source: old records reviewed and nursing notes reviewed Medical History Urinary urgency Ureteral stone with hydronephrosis Eye pressure Eyelid twitch Right-sided chest wall pain Vaginal bleeding Hallucinations Precordial chest pain Morbid obesity RUQ abdominal pain IBS (irritable bowel syndrome) Depression with anxiety Acute bronchitis Hypercalcemia Cough Restrictive lung disease GERD (gastroesophageal reflux disease) Benign essential hypertension Costochondritis Gallbladder polyp Calculus of kidney Rectal bleeding Palpitations Morbid obesity with BMI of 50.0-59.9, adult Vitamin D deficiency Vitamin B12 deficiency Primary osteoarthritis of both knees Fibromyalgia Obstructive sleep apnea Asthma Migraine headache with aura Diabetes mellitus Pure hypercholesterolemia Mixed stress and urge urinary incontinence Tremor of both hands Hand pain, right Intertrigo Surgical History H/O colonoscopy History of esophagogastroduodenoscopy (EGD) Family History Family History Father Medical history unknown Mother Hypertension Kidney stones Maternal Grandmother Colon cancer Maternal Aunt Breast cancer Sister No problems noted. Sister No problems noted. Social History Social History Housing: Apartment Alcohol intake: never Patient Tobacco Use Status: Former Tobacco user Smoked in Last 30 Days: No e-Cigarette/Vaping Use: Never Used Second Hand Smoke Exposure: No Use of substances other than those prescribed or required for medical reasons: No Advance Directives: Yes Advance Directives on File: Yes Advance Directives Date on File: 01/03/21 service: No Current occupational status: disabled Cognitive needs: No Hearing needs: No Vision needs: No Physical Exam ED Vital Signs: Vital Signs - 24 hr 02/26/23 07:14 02/26/23 12:00 02/26/23 14:10 Temperature 98 F 98.0 F 98.0 F Pulse Rate 71 80 83 Respiratory Rate 18 16 16 Blood Pressure 152/84 H 125/76 120/67 Pulse Oximetry 98 98 96 Oxygen Delivery Method Room Air Room Air Room Air BMI result Body Mass Index 42.0 vss Appearance: Alert.? Oriented X3.? No acute distress.? Head: Normocephalic, atraumatic, no step-offs or deformities Eyes: Pupils equal, round and reactive to light.? CVS: Normal heart rate and rhythm.? Pulses normal.? Respiratory: No respiratory distress.? Breath sounds normal.? Abdomen: Soft and + RLQ tenderness .? negative Parikh's, Rovsing's, McBurney's Skin: Skin warm and dry.? Normal skin color.? Normal skin turgor.? Extremities: No lower extremity edema.? No calf ttp. 5/5 strength to bilateral upper and lower extremities Back: No midline tenderness, no C-spine tenderness, full range of motion, no CVA tenderness bilaterally Neuro: Oriented X 3.? No motor deficit.? No sensory deficit. CN 2-12 intact Course Reevaluation(s) Reevaluation #1: CBC within normal limits. Chemistry unremarkable, she is noted to have hypercalcemia however she does have a history of hyperparathyroid. UA without infection. CT abdomen and pelvis with no explaination for RLQ pain. Normal appendix. Cholelithiasis however on exam negative murphys. No signs of acute cholecystitis. Nonobstructing 2 mm left renal calculus. Ordered pelvic ultrasound. Patient didn't feel comfortable w/ internal exam due to previous trauma. i dont suspect acute torsion based of hx and PE. Patient feeling better pain free. Time: 13:30 Reevaluation #2: ultrasound normal appearing uterus. Pain completely resolved. Patient to be discharged home feeling much better. Educated patient on diagnosis and treatment plan, answered all question, patient verbalizes understanding. At this time patient will be discharged home, advised to return with new or worsening symptoms. Educated on worrisome signs and symptoms and when to return. At this time I feel comfortable discharge home. Time: 14:59 Medical Decision Making Medical Decision Making MDM Narrative: 47-year-old female presents with fatigue, malaise, right lower quadrant abdominal pain that started yesterday not improving with associated nausea. Physical exam with right lower quadrant tenderness to palpation. Patient well-appearing. Stable. Vital signs history and physical exam concerning for possible UTI versus appendicitis versus kidney stone. Unlikely acute ovarian torsion, cholecystitis, cholangitis, choledocholithiasis, pancreatitis, bowel obstruction, diverticulitis, acute abdomen. Will rule out metabolic derangements. Other differentials include viral illness. Plan at this time labs, imaging, urine. Differential Diagnosis Differential Diagnoses: The differential diagnosis associated with the presentation includes history and physical exam concerning for possible UTI versus appendicitis versus kidney stone. Unlikely acute ovarian torsion, cholecystitis, cholangitis, choledocholithiasis, pancreatitis, bowel obstruction, diverticulitis, acute abdomen. Will rule out metabolic derangements. Other differentials include viral illness. Admission/Observation Consideration of admission/observation: Escalation of care including admission/observation considered Lab Data MDM Lab Attestation statement: I reviewed the patient's lab results. 02/26/23 08:01 02/26/23 08:01 Labs: Lab Results 02/26/23 02/26/23 02/26/23 Range/Units 08:01 09:30 14:15 WBC 10.7 (4.8-10.8) X10*3/uL RBC 4.80 (4.20-5.50) X10*6/uL Hgb 14.7 (12.0-16.0) g/dl Hct 44.7 (37.0-47.0) % MCV 93.1 (80.0-98.0) fL MCH 30.6 (27.0-33.0) pg MCHC 32.9 (31.0-35.0) g/dl RDW 14.9 (11.0-16.0) % Plt Count 318 (160-400) X10*3/uL MPV 10.3 (9.4-12.3) fL Immature Gran % (Auto) 0.5 H (0.0-0.4) % Neut % (Auto) 68.1 (45-73) % Lymph % (Auto) 20.1 (20-40) % [place] % (Auto) 8.2 (2-11) % Eos % (Auto) 2.6 (0-4) % Baso % (Auto) 0.5 (0-2) % Lymph # (Auto) 2.2 (1.2-4.9) X10*3/uL [place] # (Auto) 0.9 (0.1-1.2) X10*3/uL Eos # (Auto) 0.3 (0.0-0.4) X10*3/uL Baso # (Auto) 0.1 (0.0-0.2) X10*3/uL Abs Immat Gran (auto) 0.05 H (0.00-0.03) X10*3/uL Absolute Neuts (auto) 7.3 (2.0-8.3) x10*3/uL Absolute Nucleated RBC 0.000 (0.0-0.012) X10*3/uL Nucleated RBC % (auto) 0.0 (0.0-0.2) /100WBC Sodium 140 (135-145) mmol/L Potassium 4.2 (3.3-5.1) mmol/L Chloride 105 (96-108) mmol/L Carbon Dioxide 30 H (22-29) mmol/L Anion Gap 9 L (12-20) BUN 11 (9-16) mg/dL Creatinine 0.83 (0.5-1.4) mg/dL Estim Creat Clear Calc 107.1 Estimated GFR > 60 POC Glucose 70 (60-115) mg/dL Random Glucose 102 (60-115) mg/dL Calcium 11.4 H (8.4-10.2) mg/dL Total Bilirubin 0.6 (0.0-1.0) mg/dL Direct Bilirubin 0.3 (0.0-0.5) mg/dL AST 19 (5-31) U/L ALT 40 H (0-31) U/L Alkaline Phosphatase 133 H (39-117) U/L Total Protein 7.1 (6.5-8.0) g/dL Albumin 3.9 (3.5-5.0) g/dL Lipase 37 (8-78) U/L Urine Color Yellow Urine Appearance Cloudy Urine pH 6.5 (5.0-9.0) Ur Specific Sparkman 1.015 (1.005-1.025) Urine Protein Negative (Neg-Trace) mg/dL Urine Glucose (UA) Negative (Negative) mg/dL Urine Ketones Negative (Negative) mg/dL Urine Blood Negative (Negative) Urine Nitrite Negative (Negative) Ur Leukocyte Esterase Trace H (Negative) Urine RBC 0-2 (0-2) /HPF Urine WBC 0-5 (0-5) /HPF Ur Squamous Epith Cells 0-2 (0-2) /HPF Urine Bacteria None Seen (None Seen) Hyaline Casts 0-2 (0-2) /LPF Urine Test NEGATIVE (NEGATIVE) Independent Interpretation I performed an independent interpretation of an: CT Scan (CT/CT abdomen pelvis wo IV con IMPRESSION: 1. A cause for the patient's right lower quadrant pain has not been found. The appendix is normal. 2. Incidental note made of cholelithiasis without cholecystitis, borderline hepatomegaly with hepatic steatosis and mild splenomegaly. 3. Nonobstructing 2 ) Radiology Impression Discussion of test interpretation with radiology: I have reviewed the radiologist's reading. Chronic Conditions Patient?s care impacted by: Diabetes and Hypertension Medications Administered Discontinued Medications Generic Name Dose Route Start Last Admin Trade Name Freq PRN Reason Stop Dose Admin Sodium Chloride 1,000 mls @ 999 mls/hr 02/26/23 12:15 02/26/23 12:50 Ns IV 02/26/23 13:15 999 mls/hr .Q1H1M AMY Administration Morphine Sulfate 4 mg 02/26/23 12:15 02/26/23 12:50 Morphine Sulfate 4 Mg/Ml Cartridge IVPUSH 02/26/23 12:16 4 mg ONCE ONE Administration Protocol Ondansetron HCl 4 mg 02/26/23 12:15 02/26/23 12:50 Ondansetron Hcl 4 Mg/2 Ml Vial IVPUSH 02/26/23 12:16 4 mg ONCE ONE Administration Critical Care Time Critical Care Time Critical Care Time: No Discharge Plan Discharge Clinical Impression: Abdominal pain, RLQ Patient Disposition: Home, Self-Care Instructions: Abdominal Pain (ED) Additional Instructions: Take your medications as prescribed. If you were prescribed antibiotics today, it is important that you take your medication to their entirety, do not skip any doses, do not finish them early. Follow-up with your primary care provider this week. Return to the emergency department with new or worsening symptoms. Such as fevers, chills, chest pain, shortness of breath, nausea, vomiting, dizziness, headache, vision changes, lethargy In case of emergency call 911 A narcotic has been sent to your pharmacy please take this as prescribed. Do not take more than the prescribed dose. Narcotic medications can cause addiction. Please do not mix them with alcohol. Do not take them while driving or operating machinery. Do not take them with any other narcotics. Do not share them with friends or family. They can cause constipation. Take them only for severe pain. US pelvic complete Impression: Limited exam. Normal-appearing uterus. Ovaries not seen. US/US pelvic complete CT/CT abdomen pelvis wo IV con IMPRESSION: 1. A cause for the patient's right lower quadrant pain has not been found. The appendix is normal. 2. Incidental note made of cholelithiasis without cholecystitis, borderline hepatomegaly with hepatic steatosis and mild splenomegaly. 3. Nonobstructing 2 mm left renal calculus. 4. Degenerative changes in the spine. Fleischner guidelines were followed. [place] josé miguel medicamentos seg?n lo recetado. Si hoy te recetaron antibi?ticos, es importante que tomes tu medicaci?n en [place] totalidad, no te saltes ninguna dosis, no las termines antes de tiempo. Vale un seguimiento con [place] proveedor de atenci?n primaria esta semana. Regrese al departamento de emergencias si los s?ntomas son nuevos o empeoran. Gould fiebre, escalofr?os, dolor de pecho, dificultad para respirar, n?useas, v?mitos, mareos, dolor de owen, cambios en la visi?n, letargo. En ana maria de emergencia llame al 911. Se anderson enviado un narc?conchis a [place] farmacia. T?garces seg?n lo recetado. No tome m?s de la dosis prescrita. Los medicamentos narc?ticos pueden causar adicci?n. Por favor, no los mezcle con alcohol. No los tome mientras conduce o utiliza maquinaria. No los tomes con darcie?n otro narc?conchis. No los comparta con amigos o familiares. Pueden causar estre?imiento. T?melos s?lo en ana maria de dolor intenso. Prescriptions: New morphine 15 mg tablet 15 mg PO Q6H PRN (Reason: pain) 5 Days Qty: 10 0RF Rx Instructions: Partial Fill upon patient request. ondansetron 4 mg tablet,disintegrating 4 mg PO Q6H PRN (Reason: nausea and vomiting) Qty: 14 0RF No Action (DME) lancets [FreeStyle Lancets] 28 gauge misc See Rx Instructions .ROUTE .MEDSUPPLY Qty: 100 12RF Rx Instructions: As directed - E11.9 -- Diabetes (DME) blood sugar diagnostic Strip See Rx Instructions .Route Qty: 50 2RF Rx Instructions: As directed (DME) lancets Misc See Rx Instructions .Route Qty: 100 2RF Rx Instructions: As directed (DME) OneTouch Ultra Test Strip See Rx Instructions .ROUTE .MEDSUPPLY Qty: 100 5RF Rx Instructions: As directed once a day (DME) lancets [OneTouch UltraSoft Lancets] Misc See Rx Instructions .ROUTE .MEDSUPPLY Qty: 100 5RF Rx Instructions: As directed once a day sumatriptan succinate 100 mg tablet 100 mg PO DAILY PRN (Reason: migraine headache) Qty: 9 12RF (DME) blood-glucose meter Kit See Rx Instructions .ROUTE .MEDSUPPLY Qty: 1 0RF Rx Instructions: As directed (DME) RAISED TOLET SEAT See Rx Instructions .Route .MEDSUPPLY Qty: 1 0RF Rx Instructions: As directed metformin 500 mg tablet extended release 24 hr 500 mg PO DAILY Qty: 90 1RF cyanocobalamin (vitamin B-12) 1,000 mcg/mL solution 1,000 mcg IM Q4W 90 Days Qty: 4 3RF topiramate 25 mg tablet 25 mg PO BEDTIME Qty: 90 1RF cyanocobalamin (vitamin B-12) 100 mcg tablet 100 mcg PO DAILY Qty: 90 2RF fluticasone propionate [Flonase Allergy Relief] 50 mcg/actuation spray,suspension 2 spray intranasal DAILY 14 Days Qty: 16 5RF Rx Instructions: administer into each nostril cetirizine 10 mg tablet 10 mg PO DAILY PRN (Reason: for allergies) 90 Days Qty: 90 3RF albuterol sulfate 90 mcg/actuation HFA aerosol inhaler 2 puff PO Q6H PRN (Reason: bronchospasm) Qty: 8.5 5RF nystatin 100,000 unit/gram powder 1 appl topical TID 10 Days Qty: 60 3RF rosuvastatin 5 mg tablet 5 mg PO DAILY 30 Days Qty: 30 1RF fluticasone propion-salmeterol [Wixela Inhub] 250-50 mcg/dose blister with device 1 inh inhalation BID 30 Days Qty: 60 3RF amlodipine 2.5 mg tablet 2.5 mg PO DAILY 30 Days Qty: 30 3RF Rx Instructions: HOLD Hydrochlorothiazide (HCTZ) while taking Amlodipine cholecalciferol (vitamin D3) 125 mcg (5,000 unit) capsule 125 mcg PO DAILY Qty: 30 6RF fluocinolone 0.025 % cream 1 appl topical BID Qty: 60 0RF loperamide 2 mg capsule 2 mg PO Q6H PRN (Reason: loose stool) Qty: 10 0RF cyclobenzaprine 5 mg tablet 5 mg PO TID PRN (Reason: muscle spasm) 7 Days Qty: 21 0RF (DME) BD Luer-Delia Syringe 3 mL 23 x 1 syringe See Rx Instructions IM Q2W Qty: 1 Rx Instructions: As directed (DME) DIABETIC SHOES (1 pair) 10 W See Rx Instructions .Route .MEDSUPPLY Qty: 2 0RF Rx Instructions: As directed epinephrine [EpiPen 2-Fili] 0.3 mg/0.3 mL auto-injector 0.3 mg IM ONCE PRN (Reason: anaphylaxis) 360 Days Qty: 2 0RF Rx Instructions: for 2 doses albuterol sulfate 2.5 mg /3 mL (0.083 %) solution for nebulization 2.5 mg continuous nebulization Q4-6H PRN (Reason: shortness of breath or wheezing) Qty: 180 3RF (DME) blood pressure monitor Kit See Rx Instructions .Route Qty: 1 0RF Rx Instructions: As directed (DME) blood pressure test kit-wrist Kit See Rx Instructions .Route Qty: 1 0RF Rx Instructions: As directed docusate sodium 100 mg capsule 100 mg PO BEDTIME Qty: 30 3RF solifenacin [Vesicare] 10 mg tablet 10 mg PO DAILY Qty: 90 2RF omeprazole 40 mg capsule,delayed release(DR/EC) 40 mg PO QAM sucralfate 1 gram tablet 1 g PO BID Qty: 60 1RF aripiprazole 2 mg tablet 2 mg PO DAILY prednisone 20 mg tablet 20 mg PO BID 5 Days Qty: 10 0RF metoprolol succinate 25 mg tablet extended release 24 hr 25 mg PO DAILY Qty: 30 3RF prednisone 10 mg tablet 10 mg PO BID MDD EXCARBATION OF ASTHMA 7 Days Qty: 14 0RF Referrals: [facility] [place] [facility] [Provider Group] - 2 days Mihir Elmore MD [Primary Care Provider] - 2 days Stand Alone Forms: Work/School Release
[2023-02-26 12:00] VITALS: BP 125/76; PULSE 80; RESP 16; TEMP 36.7; O2SAT 98
[2023-02-26] MEDS: ondansetron HCL 4 MG/2 ML VIAL IVPUSH (12:50)
[2023-02-26] MEDS: 0.9 % Sodium Chloride 1,000 ML 999 ML IV (12:50)
[2023-02-26] MEDS: Morphine Sulfate 4 MG/ML CARTRIDGE IVPUSH (12:50)
[2023-02-26 14:10] VITALS: BP 120/67; PULSE 83; RESP 16; TEMP 36.7; O2SAT 96
[2023-02-26 14:18] LABS: Glucose, Whole Blood 70 mg/dL (60-115)
--- NOTE | 2023-02-26 14:24 | MHC.EDTECH ---
Pt felt sweaty and asked for blood sugar to be checked. POC 70, Dot RAMIREZ in room and aware. OK to give Pt food. Pt given 2 apple juices and helen crackers.
== END 2023-02-26 15:15 | disposition home or self-care (01) ==
PROVIDERS: Emergency Provider Emergency Medicine Emergency Medical Services; PCP Internal Medicine
DX: R10.31 Right lower quadrant pain (principal); R11.2 Nausea with vomiting, unspecified; R10.2 Pelvic and perineal pain; Z79.899 Other long term (current) drug therapy; Z87.891 Personal history of nicotine dependence
CPT/HCPCS: 36415; 74176; 76856; 80048; 80076; 81001; 81025; 82947; 83690; 85025; 96374; 96375; 99284; 99285; J2270; J2405

== ENCOUNTER 2023-03-05 11:22 | Outpatient (AMB) | payer OTHER, SELFPAY ==
[2023-03-05 11:23] VITALS: BP 147/70; PULSE 75; BMI 42.3
--- NOTE | 2023-03-05 11:23 | MHC.OFFVIS ---
Intake Vital Signs 03/05/23 11:23 Height 5 ft 6 in Weight 262 lb BMI 42.3 BP 147/70 H Blood Pressure Location Rt brachial Position Sitting Pulse 75 Intake Visit Reasons: gallbladder polyp, 4 month follow up Intake Note: This patient presents for a four month follow-up assessment for gallbladder polyp. Patient c/o; reports abdominal pain and nausea, reports about two month ago got 4 colon polyps removed, reports constipation, reports rectal bleeding. Certified Medical Asst Required: Yes Certified Medical Asst Language: Operations Advisor Name: Josephine Information Interpreted: non-clinical & clinical Accompanied by: Self / Same As Patient Allergies Gadolinium-Containing Contrast Medi [GADOLINIUM-CONTAINING CONTRAST] Allergy (Severe, Verified 03/05/23 11:34) ANAPHYLAXIS Iodinated Contrast Media [IV Dye, Iodine Containing] Allergy (Severe, Verified 03/05/23 11:34) ANAPHYLAXIS aspirin [Aspirin] Allergy (Mild, Verified 03/05/23 11:34) ITCH ibuprofen [Ibuprofen] Allergy (Mild, Verified 03/05/23 11:34) NAUSEA oxycodone [From Percocet] Allergy (Mild, Verified 03/05/23 11:34) RASH Penicillins Allergy (Mild, Verified 03/05/23 11:34) ITCH Sulfa (Sulfonamide Antibiotics) Allergy (Mild, Verified 03/05/23 11:34) ITCH penicillin V Allergy (Unknown, Verified 03/05/23 11:34) Itch seafood Allergy (Unknown, Verified 03/05/23 11:34) Unknown LIQUID SOAPS Allergy (Intermediate, Uncoded 03/05/23 11:34) ITCHING AND REDNESS CHIHUAHUA Allergy (Mild, Uncoded 03/05/23 11:34) RASH ITCHING Medication List - Last Reconciled 03/05/23 by Adithya Wiggins MD albuterol sulfate 2.5 mg (3 mL) continuous nebulization Q4-6H PRN albuterol sulfate 90 mcg/actuation 2 puffs PO Q6H PRN amlodipine 2.5 mg PO DAILY 30 days aripiprazole 2 mg PO DAILY blood pressure monitor As directed blood pressure test kit-wrist As directed blood sugar diagnostic (Pay4laterTouch Ultra Test strips) As directed once a day blood sugar diagnostic As directed blood-glucose meter As directed cetirizine 10 mg PO DAILY PRN 90 days cholecalciferol (vitamin D3) 125 mcg PO DAILY cyanocobalamin (vitamin B-12) 1,000 mcg IM Q4W 90 days cyanocobalamin (vitamin B-12) 100 mcg PO DAILY cyclobenzaprine 5 mg PO TID PRN 7 days [DIABETIC SHOES (1 pair) As directed] docusate sodium 100 mg PO BEDTIME epinephrine (EpiPen 2-Fili) 0.3 mg (0.3 mL) IM ONCE PRN 360 days fluocinolone 0.025% 1 appl topical BID fluticasone propion-salmeterol 250-50 mcg/dose (Wixela Inhub) 1 inh inhalation BID 30 days fluticasone propionate 50 mcg/actuation (Flonase Allergy Relief) 2 sprays intranasal DAILY 2 weeks lancets (FreeStyle Lancets) As directed - E11.9 -- Diabetes lancets As directed lancets (OneTouch UltraSoft Lancets) As directed once a day loperamide 2 mg PO Q6H PRN metformin ER 500 mg PO DAILY metoprolol succinate ER 25 mg PO DAILY morphine 15 mg PO Q6H PRN 5 days nystatin 1 appl topical TID 10 days omeprazole 40 mg PO QAM ondansetron 4 mg PO Q6H PRN prednisone 20 mg PO BID 5 days prednisone 10 mg PO BID 7 days MDD EXCARBATION OF ASTHMA quetiapine mg PO [RAISED TOLET SEAT As directed] rosuvastatin 5 mg PO DAILY 30 days solifenacin (Vesicare) 10 mg PO DAILY sucralfate 1 g PO BID sumatriptan succinate 100 mg PO DAILY PRN syringe with needle As directed topiramate 25 mg PO BEDTIME HPI gallbladder polyp, 4 month follow up HPI Details She is here for follow-up for gallstones. I have been following her for several months. This has remained asymptomatic. She did have a medical issues as well including a parathyroid disease, and pulmonary and cardiac issues. She is following a derrick follower. She says that she was supposed to have parathyroid surgery but this was postponed to April 2023. She says she has had severe right hip pain and she was told that this was due to her hypercalcemia. She describes severe arthritis of both knees She also says that she has had difficulty walking because of this. She describes constipation as well. She denies any episodes of right upper quadrant pain. [facility] Medical History Urinary urgency Ureteral stone with hydronephrosis Eye pressure Eyelid twitch Right-sided chest wall pain Vaginal bleeding Hallucinations Precordial chest pain Morbid obesity RUQ abdominal pain IBS (irritable bowel syndrome) Depression with anxiety Acute bronchitis Hypercalcemia Cough Restrictive lung disease GERD (gastroesophageal reflux disease) Benign essential hypertension Costochondritis Gallbladder polyp Calculus of kidney Rectal bleeding Palpitations Morbid obesity with BMI of 50.0-59.9, adult Vitamin D deficiency Vitamin B12 deficiency Primary osteoarthritis of both knees Fibromyalgia Obstructive sleep apnea Asthma Migraine headache with aura Diabetes mellitus Pure hypercholesterolemia Mixed stress and urge urinary incontinence Tremor of both hands Hand pain, right Intertrigo Surgical History H/O colonoscopy History of esophagogastroduodenoscopy (EGD) Family History Father Medical history unknown Mother Hypertension Kidney stones Maternal Grandmother Colon cancer Maternal Aunt Breast cancer Sister No problems noted. Sister No problems noted. Social History Housing: Apartment Alcohol intake: never Patient Tobacco Use Status: Former Tobacco user e-Cigarette/Vaping Use: Never Used Second Hand Smoke Exposure: No Advance Directives Date on File: 01/03/21 service: No Current occupational status: disabled Cognitive needs: No Hearing needs: No Vision needs: No Review of Systems Card Reports dyspnea on exertion Resp Reports dyspnea on exertion GI Reports constipation Denies difficulty voiding Physical Exam Vital Signs: Last Vital Signs Pulse 75 03/05/23 11:23 BP 147/70 H 03/05/23 11:23 BMI result Body Mass Index 42.3 Const Other: Morbidly obese, using a walker General: comfortable and no acute distress Resp Effort & Inspection: normal respiratory effort Cardio Rate: regular rate GI Inspection: Yes Abdominal panniculus present Palpation (GI): Soft to palpation, not firm and nontender Assessment & Plan Assessment & Plan (1) Cholelithiasis: Code(s): K80.20 - Calculus of gallbladder without cholecystitis without obstruction Plan: She remains asymptomatic. She has other medical issues including hyperparathyroidism. She is scheduled to undergo surgery for this. She apparently has had symptoms of hypercalcemia with bone pain as well. She has lost some 25 lb since I last saw her. I had encouraged her to continue working on her weight as she may require gall bladder surgery in the future . I will send her prescription for Colace and Metamucil for chronic constipation. I will see her again in June,. Medications: New docusate sodium (Colace) 100 mg PO BID 60 caps 3RF psyllium husk (Metamucil) mix into at least 8 oz of water or juice before administering 1 tbsp PO BID 660 grams 0RF Coding Level of Care Code Est Pt Level 3 (44155) Diagnoses Cholelithiasis K80.20
== END 2023-03-05 11:52 | disposition home or self-care (01) ==
PROVIDERS: PCP Internal Medicine; Visit Provider Surgery
DX: K80.20 Calculus of gallbladder without cholecystitis without obstruction (principal)
CPT/HCPCS: 99213

== ENCOUNTER → 2023-03-05 11:22 | Outpatient (BNVA) | payer OTHER, SELFPAY | PROVIDERS: PCP Internal Medicine; Visit Provider Surgery | DX: K80.20 Calculus of gallbladder without cholecystitis without obstruction (principal) | CPT/HCPCS: 99212 ==

== ENCOUNTER 2023-03-19 06:21 | Emergency (ER) | payer OTHER, SELFPAY ==
[2023-03-19 06:24] VITALS: BP 168/90; BP 173/97; PULSE 76; PULSE 80; RESP 18; TEMP 36.8; O2SAT 100; O2SAT 98; BMI 42.0
[2023-03-19 06:49] LABS: MANUAL DIFF FLAG NO
[2023-03-19 06:50] LABS: Basophils Absolute Auto 0.1 X10*3/uL (0.0-0.2); Basophils Percent Auto 0.6 % (0-2); Eosinophils Absolute Auto 0.2 X10*3/uL (0.0-0.4); Eosinophils Percent Auto 2.8 % (0-4); Hemoglobin 15.2 g/dl (12.0-16.0); Imm Gran Abs Auto 0.02 X10*3/uL (0.00-0.03); Imm Gran Pct Auto 0.2 % (0.0-0.4); Lymphocytes Percent Auto 23.3 % (20-40); Mean Corpuscular HGB Conc 32.3 g/dl (31.0-35.0); Mean Corpuscular Hemoglobin 30.5 pg (27.0-33.0); Mean Corpuscular Volume 94.4 fL (80.0-98.0); Mean Platelet Volume 10.9 fL (9.4-12.3); Monocytes Absolute Auto 0.7 X10*3/uL (0.1-1.2); Monocytes Percent Auto 8.7 % (2-11); Neutrophils Absolute Auto 5.5 x10*3/uL (2.0-8.3); Neutrophils Percent Auto 64.4 % (45-73); Platelet Count 312 X10*3/uL (160-400); Red Blood Count 4.98 X10*6/uL (4.20-5.50); Red Cell Distribution Width 14.9 % (11.0-16.0); White Blood Count 8.6 X10*3/uL (4.8-10.8)
[2023-03-19 07:06] LABS: UPreg QC Valid YES; Urine Pregnancy NEGATIVE (NEGATIVE)
[2023-03-19 07:06] LABS: Alanine Aminotransferase 30 U/L (0-31); Albumin Level 3.9 g/dL (3.5-5.0); Alkaline Phosphatase 131 U/L (39-117); Anion Gap 13 (12-20); Aspartate Amino Transferase 17 U/L (5-31); Bilirubin Total 0.4 mg/dL (0.0-1.0); Blood Urea Nitrogen 9 mg/dL (9-16); Calcium 11.9 mg/dL (8.4-10.2); Carbon Dioxide 29 mmol/L (22-29); Chloride 106 mmol/L (96-108); Creatinine Clr Calc Pharmacy 107.1; Estimated Glomerular Filt Rate > 60; Glucose Random 106 mg/dL (60-115); Potassium 4.6 mmol/L (3.3-5.1); Sodium 143 mmol/L (135-145); Total Protein 7.3 g/dL (6.5-8.0)
[2023-03-19 07:16] LABS: Appearance Urine Clear; Color Urine Yellow; Glucose Urine UA Negative (Negative); Leukocyte Esterase Urine Negative (Negative); Nitrite Urine Negative (Negative); PH 8.5 (5.0-9.0); Specific Gravity - Urine <= 1.005 (1.005-1.025); UMIC TRIGGER UACC YES; Urine Blood Large (3+) (Negative); Urine Ketones Negative (Negative); Urine Protein Negative (Neg-Trace)
[2023-03-19 07:21] LABS: Bacteria Urine None Seen (None Seen); Hyaline Casts Urine 0-2 /LPF (0-2); Squamous Epithelial Cell Urine 0-2 /HPF (0-2); WBC Urine 0-5 /HPF (0-5)
--- NOTE | 2023-03-19 07:44 | ED_ITS ---
HPI - General Adult General Chief complaint: Abdominal Pain Stated complaint: passing kidney stones, no urine in 2 days Time Seen by Provider: 03/19/23 07:27 Source: patient and audiometrist Mode of arrival: EMS Limitations: language barrier History of Present Illness HPI narrative: Patient is a 47-year-old Armenian-speaking female with history of DM, kidney stones presenting to the emergency department with 2 days of suprapubic pain, urethral pain with urination, difficulty urinating and hematuria today. Reports chills but did not take temperature with thermometer. Denies nausea or vomiting. Reports ongoing suprapubic pain. Denies any other abdominal pain. Denies back or flank pain. Denies any vaginal bleeding or abnormal vaginal discharge. States was recently seen here for abdominal pain and was told there was a kidney stone noted on her CT scan. MD complaint: Hematuria, dysuria Onset (ago): day(s) Location: abdomen Radiation: non-radiation Severity: moderate Quality: burning Pain Consistency: constant Relieving factors: none Exacerbating factors: other (Urination) Associated symptoms: fever/chills Treatments prior to arrival: none Related Data Home Medications Medication Instructions Recorded Confirmed syringe with needle 3 mL 23 x 1 #1 ea 05/12/20 03/05/23 aripiprazole 2 mg tablet 2 mg PO DAILY 12/06/21 11/25/22 omeprazole 40 mg capsule,delayed 40 mg PO QAM 03/05/22 03/05/23 release quetiapine 25 mg tablet mg PO 03/05/23 03/05/23 Previous Rx's Medication Instructions Recorded fluocinolone 0.025 % topical cream 1 appl topical BID #60 grams 08/02/20 docusate sodium 100 mg capsule 100 mg PO BEDTIME #30 caps 12/26/20 loperamide 2 mg capsule 2 mg PO Q6H PRN loose stool #10 05/21/21 caps blood pressure monitor #1 ea 05/28/21 sucralfate 1 gram tablet 1 g PO BID #60 tabs 06/22/21 lancets 28 gauge (FreeStyle #100 ea 11/23/21 Lancets) DIABETIC SHOES (1 pair) #2 ea 12/31/21 epinephrine 0.3 mg/0.3 mL 0.3 mg (0.3 mL) IM ONCE PRN 01/01/22 injection, auto-injector (EpiPen anaphylaxis 360 days #2 ea 2-Fili) blood pressure test kit-wrist #1 ea 05/15/22 blood sugar diagnostic #50 ea 06/24/22 lancets #100 ea 06/24/22 blood sugar diagnostic (OneTouch #100 ea 06/25/22 Ultra Test strips) lancets (OneTouch UltraSoft #100 ea 06/25/22 Lancets) sumatriptan succinate 100 mg tablet 100 mg PO DAILY PRN migraine 06/27/22 headache #9 tabs albuterol sulfate 2.5 mg/3 mL 2.5 mg (3 mL) continuous 07/22/22 (0.083 %) solution for nebulization nebulization Q4-6H PRN shortness of breath or wheezing #180 mL blood-glucose meter #1 ea 07/30/22 solifenacin 10 mg tablet (Vesicare) 10 mg PO DAILY #90 tabs 08/12/22 RAISED TOLET SEAT #1 ea 08/19/22 metformin 500 mg tablet,extended 500 mg PO DAILY #90 tabs 10/09/22 release 24 hr prednisone 10 mg tablet 10 mg PO BID eXCEARBATION OF 10/22/22 ASTHMA 7 days #14 tabs cyanocobalamin (vitamin B-12) 1,000 mcg IM Q4W 90 days #4 mL 11/01/22 1,000 mcg/mL injection solution prednisone 20 mg tablet 20 mg PO BID asthma 5 days #10 tabs 11/06/22 cyanocobalamin (vitamin B-12) 100 100 mcg PO DAILY #90 tabs 12/12/22 mcg tablet topiramate 25 mg tablet 25 mg PO BEDTIME #90 tabs 12/12/22 fluticasone propionate 50 2 spray intranasal DAILY 2 weeks 01/04/23 mcg/actuation nasal #16 grams spray,suspension (Flonase Allergy Relief) cetirizine 10 mg tablet 10 mg PO DAILY PRN for allergies 01/16/23 90 days #90 tabs albuterol sulfate 90 mcg/actuation 2 puff PO Q6H PRN bronchospasm 01/25/23 aerosol inhaler #8.5 ea nystatin 100,000 unit/gram topical 1 appl topical TID 10 days #60 01/25/23 powder grams rosuvastatin 5 mg tablet 5 mg PO DAILY 30 days #30 tabs 01/27/23 metoprolol succinate 25 mg 25 mg PO DAILY #30 tabs 02/04/23 tablet,extended release 24 hr cyclobenzaprine 5 mg tablet 5 mg PO TID PRN muscle spasm 7 02/05/23 days #21 tabs fluticasone 250 mcg-salmeterol 50 1 inh inhalation BID 30 days #60 ea 02/10/23 mcg/dose blistr powdr for inhalation (Wixela Inhub) amlodipine 2.5 mg tablet 2.5 mg PO DAILY 30 days #30 tabs 02/25/23 cholecalciferol (vitamin D3) 125 125 mcg PO DAILY #30 caps 02/25/23 mcg (5,000 unit) capsule morphine 15 mg immediate release 15 mg PO Q6H PRN pain 5 days #10 02/26/23 tablet tabs ondansetron 4 mg disintegrating 4 mg PO Q6H PRN nausea and 02/26/23 tablet vomiting #14 tabs docusate sodium 100 mg capsule 100 mg PO BID #60 caps 03/05/23 (Colace) psyllium husk 3.4 gram/5.4 gram 1 tbsp PO BID #660 grams 03/05/23 oral powder (Metamucil) phenazopyridine 100 mg tablet 100 mg PO TID PRN pain 6 doses #6 03/19/23 tabs prednisone 20 mg tablet 20 mg PO DAILY #4 tabs 03/19/23 tamsulosin 0.4 mg capsule 0.4 mg PO DAILY #7 caps 03/19/23 Allergies Allergy/AdvReac Type Severity Reaction Status Date / Time Gadolinium-Containing Allergy Severe ANAPHYLAXIS Verified 03/19/23 06:36 Contrast Medi [GADOLINIUM-CONTAINING CONTRAST] Iodinated Contrast Media Allergy Severe ANAPHYLAXIS Verified 03/19/23 06:36 [IV Dye, Iodine Containing] aspirin [Aspirin] Allergy Mild ITCH Verified 03/19/23 06:36 ibuprofen [Ibuprofen] Allergy Mild NAUSEA Verified 03/19/23 06:36 oxycodone [From Percocet] Allergy Mild RASH Verified 03/19/23 06:36 Penicillins Allergy Mild ITCH Verified 03/19/23 06:36 Sulfa (Sulfonamide Allergy Mild ITCH Verified 03/19/23 06:36 Antibiotics) penicillin V Allergy Unknown Itch Verified 03/19/23 06:36 seafood Allergy Unknown Unknown Verified 03/19/23 06:36 LIQUID SOAPS Allergy Intermediate ITCHING Uncoded 03/05/23 11:34 AND REDNESS CHIHUAHUA Allergy Mild RASH Uncoded 03/05/23 11:34 ITCHING Review of Systems 2 Review of Systems: As per HPI. Yes all other systems are reviewed and are negative Constitutional: Constitutional: Reports as per HPI [facility] Past Medical History Onset Date is defined in the Problem List Problems that require an onset date and time if occurred within 24 hrs of arrival to the ED Aortic Dissection and Rupture; Neurologic impairment; Cardiopulmonary Arrest; Endotracheal Intubation; Insertion or Replacement of Mechanical Circulatory Assist Device Medical History Urinary urgency Ureteral stone with hydronephrosis Eye pressure Eyelid twitch Right-sided chest wall pain Vaginal bleeding Hallucinations Precordial chest pain Morbid obesity RUQ abdominal pain IBS (irritable bowel syndrome) Depression with anxiety Acute bronchitis Hypercalcemia Cough Restrictive lung disease GERD (gastroesophageal reflux disease) Benign essential hypertension Costochondritis Gallbladder polyp Calculus of kidney Rectal bleeding Palpitations Morbid obesity with BMI of 50.0-59.9, adult Vitamin D deficiency Vitamin B12 deficiency Primary osteoarthritis of both knees Fibromyalgia Obstructive sleep apnea Asthma Migraine headache with aura Diabetes mellitus Pure hypercholesterolemia Mixed stress and urge urinary incontinence Tremor of both hands Hand pain, right Intertrigo Surgical History H/O colonoscopy History of esophagogastroduodenoscopy (EGD) Family History Family History Father Medical history unknown Mother Hypertension Kidney stones Maternal Grandmother Colon cancer Maternal Aunt Breast cancer Sister No problems noted. Sister No problems noted. Social History Social History Housing: Apartment Alcohol intake: never Patient Tobacco Use Status: Former Tobacco user e-Cigarette/Vaping Use: Never Used Second Hand Smoke Exposure: No Advance Directives: Yes Advance Directives on File: Yes Advance Directives Date on File: 01/03/21 service: No Current occupational status: disabled Cognitive needs: No Hearing needs: No Vision needs: No Physical Exam ED Vital Signs: Vital Signs - 24 hr 03/19/23 06:24 Temperature 98.2 F Pulse Rate 80 Respiratory Rate 18 Blood Pressure 173/97 H Pulse Oximetry 98 Oxygen Delivery Method Room Air BMI result Body Mass Index 42.0 Vital signs have been reviewed and appear to be correct. Blood pressure elevated. Heart rate normal. Respiratory rate normal. Temperature normal. Oxygen saturation normal. Const General: cooperative, healthy appearing and no acute distress Orientation/consciousness: oriented to person, oriented to place, oriented to time and patient oriented x3 Limitations: no limitations HENMT Head: Yes normocephalic and Yes atraumatic Ears: external ears normal General nose exam: Normal external nose present Face and sinus: Yes face symmetric Mouth: oropharynx normal and moist mucous membranes Throat: Yes uvula midline Eyes Pupils: Equal, round and reactive pupils present Neck Neck: Yes normal visual inspection and Yes supple Resp Effort & Inspection: normal respiratory effort and able to speak in complete sentences Auscultation: clear to auscultation bilaterally Cardio Rate: regular rate Rhythm: regular rhythm Heart sounds: S1 normal heart sound present and S2 normal heart sound present GI Palpation (GI): Soft to palpation, Tenderness to palpation present (GI) suprapubicly, no guarding and No Rebound tenderness present Auscultation: normoactive bowel sounds General: Yes no CVA tenderness Back/Spine/Pelvis Back: no CVA tenderness Skin General skin exam: elasticity normal and turgor normal Neuro General: oriented to person, oriented to place, oriented to time, patient oriented x3, moves all extremities, no focal motor deficits and CN's II-XI intact bilaterally Cranial nerves: Yes Equal, round and reactive pupils present Cognition (Neuro): normal cognition Extrem General: Yes full ROM, Yes no pedal edema and Yes no calf tenderness Psych Mental Status: mental status grossly normal Affect: normal affect Thought process: Normal thought process present Medical Decision Making Medical Decision Making MDM Narrative: Patient is a 47-year-old Armenian-speaking female with history of DM, kidney stones presenting to the emergency department with 2 days of suprapubic pain, urethral pain with urination, difficulty urinating and hematuria today. On exam patient is awake, A+Ox3, VS WNL, afebrile, normal neurological exam without focal deficits, physical exam findings as above. Given reported symptoms and physical exam findings, initial differential includes renal/ureteral calculi versus UTI/pyelonephritis. Labs notable for no leukocytosis, no anemia, no significant electrolyte abnormalities, no evidence of AMY. Urine notable for 3+ blood, negative leukocytes or nitrites, no bacteria. Review of CT from recent visit on 02/26/23 notable for 2mm calculus to lower pole of left kidney. My interpretation is in agreement with the radiologist's interpretation. Given absence of CVA tenderness, do not feel repeat imaging is indicated. Case discussed with Dr. Lowery who is in agreement with this plan. Will discharge home with prednisone, flomax, phenazopyridine and refer to urology for further evaluation and management. Return precautions discussed at bedside. Patient verbalized understanding of and agreement with plan. Differential Diagnosis Differential Diagnoses: The differential diagnosis associated with the presentation includes As per [facility] Lab Data [facility] Lab Attestation statement: I reviewed the patient's lab results. As per [facility] 03/19/23 06:42 03/19/23 06:42 Labs: Lab Results 03/19/23 03/19/23 Range/Units 06:42 06:55 WBC 8.6 (4.8-10.8) X10*3/uL RBC 4.98 (4.20-5.50) X10*6/uL Hgb 15.2 (12.0-16.0) g/dl Hct 47.0 (37.0-47.0) % MCV 94.4 (80.0-98.0) fL MCH 30.5 (27.0-33.0) pg MCHC 32.3 (31.0-35.0) g/dl RDW 14.9 (11.0-16.0) % Plt Count 312 (160-400) X10*3/uL MPV 10.9 (9.4-12.3) fL Immature Gran % (Auto) 0.2 (0.0-0.4) % Neut % (Auto) 64.4 (45-73) % Lymph % (Auto) 23.3 (20-40) % [place] % (Auto) 8.7 (2-11) % Eos % (Auto) 2.8 (0-4) % Baso % (Auto) 0.6 (0-2) % Lymph # (Auto) 2.0 (1.2-4.9) X10*3/uL [place] # (Auto) 0.7 (0.1-1.2) X10*3/uL Eos # (Auto) 0.2 (0.0-0.4) X10*3/uL Baso # (Auto) 0.1 (0.0-0.2) X10*3/uL Abs Immat Gran (auto) 0.02 (0.00-0.03) X10*3/uL Absolute Neuts (auto) 5.5 (2.0-8.3) x10*3/uL Absolute Nucleated RBC 0.000 (0.0-0.012) X10*3/uL Nucleated RBC % (auto) 0.0 (0.0-0.2) /100WBC Sodium 143 (135-145) mmol/L Potassium 4.6 (3.3-5.1) mmol/L Chloride 106 (96-108) mmol/L Carbon Dioxide 29 (22-29) mmol/L Anion Gap 13 (12-20) BUN 9 (9-16) mg/dL Creatinine 0.83 (0.5-1.4) mg/dL Estim Creat Clear Calc 107.1 Estimated GFR > 60 Random Glucose 106 (60-115) mg/dL Calcium 11.9 H (8.4-10.2) mg/dL Total Bilirubin 0.4 (0.0-1.0) mg/dL AST 17 (5-31) U/L ALT 30 (0-31) U/L Alkaline Phosphatase 131 H (39-117) U/L Total Protein 7.3 (6.5-8.0) g/dL Albumin 3.9 (3.5-5.0) g/dL Urine Color Yellow Urine Appearance Clear Urine pH 8.5 (5.0-9.0) Ur Specific [place] <= 1.005 (1.005-1.025) Urine Protein Negative (Neg-Trace) mg/dL Urine Glucose (UA) Negative (Negative) mg/dL Urine Ketones Negative (Negative) mg/dL Urine Blood Large (3+) H (Negative) Urine Nitrite Negative (Negative) Ur Leukocyte Esterase Negative (Negative) Urine RBC 11-20 H (0-2) /HPF Urine WBC 0-5 (0-5) /HPF Ur Squamous Epith Cells 0-2 (0-2) /HPF Urine Bacteria None Seen (None Seen) Hyaline Casts 0-2 (0-2) /LPF Urine Test NEGATIVE (NEGATIVE) Independent Interpretation I performed an independent interpretation of an: CT Scan (from 02/26/2023) Interpretation: 2mm calculi lower pole of left kidney Radiology Impression Discussion of test interpretation with radiology: I have reviewed the radiologist's reading. Radiologist Impression: CT/CT abdomen pelvis wo IV con IMPRESSION: 1. A cause for the patient's right lower quadrant pain has not been found. The appendix is normal. 2. Incidental note made of cholelithiasis without cholecystitis, borderline hepatomegaly with hepatic steatosis and mild splenomegaly. 3. Nonobstructing 2 mm left renal calculus. 4. Degenerative changes in the spine. External Record Review External record reviewed: Inpatient record, Office record and Outpatient record Prescription Management I considered prescription management with: Pain Medication and Other Discharge Plan Discharge Clinical Impression: Hematuria, Left renal stone Patient Disposition: Home, Self-Care Instructions: Kidney Stones (ED), How to Strain Your Urine (ED) Additional Instructions: Lo evaluaron en el departamento de emergencias por taye en la orina y dolor al orinar. Chanye tomograf?a computarizada anterior mostr? evidencia de un c?lculo en el ri??n ne. El c?lculo mide 2 mm y probablemente desaparecer? por s? solo. Se le proporcionar? un colador de orina para usar en casa; las instrucciones se incluyen en la documentaci?n del brenden. Le recetan prednisona para disminuir la inflamaci?n, tamsulosina para permitir que el c?lculo pase m?s f?cilmente y fenazopiridina seg?n sea necesario para el malestar. Lo est?n derivando a Urolog?a, ll?melos para programar juvenal ray esta semana. Regrese al departamento de emergencias si presenta un dolor que empeora, v?mitos persistentes, fiebre de 100,4? o m?s, incapacidad para orinar o cualquier otro s?ntoma preocupante. Prescriptions: New prednisone 20 mg tablet 20 mg PO DAILY Qty: 4 0RF tamsulosin 0.4 mg capsule 0.4 mg PO DAILY Qty: 7 0RF phenazopyridine 100 mg tablet 100 mg PO TID PRN (Reason: pain) Qty: 6 0RF No Action (DME) lancets [FreeStyle Lancets] 28 gauge misc See Rx Instructions .ROUTE .MEDSUPPLY Qty: 100 12RF Rx Instructions: As directed - E11.9 -- Diabetes (DME) blood sugar diagnostic Strip See Rx Instructions .Route Qty: 50 2RF Rx Instructions: As directed (DME) lancets Misc See Rx Instructions .Route Qty: 100 2RF Rx Instructions: As directed (DME) OneTouch Ultra Test Strip See Rx Instructions .ROUTE .MEDSUPPLY Qty: 100 5RF Rx Instructions: As directed once a day (DME) lancets [OneTouch UltraSoft Lancets] Misc See Rx Instructions .ROUTE .MEDSUPPLY Qty: 100 5RF Rx Instructions: As directed once a day sumatriptan succinate 100 mg tablet 100 mg PO DAILY PRN (Reason: migraine headache) Qty: 9 12RF (DME) blood-glucose meter Kit See Rx Instructions .ROUTE .MEDSUPPLY Qty: 1 0RF Rx Instructions: As directed (DME) RAISED TOLET SEAT See Rx Instructions .Route .MEDSUPPLY Qty: 1 0RF Rx Instructions: As directed metformin 500 mg tablet extended release 24 hr 500 mg PO DAILY Qty: 90 1RF cyanocobalamin (vitamin B-12) 1,000 mcg/mL solution 1,000 mcg IM Q4W 90 Days Qty: 4 3RF topiramate 25 mg tablet 25 mg PO BEDTIME Qty: 90 1RF cyanocobalamin (vitamin B-12) 100 mcg tablet 100 mcg PO DAILY Qty: 90 2RF fluticasone propionate [Flonase Allergy Relief] 50 mcg/actuation spray,suspension 2 spray intranasal DAILY 14 Days Qty: 16 5RF Rx Instructions: administer into each nostril cetirizine 10 mg tablet 10 mg PO DAILY PRN (Reason: for allergies) 90 Days Qty: 90 3RF albuterol sulfate 90 mcg/actuation HFA aerosol inhaler 2 puff PO Q6H PRN (Reason: bronchospasm) Qty: 8.5 5RF nystatin 100,000 unit/gram powder 1 appl topical TID 10 Days Qty: 60 3RF rosuvastatin 5 mg tablet 5 mg PO DAILY 30 Days Qty: 30 1RF fluticasone propion-salmeterol [Wixela Inhub] 250-50 mcg/dose blister with device 1 inh inhalation BID 30 Days Qty: 60 3RF amlodipine 2.5 mg tablet 2.5 mg PO DAILY 30 Days Qty: 30 3RF Rx Instructions: HOLD Hydrochlorothiazide (HCTZ) while taking Amlodipine cholecalciferol (vitamin D3) 125 mcg (5,000 unit) capsule 125 mcg PO DAILY Qty: 30 6RF fluocinolone 0.025 % cream 1 appl topical BID Qty: 60 0RF loperamide 2 mg capsule 2 mg PO Q6H PRN (Reason: loose stool) Qty: 10 0RF cyclobenzaprine 5 mg tablet 5 mg PO TID PRN (Reason: muscle spasm) 7 Days Qty: 21 0RF morphine 15 mg tablet 15 mg PO Q6H PRN (Reason: pain) 5 Days Qty: 10 0RF Rx Instructions: Partial Fill upon patient request. ondansetron 4 mg tablet,disintegrating 4 mg PO Q6H PRN (Reason: nausea and vomiting) Qty: 14 0RF (DME) BD Luer-Delia Syringe 3 mL 23 x 1 syringe See Rx Instructions IM Q2W Qty: 1 Rx Instructions: As directed (DME) DIABETIC SHOES (1 pair) 10 W See Rx Instructions .Route .MEDSUPPLY Qty: 2 0RF Rx Instructions: As directed epinephrine [EpiPen 2-Fili] 0.3 mg/0.3 mL auto-injector 0.3 mg IM ONCE PRN (Reason: anaphylaxis) 360 Days Qty: 2 0RF Rx Instructions: for 2 doses albuterol sulfate 2.5 mg /3 mL (0.083 %) solution for nebulization 2.5 mg continuous nebulization Q4-6H PRN (Reason: shortness of breath or wheezing) Qty: 180 3RF (DME) blood pressure monitor Kit See Rx Instructions .Route Qty: 1 0RF Rx Instructions: As directed (DME) blood pressure test kit-wrist Kit See Rx Instructions .Route Qty: 1 0RF Rx Instructions: As directed docusate sodium 100 mg capsule 100 mg PO BEDTIME Qty: 30 3RF solifenacin [Vesicare] 10 mg tablet 10 mg PO DAILY Qty: 90 2RF omeprazole 40 mg capsule,delayed release(DR/EC) 40 mg PO QAM sucralfate 1 gram tablet 1 g PO BID Qty: 60 1RF aripiprazole 2 mg tablet 2 mg PO DAILY prednisone 20 mg tablet 20 mg PO BID 5 Days Qty: 10 0RF metoprolol succinate 25 mg tablet extended release 24 hr 25 mg PO DAILY Qty: 30 3RF quetiapine 25 mg tablet PO Metamucil 3.4 gram/5.4 gram powder 1 tbsp PO BID Qty: 660 0RF Rx Instructions: mix into at least 8 oz of water or juice before administering docusate sodium [Colace] 100 mg capsule 100 mg PO BID Qty: 60 3RF prednisone 10 mg tablet 10 mg PO BID MDD EXCARBATION OF ASTHMA 7 Days Qty: 14 0RF Referrals: [facility] [Provider Group] Print Language: Armenian
[2023-03-19] MEDS: Ketorolac Tromethamine 15 MG/ML VIAL IM (09:32)
[2023-03-19] MEDS: Phenazopyridine HCL 200 MG TABLET PO (09:32)
[2023-03-19] MEDS: predniSONE 20 MG TABLET PO (09:32)
[2023-03-19] MEDS: Tamsulosin HCL 0.4 MG CAPSULE PO (09:32)
--- NOTE | 2023-03-19 09:48 | PC.NURSE ---
pt medicated per may. pt ambulated multiple times to bathroom. pt slow steady gait. speaking in full complete sentences.
== END 2023-03-19 09:49 | disposition home or self-care (01) ==
PROVIDERS: Emergency Provider Internal Medicine; PCP Internal Medicine
DX: N20.0 Calculus of kidney (principal); R31.9 Hematuria, unspecified
CPT/HCPCS: 36415; 80053; 81001; 81025; 85025; 96372; 99284; J1885

== ENCOUNTER 2023-04-08 09:04 | Outpatient (AMB) | payer OTHER, SELFPAY ==
--- NOTE | 2023-04-08 09:28 | AM.OFFVISNUR ---
Intake Intake Visit Reasons: B12 Allergies Gadolinium-Containing Contrast Medi [GADOLINIUM-CONTAINING CONTRAST] Allergy (Severe, Verified 03/19/23 06:36) ANAPHYLAXIS Iodinated Contrast Media [IV Dye, Iodine Containing] Allergy (Severe, Verified 03/19/23 06:36) ANAPHYLAXIS aspirin [Aspirin] Allergy (Mild, Verified 03/19/23 06:36) ITCH ibuprofen [Ibuprofen] Allergy (Mild, Verified 03/19/23 06:36) NAUSEA oxycodone [From Percocet] Allergy (Mild, Verified 03/19/23 06:36) RASH Penicillins Allergy (Mild, Verified 03/19/23 06:36) ITCH Sulfa (Sulfonamide Antibiotics) Allergy (Mild, Verified 03/19/23 06:36) ITCH penicillin V Allergy (Unknown, Verified 03/19/23 06:36) Itch seafood Allergy (Unknown, Verified 03/19/23 06:36) Unknown LIQUID SOAPS Allergy (Intermediate, Uncoded 03/05/23 11:34) ITCHING AND REDNESS CHIHUAHUA Allergy (Mild, Uncoded 03/05/23 11:34) RASH ITCHING Office Meds cyanocobalamin (vitamin B-12) 1,000 mcg/mL injection solution Performing Provider: Mihir Elmore MD [facility] Administered by: Ulisses Pate RN on 04/08/23 09:28 Dose Route Admin Location Dispensed Lot Number Expiration Date [facility] [employer] Consult[employer] 1,000 mcg IM right deltoid 1 mL [id number] 06/08/24 74076-870-78 BOY DAN Comments: consented for b12 injection. tolerated well. Coding Assessment & Plan Assessment & Plan Orders: Orders AMB Vitamin B12 Injection Patient Supplied Today E53.8 - Deficiency of other specified B group vitamins
== END 2023-04-08 09:29 | disposition home or self-care (01) ==
LOC: HO.HMGH 09:04
PROVIDERS: PCP Internal Medicine; Visit Provider Internal Medicine
DX: E53.8 Deficiency of other specified B group vitamins (principal)
CPT/HCPCS: 96372; J3420

== ENCOUNTER 2023-04-08 09:39 | Outpatient (REF) | payer OTHER, SELFPAY ==
[2023-04-08 10:02] LABS: MANUAL DIFF FLAG NO
[2023-04-08 10:12] LABS: Basophils Percent Auto 0.5 % (0-2); Eosinophils Absolute Auto 0.2 X10*3/uL (0.0-0.4); Eosinophils Percent Auto 2.6 % (0-4); Hemoglobin 14.2 g/dl (12.0-16.0); Imm Gran Abs Auto 0.02 X10*3/uL (0.00-0.03); Imm Gran Pct Auto 0.2 % (0.0-0.4); Lymphocytes Absolute Auto 1.9 X10*3/uL (1.2-4.9); Lymphocytes Percent Auto 22.4 % (20-40); Mean Corpuscular HGB Conc 32.3 g/dl (31.0-35.0); Mean Corpuscular Hemoglobin 30.3 pg (27.0-33.0); Mean Corpuscular Volume 93.8 fL (80.0-98.0); Mean Platelet Volume 10.8 fL (9.4-12.3); Monocytes Absolute Auto 0.7 X10*3/uL (0.1-1.2); Neutrophils Absolute Auto 5.7 x10*3/uL (2.0-8.3); Neutrophils Percent Auto 66.3 % (45-73); Platelet Count 315 X10*3/uL (160-400); Red Blood Count 4.69 X10*6/uL (4.20-5.50); White Blood Count 8.6 X10*3/uL (4.8-10.8)
[2023-04-08 10:21] LABS: Estimated Average Glucose 117 mg/dL; Hemoglobin A1c % 5.7 % (<6.0)
[2023-04-08 10:52] LABS: Appearance Urine Clear; Color Urine Yellow; Glucose Urine UA Negative (Negative); Leukocyte Esterase Urine Trace (Negative); Nitrite Urine Negative (Negative); UMIC TRIGGER UACC YES; Urine Blood Negative (Negative); Urine Ketones Negative (Negative); Urine Protein Negative (Neg-Trace)
[2023-04-08 10:54] LABS: Alanine Aminotransferase 34 U/L (0-31); Albumin Level 3.8 g/dL (3.5-5.0); Alkaline Phosphatase 129 U/L (39-117); Anion Gap 8 (12-20); Aspartate Amino Transferase 18 U/L (5-31); Bilirubin Total 0.5 mg/dL (0.0-1.0); Blood Urea Nitrogen 11 mg/dL (9-16); Calcium 11.5 mg/dL (8.4-10.2); Carbon Dioxide 30 mmol/L (22-29); Chloride 107 mmol/L (96-108); Cholesterol 165 mg/dL (<200); Estimated Glomerular Filt Rate 57; Glucose Fasting 109 mg/dL (60-99); HDL Cholesterol 44 mg/dL (>40); LDL Cholesterol Calculated 99 mg/dL (<100); Potassium 4.3 mmol/L (3.3-5.1); Sodium 141 mmol/L (135-145); Triglycerides 112 mg/dL (<150)
[2023-04-08 10:58] LABS: Bacteria Urine Trace (None Seen); Hyaline Casts Urine 0-2 /LPF (0-2); RBC Urine 0-2 /HPF (0-2); UACC Culture Trigger YES; WBC Urine 21-50 /HPF (0-5)
[2023-04-08 11:13] LABS: TSH reflex Free T4 2.61 uIU/mL (0.32-4.0); Vitamin D 25-OH Total 51.8 ng/mL (>30)
[2023-04-08 11:17] LABS: Folate 7.6 ng/mL (> or = 4.0); Vitamin B12 > 2000 pg/mL (200-900)
== END 2023-04-08 09:40 | disposition home or self-care (01) ==
LOC: HO.LAB 09:39
PROVIDERS: Absent Provider Internal Medicine Endocrinology, Diabetes & Metabolism; PCP Internal Medicine; Visit Provider Internal Medicine
DX: E78.00 Pure hypercholesterolemia, unspecified (principal); E55.9 Vitamin D deficiency, unspecified; I10 Essential (primary) hypertension; E11.9 Type 2 diabetes mellitus without complications; E53.8 Deficiency of other specified B group vitamins; R30.0 Dysuria
CPT/HCPCS: 36415; 80053; 80061; 81001; 82306; 82607; 82746; 83036; 84443; 85025; 87086

== ENCOUNTER 2023-04-17 10:22 | Outpatient (AMB) | payer OTHER, SELFPAY ==
--- NOTE | 2023-04-17 10:29 | A.OFFPC_ITS ---
Vital Signs 04/17/23 10:49 Height 5 ft 6 in Weight 266 lb BMI 42.9 BP 124/80 Blood Pressure Location Lt brachial Position Sitting Pulse 78 Pulse Source Pulse Oximeter Pulse Oximetry (%) 98 Oxygen Delivery Method Room Air Intake Visit Reasons: hyperlipidemia, DM, HTN, hyperparathyroidism [employer] General Supervisor Required: No Accompanied by: Self / Same As Patient Allergies Gadolinium-Containing Contrast Medi [GADOLINIUM-CONTAINING CONTRAST] Allergy (Severe, Verified 04/17/23 11:35) ANAPHYLAXIS Iodinated Contrast Media [IV Dye, Iodine Containing] Allergy (Severe, Verified 04/17/23 11:35) ANAPHYLAXIS aspirin [Aspirin] Allergy (Mild, Verified 04/17/23 11:35) ITCH ibuprofen [Ibuprofen] Allergy (Mild, Verified 04/17/23 11:35) NAUSEA oxycodone [From Percocet] Allergy (Mild, Verified 04/17/23 11:35) RASH Penicillins Allergy (Mild, Verified 04/17/23 11:35) ITCH Sulfa (Sulfonamide Antibiotics) Allergy (Mild, Verified 04/17/23 11:35) ITCH penicillin V Allergy (Unknown, Verified 04/17/23 11:35) Itch seafood Allergy (Unknown, Verified 04/17/23 11:35) Unknown LIQUID SOAPS Allergy (Intermediate, Uncoded 04/17/23 11:35) ITCHING AND REDNESS CHIHUAHUA Allergy (Mild, Uncoded 04/17/23 11:35) RASH ITCHING Medication List - Last Reconciled 04/17/23 by Mihir Elmore MD albuterol sulfate 2.5 mg (3 mL) continuous nebulization Q4-6H PRN albuterol sulfate 90 mcg/actuation 2 puffs PO Q6H PRN amlodipine 2.5 mg PO DAILY 30 days aripiprazole 2 mg PO DAILY blood pressure monitor As directed blood pressure test kit-wrist As directed blood sugar diagnostic (M3X MediaTouch Ultra Test strips) As directed once a day blood sugar diagnostic As directed blood-glucose meter As directed cetirizine 10 mg PO DAILY PRN 90 days cholecalciferol (vitamin D3) 125 mcg PO DAILY cyanocobalamin (vitamin B-12) 1,000 mcg IM Q4W 90 days cyanocobalamin (vitamin B-12) 100 mcg PO DAILY cyclobenzaprine 5 mg PO TID PRN 7 days [DIABETIC SHOES (1 pair) As directed] docusate sodium 100 mg PO BEDTIME docusate sodium (Colace) 100 mg PO BID epinephrine (EpiPen 2-Fili) 0.3 mg (0.3 mL) IM ONCE PRN 360 days fluocinolone 0.025% 1 appl topical BID fluticasone propion-salmeterol 250-50 mcg/dose (Wixela Inhub) 1 inh inhalation BID 30 days fluticasone propionate 50 mcg/actuation (Flonase Allergy Relief) 2 sprays intranasal DAILY 2 weeks lancets (FreeStyle Lancets) As directed - E11.9 -- Diabetes lancets As directed lancets (OneTouch UltraSoft Lancets) As directed once a day loperamide 2 mg PO Q6H PRN metformin ER 500 mg PO DAILY metoprolol succinate ER 25 mg PO DAILY morphine 15 mg PO Q6H PRN 5 days nystatin 1 appl topical TID 10 days omeprazole 40 mg PO QAM ondansetron 4 mg PO Q6H PRN ondansetron 4 mg PO Q8H PRN psyllium husk (Metamucil) 1 tbsp PO BID quetiapine 25 mg PO PRN [RAISED TOLET SEAT As directed] rosuvastatin 5 mg PO DAILY 30 days solifenacin (Vesicare) 10 mg PO DAILY sucralfate 1 g PO BID sumatriptan succinate 100 mg PO DAILY PRN syringe with needle As directed tamsulosin 0.4 mg PO DAILY topiramate 25 mg PO BEDTIME Tobacco use date assessed: 04/17/23 Dental Screening Dental Screen Date: 04/17/23 Did you have a dental visit in the last 12 months?: Yes Did you have a dental problem in the last 6 months where you did not have access to dental care?: No Was dental information given to patient?: Patient has dentist HPI hyperlipidemia, DM, HTN, hyperparathyroidism HPI Details Patient comes in today for her follow up visit States that she has been having problems with her knees lately, especially on her left knee States that she has been seeing [facility] lately for her knee pain - supposedly had x-rays of the knee done and was advised that she has significant arthritis changes in the knee Was reportedly advised to use her walker for now when ambulating and will see how her knee is again after some time Patient has the impression that orthopedics is planning to do some procedure on her knee at some point when it is time to do so but she is not sure when We have not received any correspondence from [facility] so far to review so we do not know what it is that she actually has and what the treatment plan or course of action [facility] is planning for her knee and joint pains at this time Patient also relates increased swelling of both her ankles lately and she is concerned about the possibility that she may have blood clots in her legs She also has multiple somatic complaints, including diffuse pain all over as well as multiple joint pains, which she feels are migratory as her joint pains go from one joint to the other and is requesting to get a referral to see a bone specialist States that she is scheduled to see Dr. Spicer in [place] next month - was referred by Dr. Claudio for consideration for parathyroidectomy due to her hypercalcemia States that she has been experiencing occasional dizziness but denies any headaches lately Denies any chest pains, no increased SOB No nausea/vomiting, no abdominal pain No change in bowel habits noted Would like to get Rx for a regular blood pressure monitor; states that the wrist monitor that she previously requested for was not covered by her insurance Had her follow up labs done last week - to discuss her results [facility] Medical History (Updated 04/18/23 @ 04:24 by Mihir Elmore MD) Bipolar disorder Urinary urgency Ureteral stone with hydronephrosis Eye pressure Eyelid twitch Right-sided chest wall pain Vaginal bleeding Hallucinations Precordial chest pain Morbid obesity RUQ abdominal pain IBS (irritable bowel syndrome) Depression with anxiety Acute bronchitis Hypercalcemia Cough Restrictive lung disease GERD (gastroesophageal reflux disease) Benign essential hypertension Costochondritis Gallbladder polyp Calculus of kidney Rectal bleeding Palpitations Morbid obesity with BMI of 50.0-59.9, adult Vitamin D deficiency Vitamin B12 deficiency Primary osteoarthritis of both knees Fibromyalgia Obstructive sleep apnea Asthma Migraine headache with aura Diabetes mellitus Pure hypercholesterolemia Mixed stress and urge urinary incontinence Tremor of both hands Hand pain, right Intertrigo Surgical History H/O colonoscopy History of esophagogastroduodenoscopy (EGD) Family History Father Medical history unknown Mother Hypertension Kidney stones Maternal Grandmother Colon cancer Maternal Aunt Breast cancer Sister No problems noted. Sister No problems noted. Social History Housing: Apartment Alcohol intake: never Patient Tobacco Use Status: Former Tobacco user e-Cigarette/Vaping Use: Never Used Second Hand Smoke Exposure: No Advance Directives Date on File: 01/03/21 service: No Current occupational status: disabled Cognitive needs: No Hearing needs: No Vision needs: No Questionnaire PHQ-9 Over the last 2 weeks, how often have you been bothered by any of the following problems? 1. Little interest or pleasure in doing things: several days 2. Feeling down, depressed, or hopeless: several days 3. Trouble falling or staying asleep, or sleeping too much: several days 4. Feeling tired or having little energy: several days 5. Poor appetite or overeating: not at all 6. Feeling bad about yourself - or that you are a failure or have let yourself or your family down: not at all 7. Trouble concentrating on things, such as reading the newspaper or watching television: not at all 8. Moving or speaking so slowly that other people could have noticed. Or the opposite - being so fidgety or restless that you have been moving around a lot more than usual: not at all 9. Thoughts that you would be better off or of hurting yourself in some way: not at all Total score: 4 Depression Screening Interpretation: Positive Depression Screening Follow-up: Existing condition and Community Mental Health Worker F/U Depression Screening Done: Yes [id number] - PHQ-9 Billing: Yes Source: Developed by Drs. Anirudh Mckeon, Sarita Mobley, Sabas De La Fuente and colleagues, with an educational marlena from [employer] Thrive Questionnaire Date Thrive assessed: 04/17/23 I am a: Patient What is your living situation today?: I have a steady place to live Within the past 12 months, did the food you bought not last and you didn't have the money to get more?: Never true Within the past 12 months, did you worry whether your food would run out before you got money to buy more?: Never true Do you have trouble paying for medicines?: No Do you have trouble getting transportation to medical appointments?: No Do you have trouble paying your heating and electricity bill?: No Do you have trouble taking care of your child, family member or friend?: No Do you have trouble with day-to-day activities such as bathing, preparing meals, shopping, managing finances, etc.?: No Are you currently unemployed and looking for a job?: No Are you interested in more education?: No Please select the resources that you would like help with: None Currently or been in a relationship where the following occur: no concerns reported THRIVE Score: 0 AUDIT C Alcohol Use Questionnaire (AUDIT-C) 1. How often do you have a drink containing alcohol?: Never 3. How often do you have six or more drinks on one occasion?: Never Total Score: 0 Score Reviewed/Action Taken: Yes KIMO-7 AMB Questionnaire KIMO-7 Date KIMO - 7 assessed: 04/17/23 Feeling nervous, anxious, or on edge: 2 = More than half the days Not being able to stop or control worryin = More than half the days Worrying too much about different things: 2 = More than half the days Trouble relaxin = More than half the days Being so restless that it is hard to sit still: 2 = More than half the days Becoming easily annoyed or irritable: 2 = More than half the days Feeling afraid as if something awful might happen: 2 = More than half the days Total KIMO-7 score (0-4 normal; 5-9 mild; 10-14 moderate; 15-21 severe): 14 Source: Developed by Drs. Anirudh Mckeon, Sarita Mobley, Sabas De La Fuente and colleagues, with an educational marlena from [employer]. Review of Systems Const Reports body aches (diffuse), Denies chills, Reports fatigue, Denies fever(s) and Denies headache(s) ENT Denies dysphagia, Reports dizziness (occasional), Denies otalgia, Denies headache(s), Denies nasal congestion, Reports neck pain, Denies odynophagia and Denies sore throat Card Denies chest pain, Denies palpitations and Denies dyspnea Resp Denies chest congestion, Denies cough, Denies excessive phlegm production, Denies dyspnea and Denies wheezing GI Denies abdominal pain, Denies constipation, Denies dysphagia, Denies heartburn, Denies diarrhea, Denies nausea, Denies odynophagia and Denies vomiting Denies hematuria, Denies dysuria and Reports urinary incontinence Musc Reports back pain, Reports myalgias (diffuse), Reports arthralgias (involving multiple joints - see HPI; increasing in knees lately, axel in L ) and Reports neck pain Neuro Reports dizziness (occasional), Denies headache(s) and Reports tremor(s) (in b oth hands, occasionally) Psych Reports anxiety Endo Reports fatigue and Denies palpitations Aller/Immun Denies wheezing Physical exam (Primary Care) Vital Signs: Last Vital Signs Pulse 78 04/17/23 10:49 BP 124/80 04/17/23 10:49 Pulse Ox 98 04/17/23 10:49 Oxygen Delivery Method Room Air 04/17/23 10:49 BMI result Body Mass Index 42.9 Tobacco/Smoking Status: Tobacco use Status Tobacco use date assessed 04/17/23 04/17/23 10:55 Patient Tobacco Use Status Former Tobacco user 04/17/23 10:30 e-Cigarette/Vaping Use Never Used 04/17/23 10:30 PHQ-9: PHQ-9 Score PHQ-9: Total score 4 04/17/23 11:58 Depression Screening Interpretation: Positive Depression Screening Follow-up: Existing condition and Community Mental Health Worker F/U Thrive Assessment: Date of Thrive Assessment Date Thrive assessed 04/17/23 04/17/23 10:55 Currently or been in a relationship where the following occur: no concerns reported Const General: no acute distress and alert HENMT Ears: TM's normal bilaterally and EAC's normal Throat: Yes posterior oropharynx normal and Yes tonsils normal (no TP congestion) Neck Neck: Yes no lymphadenopathy and Yes supple Resp Auscultation: clear to auscultation bilaterally, no rales, rhonchi (occasional) throughout and no wheezes Cardio Rate: regular rate Rhythm: regular rhythm Heart sounds: no murmurs GI Palpation (GI): Soft to palpation and nontender Auscultation: normal bowel sounds General: Yes no CVA tenderness Back/Spine/Pelvis Back: no CVA tenderness Thoracic/Lumbar Spine: No lumbar spinal tenderness Skin Rashes: no rashes Extrem Other: (+) scattered prominent varicose veins over both lower extremities General: Yes edema (2+ bipedal edema) Results Reviewed Results Reviewed: Laboratory Tests 04/08/23 04/08/23 09:54 09:59 WBC 8.6 Hgb 14.2 Hct 44.0 Plt Count 315 Sodium 141 Potassium 4.3 Creatinine 1.03 Estimated GFR 57 Fasting Glucose 109 H Hemoglobin A1c % 5.7 Calcium 11.5 H Total Bilirubin 0.5 AST 18 ALT 34 H Alkaline Phosphatase 129 H Triglycerides 112 Cholesterol 165 LDL Cholesterol, Calc 99 HDL Cholesterol 44 Vitamin B12 > 2000 H 25-OH Vitamin D Total 51.8 TSH 2.61 Ur Specific [place] 1.020 Urine Protein Negative Urine Glucose (UA) Negative Urine Blood Negative Urine Nitrite Negative Ur Leukocyte Esterase Trace H Assessment and Plan Assessment & Plan (1) Pure hypercholesterolemia: Code(s): E78.00 - Pure hypercholesterolemia, unspecified Plan: Results of her labs done last week reviewed and discussed with patient Reinforced low cholesterol diet Continue Rosuvastatin 5 mg QD Will recheck her labs and fasting lipids in 3 months for follow up (2) Benign essential hypertension: Code(s): I10 - Essential (primary) hypertension Plan: Reinforced low sodium diet - goal is systolic BP of at least 120 to 130 mm or less Was previously on HCTZ 25 mg QD but this was switched to Amlodipine 2.5 mg QD due to her hypercalcemia, which is likely due to primary hyperparathyroidism She appears to be tolerating Amlodipine well and her BP seems to be adequately controlled on 2.5 mg QD so far Patient is reminded to continue monitoring her blood pressure regularly - Rx for BP monitor provided (3) Diabetes mellitus: Code(s): E11.9 - Type 2 diabetes mellitus without complications Qualifiers: Diabetes mellitus complication status: without complication Diabetes mellitus senior care insulin use: without senior care use Diabetes mellitus type: type 2 Qualified Code(s): E11.9 - Type 2 diabetes mellitus without complications Plan: HgbA1c was unchanged from previous at 5.7% on her labs done last week - goal is < 7.0% Reinforced diabetic diet Continue Metformin ER 500 mg QD (4) Asthma: Comment: THE PULMONARY FUNCTION TEST DID NOT SHOW ANY SIGNIFICANT OBSTRUCTIVE DISORDER. BUT CLINICALLY SHE DOES HAVE BRONCHIAL ASTHMA/ MILD COPD. SHE IS BENEFITING FROM THE USE OF WIXELA AND PROAIR P.R.N.. TX: ADVISED CONTINUE USING WIXELA 250-50 1 INHALATION B.I.D. AND PROAIR 2 PUFFS Q 4-6 HOURS P.R.N.( may use it for any persistent bouts of cough also.) Code(s): J45.909 - Unspecified asthma, uncomplicated Qualifiers: Asthma complication type: with acute exacerbation Asthma persistence: persistent Asthma severity: moderate Qualified Code(s): J45.41 - Moderate persistent asthma with (acute) exacerbation Plan: Continue Wixela 250-50 mcg 1 inhalation BID and Albuterol HFA 2 puffs 4 times a day as needed (5) Migraine headache with aura: Code(s): G43.109 - Migraine with aura, not intractable, without status migrainosus Qualifiers: Intractability: not intractable Status migrainosus presence: without status migrainosus Qualified Code(s): G43.109 - Migraine with aura, not intractable, without status migrainosus Plan: Controlled/stable on prophylactic Tx with Topiramate 25 mg Q HS Continue Sumatriptan 100 mg PRN (6) Fibromyalgia: Code(s): M79.7 - Fibromyalgia Plan: Was started on Gabapentin 100 mg TID last year but she stopped taking them due to increased dizziness while on the Rx She is again encouraged to stay active and exercise regularly to help better manage her fibromyalgia symptoms but her recent knee issues are making it difficult to do so (7) Polyarthralgia: Code(s): M25.50 - Pain in unspecified joint Plan: Per request, will refer her to rheumatology for further evaluation and management (8) Hyperparathyroidism: Code(s): E21.3 - Hyperparathyroidism, unspecified Plan: This is most likely due to primary hyperparathyroidism She has been referred by Dr. Claudio to Dr. Spicer for consideration for parathyroidectomy and patient is scheduled to be seen by Dr. Spicer next month Have also advised patient that her perceived migratory arthritis may actually be a symptom related to her hypercalcemia and hyperparathyroidism and may improve with parathyroidectomy and correction of her hypercalcemia Follow-up with endocrinology as scheduled (9) GERD without esophagitis: Code(s): K21.9 - Gastro-esophageal reflux disease without esophagitis Plan: Dietary restrictions reinforced Follow up with GI as scheduled (10) Varicose veins of bilateral lower extremities with pain: Code(s): I83.813 - Varicose veins of bilateral lower extremities with pain Plan: She has been referred to and is scheduled to be seen by Dr. Camacho in a few weeks for vascular surgery evaluation (11) Vitamin B12 deficiency: Code(s): E53.8 - Deficiency of other specified B group vitamins Plan: Have advised patient that her B12 level was very high on her recent labs Will have patient HOLD her monthly Vitamin B12 injections (1000 mcg) for now and just continue on her Vitamin B12 100 mcg tablets daily Will recheck her Vitamin B12 level in a few months for follow up (12) Vitamin D deficiency: Code(s): E55.9 - Vitamin D deficiency, unspecified Plan: Continue Vitamin D3 5000 units QD (13) Psoriasis: Code(s): L40.9 - Psoriasis, unspecified Plan: Follow up with dermatology (Dr. Guardado) as scheduled (14) Bipolar disorder: Code(s): F31.9 - Bipolar disorder, unspecified Qualifiers: Active/Remission status: currently active Current bipolar episode type: mixed Current episode severity: unspecified Qualified Code(s): F31.60 - Bipolar disorder, current episode mixed, unspecified Plan: Continue Aripiprazole 2 mg Q HS Was more recently started on Quetiapine 25 mg PRN by psychiatry Follow up with psychiatry as scheduled (15) Morbid obesity with BMI of 50.0-59.9, adult: Comment: She is a known case of morbid obesity and difficult for her to lose weight. But she is trying to cut down the calories and stays on low carb diet. Code(s): E66.01 - Morbid (severe) obesity due to excess calories; Z68.43 - Body mass index [BMI] 50.0-59.9, adult Plan: Reinforced diet; exercise and weight loss are not realistic expectations for patient due to her multiple comorbidites and her recent knee issues Plan Follow up in 3 months Orders: Orders Comprehensive Stella. Panel Fast 3 Months E78.00 - Pure hypercholesterolemia, unspecified TSH reflex Free T4 3 Months E78.00 - Pure hypercholesterolemia, unspecified UA CC w/rflx Micro + Cult 3 Months R30.0 - Dysuria Vitamin B12 and Folate 3 Months E53.8 - Deficiency of other specified B group vitamins Complete Blood Count Auto Diff 3 Months D64.9 - Anemia, unspecified Lipid Panel 3 Months E78.00 - Pure hypercholesterolemia, unspecified Microalbumin, Random (w Creat) 3 Months E11.9 - Type 2 diabetes mellitus without complications Hemoglobin A1c 3 Months E11.9 - Type 2 diabetes mellitus without complications Vitamin D 25-OH Total 3 Months E55.9 - Vitamin D deficiency, unspecified Referrals Rheumatology Referral M25.50 - Pain in unspecified joint Medications: Refilled blood pressure monitor As directed 1 ea 0RF I10 - Essential (primary) hypertension On Hold cyanocobalamin (vitamin B-12) Hold Comment: Doctor's Order 1,000 mcg IM Q4W 90 days 4 mL 3RF E53.8 - Deficiency of other specified B group vitamins Coding Level of Care Code Est Pt Level 4 (20456) Diagnoses Pure hypercholesterolemia E78.00 Benign essential hypertension I10 Type 2 diabetes mellitus without complication, without long-term current use of insulin E11.9 Diabetes mellitus complication status: without complication Diabetes mellitus senior care insulin use: without meterman use Diabetes mellitus type: type 2 Moderate persistent asthma with acute exacerbation J45.41 Asthma complication type: with acute exacerbation Asthma persistence: persistent Asthma severity: moderate Migraine with aura and without status migrainosus, not intractable G43.109 Intractability: not intractable Status migrainosus presence: without status migrainosus Fibromyalgia M79.7 Polyarthralgia M25.50 Hyperparathyroidism E21.3 GERD without esophagitis K21.9 Varicose veins of bilateral lower extremities with pain I83.813 Vitamin B12 deficiency E53.8 Vitamin D deficiency E55.9 Psoriasis L40.9 Bipolar affective disorder, current episode mixed, current episode severity unspecified F31.60 Active/Remission status: currently active Current bipolar episode type: mixed Current episode severity: unspecified Morbid obesity with BMI of 50.0-59.9, adult E66.01; Z68.43
[2023-04-17 10:49] VITALS: BP 124/80; PULSE 78; O2SAT 98; BMI 42.9
== END 2023-04-17 12:02 | disposition home or self-care (01) ==
PROVIDERS: PCP Internal Medicine; Visit Provider Internal Medicine
DX: E11.9 Type 2 diabetes mellitus without complications (principal); E21.3 Hyperparathyroidism, unspecified; F31.60 Bipolar disorder, current episode mixed, unspecified; E66.01 Morbid (severe) obesity due to excess calories; Z68.43 Body mass index [BMI] 50.0-59.9, adult; E78.00 Pure hypercholesterolemia, unspecified; I10 Essential (primary) hypertension; J45.41 Moderate persistent asthma with (acute) exacerbation; G43.109 Migraine with aura, not intractable, without status migrainosus; M79.7 Fibromyalgia; M25.50 Pain in unspecified joint; K21.9 Gastro-esophageal reflux disease without esophagitis
CPT/HCPCS: 99214

== ENCOUNTER 2023-04-30 13:22 | Outpatient (AMB) | payer OTHER, SELFPAY ==
[2023-04-30 13:49] VITALS: BP 120/80; PULSE 82; O2SAT 100; BMI 44.1
--- NOTE | 2023-04-30 13:49 | MHC.OFFVIS ---
Intake Vital Signs 04/30/23 13:49 Height 5 ft 6 in Weight 273 lb BMI 44.1 BP 120/80 Blood Pressure Location Lt brachial Position Sitting Pulse 82 Pulse Source Pulse Oximeter Pulse Oximetry (%) 100 Oxygen Delivery Method Room Air Intake Visit Reasons: Shortness of breath Intake Note: pt is here for follow up and states she has a pain in the lung area with some coughing and she is dealing with a lot of pain all over her body. 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 Allergies Gadolinium-Containing Contrast Medi [GADOLINIUM-CONTAINING CONTRAST] Allergy (Severe, Verified 04/30/23 13:57) ANAPHYLAXIS Iodinated Contrast Media [IV Dye, Iodine Containing] Allergy (Severe, Verified 04/30/23 13:57) ANAPHYLAXIS aspirin [Aspirin] Allergy (Mild, Verified 04/30/23 13:57) ITCH ibuprofen [Ibuprofen] Allergy (Mild, Verified 04/30/23 13:57) NAUSEA oxycodone [From Percocet] Allergy (Mild, Verified 04/30/23 13:57) RASH Penicillins Allergy (Mild, Verified 04/30/23 13:57) ITCH Sulfa (Sulfonamide Antibiotics) Allergy (Mild, Verified 04/30/23 13:57) ITCH penicillin V Allergy (Unknown, Verified 04/30/23 13:57) Itch seafood Allergy (Unknown, Verified 04/30/23 13:57) Unknown LIQUID SOAPS Allergy (Intermediate, Uncoded 04/30/23 13:57) ITCHING AND REDNESS CHIHUAHUA Allergy (Mild, Uncoded 04/30/23 13:57) RASH ITCHING Medication List - Last Reconciled 04/30/23 by Maritza Dorado MD albuterol sulfate 2.5 mg (3 mL) continuous nebulization Q4-6H PRN albuterol sulfate 90 mcg/actuation 2 puffs PO Q6H PRN amlodipine 2.5 mg PO DAILY 30 days aripiprazole 2 mg PO DAILY blood pressure monitor As directed blood pressure test kit-wrist As directed blood sugar diagnostic (Adstrixuch Ultra Test strips) As directed once a day blood sugar diagnostic As directed blood-glucose meter As directed cetirizine 10 mg PO DAILY PRN 90 days cholecalciferol (vitamin D3) 125 mcg PO DAILY cyanocobalamin (vitamin B-12) 1,000 mcg IM Q4W 90 days cyanocobalamin (vitamin B-12) 100 mcg PO DAILY cyclobenzaprine 5 mg PO TID PRN 7 days [DIABETIC SHOES (1 pair) As directed] docusate sodium 100 mg PO BEDTIME docusate sodium (Colace) 100 mg PO BID epinephrine (EpiPen 2-Fili) 0.3 mg (0.3 mL) IM ONCE PRN 360 days fluocinolone 0.025% 1 appl topical BID fluticasone propion-salmeterol 250-50 mcg/dose (Wixela Inhub) 1 inh inhalation BID 30 days fluticasone propionate 50 mcg/actuation (Flonase Allergy Relief) 2 sprays intranasal DAILY 2 weeks hydroxyzine HCl Take 1/2 to 1 tablet orally BID PRN lancets (FreeStyle Lancets) As directed - E11.9 -- Diabetes lancets As directed lancets (OneTouch UltraSoft Lancets) As directed once a day loperamide 2 mg PO Q6H PRN metformin ER 500 mg PO DAILY metoprolol succinate ER 25 mg PO DAILY nystatin 1 appl topical TID 10 days omeprazole 40 mg PO QAM 90 days ondansetron 4 mg PO Q6H PRN ondansetron 4 mg PO Q8H PRN psyllium husk (Metamucil) 1 tbsp PO BID quetiapine 25 mg PO PRN [RAISED TOLET SEAT As directed] rosuvastatin 5 mg PO DAILY 30 days solifenacin (Vesicare) 10 mg PO DAILY sucralfate 1 g PO BID sumatriptan succinate 100 mg PO DAILY PRN syringe with needle As directed tamsulosin 0.4 mg PO DAILY topiramate 25 mg PO BEDTIME Do you need a note to return to daycare/school/sports/work: No HPI Shortness of breath HPI Details 48 YEARS OLD FEMALE WITH MORBID OBESITY DIAGNOSIS OF OBSTRUCTIVE SLEEP APNEA AND BRONCHIAL ASTHMA, SHE IS COMING FOR FOLLOW-UP AFTER A LONG WHILE. BREATHING HAS BEEN FAIRLY STABLE BUT HER MAIN ISSUE IS LOT OF ACHES AND PAINS ALL OVER, SHE HAS PAIN IN THE RIGHT UPPER BACK, AND IS WORRIED THAT THIS COULD BE DUE TO HER RIGHT LUNG. SHE HAS VERY LITTLE COUGH OR WHEEZING. .USES HER INHALERS REGULARLY SHE DOES USE CPAP EVERY NIGHT FOR HER SLEEP APNEA, SAY IS THAT SHE CAN ASLEEP WITHOUT USE OF CPAP, SHE HAS NASAL PILLOWS FOR THE CPAP. SHE IS OBESE WITH THE ACHES AND PAINS ALL OVER THE BODY AND HAS DIFFICULTY IN WALKING. SO SHE HAS TO USE THE WALKER. [facility] Medical History Bipolar disorder Urinary urgency Ureteral stone with hydronephrosis Eye pressure Eyelid twitch Right-sided chest wall pain Vaginal bleeding Hallucinations Precordial chest pain Morbid obesity RUQ abdominal pain IBS (irritable bowel syndrome) Depression with anxiety Acute bronchitis Hypercalcemia Cough Restrictive lung disease GERD (gastroesophageal reflux disease) Benign essential hypertension Costochondritis Gallbladder polyp Calculus of kidney Rectal bleeding Palpitations Morbid obesity with BMI of 50.0-59.9, adult Vitamin D deficiency Vitamin B12 deficiency Primary osteoarthritis of both knees Fibromyalgia Obstructive sleep apnea Asthma Migraine headache with aura Diabetes mellitus Pure hypercholesterolemia Mixed stress and urge urinary incontinence Tremor of both hands Hand pain, right Intertrigo Surgical History H/O colonoscopy History of esophagogastroduodenoscopy (EGD) Family History Father Medical history unknown Mother Hypertension Kidney stones Maternal Grandmother Colon cancer Maternal Aunt Breast cancer Sister No problems noted. Sister No problems noted. Social History Housing: Apartment Alcohol intake: never Patient Tobacco Use Status: Former Tobacco user e-Cigarette/Vaping Use: Never Used Second Hand Smoke Exposure: No Advance Directives Date on File: 01/03/21 service: No Current occupational status: disabled Cognitive needs: No Hearing needs: No Vision needs: No Review of Systems Const All systems reviewed & are unremarkable except as noted in HPI and below Eyes Reports no additional complaints ENT Reports no additional complaints Card Denies chest pain, Denies irregular heart rhythm and Denies leg edema Resp Reports as per HPI and Reports other (Has the chest pain over the lower right ribcage, probably due to costochond) GI Reports dyspepsia and Reports heartburn Reports no additional complaints Musc Reports myalgias Skin/Breast Reports system reviewed and no additional complaints, except as documented Neuro Reports no additional complaints Physical Exam Vital Signs: Last Vital Signs Pulse 82 04/30/23 13:49 BP 120/80 04/30/23 13:49 Pulse Ox 100 04/30/23 13:49 Oxygen Delivery Method Room Air 04/30/23 13:49 BMI result Body Mass Index 44.1 Const General: healthy appearing (Except for being overweight), comfortable, no acute distress, alert and awake Orientation/consciousness: patient oriented x3 HEENT Head: Yes normal to inspection General nose exam: No nasal polyps present and No nasal discharge present Face and sinus: Yes sinuses nontender Mouth: oropharynx normal Throat: Yes posterior oropharynx normal Eyes General: appearance normal, both eyes and all related structures Neck Neck: Yes normal visual inspection, Yes no lymphadenopathy, Yes trachea midline and Yes no JVD Thyroid: Thyroid normal Chest Chest palpation & inspection: normal inspection of the chest, normal palpation of entire chest wall and no tenderness Resp Other: Percussion note not very perceptible because of obesity, breath sounds are decreased over the basilar areas of the chest, Today she does not have any wheezes or crepitations. Cardio Palpation: normal PMI Rate: regular rate Rhythm: regular rhythm Heart sounds: no gallops and Murmur heart sound present Peripheral pulses: Peripheral pulses 2+ throughout GI Palpation (GI): Soft to palpation, nontender, No hepatosplenomegaly present, no masses and Other GI palpation findings present (Abdomen is grossly obese and protuberant) Auscultation: normal bowel sounds Back/Spine/Pelvis Thoracic/Lumbar Spine: thoracic and lumbar spine normal to inspection and thoraco-lumbar ROM limited Skin General skin exam: no rashes or lesions noted Neuro General: patient oriented x3 and no focal motor deficits Cranial nerves: Yes CN's II-XII intact bilaterally Extrem General: Yes normal to inspection, Yes no clubbing, cyanosis or edema and Yes no calf tenderness Psych Appearance: grossly normal and well kempt Speech and movement: Normal speech and movement present Assessment & Plan Assessment & Plan (1) Asthma: Comment: THE PULMONARY FUNCTION TEST DID NOT SHOW ANY SIGNIFICANT OBSTRUCTIVE DISORDER. BUT CLINICALLY SHE DOES HAVE BRONCHIAL ASTHMA/ MILD COPD. SHE IS BENEFITING FROM THE USE OF WIXELA AND PROAIR P.R.N.. Code(s): J45.909 - Unspecified asthma, uncomplicated Qualifiers: Asthma complication type: with acute exacerbation Asthma persistence: persistent Asthma severity: moderate Qualified Code(s): J45.41 - Moderate persistent asthma with (acute) exacerbation Plan: TX: ADVISED CONTINUE USING WIXELA 250-50 1 INHALATION B.I.D. AND PROAIR 2 PUFFS Q 4-6 HOURS P.R.N.( may use it for any persistent bouts of cough also.) * CHEST X-RAY, IS ORDERED FOR HER REASSURANCE SHE IS COMPLAINING OF PAIN IN THE UPPER BACK AND THINKS THIS MAY BE DUE TO HER LUNGS. (2) Obstructive sleep apnea: Comment: SHE IS A REGULAR USES OF CPAP WHICH BENEFITS HER, AND WILL CONT.INUE TO USE IT Code(s): G47.33 - Obstructive sleep apnea (adult) (pediatric) Plan: WILL TRY TO GET DOWNLOAD FOR HER COMPLIANCE. SHE IS ENCOURAGED TO KEEP ON USING CPAP EVERY NIGHT (3) Morbid obesity with BMI of 50.0-59.9, adult: Comment: BMI=44 She is a known case of morbid obesity and difficult for her to lose weight. But she is trying to cut down the calories and stays on low carb diet. Code(s): E66.01 - Morbid (severe) obesity due to excess calories; Z68.43 - Body mass index [BMI] 50.0-59.9, adult Plan: SHE HAS NO POTENTIAL TO LOSE WEIGHT (4) Restrictive lung disease: Comment: VERY SIGNIFICANT DEGREE OF RESTRICTIVE LUNG DISEASE SECONDARY TO HER MORBID OBESITY. Code(s): J98.4 - Other disorders of lung Plan: PLAN : Weight reduction is stressed. Continue doing deep breathing exercises 2 to 3 times a day. Orders: Orders XR chest 2V Today Coding Level of Care Code Tele Est Pt Level 3 (53472) Diagnoses Moderate persistent asthma with acute exacerbation J45.41 Asthma complication type: with acute exacerbation Asthma persistence: persistent Asthma severity: moderate Obstructive sleep apnea G47.33 Morbid obesity with BMI of 50.0-59.9, adult E66.01; Z68.43 Restrictive lung disease J98.4
== END 2023-04-30 14:07 | disposition home or self-care (01) ==
PROVIDERS: PCP Internal Medicine; Visit Provider Internal Medicine
DX: J45.41 Moderate persistent asthma with (acute) exacerbation (principal); G47.33 Obstructive sleep apnea (adult) (pediatric); E66.01 Morbid (severe) obesity due to excess calories; Z68.43 Body mass index [BMI] 50.0-59.9, adult; J98.4 Other disorders of lung
CPT/HCPCS: 99213

== ENCOUNTER 2023-04-30 13:22 | Outpatient (REF) | payer OTHER, SELFPAY ==
--- NOTE | ~2023-04-30 | XR_ITS ---
EXAMINATION: XR CHEST CLINICAL INFORMATION: Cough, unspecified COMPARISON: Chest 06/19/2021 TECHNIQUE: 2 views of the chest were obtained. FINDINGS: The lungs are well expanded. Trace linear atelectasis and/or scarring at the left lung base is again noted. No focal consolidation, interstitial pulmonary edema or pneumothorax. No pleural effusion. The cardiomediastinal silhouette is within normal limits. There are mild degenerative changes of the thoracic spine. XR/XR chest 2V IMPRESSION: No acute cardiopulmonary disease.
== END 2023-04-30 13:23 | disposition home or self-care (01) ==
LOC: HO.XRAY 13:22
PROVIDERS: PCP Internal Medicine; Visit Provider Internal Medicine
DX: R05.9 Cough, unspecified (principal); J45.41 Moderate persistent asthma with (acute) exacerbation; G47.33 Obstructive sleep apnea (adult) (pediatric); J98.4 Other disorders of lung; E66.01 Morbid (severe) obesity due to excess calories; Z68.43 Body mass index [BMI] 50.0-59.9, adult
CPT/HCPCS: 71046; 99212

== ENCOUNTER 2023-05-08 08:56 | Outpatient (AMB) | payer OTHER, SELFPAY ==
--- NOTE | 2023-05-08 09:07 | A.OFFVIS_ITS ---
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 Diabetic patient, states she has neuropathy as well. Has pain in both legs/calves with redness. Both feet and ankles are swollen. Left foot/ankle worse, started a few weeks ago . Says she has been on a strict diet with no salt or sugar so she's not sure why she has swelling. Patient has noticeable ropelike veins on both legs. Allergies Gadolinium-Containing Contrast Medi [GADOLINIUM-CONTAINING CONTRAST] Allergy (Severe, Verified 05/08/23 09:17) ANAPHYLAXIS Iodinated Contrast Media [IV Dye, Iodine Containing] Allergy (Severe, Verified 05/08/23 09:17) ANAPHYLAXIS aspirin [Aspirin] Allergy (Mild, Verified 05/08/23 09:17) ITCH ibuprofen [Ibuprofen] Allergy (Mild, Verified 05/08/23 09:17) NAUSEA oxycodone [From Percocet] Allergy (Mild, Verified 05/08/23 09:17) RASH Penicillins Allergy (Mild, Verified 05/08/23 09:17) ITCH Sulfa (Sulfonamide Antibiotics) Allergy (Mild, Verified 05/08/23 09:17) ITCH penicillin V Allergy (Unknown, Verified 05/08/23 09:17) Itch seafood Allergy (Unknown, Verified 05/08/23 09:17) Unknown LIQUID SOAPS Allergy (Intermediate, Uncoded 04/30/23 13:57) ITCHING AND REDNESS CHIHUAHUA Allergy (Mild, Uncoded 04/30/23 13:57) RASH ITCHING HPI 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 She does have a prior history of diabetes and fibromyalgia. She reports swelling of the lower extremity some varicosities and in addition some pain on the lateral aspect of the legs. She describes it more of a stabbing pain more than the numbness that she had experienced in the past. Also of note she was using a walker as she did fall in February twice. She does have some left knee issues which she is seeing Orthopedics for. She now presents to us for follow-up. [facility] Medical History Bipolar disorder Urinary urgency Ureteral stone with hydronephrosis Eye pressure Eyelid twitch Right-sided chest wall pain Vaginal bleeding Hallucinations Precordial chest pain Morbid obesity RUQ abdominal pain IBS (irritable bowel syndrome) Depression with anxiety Acute bronchitis Hypercalcemia Cough Restrictive lung disease GERD (gastroesophageal reflux disease) Benign essential hypertension Costochondritis Gallbladder polyp Calculus of kidney Rectal bleeding Palpitations Morbid obesity with BMI of 50.0-59.9, adult Vitamin D deficiency Vitamin B12 deficiency Primary osteoarthritis of both knees Fibromyalgia Obstructive sleep apnea Asthma Migraine headache with aura Diabetes mellitus Pure hypercholesterolemia Mixed stress and urge urinary incontinence Tremor of both hands Hand pain, right Intertrigo Surgical History H/O colonoscopy History of esophagogastroduodenoscopy (EGD) Family History Father Medical history unknown Mother Hypertension Kidney stones Maternal Grandmother Colon cancer Maternal Aunt Breast cancer Sister No problems noted. Sister No problems noted. Social History Housing: Apartment Alcohol intake: never Patient Tobacco Use Status: Former Tobacco user e-Cigarette/Vaping Use: Never Used Second Hand Smoke Exposure: No Advance Directives Date on File: 01/03/21 service: No Current occupational status: disabled Cognitive needs: No Hearing needs: No Vision needs: No Review of Systems Const All systems reviewed & are unremarkable except as noted in HPI and below Reports no additional complaints ENT Reports Normal hearing present Card Denies chest pain, Denies chest pain at rest, Denies chest pain with activity and Denies pedal edema Resp Denies cough GI Denies abdominal pain Musc Denies abnormal gait, Denies muscle cramps and Denies radiating pain into limb Skin/Breast Denies skin ulcer and Denies wounds Neuro Reports Normal hearing present and Denies abnormal gait Psych Reports no additional complaints Physical Exam Const General: cooperative, healthy appearing and comfortable Orientation/consciousness: oriented to person, oriented to place and oriented to time HEENT Head: Yes normal to inspection Neck Neck: Yes normal visual inspection Carotids: no bruits Chest Chest palpation & inspection: normal inspection of the chest Resp Effort & Inspection: normal respiratory effort and able to speak in complete sentences Auscultation: clear to auscultation bilaterally, no crackles, no rales, no rhonchi and no wheezes Cardio Rate: regular rate Rhythm: regular rhythm Heart sounds: S1 normal heart sound present and S2 normal heart sound present Bruits: no carotid bruits Peripheral pulses: Peripheral pulses 2+ throughout GI Inspection: Yes normal to inspection Skin Wounds: no wounds Hair: normal Neuro General: oriented to person, oriented to place and oriented to time Cranial nerves: Yes CN's II-XII intact bilaterally and Yes Normal hearing present Cognition (Neuro): normal cognition Motor exam (neuro): 5/5 motor strength present throughout Extrem Other: venous exam: +1 edema General: No clubbing, No cyanosis and Yes edema Psych Appearance: grossly normal Mental Status: mental status grossly normal Speech and movement: Normal speech and movement present Assessment & Plan Assessment & Plan (1) Varicose veins of right lower extremity with inflammation: Code(s): I83.11 - Varicose veins of right lower extremity with inflammation Plan: In short unclear etiology of lower extremity pain and discomfort. I did discuss that this may be multifactorial in nature. I do believe that this may have something to do with her neuropathy as well. She does have palpable arterial pulses I do not believe it is arterial in nature. I have taken the liberty of ordering venous insufficiency testing to rule that out. She will follow up with us after testing. Thank you for allowing us to assist in her care. If there are any questions or concerns please do not hesitate to contact us. Orders: Orders US venous insuf bilat 1 Week I83.11 - Varicose veins of right lower extremity with inflammation Coding Level of Care Code New Pt Level 4 (39252) Diagnoses Varicose veins of right lower extremity with inflammation I83.11
== END 2023-05-08 09:42 | disposition home or self-care (01) ==
PROVIDERS: PCP Internal Medicine; Visit Provider Surgery Vascular Surgery
DX: I83.11 Varicose veins of right lower extremity with inflammation (principal)
CPT/HCPCS: 99203

== ENCOUNTER → 2023-05-08 08:56 | Outpatient (BNVA) | payer OTHER, SELFPAY | PROVIDERS: PCP Internal Medicine; Visit Provider Surgery Vascular Surgery | DX: I83.11 Varicose veins of right lower extremity with inflammation (principal) | CPT/HCPCS: 99202 ==

== ENCOUNTER 2023-05-15 08:21 | Outpatient (REF) | payer OTHER, SELFPAY ==
--- NOTE | ~2023-05-15 | US_ITS ---
EXAMINATION: US LOWER EXTREMITY VENOUS (REFLUX EXAM), BILATERAL CLINICAL INFORMATION: Chronic venous insufficiency with lower extremity varicose veins with inflammation COMPARISON: None. TECHNIQUE: Color flow triplex imaging and compression Doppler was performed to evaluate both the deep and the superficial systems bilaterally. To evaluate the superficial system, the examination was performed in the upright position. Color-flow Doppler ultrasound and compression ultrasound were utilized. In addition, maneuvers were utilized to demonstrate reflux. FINDINGS: 1. DEEP VENOUS ULTRASOUND OF THE RIGHT LOWER EXTREMITY: Common Femoral Vein: Compressible, normal respiratory variation and augmented flow. Femoral Vein: Compressible, normal color flow and augmentation. Popliteal Vein: Compressible, normal augmentation. Deep Reflux: There is no evidence of reflux in the deep system in either the common femoral vein, superficial femoral or the popliteal vein. There is no evidence of a Bertrand's cyst. 2. SUPERFICIAL ULTRASOUND WITH DOPPLER OF RIGHT LOWER EXTREMITY: GREAT SAPHENOUS VEIN: Saphenofemoral Junction: 0.7 cm; Reflux: 0 ms Proximal Thigh: 0.5 cm; Reflux: 0 ms Mid Thigh: 0.3 cm; Reflux: 0 ms Distal Thigh: 0.4 cm; Reflux: 0 ms At Knee: 0.3 cm; Reflux: 0 ms Proximal Calf: 0.3 cm; Reflux: 0 ms Mid Calf: 0.2 cm; Reflux: 0 ms Distal Calf: 0.2 cm; Reflux: 0 ms DUPLICATED MEDIAL GREAT SAPHENOUS VEIN: Diameter: None imaged Reflux: NA DUPLICATED LATERAL GREAT SAPHENOUS VEIN: Diameter: None imaged Reflux: NA SMALL SAPHENOUS VEIN: Saphenopopliteal Junction: 0.2 cm; Reflux: 0 ms Proximal: 0.3 cm; Reflux: 0 ms Distal: 0.2 cm; Reflux: 0 ms VEIN OF GIACOMINI: Size: NA Reflux: NA PERFORATORS: Location: None significant Size: NA Reflux: NA VARICOSITIES: Location: Mid thigh and medial knee Size: 0.3 cm Reflux: None 3. DEEP VENOUS ULTRASOUND OF THE LEFT LOWER EXTREMITY: Common Femoral Vein: Compressible, normal respiratory variation and augmented flow. Femoral Vein: Compressible, normal color flow and augmentation. Popliteal Vein: Compressible, normal augmentation. Deep Reflux: There is no evidence of reflux in the deep system in either the common femoral vein, superficial femoral or the popliteal vein. There is no evidence of a Bertrand's cyst. 4. SUPERFICIAL ULTRASOUND WITH DOPPLER OF LEFT LOWER EXTREMITY: GREAT SAPHENOUS VEIN: Saphenofemoral Junction: 1.0 cm; Reflux: 0 ms Proximal Thigh: 0.4 cm; Reflux: 0 ms Mid Thigh: 0.2 cm; Reflux: 0 ms Distal Thigh: 0.3 cm; Reflux: 0 ms At Knee: 0.2 cm; Reflux: 0 ms Proximal Calf: 0.1 cm; Reflux: 0 ms Mid Calf: 0.2 cm; Reflux: 0 ms Distal Calf: 0.2 cm; Reflux: 0 ms DUPLICATED MEDIAL GREAT SAPHENOUS VEIN: Diameter: None imaged Reflux: NA DUPLICATED LATERAL GREAT SAPHENOUS VEIN: Diameter: None imaged. Reflux: NA SMALL SAPHENOUS VEIN: Saphenopopliteal Junction: 0.2 cm; Reflux: 0 ms Proximal: 0.2 cm; Reflux: 0 ms Distal: 0.1 cm; Reflux: 0 ms VEIN OF GIACOMINI: Size: NA Reflux: NA PERFORATORS: Location: None significant Size: NA Reflux: NA VARICOSITIES: Location: None Imaged Size: NA Reflux: NA US/US venous insuf bilat IMPRESSION: Right: No significant venous insufficiency or reflux within the great saphenous vein or small saphenous vein. Varicose veins in the right lower extremity without significant reflux as described above Left: No significant venous insufficiency or reflux within the great saphenous vein or small saphenous vein
== END 2023-05-15 08:22 | disposition home or self-care (01) ==
LOC: HO.US 08:21
PROVIDERS: Visit Provider Surgery Vascular Surgery
DX: I83.11 Varicose veins of right lower extremity with inflammation (principal)
CPT/HCPCS: 93970

== ENCOUNTER 2023-06-05 12:57 | Outpatient (AMB) | payer OTHER, SELFPAY ==
[2023-06-05 13:03] VITALS: BP 138/80; PULSE 73; O2SAT 99; BMI 43.2
--- NOTE | 2023-06-05 13:03 | MHC.OFFVIS ---
Intake Vital Signs 06/05/23 13:03 Height 5 ft 6 in Weight 267 lb 13.786 oz BMI 43.2 BP 138/80 Blood Pressure Location Rt brachial Position Sitting Pulse 73 Pulse Source Pulse Oximeter Pulse Oximetry (%) 99 Intake Visit Reasons: Joint Pain/ LVM Intake Note: New pt presents today for joint pain consult, internally referred by PCP Dr Elmore. C/o pain all over, in shoulder blade, skin sensitivity. Reports she has fibromyalgia Behavioral Analyst Required: No Accompanied by: Self / Same As Patient Allergies Gadolinium-Containing Contrast Medi [GADOLINIUM-CONTAINING CONTRAST] Allergy (Severe, Verified 06/05/23 13:06) ANAPHYLAXIS Iodinated Contrast Media [IV Dye, Iodine Containing] Allergy (Severe, Verified 06/05/23 13:06) ANAPHYLAXIS aspirin [Aspirin] Allergy (Mild, Verified 06/05/23 13:06) ITCH ibuprofen [Ibuprofen] Allergy (Mild, Verified 06/05/23 13:06) NAUSEA oxycodone [From Percocet] Allergy (Mild, Verified 06/05/23 13:06) RASH Penicillins Allergy (Mild, Verified 06/05/23 13:06) ITCH Sulfa (Sulfonamide Antibiotics) Allergy (Mild, Verified 06/05/23 13:06) ITCH penicillin V Allergy (Unknown, Verified 06/05/23 13:06) Itch seafood Allergy (Unknown, Verified 06/05/23 13:06) Unknown LIQUID SOAPS Allergy (Intermediate, Uncoded 06/05/23 13:06) ITCHING AND REDNESS CHIHUAHUA Allergy (Mild, Uncoded 06/05/23 13:06) RASH ITCHING Medication List - Last Reconciled 06/05/23 by Vivien Kelly MD albuterol sulfate 2.5 mg (3 mL) continuous nebulization Q4-6H PRN albuterol sulfate 90 mcg/actuation 2 puffs PO Q6H PRN amlodipine 2.5 mg PO DAILY 30 days aripiprazole 2 mg PO DAILY aripiprazole 5 mg PO DAILY blood pressure monitor As directed blood pressure test kit-wrist As directed blood sugar diagnostic ([employer] Ultra Test strips) As directed once a day blood sugar diagnostic As directed blood-glucose meter As directed cetirizine 10 mg PO DAILY PRN 90 days cholecalciferol (vitamin D3) 125 mcg PO DAILY cyanocobalamin (vitamin B-12) 1,000 mcg IM Q4W 90 days cyanocobalamin (vitamin B-12) 100 mcg PO DAILY cyclobenzaprine 5 mg PO TID PRN 7 days [DIABETIC SHOES (1 pair) As directed] docusate sodium (Colace) 100 mg PO BID epinephrine (EpiPen 2-Fili) 0.3 mg (0.3 mL) IM ONCE PRN 360 days fluocinolone 0.025% 1 appl topical BID fluticasone propion-salmeterol 250-50 mcg/dose (Wixela Inhub) 1 inh inhalation BID 30 days fluticasone propionate 50 mcg/actuation 2 sprays intranasal DAILY hydroxyzine HCl Take 1/2 to 1 tablet orally BID PRN lancets (FreeStyle Lancets) As directed - E11.9 -- Diabetes lancets As directed lancets (OneTouch UltraSoft Lancets) As directed once a day loperamide 2 mg PO Q6H PRN metformin ER 500 mg PO DAILY metoprolol succinate ER 25 mg PO DAILY nystatin 1 appl topical TID 10 days omeprazole 40 mg PO QAM 90 days ondansetron 4 mg PO Q8H PRN psyllium husk (Metamucil) 1 tbsp PO BID quetiapine 25 mg PO PRN [RAISED TOLET SEAT As directed] rosuvastatin 5 mg PO DAILY 30 days solifenacin 10 mg PO DAILY sucralfate 1 g PO BID sumatriptan succinate 100 mg PO DAILY PRN syringe with needle As directed tamsulosin 0.4 mg PO DAILY topiramate 25 mg PO BEDTIME HPI HPI Comments History of Present Illness Details 48-year-old female referred for evaluation of diffuse pain. She states that she was diagnosed with fibromyalgia years ago however she states that she is starting to have different pain. She went to the hospital back in February for pain in the outer aspect of her thighs as well as her abdomen, no cause for patient's pain was found. She states that she has been having pain in her neck, her hands, bilateral knee pain. She states that she was evaluated by Orthopedics as she felt that her left knee was unsteady. She has been using a walker. She was told that she might need left knee replacement. She states that she has known history of degenerative this disease of her spine and used to receive steroid injections in her back. Most recent injection was in 2012. [facility] Medical History Bipolar disorder Urinary urgency Ureteral stone with hydronephrosis Eye pressure Eyelid twitch Right-sided chest wall pain Vaginal bleeding Hallucinations Precordial chest pain Morbid obesity RUQ abdominal pain IBS (irritable bowel syndrome) Depression with anxiety Acute bronchitis Hypercalcemia Cough Restrictive lung disease GERD (gastroesophageal reflux disease) Benign essential hypertension Costochondritis Gallbladder polyp Calculus of kidney Rectal bleeding Palpitations Morbid obesity with BMI of 50.0-59.9, adult Vitamin D deficiency Vitamin B12 deficiency Primary osteoarthritis of both knees Fibromyalgia Obstructive sleep apnea Asthma Migraine headache with aura Diabetes mellitus Pure hypercholesterolemia Mixed stress and urge urinary incontinence Tremor of both hands Hand pain, right Intertrigo Surgical History H/O colonoscopy History of esophagogastroduodenoscopy (EGD) Family History Father Medical history unknown Mother Hypertension Kidney stones Rheumatoid arthritis Maternal Grandmother Colon cancer Maternal Aunt Breast cancer Sister No problems noted. Sister No problems noted. Social History Housing: Apartment Alcohol intake: never Patient Tobacco Use Status: Former Tobacco user e-Cigarette/Vaping Use: Never Used Second Hand Smoke Exposure: No Advance Directives Date on File: 01/03/21 service: No Current occupational status: disabled Cognitive needs: No Hearing needs: No Vision needs: No Review of Systems ENT Reports neck pain Musc Reports back pain, Reports arthralgias, Reports neck pain, Reports radiating pain into limb, Reports stiffness and Reports tingling Neuro Reports tingling Physical Exam Vital Signs: Last Vital Signs Pulse 73 06/05/23 13:03 BP 138/80 06/05/23 13:03 Pulse Ox 99 06/05/23 13:03 BMI result Body Mass Index 43.2 Const General: cooperative, healthy appearing and comfortable Nutritional Appearance: obese morbidly obese Orientation/consciousness: patient oriented x3 Limitations: no limitations HEENT Head: Yes normocephalic and Yes atraumatic Mouth: moist mucous membranes Resp Effort & Inspection: normal respiratory effort and able to speak in complete sentences Skin General skin exam: no rashes or lesions noted Neuro General: patient oriented x3 Extrem Other: No active synovitis Normal range of motion of hands, wrists, elbows and shoulders without pain Few fibromyalgia tender points Tenderness on the common extensor origin on the lateral epicondyles bilaterally with positive resisted wrist extension test Assessment & Plan Assessment & Plan (1) Polyarthralgia: Code(s): M25.50 - Pain in unspecified joint Plan: 48-year-old female with known fibromyalgia presents for evaluation of diffuse pain. Upon evaluation I do not see any evidence of an autoimmune rheumatic disease. Clinical picture rather consistent with a combination of fibromyalgia and degenerative arthritis Follow-up with PCP (2) Lumbar degenerative disc disease: Code(s): M51.36 - Other intervertebral disc degeneration, lumbar region Plan: Referred to pain management (3) Bilateral tennis elbow: Code(s): M77.11 - Lateral epicondylitis, right elbow; M77.12 - Lateral epicondylitis, left elbow Plan: Provided patient with a printout of home exercises Plan I spent 46 minutes reviewing patient's chart, evaluating patient, placing orders, counseling patient and documenting in the chart Orders: Referrals Pain Management Referral M51.36 - Other intervertebral disc degeneration, lumbar region Coding Level of Care Code New Pt Level 4 (94928) Diagnoses Polyarthralgia M25.50 Lumbar degenerative disc disease M51.36 Bilateral tennis elbow M77.11; M77.12
== END 2023-06-05 13:30 | disposition home or self-care (01) ==
PROVIDERS: PCP Internal Medicine; Visit Provider Student in an Organized Health Care Education/Training Program
DX: M25.50 Pain in unspecified joint (principal); M51.36 Other intervertebral disc degeneration, lumbar region; M77.11 Lateral epicondylitis, right elbow; M77.12 Lateral epicondylitis, left elbow
CPT/HCPCS: 99204

== ENCOUNTER → 2023-06-05 12:57 | Outpatient (BNVA) | payer OTHER, SELFPAY | PROVIDERS: PCP Internal Medicine; Visit Provider Student in an Organized Health Care Education/Training Program | DX: M25.50 Pain in unspecified joint (principal); M51.36 Other intervertebral disc degeneration, lumbar region; M77.11 Lateral epicondylitis, right elbow; M77.12 Lateral epicondylitis, left elbow | CPT/HCPCS: 99202 ==

== ENCOUNTER 2023-07-02 11:27 | Outpatient (REF) | payer OTHER, SELFPAY | END 2023-07-02 11:28 | disposition home or self-care (01) | LOC: HO.LAB 11:27 | PROVIDERS: PCP Internal Medicine; Visit Provider Advanced Practice Midwife | DX: Z13.89 Encounter for screening for other disorder (principal) | CPT/HCPCS: 81003 ==

== ENCOUNTER 2023-07-02 11:27 | Outpatient (AMB) | payer OTHER, SELFPAY ==
[2023-07-02 11:29] VITALS: BP 122/70; BMI 44.5
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
== END 2023-07-02 12:50 | disposition home or self-care (01) ==
PROVIDERS: PCP Internal Medicine; Visit Provider Advanced Practice Midwife
DX: Z01.419 Encounter for gynecological examination (general) (routine) without abnormal findings (principal); R35.0 Frequency of micturition; R10.2 Pelvic and perineal pain; N90.7 Vulvar cyst
CPT/HCPCS: 99386

== ENCOUNTER 2023-07-02 13:07 | Outpatient (REF) | payer OTHER, SELFPAY ==
[2023-07-02 17:11] LABS: CT PCR NOT DETECTED (Not Detect.); NG PCR NOT DETECTED (Not Detect.)
[2023-07-03 13:17] LABS: BV Int Neg Control Negative (Negative); BV Int Pos Control Positive (Positive)
[2023-07-07 23:24] LABS: HPV mRNA E6/E7 rflx Not Detected (Not Detected)
== END 2023-07-02 13:08 | disposition home or self-care (01) ==
LOC: HO.LNP 13:07
PROVIDERS: Visit Provider Advanced Practice Midwife
DX: Z01.419 Encounter for gynecological examination (general) (routine) without abnormal findings (principal); Z11.51 Encounter for screening for human papillomavirus (HPV); R10.2 Pelvic and perineal pain; Z20.2 Contact with and (suspected) exposure to infections with a predominantly sexual mode of transmission; N89.8 Other specified noninflammatory disorders of vagina
CPT/HCPCS: 0353U; 81003; 87480; 87510; 87624; 87660; 88142

== ENCOUNTER 2023-07-22 10:25 | Outpatient (REF) | payer OTHER, SELFPAY ==
--- NOTE | ~2023-07-22 | US_ITS ---
EXAMINATION: US PELVIS CLINICAL INFORMATION: Pelvic and perineal pain, last menstrual period age 32-33. Postmenopausal. COMPARISON: 02/26/2023. TECHNIQUE: Ultrasound of the pelvis is performed using both transabdominal and transvaginal transducers along with Doppler. Transvaginal imaging is performed due to inadequate visualization transabdominally. FINDINGS: The uterus is anteverted and measures 7.0 x 2.5 x 4.4 cm. No discrete fibroids appreciated. Endometrial thickness is 4 mm, although visualization is limited. No significant free fluid. Limited visualization due to bowel gas. Right ovary not visualized. Structure felt to represent left ovary is poorly visualized and measures 2.0 x 1.0 x 1.6 cm, volume 1.7 mL. US/US pelvic complete IMPRESSION: 1. Endometrial thickness is 4 mm, although visualization is limited. Correlation with clinical exam and gynecologic consultation recommended to determine further management for this postoperative patient with possibly abnormal endometrium. 2. Right ovary not visualized. 3. Structure felt to represent left ovary is poorly visualized and measures 2.0 x 1.0 x 1.6 cm, volume 1.7 mL.
== END 2023-07-22 10:26 | disposition home or self-care (01) ==
LOC: HO.US 10:25
PROVIDERS: PCP Internal Medicine; Visit Provider Advanced Practice Midwife
DX: R10.2 Pelvic and perineal pain (principal)
CPT/HCPCS: 76856

== ENCOUNTER 2023-08-07 12:23 | Outpatient (AMB) | payer OTHER, SELFPAY ==
[2023-08-07 12:46] VITALS: BP 124/80; PULSE 82; BMI 44.1
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
== END 2023-08-07 13:18 | disposition home or self-care (01) ==
PROVIDERS: PCP Internal Medicine; Visit Provider Internal Medicine
DX: R00.2 Palpitations (principal); R07.2 Precordial pain
CPT/HCPCS: 93010; 99214

== ENCOUNTER → 2023-08-07 12:23 | Outpatient (BNVA) | payer OTHER, SELFPAY | PROVIDERS: PCP Internal Medicine; Visit Provider Internal Medicine | DX: R00.2 Palpitations (principal); R07.2 Precordial pain | CPT/HCPCS: 93005; 99212 ==

== ENCOUNTER 2023-08-13 12:28 | Outpatient (AMB) | payer OTHER, SELFPAY ==
[2023-08-13 12:50] VITALS: BP 126/84; BMI 44.1
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
== END 2023-08-13 13:34 | disposition home or self-care (01) ==
PROVIDERS: PCP Internal Medicine; Visit Provider Advanced Practice Midwife
DX: R10.2 Pelvic and perineal pain (principal); Z87.828 Personal history of other (healed) physical injury and trauma
CPT/HCPCS: 99213

== ENCOUNTER → 2023-08-13 12:28 | Outpatient (BNVA) | payer OTHER, SELFPAY | PROVIDERS: PCP Internal Medicine; Visit Provider Advanced Practice Midwife | DX: R10.2 Pelvic and perineal pain (principal); Z87.828 Personal history of other (healed) physical injury and trauma | CPT/HCPCS: 99212 ==

== ENCOUNTER 2023-09-02 16:02 | Outpatient (AMB) | payer OTHER, SELFPAY ==
[2023-09-02 16:12] VITALS: BP 130/78; PULSE 111; O2SAT 97; BMI 44.8
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
== END 2023-09-02 16:42 | disposition home or self-care (01) ==
LOC: HO.HPS 16:02
PROVIDERS: PCP Internal Medicine; Visit Provider Internal Medicine
DX: E66.01 Morbid (severe) obesity due to excess calories (principal); Z68.43 Body mass index [BMI] 50.0-59.9, adult; J98.4 Other disorders of lung; G47.33 Obstructive sleep apnea (adult) (pediatric); J45.41 Moderate persistent asthma with (acute) exacerbation
CPT/HCPCS: 99214

== ENCOUNTER → 2023-09-02 16:02 | Outpatient (BNVA) | payer OTHER, SELFPAY | PROVIDERS: PCP Internal Medicine; Visit Provider Internal Medicine | DX: J45.41 Moderate persistent asthma with (acute) exacerbation (principal); J98.4 Other disorders of lung; E66.01 Morbid (severe) obesity due to excess calories; G47.33 Obstructive sleep apnea (adult) (pediatric); Z68.41 Body mass index [BMI] 40.0-44.9, adult; Z99.89 Dependence on other enabling machines and devices | CPT/HCPCS: 99212 ==

== ENCOUNTER 2023-09-22 09:23 | Outpatient (REF) | payer OTHER, SELFPAY | END 2023-09-22 09:24 | disposition home or self-care (01) | LOC: HO.MAMMO 09:23 | PROVIDERS: PCP Internal Medicine; Visit Provider Advanced Practice Midwife | DX: Z12.31 Encounter for screening mammogram for malignant neoplasm of breast (principal) | CPT/HCPCS: 77063; 77067 ==

== ENCOUNTER → 2023-09-22 09:45 | Outpatient (BNV) | payer OTHER, SELFPAY | PROVIDERS: PCP Internal Medicine; Visit Provider Radiology Diagnostic Radiology | DX: Z12.31 Encounter for screening mammogram for malignant neoplasm of breast (principal) | CPT/HCPCS: 77063; 77067 ==

== ENCOUNTER 2023-09-22 10:10 | Outpatient (REF) | payer OTHER, SELFPAY ==
[2023-09-23 07:17] LABS: Follicle Stimulating Hormone 49.9 mIU/mL
== END 2023-09-22 10:11 | disposition home or self-care (01) ==
LOC: HO.LAB 10:10
PROVIDERS: PCP Internal Medicine; Visit Provider Advanced Practice Midwife
DX: R23.2 Flushing (principal)
CPT/HCPCS: 36415; 83001

== ENCOUNTER 2023-10-24 08:21 | Outpatient (AMB) | payer OTHER, SELFPAY ==
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
[2023-10-24 08:24] VITALS: BP 104/70
== END 2023-10-24 09:24 | disposition home or self-care (01) ==
LOC: HO.HWS 08:21
PROVIDERS: PCP Internal Medicine; Visit Provider Advanced Practice Midwife
DX: Z71.2 Person consulting for explanation of examination or test findings (principal); R23.2 Flushing
CPT/HCPCS: 99213

== ENCOUNTER → 2023-10-24 08:21 | Outpatient (BNVA) | payer OTHER, SELFPAY | PROVIDERS: PCP Internal Medicine; Visit Provider Advanced Practice Midwife | DX: R23.2 Flushing (principal); R10.31 Right lower quadrant pain; E28.319 Asymptomatic premature menopause; Z71.2 Person consulting for explanation of examination or test findings | CPT/HCPCS: 99212 ==

== ENCOUNTER 2023-11-06 06:48 | Emergency (ER) | payer OTHER, SELFPAY ==
--- NOTE | ~2023-11-06 | US_ITS ---
EXAMINATION: US ABDOMEN LIMITED CLINICAL INFORMATION: Right upper quadrant pain. COMPARISON: CT abdomen and pelvis 02/26/2023 TECHNIQUE: Real-time imaging of the gallbladder and common bile duct. FINDINGS: GALLBLADDER: Layering gallstones are present in the gallbladder, similar to the CT from 02/26/2023. The gallbladder is physiologically distended without wall thickening or pericholecystic fluid. Parikh sign is positive. COMMON BILE DUCT: Normal in caliber measuring 0.5 cm in diameter. US/US abdomen limited IMPRESSION: Cholelithiasis with positive Parikh's sign. Electronically signed by: Roly Gilbert MD 11/06/2023 09:52 AM EDT
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
[2023-11-06 07:10] VITALS: BP 140/75; BP 152/64; PULSE 68; PULSE 69; RESP 16; TEMP 36.6; O2SAT 100; BMI 46.1
[2023-11-06 07:12] VITALS: BP 152/64; PULSE 68; RESP 16; TEMP 36.6; O2SAT 100
[2023-11-06 07:56] LABS: MANUAL DIFF FLAG NO
[2023-11-06 07:59] VITALS: RESP 16
[2023-11-06] MEDS: Morphine Sulfate 4 MG/ML CARTRIDGE IVPUSH (07:59)
[2023-11-06] MEDS: ondansetron HCL 4 MG/2 ML VIAL IVPUSH (08:00)
[2023-11-06 08:01] LABS: Basophils Percent Auto 0.6 % (0-2); Eosinophils Absolute Auto 0.2 X10*3/uL (0.0-0.4); Eosinophils Percent Auto 2.4 % (0-4); Hematocrit 44.5 % (37.0-47.0); Hemoglobin 14.5 g/dl (12.0-16.0); Imm Gran Abs Auto 0.04 X10*3/uL (0.00-0.03); Imm Gran Pct Auto 0.6 % (0.0-0.4); Lymphocytes Absolute Auto 1.9 X10*3/uL (1.2-4.9); Lymphocytes Percent Auto 27.2 % (20-40); Mean Corpuscular HGB Conc 32.6 g/dl (31.0-35.0); Mean Corpuscular Hemoglobin 30.3 pg (27.0-33.0); Mean Corpuscular Volume 92.9 fL (80.0-98.0); Mean Platelet Volume 10.7 fL (9.4-12.3); Monocytes Absolute Auto 0.6 X10*3/uL (0.1-1.2); Monocytes Percent Auto 8.6 % (2-11); Neutrophils Absolute Auto 4.3 x10*3/uL (2.0-8.3); Neutrophils Percent Auto 60.6 % (45-73); Platelet Count 286 X10*3/uL (160-400); Red Blood Count 4.79 X10*6/uL (4.20-5.50); Red Cell Distribution Width 14.9 % (11.0-16.0); White Blood Count 7.1 X10*3/uL (4.8-10.8)
[2023-11-06 08:04] LABS: Appearance Urine Clear; Color Urine Yellow; Glucose Urine UA Negative (Negative); Leukocyte Esterase Urine Moderate (2+) (Negative); Nitrite Urine Negative (Negative); Specific Gravity - Urine <= 1.005 (1.005-1.025); UMIC TRIGGER UACC YES; Urine Blood Negative (Negative); Urine Ketones Negative (Negative); Urine Protein Negative (Neg-Trace)
[2023-11-06 08:06] LABS: Bacteria Urine None Seen (None Seen); Hyaline Casts Urine 0-2 /LPF (0-2); RBC Urine 0-2 /HPF (0-2); Squamous Epithelial Cell Urine 0-2 /HPF (0-2); UACC Culture Trigger YES
--- NOTE | 2023-11-06 08:07 | PC.NURSE ---
Pt comes to ED today via EMS for c/o RLQ pain 10/17. VSS, A&Ox3, afebrile. Pt reports Hx diverticulitis and gallstones. 20g RAC and Pt medicate per MAR. Awaiting U/S and blood lab results.
[2023-11-06 08:12] LABS: Alanine Aminotransferase 23 U/L (0-31); Albumin Level 3.9 g/dL (3.5-5.0); Alkaline Phosphatase 121 U/L (39-117); Anion Gap 12 (12-20); Aspartate Amino Transferase 16 U/L (5-31); Bilirubin Direct 0.2 mg/dL (0.0-0.5); Bilirubin Total 0.6 mg/dL (0.0-1.0); Blood Urea Nitrogen 8 mg/dL (9-16); Calcium 10.9 mg/dL (8.4-10.2); Carbon Dioxide 28 mmol/L (22-29); Chloride 107 mmol/L (96-108); Estimated Glomerular Filt Rate > 60; Glucose Random 104 mg/dL (60-115); Lipase 28 U/L (8-78); Magnesium 2.1 mg/dL (1.6-2.6); Sodium 143 mmol/L (135-145); Total Protein 7.2 g/dL (6.5-8.0)
[2023-11-06 08:15] VITALS: BP 115/53; PULSE 64; RESP 20; TEMP 36.5; O2SAT 94
[2023-11-06 09:52] LABS: Glucose, Whole Blood 96 mg/dL (60-115)
[2023-11-06 11:06] VITALS: BP 136/62; PULSE 61; RESP 14; TEMP 36.6; O2SAT 99
== END 2023-11-06 11:09 | disposition home or self-care (01) ==
PROVIDERS: Emergency Provider Emergency Medicine; PCP Internal Medicine
DX: K80.20 Calculus of gallbladder without cholecystitis without obstruction (principal); R10.11 Right upper quadrant pain; E11.9 Type 2 diabetes mellitus without complications; R10.2 Pelvic and perineal pain; R30.0 Dysuria; Z79.899 Other long term (current) drug therapy; Z87.891 Personal history of nicotine dependence
CPT/HCPCS: 36415; 76705; 80048; 80076; 81001; 81003; 82947; 83690; 83735; 85025; 87086; 96374; 96375; 99284; J2270; J2405

== ENCOUNTER 2023-11-19 08:22 | Outpatient (AMB) | payer OTHER, SELFPAY ==
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
[2023-11-19 08:37] VITALS: BP 139/65; PULSE 74; BMI 52.9
== END 2023-11-19 08:52 | disposition home or self-care (01) ==
PROVIDERS: PCP Internal Medicine; Visit Provider Surgery
DX: K80.20 Calculus of gallbladder without cholecystitis without obstruction (principal)
CPT/HCPCS: 99204

== ENCOUNTER → 2023-11-19 08:22 | Outpatient (BNVA) | payer OTHER, SELFPAY | PROVIDERS: PCP Internal Medicine; Visit Provider Surgery | DX: K80.20 Calculus of gallbladder without cholecystitis without obstruction (principal) | CPT/HCPCS: 99202 ==

== ENCOUNTER 2023-11-28 09:24 | Outpatient (REF) | payer OTHER, SELFPAY ==
[2023-11-28 09:46] LABS: MANUAL DIFF FLAG NO
[2023-11-28 11:00] LABS: Basophils Absolute Auto 0.1 X10*3/uL (0.0-0.2); Basophils Percent Auto 0.7 % (0-2); Eosinophils Absolute Auto 0.2 X10*3/uL (0.0-0.4); Eosinophils Percent Auto 2.7 % (0-4); Hematocrit 44.7 % (37.0-47.0); Hemoglobin 14.5 g/dl (12.0-16.0); Imm Gran Abs Auto 0.02 X10*3/uL (0.00-0.03); Imm Gran Pct Auto 0.3 % (0.0-0.4); Lymphocytes Absolute Auto 1.9 X10*3/uL (1.2-4.9); Lymphocytes Percent Auto 25.1 % (20-40); Mean Corpuscular HGB Conc 32.4 g/dl (31.0-35.0); Mean Corpuscular Hemoglobin 30.6 pg (27.0-33.0); Mean Corpuscular Volume 94.3 fL (80.0-98.0); Mean Platelet Volume 11.8 fL (9.4-12.3); Monocytes Absolute Auto 0.6 X10*3/uL (0.1-1.2); Monocytes Percent Auto 8.2 % (2-11); Neutrophils Absolute Auto 4.8 x10*3/uL (2.0-8.3); Platelet Count 282 X10*3/uL (160-400); Red Blood Count 4.74 X10*6/uL (4.20-5.50); Red Cell Distribution Width 15.2 % (11.0-16.0); White Blood Count 7.7 X10*3/uL (4.8-10.8)
[2023-11-28 11:08] LABS: Estimated Average Glucose 117 mg/dL; Hemoglobin A1c % 5.7 % (<6.0)
[2023-11-28 11:35] LABS: Appearance Urine Clear; Color Urine Dark Yellow; Glucose Urine UA Negative (Negative); Leukocyte Esterase Urine Moderate (2+) (Negative); Nitrite Urine Negative (Negative); PH 5.5 (5.0-9.0); UMIC TRIGGER UACC YES; Urine Blood Negative (Negative); Urine Ketones Trace mg/dL (Negative); Urine Protein Negative (Neg-Trace)
[2023-11-28 11:41] LABS: Bacteria Urine Trace (None Seen); Hyaline Casts Urine 0-2 /LPF (0-2); RBC Urine 0-2 /HPF (0-2); UACC Culture Trigger YES; WBC Urine 21-50 /HPF (0-5)
[2023-11-28 11:54] LABS: Alanine Aminotransferase 24 U/L (0-31); Alkaline Phosphatase 126 U/L (39-117); Anion Gap 14 (12-20); Aspartate Amino Transferase 17 U/L (5-31); Bilirubin Total 0.5 mg/dL (0.0-1.0); Blood Urea Nitrogen 8 mg/dL (9-16); Calcium 10.6 mg/dL (8.4-10.2); Carbon Dioxide 30 mmol/L (22-29); Chloride 105 mmol/L (96-108); Cholesterol 141 mg/dL (<200); Estimated Glomerular Filt Rate > 60; Glucose Fasting 97 mg/dL (60-99); HDL Cholesterol 43 mg/dL (>40); LDL Cholesterol Calculated 79 mg/dL (<100); Potassium 4.3 mmol/L (3.3-5.1); Sodium 145 mmol/L (135-145); Total Protein 7.3 g/dL (6.5-8.0); Triglycerides 95 mg/dL (<150)
[2023-11-28 12:04] LABS: TSH reflex Free T4 2.38 uIU/mL (0.32-4.0); Vitamin D 25-OH Total 64.2 ng/mL (>30)
[2023-11-28 12:21] LABS: Creatinine Urine 168.67 mg/dL; Microalbum/Creatinine Ratio Ur 7.1 ug/mg cr (<30)
[2023-11-28 12:28] LABS: Folate 9.7 ng/mL (> or = 4.0); Vitamin B12 804 pg/mL (200-900)
== END 2023-11-28 09:25 | disposition home or self-care (01) ==
LOC: HO.LAB 09:24
PROVIDERS: PCP Internal Medicine; Visit Provider Internal Medicine
DX: D64.9 Anemia, unspecified (principal); E55.9 Vitamin D deficiency, unspecified; E11.9 Type 2 diabetes mellitus without complications; E78.00 Pure hypercholesterolemia, unspecified; E53.8 Deficiency of other specified B group vitamins; R30.0 Dysuria
CPT/HCPCS: 36415; 80053; 80061; 81001; 81003; 82043; 82306; 82570; 82607; 82746; 83036; 84443; 85025; 87086

== ENCOUNTER 2023-12-02 14:47 | Outpatient (AMB) | payer OTHER, SELFPAY ==
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
[2023-12-02 15:06] VITALS: BP 138/86; BMI 51.9
== END 2023-12-02 16:01 | disposition home or self-care (01) ==
PROVIDERS: PCP Internal Medicine; Visit Provider Internal Medicine
DX: K80.20 Calculus of gallbladder without cholecystitis without obstruction (principal); I10 Essential (primary) hypertension; E78.00 Pure hypercholesterolemia, unspecified; E11.9 Type 2 diabetes mellitus without complications; R00.2 Palpitations; E21.3 Hyperparathyroidism, unspecified; J45.41 Moderate persistent asthma with (acute) exacerbation; G43.109 Migraine with aura, not intractable, without status migrainosus; M79.7 Fibromyalgia; M25.50 Pain in unspecified joint; M79.641 Pain in right hand; M51.36 Other intervertebral disc degeneration, lumbar region; K21.9 Gastro-esophageal reflux disease without esophagitis; I83.813 Varicose veins of bilateral lower extremities with pain; E53.8 Deficiency of other specified B group vitamins; E55.9 Vitamin D deficiency, unspecified; L40.9 Psoriasis, unspecified; R30.0 Dysuria; F41.9 Anxiety disorder, unspecified; F31.60 Bipolar disorder, current episode mixed, unspecified

== ENCOUNTER → 2023-12-02 14:47 | Outpatient (BNVA) | payer OTHER, SELFPAY | PROVIDERS: PCP Internal Medicine; Visit Provider Internal Medicine | DX: K80.20 Calculus of gallbladder without cholecystitis without obstruction (principal); I10 Essential (primary) hypertension; E78.00 Pure hypercholesterolemia, unspecified; E11.9 Type 2 diabetes mellitus without complications; M17.0 Bilateral primary osteoarthritis of knee; R00.2 Palpitations; J45.41 Moderate persistent asthma with (acute) exacerbation; G43.109 Migraine with aura, not intractable, without status migrainosus; M79.7 Fibromyalgia; K21.9 Gastro-esophageal reflux disease without esophagitis; E55.9 Vitamin D deficiency, unspecified; R30.0 Dysuria; F41.9 Anxiety disorder, unspecified; E66.01 Morbid (severe) obesity due to excess calories; Z68.43 Body mass index [BMI] 50.0-59.9, adult | CPT/HCPCS: 99212 ==

== ENCOUNTER 2023-12-05 13:29 | Outpatient (REF) | payer OTHER, SELFPAY ==
--- NOTE | ~2023-12-05 | XR_ITS ---
EXAMINATION: XR HAND, RIGHT CLINICAL INFORMATION: Pain in right hand COMPARISON: None available. TECHNIQUE: PA, lateral, and oblique views of the right hand. FINDINGS: The bones and soft tissues are normal. No fracture. Alignment is anatomic. Joint spaces are maintained. No erosions or soft tissue calcifications. XR/XR hand RT min 3V IMPRESSION: Normal right hand. Electronically signed by: Edward Negro MD 12/06/2023 11:38 AM EDT
== END 2023-12-05 13:30 | disposition home or self-care (01) ==
LOC: HO.XRAY 13:29
PROVIDERS: PCP Internal Medicine; Visit Provider Internal Medicine
DX: M79.641 Pain in right hand (principal)
CPT/HCPCS: 73130

== ENCOUNTER 2023-12-12 08:40 | Day surgery (SDC) | payer OTHER, SELFPAY ==
[2023-12-02 13:52] VITALS: BMI 43.6
[2023-12-02 13:58] VITALS: BP 171/87; PULSE 77; RESP 20; O2SAT 100
--- NOTE | 2023-12-11 11:05 | MHC.SHP ---
Pre-Procedural Eval Section A - 24 Hr Update-Section A only Date of Service: 12/12/23 The patient is an INPATIENT: No Changes since office visit: No Cold of Flu in the past 2 weeks, No New Medical Problems, No Changes in Medication and No Patient answered all questions Section B - Complete if H&P > 30 days Chief Complaint: Calculus of gallbladder without cholecystitis with Allergies: Allergies Allergy/AdvReac Type Severity Reaction Status Date / Time Gadolinium-Containing Allergy Severe ANAPHYLAXIS Verified 12/02/23 15:42 Contrast Medi [GADOLINIUM-CONTAINING CONTRAST] Iodinated Contrast Media Allergy Severe ANAPHYLAXIS Verified 12/02/23 15:42 [IV Dye, Iodine Containing] aspirin [Aspirin] Allergy Mild ITCH Verified 12/02/23 15:42 ibuprofen [Ibuprofen] Allergy Mild NAUSEA Verified 12/02/23 15:42 oxycodone [From Percocet] Allergy Mild RASH Verified 12/02/23 15:42 Penicillins Allergy Mild ITCH Verified 12/02/23 15:42 Sulfa (Sulfonamide Allergy Mild ITCH Verified 12/02/23 15:42 Antibiotics) penicillin V Allergy Unknown Itch Verified 12/02/23 15:42 seafood Allergy Unknown Unknown Verified 12/02/23 15:42 iodine Allergy Redness of Verified 12/02/23 15:42 Skin LIQUID SOAPS Allergy Intermediate ITCHING Uncoded 12/02/23 15:42 AND REDNESS CHIHUAHUA Allergy Mild RASH Uncoded 12/02/23 15:42 ITCHING Review of Systems Sugical H&P ROS: Negative: Constitution, Cardiovascular, Respiratory, Neurological, Psychiatric, Hem-Onc, Allergic/Immunologic, Gastrointestinal, Genitourinary, Musculoskeletal, Integumentary, Endocrine and Eyes/Ears/Nose/Throat Exam Surgical H&P Exam: Normal: HEENT, Normal: Heart, Normal: Lungs, Normal: Extremities, Normal: Abdomen, Normal: Skin and Normal: Neurological Plan I have reviewed the history and physical and performed a pertinent physical examination on my patient. No changes have occurred unless specified. Time Spent With Patient Time: Total time managing care of this patient today ____ minutes.
[2023-12-12] VITALS (11 sets, daily range): BP systolic 128–150; BP diastolic 65–88; PULSE 77–93; RESP 16–18; TEMP 36.4–36.7; O2SAT 93–100
[2023-12-12 09:49] LABS: Glucose, Whole Blood 92 mg/dL (60-115)
[2023-12-12] MEDS: Lactated Ringers 1,000 ML 100 ML IVCONT (09:49)
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
--- NOTE | 2023-12-12 12:38 | W.PM.OPN ---
Operative Note Operative Note Date of Service: 12/12/23 Narrative: Preoperative diagnosis: [] Symptomatic gallbladder Postop diagnosis: [] The same Procedure [] laparoscopic cholecystectomy Surgeon: [] [facility] Clinical Nurse Specialist: [] Jorge Alberto Type of Anesthesia: [] General Indication for surgery: [] Very corpulent abdomen. Omental adhesions to the gallbladder. Gallbladder with multiple small gallstones. Findings: [] Patient was brought to the operating room, placed on operative table in supine position, after an adequate level of general anesthesia was induced, the very corpulent abdomen was prepped and draped in usual sterile fashion. Using a supraumbilical curvilinear incision, Moran technique was used to insufflate abdominal cavity to 15 mm of CO2. Upper midline and right subcostal ports were placed under direct laparoscopic view, the patient placed in reverse Trendelenburg position, and tilted to the left. Findings were as noted above. Gallbladder was grasped using laparoscopic graspers and the omental adhesions were swept off it. Common bile duct was identified and preserved throughout the procedure. Cystic artery and cystic duct were each identified, circumferentially skeletonized, traced directly into the gallbladder, and critical view obtained. Each was clipped proximally x2, distally x1, and transected. Gallbladder which was moderately intrahepatic was then cauterized from the gallbladder fossa using Bovie. Specimen was placed in an Endo-Catch bag and retrieved through the umbilical port. Abdominal cavity was copiously irrigated, and secured hemostasis. All ports were removed under direct laparoscopic view. Wounds were closed in the following manner; umbilical wound is fascia reapproximated using interrupted 0 Vicryl sutures. Skin wounds were closed using subcuticular 4-0 Vicryl sutures followed by Steri-Strips and sterile dressings. Wounds were infiltrated 0.5% Marcaine at completion. Sponge, needle, and instrument counts reported correct. Patient tolerated the procedure well and emerged from anesthesia stable condition. EBL minimal
[2023-12-12] MEDS: fentaNYL citrate/PF 100 MCG/2 ML VIAL 50 MCG IVPUSH ×2 (12:53→13:17)
[2023-12-12] MEDS: Acetaminophen 325 MG TABLET 650 MG PO (13:21)
[2023-12-12] MEDS: Haloperidol Lactate 5 MG/ML VIAL 1 MG IVPUSH (13:57)
== END 2023-12-12 14:40 | disposition home or self-care (01) ==
PROVIDERS: PCP Internal Medicine; Visit Provider Surgery
PROC: 0FT44ZZ Resection of Gallbladder, Percutaneous Endoscopic Approach (ICD-10-PCS; CPT 47562; principal; 2023-12-12 11:40)
DX: K80.10 Calculus of gallbladder with chronic cholecystitis without obstruction (principal); K82.8 Other specified diseases of gallbladder; R59.9 Enlarged lymph nodes, unspecified; E65 Localized adiposity; Q44.1 Other congenital malformations of gallbladder; E66.01 Morbid (severe) obesity due to excess calories; Z68.43 Body mass index [BMI] 50.0-59.9, adult; K21.9 Gastro-esophageal reflux disease without esophagitis; K76.0 Fatty (change of) liver, not elsewhere classified; I10 Essential (primary) hypertension; E78.00 Pure hypercholesterolemia, unspecified; E11.9 Type 2 diabetes mellitus without complications; J20.9 Acute bronchitis, unspecified; J98.4 Other disorders of lung; Z87.891 Personal history of nicotine dependence; G47.33 Obstructive sleep apnea (adult) (pediatric); F41.8 Other specified anxiety disorders; R44.3 Hallucinations, unspecified; Z79.51 Long term (current) use of inhaled steroids; Z79.84 Long term (current) use of oral hypoglycemic drugs; Z79.899 Other long term (current) drug therapy; Z88.0 Allergy status to penicillin; Z88.2 Allergy status to sulfonamides; Z88.5 Allergy status to narcotic agent; Z88.6 Allergy status to analgesic agent; Z91.041 Radiographic dye allergy status
CPT/HCPCS: 47562; 82947; 88304; J0131; J0736; J1100; J1630; J2003; J2250; J2405; J2704; J2795; J3010

== ENCOUNTER → 2023-12-12 08:40 | Outpatient (BNV) | payer OTHER, SELFPAY | PROVIDERS: PCP Internal Medicine; Visit Provider Surgery | DX: K80.20 Calculus of gallbladder without cholecystitis without obstruction (principal) | CPT/HCPCS: 47562 ==

== ENCOUNTER 2023-12-23 10:10 | Outpatient (AMB) | payer OTHER, SELFPAY ==
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
== END 2023-12-23 11:01 | disposition home or self-care (01) ==
PROVIDERS: PCP Internal Medicine; Visit Provider Surgery
DX: Z90.49 Acquired absence of other specified parts of digestive tract (principal)
CPT/HCPCS: 99024

== ENCOUNTER → 2023-12-23 10:10 | Outpatient (BNVA) | payer OTHER, SELFPAY | PROVIDERS: PCP Internal Medicine; Visit Provider Surgery | DX: Z90.49 Acquired absence of other specified parts of digestive tract (principal) | CPT/HCPCS: 99212 ==

== ENCOUNTER 2024-01-01 15:20 | Outpatient (AMB) | payer OTHER, SELFPAY ==
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
[2024-01-01 15:34] VITALS: BP 118/64; PULSE 87; O2SAT 97; BMI 43.3
== END 2024-01-01 16:08 | disposition home or self-care (01) ==
PROVIDERS: PCP Internal Medicine; Visit Provider Internal Medicine
DX: E66.01 Morbid (severe) obesity due to excess calories (principal); Z68.43 Body mass index [BMI] 50.0-59.9, adult; G47.33 Obstructive sleep apnea (adult) (pediatric); J45.41 Moderate persistent asthma with (acute) exacerbation
CPT/HCPCS: 99213

== ENCOUNTER → 2024-01-01 15:20 | Outpatient (BNVA) | payer OTHER, SELFPAY | PROVIDERS: PCP Internal Medicine; Visit Provider Internal Medicine | DX: G47.33 Obstructive sleep apnea (adult) (pediatric) (principal); R06.02 Shortness of breath; E66.01 Morbid (severe) obesity due to excess calories; J45.41 Moderate persistent asthma with (acute) exacerbation; Z68.43 Body mass index [BMI] 50.0-59.9, adult; Z99.89 Dependence on other enabling machines and devices | CPT/HCPCS: 99212 ==

== ENCOUNTER 2024-02-08 22:20 | Emergency (ER) | payer OTHER, SELFPAY ==
--- NOTE | ~2024-02-08 | CT_ITS ---
EXAMINATION: CT ABDOMEN AND PELVIS WITHOUT CONTRAST CLINICAL INFORMATION: Epigastric pain. COMPARISON: February 26, 2023. TECHNIQUE: Multidetector volumetric imaging was performed from the superior aspect of the liver through the pubic symphysis. Sagittal and coronal reformatted images were obtained on the technologist's workstation. This CT examination was performed using dose optimization techniques as appropriate, variously including the following: *Automated exposure control *Adjustment of mA and/or kV according to patient size (this includes techniques or standardized protocols for targeted exams where dose is matched to indication/reason for exam; i.e. extremities or head) *Use of iterative reconstruction technique DLP: 1024 mGy-cm FINDINGS: LUNG BASES: There is scarring and/or subsegmental atelectasis at the lung bases. LIVER, GALLBLADDER, AND BILIARY TREE: The liver is normal in size, shape, and attenuation. No focal hepatic lesion or biliary ductal dilatation is present. There has been a prior cholecystectomy. PANCREAS: Unremarkable. SPLEEN: Unremarkable. ADRENAL GLANDS: Unremarkable. KIDNEYS AND URETERS: The kidneys are normal in size, shape, and attenuation. No hydronephrosis, hydroureter, or calculi seen. No perinephric stranding. BLADDER: Unremarkable. GASTROINTESTINAL TRACT: There are a few diverticula of the sigmoid colon without diverticulitis. The appendix is unremarkable. ABDOMINAL WALL: No significant hernia is appreciated. LYMPH NODES: Normal. VASCULAR: Unremarkable. PELVIC VISCERA: Unremarkable. OSSEOUS STRUCTURES: There is thoracolumbar degenerative changes most significant at L4-5 and L5-S1 CT/CT abdomen pelvis wo IV con IMPRESSION: There are a few diverticula of the sigmoid colon without diverticulitis. No acute intra-abdominal process. Fleischner guidelines were followed. Electronically signed by: Richar Stock MD 02/09/2024 03:08 AM [facility] [place]
[2024-02-08 22:30] VITALS: BP 140/82; BP 142/78; PULSE 101; PULSE 82; RESP 18; TEMP 36.7; O2SAT 100; O2SAT 98; BMI 45.0
[2024-02-08 23:05] LABS: MANUAL DIFF FLAG NO
[2024-02-08 23:07] LABS: Basophils Absolute Auto 0.1 X10*3/uL (0.0-0.2); Basophils Percent Auto 0.5 % (0-2); Eosinophils Absolute Auto 0.2 X10*3/uL (0.0-0.4); Eosinophils Percent Auto 1.6 % (0-4); Hematocrit 42.4 % (37.0-47.0); Hemoglobin 14.2 g/dl (12.0-16.0); Imm Gran Abs Auto 0.03 X10*3/uL (0.00-0.03); Imm Gran Pct Auto 0.3 % (0.0-0.4); Lymphocytes Absolute Auto 1.7 X10*3/uL (1.2-4.9); Lymphocytes Percent Auto 16.6 % (20-40); Mean Corpuscular HGB Conc 33.5 g/dl (31.0-35.0); Mean Corpuscular Hemoglobin 30.7 pg (27.0-33.0); Mean Corpuscular Volume 91.8 fL (80.0-98.0); Mean Platelet Volume 10.5 fL (9.4-12.3); Monocytes Absolute Auto 0.7 X10*3/uL (0.1-1.2); Neutrophils Absolute Auto 7.6 x10*3/uL (2.0-8.3); Platelet Count 289 X10*3/uL (160-400); Red Blood Count 4.62 X10*6/uL (4.20-5.50); Red Cell Distribution Width 14.9 % (11.0-16.0); White Blood Count 10.2 X10*3/uL (4.8-10.8)
[2024-02-08 23:42] LABS: Alanine Aminotransferase 29 U/L (0-31); Albumin Level 3.8 g/dL (3.5-5.0); Alkaline Phosphatase 129 U/L (39-117); Anion Gap 10 (12-20); Aspartate Amino Transferase 23 U/L (5-31); Bilirubin Total 0.6 mg/dL (0.0-1.0); Blood Urea Nitrogen 10 mg/dL (9-16); Calcium 10.4 mg/dL (8.4-10.2); Carbon Dioxide 27 mmol/L (22-29); Chloride 108 mmol/L (96-108); Creatinine Clr Calc Pharmacy 101.7; Estimated Glomerular Filt Rate > 60; Glucose Random 101 mg/dL (60-115); Lipase 29 U/L (8-78); Potassium 4.2 mmol/L (3.3-5.1); Sodium 141 mmol/L (135-145); Total Protein 6.9 g/dL (6.5-8.0)
[2024-02-08 23:57] LABS: Appearance Urine Clear; Color Urine Yellow; Glucose Urine UA Negative (Negative); Leukocyte Esterase Urine Moderate (2+) (Negative); Nitrite Urine Negative (Negative); UMIC TRIGGER UACC YES; Urine Blood Negative (Negative); Urine Ketones Negative (Negative); Urine Protein Negative (Neg-Trace)
[2024-02-09 00:06] LABS: Bacteria Urine None Seen (None Seen); Hyaline Casts Urine 0-2 /LPF (0-2); RBC Urine 0-2 /HPF (0-2); UACC Culture Trigger YES
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
[2024-02-09 01:14] VITALS: RESP 16
[2024-02-09] MEDS: Prochlorperazine Edisylate 10 MG/2 ML VIAL IVPUSH (01:14)
[2024-02-09] MEDS: Morphine Sulfate 4 MG/ML CARTRIDGE IVPUSH (01:14)
[2024-02-09] MEDS: Famotidine/PF 20 MG/2 ML VIAL IVPUSH (01:15)
[2024-02-09] MEDS: 0.9 % Sodium Chloride 1,000 ML 999 ML IVCONT (01:21)
[2024-02-09 03:41] VITALS: BP 133/80; PULSE 83; RESP 16; TEMP 36.7; O2SAT 98
== END 2024-02-09 03:42 | disposition home or self-care (01) ==
PROVIDERS: Emergency Provider Emergency Medicine; PCP Internal Medicine
DX: R10.9 Unspecified abdominal pain (principal); R10.13 Epigastric pain; R10.11 Right upper quadrant pain; R10.2 Pelvic and perineal pain; R11.0 Nausea; Z79.899 Other long term (current) drug therapy; Z87.891 Personal history of nicotine dependence
CPT/HCPCS: 36415; 74176; 80053; 81001; 83690; 85025; 87086; 96361; 96374; 96375; 99284; 99285; J0737; J2270

== ENCOUNTER 2024-02-11 08:23 | Outpatient (AMB) | payer OTHER, SELFPAY ==
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
== END 2024-02-11 09:30 | disposition home or self-care (01) ==
PROVIDERS: PCP Internal Medicine; Visit Provider Surgery
DX: K52.9 Noninfective gastroenteritis and colitis, unspecified (principal)
CPT/HCPCS: 99024

== ENCOUNTER → 2024-02-11 08:23 | Outpatient (BNVA) | payer OTHER, SELFPAY | PROVIDERS: PCP Internal Medicine; Visit Provider Surgery | DX: K52.9 Noninfective gastroenteritis and colitis, unspecified (principal) | CPT/HCPCS: 99212 ==

== ENCOUNTER 2024-03-25 11:24 | Outpatient (AMB) | payer OTHER, SELFPAY ==
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
== END 2024-03-25 11:53 | disposition home or self-care (01) ==
PROVIDERS: PCP Internal Medicine; Visit Provider Surgery Vascular Surgery
DX: I83.12 Varicose veins of left lower extremity with inflammation (principal)
CPT/HCPCS: 99214

== ENCOUNTER 2024-03-25 12:09 | Outpatient (REF) | payer OTHER, SELFPAY ==
[2024-03-25 12:41] LABS: MANUAL DIFF FLAG NO
[2024-03-25 13:17] LABS: Basophils Percent Auto 0.5 % (0-2); Eosinophils Absolute Auto 0.2 X10*3/uL (0.0-0.4); Eosinophils Percent Auto 2.6 % (0-4); Hematocrit 42.5 % (37.0-47.0); Hemoglobin 13.7 g/dl (12.0-16.0); Imm Gran Abs Auto 0.03 X10*3/uL (0.00-0.03); Imm Gran Pct Auto 0.4 % (0.0-0.4); Lymphocytes Absolute Auto 1.7 X10*3/uL (1.2-4.9); Mean Corpuscular HGB Conc 32.2 g/dl (31.0-35.0); Mean Corpuscular Hemoglobin 30.3 pg (27.0-33.0); Mean Platelet Volume 11.1 fL (9.4-12.3); Monocytes Absolute Auto 0.7 X10*3/uL (0.1-1.2); Monocytes Percent Auto 8.7 % (2-11); Neutrophils Absolute Auto 5.4 x10*3/uL (2.0-8.3); Neutrophils Percent Auto 66.8 % (45-73); Platelet Count 280 X10*3/uL (160-400); Red Blood Count 4.52 X10*6/uL (4.20-5.50); Red Cell Distribution Width 14.7 % (11.0-16.0); White Blood Count 8.1 X10*3/uL (4.8-10.8)
[2024-03-25 13:24] LABS: Estimated Average Glucose 117 mg/dL; Hemoglobin A1C 139.0113 umol/L; Hemoglobin A1c % 5.7 % (<6.0)
[2024-03-25 13:49] LABS: Alanine Aminotransferase 25 U/L (0-31); Albumin Level 3.6 g/dL (3.5-5.0); Alkaline Phosphatase 128 U/L (39-117); Anion Gap 8 (12-20); Aspartate Amino Transferase 18 U/L (5-31); Bilirubin Total 0.5 mg/dL (0.0-1.0); Blood Urea Nitrogen 10 mg/dL (9-16); Calcium 10.1 mg/dL (8.4-10.2); Carbon Dioxide 30 mmol/L (22-29); Chloride 109 mmol/L (96-108); Cholesterol 139 mg/dL (<200); Estimated Glomerular Filt Rate > 60; Glucose Fasting 99 mg/dL (60-99); HDL Cholesterol 45 mg/dL (>40); LDL Cholesterol Calculated 79 mg/dL (<100); Potassium 4.2 mmol/L (3.3-5.1); Sodium 143 mmol/L (135-145); Triglycerides 78 mg/dL (<150)
[2024-03-25 13:56] LABS: Creatinine Urine 41.12 mg/dL; Microalbumin Urine < 5.0 mg/L
[2024-03-25 13:59] LABS: TSH reflex Free T4 1.56 uIU/mL (0.32-4.0); Vitamin D 25-OH Total 56.4 ng/mL (>30)
[2024-03-25 14:02] LABS: Erythrocyte Sedimentation Rate 16 MM/HR (0-20)
[2024-03-25 14:15] LABS: Folate 8.4 ng/mL (> or = 4.0); Vitamin B12 528 pg/mL (200-900)
[2024-03-25 14:34] LABS: Appearance Urine Clear; Color Urine Yellow; Glucose Urine UA Negative (Negative); Leukocyte Esterase Urine Small (1+) (Negative); Nitrite Urine Negative (Negative); UMIC TRIGGER UACC YES; Urine Blood Negative (Negative); Urine Ketones Negative (Negative); Urine Protein Negative (Neg-Trace)
[2024-03-25 14:45] LABS: Bacteria Urine None Seen (None Seen); Hyaline Casts Urine 0-2 /LPF (0-2); RBC Urine 0-2 /HPF (0-2); Squamous Epithelial Cell Urine 0-2 /HPF (0-2); UACC Culture Trigger YES; WBC Urine 0-5 /HPF (0-5)
== END 2024-03-25 12:10 | disposition home or self-care (01) ==
LOC: HO.LAB 12:09
PROVIDERS: PCP Internal Medicine; Visit Provider Internal Medicine
DX: D64.9 Anemia, unspecified (principal); E11.9 Type 2 diabetes mellitus without complications; E78.00 Pure hypercholesterolemia, unspecified; E55.9 Vitamin D deficiency, unspecified; E53.8 Deficiency of other specified B group vitamins; M79.7 Fibromyalgia; I83.12 Varicose veins of left lower extremity with inflammation; R30.0 Dysuria
CPT/HCPCS: 36415; 80053; 80061; 81001; 81003; 82306; 82570; 82607; 82746; 83036; 84443; 85025; 85652; 87086; 99212

== ENCOUNTER 2024-04-06 12:21 | Outpatient (AMB) | payer OTHER, SELFPAY ==
[2024-04-06 12:33] VITALS: BP 132/80; PULSE 74; O2SAT 98; BMI 43.8
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
--- OUTSIDE RECORDS SUMMARY | 2024-04-06 13:16 | XMS_ITS ---
Author Organization [facility] Address [address] [place] [id number] Care Team Providers Care Prop Maker Name Role Phone Ramírez KNOX, Groom Primary Care Provider Unava Anirudh Branch Unavailable [phone] REASON FOR VISIT bowel prep Encounters Encounter Location Date Provider Diagnosis [facility] [address] [place] [id number] 04/02/2024 Anirudh Lino PLAN OF TREATMENT Next Appt Details Provider Name:Anirudh Lino , 07/07/2024 09:30:00 AM, [address] [facility] , [place], [place], [phone],
--- OUTSIDE RECORDS SUMMARY | 2024-04-06 13:16 | XMS_ITS | Patient Health Record ---
Author Organization [facility] Address [address] [place] [address] Care Team Providers Care Event Organizer Name Role Phone Ramírez KNOX [place] Primary Care Provider Anirudh Arteaga Unavailable [phone] ALLERGIES Allergen (clinical drug ingredient) Drug/Non Drug Allergy documented on EMR Reaction Allergy Type Onset Date Status Iodine Unknown Drug Allergy Active aspirin Aspirin Unknown Drug Allergy Active acetaminophen / oxycodone Percocet Unknown Drug Allergy Active mri contrast (uncoded) Unknown Allergy Active seafoood (uncoded) Unknown Allergy A ctive Penicillin Unknown Drug Allergy Active morphine Morphine Unknown Drug Allergy Active ibuprofen Ibuprofen Unknown Drug Allergy Active Substance with sulfonamide structure and antibacterial mechanism of action (substance) Sulfa Antibiotics Unknown Drug Allergy Active REASON FOR REFERRAL No Information MEDICATIONS Medication SIG (Take, Route, Frequency, Duration) Notes Start Date End Date Status Senna-Time 8.6 MG Oral for 30 Active Cetirizine HCl 10 MG TAKE 1 TABLET BY MO UTH EVERY DAY NEEDED FOR ALLERGIES Oral for 90 Active Cyanocobalamin 1000 MCG/ML Injection for 84 Active Vitamin B-12 100 MCG TAKE 1 TABLET BY MO UTH EVERY DAY Oral for 90 Active Topiramate 25 MG Oral for 90 A ctive Ondansetron HCl 4 MG Oral for 10 Active Sucralfate 1 GM Oral for 30 No t-Taking Loratadine 10 MG Oral for 90 A ctive Vitamin D3 125 MCG (5000 UT) Oral for 90 Active Albuterol Sulfate HFA 108 (90 Base) MCG/ACT INHALE 2 PUFFS EVERY 6 HOURS NEEDED Inhalation for 30 Active Simvastatin 20 MG Oral for 90 Active ARIPiprazole 2 MG Oral for 90 Active CVS D3 125 MCG (5000 UT) Oral for 90 Active Dulcolax (colon prep) 5 MG take at 3:00 p.m and 7:00p.m. Orally two tablets twice a day for one day for 1 day 06/05/2022 Active Omeprazole 40 MG TAKE 1 TABLET ORALLY EVERY MORNING 30 DAYS for 90 Active Fluticasone Propionate 50 MCG/ACT SPRAY 2 SPRAYS INTO EACH NOSTRIL EVERY DAY FOR 2 WEEKS Nasal for 90 Active MiraLax (colon prep) 17 GM/SCOOP 1 238 Gm bottle mixed with Gatorade or Crystal Light Orally begin at 5:00 p.m. the day before the procedure for 1 day 06/05/2022 Active QUEtiapine Fumarate 100 MG TAKE 1 TABLET BY MOUTH AT BEDTIME Oral for 30 Active Wixela Inhub 250-50 MCG/ACT Inhalation for 30 Active Citalopram Hydrobromide 10 MG TAKE 1 TABLET BY MOUTH EVERY DAY Oral for 30 Active EPINEPHrine 0.3 MG/0.3ML Injection for 2 Active Loperamide HCl 2 MG Oral for 3 Active Docusate Sodium 100 MG TAKE 1 CAPSULE BY MOUTH EVERY DAY AT BEDTIME Oral for 30 Active metFORMIN HCl ER 500 MG Oral for 90 Active SUMAtriptan Succinate 100 MG TAKE 1 TABLET BY MOUTH EVERY DAY NEEDED FOR HEADACHE Oral for 30 Active amLODIPine Besy-Benazepril HCl 2.5-10 MG as directed Orally Active MiraLax (colon prep) 17 GM/SCOOP 1 238 Gm bottle mixed with Gatorade or Crystal Light Orally begin at 5:00 p.m. the day before the procedure for 1 day 08/30/2021 Active Ondansetron 4 MG 1 tablet on the tong ue and allow to dissolve Orally Every 6 hours as needed for nausea for 30 day(s) 04/02/2024 Active Dulcolax (colon prep) 5 MG take at 3:00 p.m and 7:00p.m. Orally two tablets twice a day for one day for 1 day 08/30/2021 Active IMMUNIZATIONS Vaccine Route Administration Date Status Comme nts Influenza Unknown 11/08/2020 Administered Influenza Unknown 04/02/2024 Refused SOCIAL HISTORY Tobacco Use: Social History Observation Description Date Details (start date - stop date) Never Smoker NA - NA Sex Assigned At : Social History Observation Description Sex Assigned At Unknown Tobacco Use/Smoking Question Answer Notes Patient is a nonsmoker Alcohol Screen Question Answer Notes Did you have a drink containing alcohol in the p ast year? No Points 0 Interpretation Negative PROBLEMS Problem Type ICD Code Onset Dates Problem Status W/U Status Risk SNOMED Code Notes Problem Hemorrhage of anus and rectum (K62.5) Active confirmed Hemorrhag e of rectum and anus (087421373) Problem GERD (gastroesophageal reflux disease) (K21.9) Active confirmed Gastroesophagea l reflux disease (239081593) Problem Irritable bowel syndrome with both constipation and diarrhea (K58.0) Active confirmed Irritable b owel syndrome (11894176) Problem Rectal bleed (K62.5) Active confirmed Hemorrhage of rectum and anus (770064123) Problem Diverticulosis of colon (K57.30) Active confirmed Diverticulosi s of colon (320092129) Problem Gastric polyp (K31.7) Active confirmed Gastric polyp (84382020) Problem Gastroesophageal reflux (K21.9) Active confirmed Esophageal re flux finding (531811886) Problem History of adenomatous polyp of colon (Z86.010) Active confirmed 342403048 Problem 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) Active confirmed 535097676 Problem Colon cancer screening (Z12.11) Active confirmed 275743791 Problem Family history of colon cancer (Z80.0) Active confirmed 586541852 Problem Nausea (R11.0) Active confirmed Nausea (552254433) Problem Constipation (K59.00) Active confirmed Constipation (85151171) VITAL SIGNS Temperature 97.7 degrees Fahrenheit 04/02/2024 Blood pressure diastolic 00 mm Hg 04/02/2024 Height 66 in 04/02/2024 Blood pressure systolic 000 mm Hg 04/02/2024 Weight 267 lbs 04/02/2024 BMI 43.09 kg/m2 04/02/2024 Encounters Encounter Location Date Provider Diagnosis [facility] [address] [place] [phone] 02/18/2024 Anirudh Lino [facility] [address] [place] [phone] 04/02/2024 Anirudh Lino GERD (gastroesophage al reflux disease) K21.9 ; Rectal bleed K62.5 ; History of adenomatous polyp of colon Z86.010 ; Colon cancer screening Z12.11 ; Family history of colon cancer Z80.0 ; Nausea R11.0 and Constipation K59.00 [facility] [address] [place] [phone] 10/15/2023 Anirudh Lino [facility] [address] [place] [phone] 11/28/2023 Anirudh Lino [facility] [address] [place] [phone] 02/18/2024 Anirudh Lino [facility] [address] [place] [phone] 04/02/2024 Anirudh Lino ASSESSMENTS Encounter Date Diagnosis Assessment Notes Treatment Notes Treatment Clinical Notes 04/02/2024 GERD (gastroesophageal reflux disease) (ICD-10 - K21.9) DO NOT TAKE THE METFORMIN THE NIGHT BEFORE OR ON THE DAY OF THE COLONOSCOPY DO NOT TAKE THE HYDROCHLOROTHIAZIDE THE DAY BEFORE OR ON THE DAY OF THE COLONOSCOPY 04/02/2024 Rectal bleed (ICD-10 - K62.5) 04/02/2024 History of adenomatous polyp of colon (ICD-10 - Z86.010) 04/02/2024 Colon cancer screening (ICD-10 - Z12.11) 04/02/2024 Family history of colon cancer (ICD-10 - Z80.0) 04/02/2024 Nausea (ICD-10 - R11.0) 04/02/2024 Constipation (ICD-10 - K59.00) PLAN OF TREATMENT Future Test Test Name Order Date UPPER GI ENDOSCOPY 08/29/2021 COLONOSCOPY 08/29/2021 COLONOSCOPY 06/05/2022 COLONOSCOPY 04/02/2024 Next Appt Details Provider Name:Anirudh Lino , 07/07/2024 09:30:00 AM, [address] [place] [address] , [place], [place], [phone], Insurance Providers Payer Name Payer Address Payer Phone Subscriber Number Group Number Insured Name Patient Relationship to Insured Coverage Start Date Coverage End Date [facility] [address] Attn Claims JAMES Puente [id number] ARACELIS ROBBINS Self - patient is the insured MEDICAL (GENERAL) HISTORY Medical History History ICD Code Asthma-sees Dr. Dorado Sleep apnea-uses CPAP NIDDM Denies [place],CVA,renal disease GERD Depression/Anxiety Hypercholesterolemia IBS-had negative tissue transglutaminase antibodies in 2020 Kidney stones year 2021- 2022 Hiatal hernia Gallstones--sees Dr. Wiggins--being obs erved as of the 05/2022 OV EGD in 10/2021 with a small h iatal hernia, no significant esophagitis or Espinoza's esophagus, hyperplastic gastric polyps, and gastric biopsies negative for H. pylori Colonoscopy 10/2021 with a gr eater than 2 cm tubulovillous adenoma removed from the sigmoid colon(site marked with ink) and a smaller tubular adenoma removed from the more proximal colon Colonoscopy 01/2023 with small tubular a denomas removed Surgical History Surgery Date(Month/Year) CCY 12/[address] Troncoso Parathyroidectomy scheduled for 05/2024 rigoberto Cabello
--- OUTSIDE RECORDS SUMMARY | 2024-04-06 13:16 | XMS_ITS ---
Author Organization [facility] Address [address] [place] [address] Care Team Providers Care Acid Mixer Name Role Phone Ramírez KNOX [place] Primary Care Provider Anirudh Arteaga Unavailable [phone] ALLERGIES Allergen (clinical drug ingredient) Drug/Non Drug [...] Antibiotics Unknown Drug Allergy Active REASON FOR VISIT Patient presents today for rectal bleeding, rectal pain MEDICATIONS Medication SIG (Take, Route, Frequency, Duration) Notes Start Date End Date Status ARIPiprazole 2 MG Oral for 90 Active CVS D3 125 MCG (5000 UT) Oral for 90 Active Dulcolax (colon prep) 5 MG take at 3:00 p.m and 7:00p.m. Orally two tablets twice a day for one day for 1 day 06/05/2022 Active Fluticasone Propionate 50 MCG/ACT SPRAY 2 SPRAYS INTO EACH NOSTRIL EVERY DAY FOR 2 WEEKS Nasal for 90 Active MiraLax (colon prep) 17 GM/SCOOP 1 238 Gm bottle mixed with Gatorade or Crystal Light Orally begin at 5:00 p.m. the day before the procedure for 1 day 06/05/2022 Active Cetirizine HCl 10 MG TAKE 1 TABLET BY MO UTH EVERY DAY NEEDED FOR ALLERGIES Oral for 90 Active Loperamide HCl 2 MG Oral for 3 Active Docusate Sodium 100 MG TAKE 1 CAPSULE BY MOUTH EVERY DAY AT BEDTIME Oral for 30 Active Topiramate 25 MG Oral for 90 A ctive Ondansetron HCl 4 MG Oral for 10 Active Senna-Time 8.6 MG Oral for 30 Active Cyanocobalamin 1000 MCG/ML Injection for 84 Active Vitamin B-12 100 MCG TAKE 1 TABLET BY MO UTH EVERY DAY Oral for 90 Active Loratadine 10 MG Oral for 90 A ctive Vitamin D3 125 MCG (5000 UT) Oral for 90 Active EPINEPHrine 0.3 MG/0.3ML Injection for 2 Active MiraLax (colon prep) 17 GM/SCOOP 1 238 Gm bottle mixed with Gatorade or Crystal Light Orally begin at 5:00 p.m. the day before the procedure for 1 day 08/30/2021 Active Dulcolax (colon prep) 5 MG take at 3:00 p.m and 7:00p.m. Orally two tablets twice a day for one day for 1 day 08/30/2021 Active Albuterol Sulfate HFA 108 (90 Base) MCG/ACT INHALE 2 PUFFS EVERY 6 HOURS NEEDED Inhalation for 30 Active Simvastatin 20 MG Oral for 90 Active QUEtiapine Fumarate 100 MG TAKE 1 TABLET BY MOUTH AT BEDTIME Oral for 30 Active metFORMIN HCl ER 500 MG Oral for 90 Active SUMAtriptan Succinate 100 MG TAKE 1 TABLET BY MOUTH EVERY DAY NEEDED FOR HEADACHE Oral for 30 Active Ondansetron 4 MG 1 tablet on the tong ue and allow to dissolve Orally Every 6 hours as needed for nausea for 30 day(s) 04/02/2024 Active Wixela Inhub 250-50 MCG/ACT Inhalation for 30 Active Citalopram Hydrobromide 10 MG TAKE 1 TABLET BY MOUTH EVERY DAY Oral for 30 Active Sucralfate 1 GM Oral for 30 No t-Taking amLODIPine Besy-Benazepril HCl 2.5-10 MG as directed Orally Active Omeprazole 40 MG TAKE 1 TABLET ORALLY EVERY MORNING 30 DAYS for 90 Active IMMUNIZATIONS Vaccine Route Administration Date Status Comme nts Influenza Unknown 04/02/2024 Refused SOCIAL HISTORY Tobacco [...] W/U Status Risk SNOMED Code Notes Problem Nausea (R11.0) Active confirmed Nausea (294956700) Problem Constipation (K59.00) Active confirmed Constipation (70050249) VITAL SIGNS BMI 43.09 kg/m2 04/02/2024 Blood pressure systolic 000 mm Hg 04/02/19 25 Blood pressure diastolic 00 mm Hg 025 Height 66 in 04/02/2024 Temperature 97.7 degrees Fahrenheit 04/02/19 25 Weight 267 lbs 04/02/2024 Encounters Encounter Location Date Provider Diagnosis [facility] [address] [place] [address] 04/02/2024 Anirudh Lino GERD (gastroesophage al reflux disease) K21.9 ; Rectal bleed K62.5 ; History of adenomatous polyp of colon Z86.010 ; Colon cancer screening Z12.11 ; Family history of colon cancer Z80.0 ; Nausea R11.0 and Constipation K59.00 ASSESSMENTS Encounter Date Diagnosis Assessment Notes Treatment [...] Constipation (ICD-10 - K59.00) PLAN OF TREATMENT Medication Medication Name Sig Start Date Stop Date Notes MiraLax (colon prep) 17 GM/SCOOP 1 238 Gm bottle mixed with Gatorade or Crystal Light Orally begin at 5:00 p.m. the day before the procedure for 1 day 08/30/2021 Dulcolax (colon prep) 5 MG take at 3:00 p.m and 7:00p.m. Orally two tablets twice a day for one day for 1 day 08/30/2021 Ondansetron 4 MG 1 tablet on the tong ue and allow to dissolve Orally Every 6 hours as needed for nausea for 30 day(s) 04/02/2024 Treatment Notes Assessment Notes GERD (gastroesophageal reflux disease) DO NOT TAKE THE METFORMIN THE NIGHT BEFORE OR ON THE DAY OF THE COLONOSCOPY DO NOT TAKE THE HYDROCHLOROTHIAZIDE THE DAY BEFORE OR ON THE DAY OF THE COLONOSCOPY Future Test Test Name Order Date COLONOSCOPY 04/02/2024 Next Appt Details Provider Name:Anirudh Lino , 07/07/2024 09:30:00 AM, [address] [place] [address] , [place], [place], [phone],
--- OUTSIDE RECORDS SUMMARY | 2024-04-06 13:16 | XMS_ITS ---
Author Organization [facility] Address [address] [place] [phone] Care Team Providers Care Tucking Machine Operator Name Role Phone Ramírez KNOX, [place] Primary Care Provider Unava Anirudh Branch [phone] REASON FOR VISIT Pt no show Encounters Encounter Location Date Provider Diagnosis [facility] [address] [place] [phone] 02/18/2024 Anirudh Lino PLAN OF TREATMENT Next Appt Details Provider Name:Anirudh Lino , 07/07/2024 09:30:00 AM, [address] [facility] , [place], [place], [phone],
== END 2024-04-06 13:30 | disposition home or self-care (01) ==
PROVIDERS: PCP Internal Medicine; Visit Provider Internal Medicine
DX: E11.9 Type 2 diabetes mellitus without complications (principal); E66.01 Morbid (severe) obesity due to excess calories; Z68.41 Body mass index [BMI] 40.0-44.9, adult; E21.3 Hyperparathyroidism, unspecified; F31.60 Bipolar disorder, current episode mixed, unspecified; K62.5 Hemorrhage of anus and rectum; M79.672 Pain in left foot; E78.00 Pure hypercholesterolemia, unspecified; I10 Essential (primary) hypertension; R00.2 Palpitations; J45.41 Moderate persistent asthma with (acute) exacerbation; G43.109 Migraine with aura, not intractable, without status migrainosus

== ENCOUNTER → 2024-04-06 12:21 | Outpatient (BNVA) | payer OTHER, SELFPAY | PROVIDERS: PCP Internal Medicine; Visit Provider Internal Medicine | DX: K62.5 Hemorrhage of anus and rectum (principal); M79.672 Pain in left foot; E78.00 Pure hypercholesterolemia, unspecified; I10 Essential (primary) hypertension; E11.9 Type 2 diabetes mellitus without complications; R00.2 Palpitations; E21.3 Hyperparathyroidism, unspecified; J45.41 Moderate persistent asthma with (acute) exacerbation; G43.109 Migraine with aura, not intractable, without status migrainosus; M79.7 Fibromyalgia; M25.50 Pain in unspecified joint; M51.360 Other intervertebral disc degeneration, lumbar region with discogenic back pain only; K21.9 Gastro-esophageal reflux disease without esophagitis; I83.813 Varicose veins of bilateral lower extremities with pain; E53.8 Deficiency of other specified B group vitamins; E55.9 Vitamin D deficiency, unspecified; F41.9 Anxiety disorder, unspecified; L40.9 Psoriasis, unspecified; F31.60 Bipolar disorder, current episode mixed, unspecified; E66.01 Morbid (severe) obesity due to excess calories; Z68.41 Body mass index [BMI] 40.0-44.9, adult; Z71.3 Dietary counseling and surveillance | CPT/HCPCS: 96127; 99212 ==

== ENCOUNTER 2024-06-18 14:56 | Outpatient (REF) | payer OTHER, SELFPAY ==
[2024-06-18 16:35] LABS: D Dimer High Sensitivity < 150 NG/ML
[2024-06-18 17:02] LABS: Influenza A PCR NEGATIVE (Negative); Influenza B PCR NEGATIVE (Negative); Resp Syncy Virus RNA Qual PCR NEGATIVE (Negative); SARS COV2 PCR INHOUSE NEGATIVE (Negative)
== END 2024-06-18 14:57 | disposition home or self-care (01) ==
LOC: HO.LAB 14:56
PROVIDERS: Absent Provider Internal Medicine; PCP Internal Medicine
DX: J98.8 Other specified respiratory disorders (principal); M79.605 Pain in left leg; I10 Essential (primary) hypertension; H61.21 Impacted cerumen, right ear
CPT/HCPCS: 0241U; 36415; 69210; 85379; 99212

== ENCOUNTER 2024-06-18 14:56 | Outpatient (AMB) | payer OTHER, SELFPAY ==
[2024-06-18 15:18] VITALS: BP 144/80; PULSE 94; TEMP 36.2; O2SAT 100; BMI 44.9
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
== END 2024-06-18 15:53 | disposition home or self-care (01) ==
LOC: HO.HMCH 14:57
PROVIDERS: PCP Internal Medicine
DX: M79.605 Pain in left leg (principal); H61.21 Impacted cerumen, right ear; I10 Essential (primary) hypertension

== ENCOUNTER 2024-07-07 07:54 | Day surgery (SDC) | payer OTHER, SELFPAY ==
--- OUTSIDE RECORDS SUMMARY | 2024-06-17 15:05 | XMS_ITS ---
Author Organization [facility] Address [address] [place] [phone] Care Team Providers Care Tailor Garment Fitter Name Role Phone Ramírez KNOX, [place] Primary Care Provider UnaAnirudh Guevara [phone] REASON FOR VISIT Pt no show Encounters Encounter Location Date Provider Diagnosis [facility] [address] [place] [phone] 02/18/2024 Anirudh Lino Plan Of Treatment Next Appt Details Provider Name:Anirudh Lino , 07/07/2024 09:30:00 AM, [address] [place] [address] , [place], [place], [phone], Progress Notes * ARACELIS ROBBINSDOB:1975 (48 yo F)Acc No.[id number]:02/18/2024 Patient:?ITZEL ARACELIS :1975???Age:48 Y???Sex:Female Address:[address] [place] [address], [address] * true * Date:? Generated for Printi bijan/Shaniqua/eTransmitting on:?06/17/2024 03:05 PM EDT
--- OUTSIDE RECORDS SUMMARY | 2024-06-17 15:05 | XMS_ITS ---
Author Organization [facility] Address [address] [place] [phone] Care Team Providers Care Executive Coordinator Name Role Phone Ramírez KNOX, [place] Primary Care Provider UnaAnirudh Guevara [phone] REASON FOR VISIT bowel prep Encounters Encounter Location Date Provider Diagnosis [facility] [address] [place] [phone] 04/02/2024 Anirudh Lino Plan Of Treatment Next Appt Details Provider Name:Anirudh Lino , 07/07/2024 09:30:00 AM, [address] [place] [address], [phone], Progress Notes * ARACELIS ROBBINSDOB:1975 (49 yo F)Acc No.[id number]:04/02/2024 Patient:?ITZEL ARACLEIS :1975???Age:49 Y???Sex:Female Address:[address] [place] [address], [address] * true * Date:? Generated for Alexandrai bijan/Shaniqua/eTransmitting on:?06/17/2024 03:05 PM EDT
--- OUTSIDE RECORDS SUMMARY | 2024-06-17 15:05 | XMS_ITS | Patient Health Record ---
Author Organization [facility] Address [address] [place] [address] Care Team Providers Care Building Rigger Name Role Phone Ramírez KONX [place] Primary Care Provider Anirudh Arteaga Unavailable [phone] Allergies Allergen (clinical drug ingredient) Drug/Non Drug Allergy [...] (substance) Sulfa Antibiotics Unknown Drug Allergy Active Reason For Referral No Information Medications Medication SIG (Take, Route, Frequency, Duration) Notes [...] one day for 1 day 08/30/2021 Active Immunizations Vaccine Route Administration Date Status Comme nts Influenza Unknown 11/08/2020 Administered Influenza Unknown 04/02/2024 Refused Social History Tobacco Use: Social History Observation Description Date Details (start date - stop date) Never Smoker NA - NA Tobacco Use/Smoking Question Answer Notes Patient is a nonsmoker Alcohol Screen Question Answer Notes Did you have a drink containing alcohol in the p ast year? No Points 0 Interpretation Negative Section Notes: Nonsmoker; no alcohol Nonsmoker; no alcohol Nonsmoker; no alcohol Problems Problem Type SNOMED Code ICD Code Onset Dates Problem Status W/U Status Risk Notes Problem 003831107 Colon cancer screening (Z12.11) Active confirmed Problem 367773918 History of adenomatous polyp of colon (Z86.010) Active confirmed Problem Constipation (37510852) Constipation (K59.00) Active confirmed Problem Hemorrhage of rectum and anus (519644037) Hemorrhage of anus and rectum (K62.5) Active confirmed Problem Nausea (329392316) Nausea (R11.0) Active confir med Problem 171963430 Family history o f colon cancer (Z80.0) Active confirmed Problem Gastric polyp (05269172) Gastric polyp (K31.7) Active confirmed Problem Hemorrhage of rectum and anus (735230516) Rectal bleed (K62.5) Active confirmed Problem Gastroesophageal reflux disease (151222099) GERD (gastroesophageal reflux disease) (K21.9) Active confirmed Problem Esophageal reflux finding (220361099) Gastroesophageal reflux (K21.9) Active confirmed Problem Irritable bowel syndrome (44644236) Irritable bowel syndrome with both constipation and diarrhea (K58.0) Active confirmed Problem Diverticulosis of colon (331753440) Diverticulosis of colon (K57.30) Active confirmed Problem 496792181 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) Active confirmed Problem Personal history of adenomatous and serrated colon polyps (Z86.0101) Active confirmed Vital Signs Temperature 97.7 degrees Fahrenheit 04/02/2024 Blood pressure diastolic 00 mm Hg 04/02/2024 Height 66 in 04/02/2024 Blood pressure systolic 000 mm Hg 04/02/2024 Weight 267 lbs 04/02/2024 BMI 43.09 kg/m2 04/02/2024 Encounters Encounter Location Date Provider Diagnosis [facility] [address] [place] [address] 04/02/2024 Anirudh Lino GERD (gastroesophage al reflux disease) K21.9 ; Rectal bleed K62.5 ; History of adenomatous polyp of colon Z86.010 ; Colon cancer screening Z12.11 ; Family history of colon cancer Z80.0 ; Nausea R11.0 and Constipation K59.00 [facility] [address] [place] [id number] 10/15/2023 Anirudh Lino [facility] [address] [place] [address] 11/28/2023 Anirudh Lino [facility] [address] [place] [id number] 02/18/2024 Anirudh Lino [facility] [address] [place] [address] 04/02/2024 Anirudh Lino Assessments Encounter Date Diagnosis (ICD Code) Assessment Notes Treatment Notes Treatment Clinical Notes Section Notes 04/02/2024 Rectal bleed (ICD-10 - K62.5) Overall, Aracelis appears well from a GI standpoint. Her intermittent hematochezia seems to be related to perianal disease and hemorrhoids in relation to constipation and straining. This does not sound particularly worrisome. I did advise her to be sure to eat a healthy diet with plenty of fruits and vegetables, as well as being sure to drink plenty of water during the day. However, given her history of significant polyps removed in 2021 and tubular adenomas removed in 2022, as well as a family history of colon cancer, I did recommend she undergo a followup colonoscopy within the next several months rather that waiting until the end of this year. We did review the rationale for that in regards to colorectal cancer prevention and/or early detection. Full consent was obtained for this, including risks of bleeding and perforation. The procedure will be done monitored anesthesia care. She was given the below instructions regarding adjustment of her medications for the procedure. In regard to her reflux and nausea I did advise her to continue her daily omeprazole. I don't think a repeat endoscopy is required given the previous upper endoscopy without any significant findings and her clinical history with no significant upper GI symptoms otherwise. I shall give her a new prescription for the ondansetron to use as needed. Aracelis is comfortable with this plan. Thank you again for allowing me to participate in Aracelis's care. I shall continue to keep you advised of her progress, 04/02/2024 GERD (gastroesophage al reflux disease) (ICD-10 - K21.9) DO NOT TAKE THE METFORMIN THE NIGHT BEFORE OR ON THE DAY OF THE COLONOSCOPY DO NOT TAKE THE HYDROCHLOROTHIAZIDE THE DAY BEFORE OR ON THE DAY OF THE COLONOSCOPY Overall, Aracelis appears well from a GI standpoint. Her intermittent hematochezia seems to be related to perianal disease and hemorrhoids in relation to constipation and straining. This does not sound particularly worrisome. I did advise her to be sure to eat a healthy diet with plenty of fruits and vegetables, as well as being sure to drink plenty of water during the day. However, given her history of significant polyps removed in 2021 and tubular adenomas removed in 2022, as well as a family history of colon cancer, I did recommend she undergo a followup colonoscopy within the next several months rather that waiting until the end of this year. We did review the rationale for that in regards to colorectal cancer prevention and/or early detection. Full consent was obtained for this, including risks of bleeding and perforation. The procedure will be done monitored anesthesia care. She was given the below instructions regarding adjustment of her medications for the procedure. In regard to her reflux and nausea I did advise her to continue her daily omeprazole. I don't think a repeat endoscopy is required given the previous upper endoscopy without any significant findings and her clinical history with no significant upper GI symptoms otherwise. I shall give her a new prescription for the ondansetron to use as needed. Aracelis is comfortable with this plan. Thank you again for allowing me to participate in Aracelis's care. I shall continue to keep you advised of her progress, 04/02/2024 History of adenomatous polyp of colon (ICD-10 - Z86.010) Overall, Aracelis appears well from a GI standpoint. Her intermittent hematochezia seems to be related to perianal disease and hemorrhoids in relation to constipation and straining. This does not sound particularly worrisome. I did advise her to be sure to eat a healthy diet with plenty of fruits and vegetables, as well as being sure to drink plenty of water during the day. However, given her history of significant polyps removed in 2021 and tubular adenomas removed in 2022, as well as a family history of colon cancer, I did recommend she undergo a followup colonoscopy within the next several months rather that waiting until the end of this year. We did review the rationale for that in regards to colorectal cancer prevention and/or early detection. Full consent was obtained for this, including risks of bleeding and perforation. The procedure will be done monitored anesthesia care. She was given the below instructions regarding adjustment of her medications for the procedure. In regard to her reflux and nausea I did advise her to continue her daily omeprazole. I don't think a repeat endoscopy is required given the previous upper endoscopy without any significant findings and her clinical history with no significant upper GI symptoms otherwise. I shall give her a new prescription for the ondansetron to use as needed. Aracelis is comfortable with this plan. Thank you again for allowing me to participate in Aracelis's care. I shall continue to keep you advised of her progress, 04/02/2024 Colon cancer screening (ICD-10 - Z12.11) Overall, Aracelis appears well from a GI standpoint. Her intermittent hematochezia seems to be related to perianal disease and hemorrhoids in relation to constipation and straining. This does not sound particularly worrisome. I did advise her to be sure to eat a healthy diet with plenty of fruits and vegetables, as well as being sure to drink plenty of water during the day. However, given her history of significant polyps removed in 2021 and tubular adenomas removed in 2022, as well as a family history of colon cancer, I did recommend she undergo a followup colonoscopy within the next several months rather that waiting until the end of this year. We did review the rationale for that in regards to colorectal cancer prevention and/or early detection. Full consent was obtained for this, including risks of bleeding and perforation. The procedure will be done monitored anesthesia care. She was given the below instructions regarding adjustment of her medications for the procedure. In regard to her reflux and nausea I did advise her to continue her daily omeprazole. I don't think a repeat endoscopy is required given the previous upper endoscopy without any significant findings and her clinical history with no significant upper GI symptoms otherwise. I shall give her a new prescription for the ondansetron to use as needed. Aracelis is comfortable with this plan. Thank you again for allowing me to participate in Aracelis's care. I shall continue to keep you advised of her progress, 04/02/2024 Family history of colon cancer (ICD-10 - Z80.0) Overall, Aracelis appears well from a GI standpoint. Her intermittent hematochezia seems to be related to perianal disease and hemorrhoids in relation to constipation and straining. This does not sound particularly worrisome. I did advise her to be sure to eat a healthy diet with plenty of fruits and vegetables, as well as being sure to drink plenty of water during the day. However, given her history of significant polyps removed in 2021 and tubular adenomas removed in 2022, as well as a family history of colon cancer, I did recommend she undergo a followup colonoscopy within the next several months rather that waiting until the end of this year. We did review the rationale for that in regards to colorectal cancer prevention and/or early detection. Full consent was obtained for this, including risks of bleeding and perforation. The procedure will be done monitored anesthesia care. She was given the below instructions regarding adjustment of her medications for the procedure. In regard to her reflux and nausea I did advise her to continue her daily omeprazole. I don't think a repeat endoscopy is required given the previous upper endoscopy without any significant findings and her clinical history with no significant upper GI symptoms otherwise. I shall give her a new prescription for the ondansetron to use as needed. Aracelis is comfortable with this plan. Thank you again for allowing me to participate in Aracelis's care. I shall continue to keep you advised of her progress, 04/02/2024 Nausea (ICD-10 - R11.0) Overall, Aracelis appears well from a GI standpoint. Her intermittent hematochezia seems to be related to perianal disease and hemorrhoids in relation to constipation and straining. This does not sound particularly worrisome. I did advise her to be sure to eat a healthy diet with plenty of fruits and vegetables, as well as being sure to drink plenty of water during the day. However, given her history of significant polyps removed in 2021 and tubular adenomas removed in 2022, as well as a family history of colon cancer, I did recommend she undergo a followup colonoscopy within the next several months rather that waiting until the end of this year. We did review the rationale for that in regards to colorectal cancer prevention and/or early detection. Full consent was obtained for this, including risks of bleeding and perforation. The procedure will be done monitored anesthesia care. She was given the below instructions regarding adjustment of her medications for the procedure. In regard to her reflux and nausea I did advise her to continue her daily omeprazole. I don't think a repeat endoscopy is required given the previous upper endoscopy without any significant findings and her clinical history with no significant upper GI symptoms otherwise. I shall give her a new prescription for the ondansetron to use as needed. Aracelis is comfortable with this plan. Thank you again for allowing me to participate in Aracelis's care. I shall continue to keep you advised of her progress, 04/02/2024 Constipation (ICD-10 - K59.00) Overall, Aracelis appears well from a GI standpoint. Her intermittent hematochezia seems to be related to perianal disease and hemorrhoids in relation to constipation and straining. This does not sound particularly worrisome. I did advise her to be sure to eat a healthy diet with plenty of fruits and vegetables, as well as being sure to drink plenty of water during the day. However, given her history of significant polyps removed in 2021 and tubular adenomas removed in 2022, as well as a family history of colon cancer, I did recommend she undergo a followup colonoscopy within the next several months rather that waiting until the end of this year. We did review the rationale for that in regards to colorectal cancer prevention and/or early detection. Full consent was obtained for this, including risks of bleeding and perforation. The procedure will be done monitored anesthesia care. She was given the below instructions regarding adjustment of her medications for the procedure. In regard to her reflux and nausea I did advise her to continue her daily omeprazole. I don't think a repeat endoscopy is required given the previous upper endoscopy without any significant findings and her clinical history with no significant upper GI symptoms otherwise. I shall give her a new prescription for the ondansetron to use as needed. Aracelis is comfortable with this plan. Thank you again for allowing me to participate in Aracelis's care. I shall continue to keep you advised of her progress, Plan Of Treatment Future Test Test Name Order Date UPPER GI ENDOSCOPY 08/29/2021 COLONOSCOPY 08/29/2021 COLONOSCOPY 06/05/2022 COLONOSCOPY 04/02/2024 Next Appt Details Provider Name:Anirudh Zaragoza Zoie , 07/07/2024 09:30:00 AM, [address] [place] [address] , [place], [place], [phone], Insurance Providers Payer Name Payer Address Payer Phone Subscriber Number Group Number Insured Name Patient Relationship to Insured Coverage Start Date Coverage End Date [facility] [address] Attn Claims [place] [id number] ARACELIS ROBBINS Self - patient is the insured Medical (General) History Medical History History ICD Code Asthma-sees Dr. Dorado Sleep apnea-uses CPAP NIDDM Denies [place],CVA,renal disease GERD Depression/Anxiety Hypercholesterolemia IBS-had negative tissue [...]
--- OUTSIDE RECORDS SUMMARY | 2024-06-17 15:06 | XMS_ITS ---
Author Organization [facility] Address [address] [place] [address] Care Team Providers Care Employee Development Specialist Name Role Phone Ramírez KNO[facility] [place] Primary Care Provider Anirudh Arteaga Unavailable [phone] Allergies Allergen (clinical drug ingredient) Drug/Non Drug [...] presents today for rectal bleeding, rectal pain Medications Medication SIG (Take, Route, Frequency, Duration) [...] HCl 10 MG TAKE 1 TABLET BY [facility] EVERY DAY NEEDED FOR ALLERGIES Oral for [...] EVERY MORNING 30 DAYS for 90 Active Immunizations Vaccine Route Administration Date Status Comme nts Influenza Unknown 04/02/2024 Refused Social History Tobacco Use: Social History Observation Description Date Details (start date - stop date) Never Smoker NA - NA Tobacco Use/Smoking Question Answer Notes Patient is a nonsmoker Alcohol Screen Question Answer Notes Did you have a drink containing alcohol in the p ast year? No Points 0 Interpretation Negative Section Notes: Nonsmoker; no alcohol Problems Problem Type SNOMED Code ICD Code Onset Dates Problem Status W/U Status Risk Notes Problem Nausea (586447425) Nausea (R11.0) Active confirmed Problem Constipation (45542201) Constipation (K59.00) Active confirmed Problem Personal history of adenomatous and serrated colon polyps (Z86.0101) Active confirmed Vital Signs Temperature 97.7 degrees Fahrenheit 04/02/19 25 Blood pressure systolic 000 mm Hg 04/02/19 25 Blood pressure diastolic 00 mm Hg 025 Height 66 in 04/02/2024 Weight 267 lbs 04/02/2024 BMI 43.09 kg/m2 04/02/2024 Encounters Encounter Location Date Provider Diagnosis [facility] [address] [place] [address] 04/02/2024 Anirudh Lino GERD (gastroesophage al reflux disease) K21.9 ; Rectal bleed K62.5 ; History of adenomatous polyp of colon Z86.010 ; Colon cancer screening Z12.11 ; Family history of colon cancer Z80.0 ; Nausea R11.0 and Constipation K59.00 Assessments Encounter Date Diagnosis (ICD Code) Assessment Notes Treatment Notes Treatment Clinical Notes Section Notes 04/02/2024 GERD (gastroesophage al reflux disease) (ICD-10 [...] keep you advised of her progress, 04/02/2024 Rectal bleed (ICD-10 - K62.5) Overall, [...] advised of her progress, Plan Of Treatment Medication Medication Name Sig Start Date Stop [...] Order Date COLONOSCOPY 04/02/2024 Next Appt Details Follow Up: prn, Reason: Provider Name:Anirudh Lino , 07/07/2024 09:30:00 AM, [address] [place] [address], [id number], Progress Notes * ARACELIS ROBBINSDOB:1975 (49 yo F)Acc No.[id number]:04/02/2024 Progress Notes Patient:?ARACELIS ROBBINS Provider:?Anirudh Lino MD :1975???Age:49 Y???Sex:Female D ate:04/02/2024 Address:[address] [place], [place] [id number] Pcp:Mihir Elmore MD Subjective: * Chief Complaints: * ???Patient presents today fo r rectal bleeding, rectal pain * HPI: ???incontinence:? I saw Aracelis in the office today for evaluation of her personal history of colon polyps, family history of colon cancer, occasional hematochezia, and need for colorectal cancer screening. ?I last saw Aracelis in January of 2023, at which time she underwent a followup colonoscopy with removal of only small tubular adenomas. She did have a large tubulovillous adenoma removed in 2021. She has a family history of colorectal cancer in a paternal grandmother. Aracelis reports that she has basically been feeling well from a GI standpoint but does have occasional nausea and constipation. In regard to her constipation she describes some associated bleeding with bright red blood in the toilet bowl with associated straining. She has some rectal discomfort at those times as well. However, she report that this is not very often. ?She enjoys a good appetite and denies any significant heartburn or dysphagia. She does take a daily omeprazole. In regard to nausea she denies any associated vomiting. She had been using some ondansetron for that with relief but currently has run out of that. She denies any abdominal pain, signs of jaundice, nor unintentional weight loss. Aside from the occasional rectal bleeding she denies any other signs of bleeding such as melena. She denies any use of aspirin or NSAIDs. ?In September of 2023 she had a MRI of the pelvis which was unremarkable and specifically describes a normal lower GI tract. Labs earlier this month revealed a completely normal CBC, chemistries and renal function, and LFTs. She had a CT scan of the abdomen and pelvis just this past February which was unremarkable other than some mild sigmoid diverticulosis. * ROS:?General/Constitutional:?Change in appetite?denies.?Chills?denies.?Fatigue?denies.?Ophthalmologic:?Comments?all negative.?ENT:?Comments?all negative.?Respiratory:?hemoptysis?denies.?Cough?denies.?Cardiovascular:?Chest pain?denies.?Orthopnea?denies.?Gastrointestinal:?Comments?See HPI for details.?Genitourinary:?Hematuria?denies.?Dysuria?denies.?Musculoskeletal:?Painful joints?denies.?Weakness?denies.?Skin:?Itching?denies.?Rash?denies.?Neurologic:?Headache?denies.?Seizures?denies.?Psychiatric:?Comments?all negative.? * Medical History:? * Surgical History:?CCY [address] Troncoso Parathyroidectomy scheduled for 05/2024 at [facility] * Hospitalization/Major Diagno stic Procedure:?No Hospitalization History. * Family History:?Father: latisha barry.?Maternal Grand Mother: diagnosed with Colon cancer.? No family history of liver cancer. Grandmother on mother's side of colon cancer. * Social History:?Tobacco Use:?Tobacco Use/Smoking?Patient is a?nonsmoker.?Drugs/Alcohol:?Alcohol Screen?Did you have a drink containing alcohol in the past year??No,?Points?0,?Interpretation?Negative.?Miscellaneous:?Marital status: . Occupation: disabled. ???Nonsmoker; no alcohol. * Medications:?TakingamLODIPin e Besy-Benazepril HCl 2.5-10 MG Capsule as directed Orally Wixela Inhub 250-50 MCG/ACT Aerosol Powder Breath Activated Inhalation Citalopram Hydrobromide 10 MG Tablet TAKE 1 TABLET BY MOUTH EVERY DAY Oral QUEtiapine Fumarate 100 MG Tablet TAKE 1 TABLET BY MOUTH AT BEDTIME Oral metFORMIN HCl ER 500 MG Tablet Extended Release 24 Hour Oral SUMAtriptan Succinate 100 MG Tablet TAKE 1 TABLET BY MOUTH EVERY DAY NEEDED FOR HEADACHE Oral EPINEPHrine 0.3 MG/0.3ML Solution Auto-injector Injection Albuterol Sulfate HFA 108 (90 Base) MCG/ACT Aerosol Solution INHALE 2 PUFFS EVERY 6 HOURS NEEDED Inhalation Simvastatin 20 MG Tablet Oral Loratadine 10 MG Tablet Oral Vitamin D3 125 MCG (5000 UT) Capsule Oral Cyanocobalamin 1000 MCG/ML Solution Injection Vitamin B-12 100 MCG Tablet TAKE 1 TABLET BY MOUTH EVERY DAY Oral Senna-Time 8.6 MG Tablet Oral Cetirizine HCl 10 MG Tablet TAKE 1 TABLET BY MOUTH EVERY DAY NEEDED FOR ALLERGIES Oral Topiramate 25 MG Tablet Oral Ondansetron HCl 4 MG Tablet Oral Loperamide HCl 2 MG Capsule Oral Docusate Sodium 100 MG Capsule TAKE 1 CAPSULE BY MOUTH EVERY DAY AT BEDTIME Oral MiraLax (colon prep) 17 GM/SCOOP Powder 1 238 Gm bottle mixed with Gatorade or Crystal Light Orally begin at 5:00 p.m. the day before the procedureDulcolax (colon prep) 5 MG Tablet Delayed Release take at 3:00 p.m and 7:00p.m. Orally two tablets twice a day for one dayARIPiprazole 2 MG Tablet Oral CVS D3 125 MCG (5000 UT) Capsule Oral Fluticasone Propionate 50 MCG/ACT Suspension SPRAY 2 SPRAYS INTO EACH NOSTRIL EVERY DAY FOR 2 WEEKS Nasal MiraLax (colon prep) 17 GM/SCOOP Powder 1 238 Gm bottle mixed with Gatorade or Crystal Light Orally begin at 5:00 p.m. the day before the procedureDulcolax (colon prep) 5 MG Tablet Delayed Release take at 3:00 p.m and 7:00p.m. Orally two tablets twice a day for one dayOmeprazole 40 MG Capsule Delayed Release TAKE 1 TABLET ORALLY EVERY MORNING 30 DAYS Taking amLODIPine Besy- Benazepril HCl 2.5-10 MG Capsule as directed Orally Taking Wixela Inhub 250-50 MCG/ACT Aerosol Powder Breath Activated Inhalation Taking Citalopram Hydrobromide 10 MG Tablet TAKE 1 TABLET BY MOUTH EVERY DAY Oral Taking QUEtiapine Fumarate 100 MG Tablet TAKE 1 TABLET BY MOUTH AT BEDTIME Oral Taking metFORMIN HCl ER 500 MG Tablet Extended Release 24 Hour Oral Taking SUMAtriptan Succinate 100 MG Tablet TAKE 1 TABLET BY MOUTH EVERY DAY NEEDED FOR HEADACHE Oral Taking EPINEPHrine 0.3 MG/0.3ML Solution Auto- injector Injection Taking Albuterol Sulfate HFA 108 (90 Base) MCG/ACT Aerosol Solution INHALE 2 PUFFS EVERY 6 HOURS NEEDED Inhalation Taking Simvastatin 20 MG Tablet Oral Taking Loratadine 10 MG Tablet Oral Taking Vitamin D3 125 MCG (5000 UT) Capsule Oral Taking Cyanocobalamin 1000 MCG/ML Solution Injection Taking Vitamin B-12 100 MCG Tablet TAKE 1 TABLET BY MOUTH EVERY DAY Oral Taking Senna-Time 8.6 MG Tablet Oral Taking Cetirizine HCl 10 MG Tablet TAKE 1 TABLET BY MOUTH EVERY DAY NEEDED FOR ALLERGIES Oral Taking Topiramate 25 MG Tablet Oral Taking Ondansetron HCl 4 MG Tablet Oral Taking Loperamide HCl 2 MG Capsule Oral Taking Docusate Sodium 100 MG Capsule TAKE 1 CAPSULE BY MOUTH EVERY DAY AT BEDTIME Oral Taking MiraLax (colon prep) 17 GM/SCOOP Powder 1 238 Gm bottle mixed with Gatorade or Crystal Light Orally begin at 5:00 p.m. the day before the procedureTaking Dulcolax (colon prep) 5 MG Tablet Delayed Release take at 3:00 p.m and 7:00p.m. Orally two tablets twice a day for one dayTaking ARIPiprazole 2 MG Tablet Oral Taking CVS D3 125 MCG (5000 UT) Capsule Oral Taking Fluticasone Propionate 50 MCG/ACT Suspension SPRAY 2 SPRAYS INTO EACH NOSTRIL EVERY DAY FOR 2 WEEKS Nasal Taking MiraLax (colon prep) 17 GM/SCOOP Powder 1 238 Gm bottle mixed with Gatorade or Crystal Light Orally begin at 5:00 p.m. the day before the procedureTaking Dulcolax (colon prep) 5 MG Tablet Delayed Release take at 3:00 p.m and 7:00p.m. Orally two tablets twice a day for one dayTaking Omeprazole 40 MG Capsule Delayed Release TAKE 1 TABLET ORALLY EVERY MORNING 30 DAYS Not-Taking/PRNSucralfate 1 GM Tablet Oral Not-Taking/PRN Sucralfate 1 GM Tablet Oral DiscontinuedhydroCHLOROthiazide 25 MG Tablet Oral Medication List reviewed and reconciled with the patientDiscontinued hydroCHLOROthiazide 25 MG Tablet Oral Medication List reviewed and reconciled with the patient * Allergies:?Sulfa Antibiotics PenicillinIodineseafooodIbuprofenmri contrastMorphinePercocetAspirinyes[Allergies Verified] Objective: * Vitals:?Wt: 267 lbs, Ht: 66 in, BMI:43.09 Index, BP: 000/00 mm Hg, Temp: 97.7. * Examination: ???General Examination: ?GENERAL APPEARANCE:?pleasant, well nourished, well developed, in no acute distress.?EYES:?sclera non-icteric.?ORAL CAVITY:?mucosa moist.?NECK/THYROID:?no cervical lymphadenopathy, neck supple.?SKIN:?nonjaundiced, no spider angiomata.?HEART:?S1, S2 normal.?LUNGS:?clear to auscultation bilaterally.?ABDOMEN:?normal bowel sounds, no guarding or rigidity, no guarding or rigidity, no masses palpable, soft, nontender, nondistended.?EXTREMITIES:?no edema.?NEUROLOGIC:?alert and oriented.? Assessment: * Assessment: 1.?GERD (gastroesophageal re flux disease) - K21.9 (Primary)?2.?Rectal bleed - K62.5?3.?History of adenomatous polyp of colon - Z86.010?4.?Colon cancer screening - Z12.11?5.?Family history of colon cancer - Z80.0?6.?Nausea - R11.0?7.?Constipation - K59.00? Overall, Aracelis appears well from a GI [...] continue to keep you advised of her progress,. Plan: * Treatment: 2.?Rectal bleed?Procedure: COLONOSCOPY (Ordered for 04/02/2024) 3.?History of adenomatous polyp of colon?Procedure: COLONOSCOPY (Ordered for 04/02/2024)* with MACsched for 07/07/24 at 9:30 ammiralax 4.?Colon cancer screening?Procedure: COLONOSCOPY (Ordered for 04/02/2024)* with MACsched for 07/07/24 at 9:30 ammiralax 5.?Family history of colon cancer?Procedure: COLONOSCOPY (Ordered for 04/02/2024)* with MACsched for 07/07/24 at 9:30 ammiralax 6.?Others? Start Ondansetron Tablet Disintegrating, 4 MG, 1 tablet on the tongue and allow to dissolve, Orally, Every 6 hours as needed for nausea, 30 day(s), 30, Refills 4;?Refill Dulcolax (colon prep) Tablet Delayed Release, 5 MG, take at 3:00 p.m and 7:00p.m., Orally, two tablets twice a day for one day, 1 day, 4, Refills 0;?Refill MiraLax (colon prep) Powder, 17 GM/SCOOP, 1 238 Gm bottle mixedwith Gatorade or Crystal Light, Orally, begin at 5:00 p.m. the day before the procedure, 1 day, 1, Refills 0.?? * Immunizations:? Influenza (Not administered - Refused: Patient decision) * Procedure Codes:?3017F COLOR ECTAL CA SCREEN DOC [id number] TOBACCO [id number] BP SCR NOT PRFRM REC REASON NOS * Preventive Medicine:? ??Counseling:?Care goal follow-up plan:?Above Normal BMI Follow-up?Giving encouragement to exercise,?BMI management provided?Yes.? * Follow Up:?prn * * Sign off status: Completed true * Provider:?Anirudh Lino MD Date:? 025 Generated for Juana thakkar/Shaniqua/eTransmitting on:?06/17/2024 03:05 PM EDT History and Physical Notes * HPI (History of Present Illness) Category Sub-Category Detail Notes Category Not es incontinence I saw Aracelis in the office today for evaluation of her personal history of colon polyps, family history of colon cancer, occasional hematochezia, and need for colorectal cancer screening. I last saw Aracelis in January of 2023, at which time she underwent a followup colonoscopy with removal of only small tubular adenomas. She did have a large tubulovillous adenoma removed in 2021. She has a family history of colorectal cancer in a paternal grandmother. Aracelis reports that she has basically been feeling well from a GI standpoint but does have occasional nausea and constipation. In regard to her constipation she describes some associated bleeding with bright red blood in the toilet bowl with associated straining. She has some rectal discomfort at those times as well. However, she report that this is not very often. She enjoys a good appetite and denies any significant heartburn or dysphagia. She does take a daily omeprazole. In regard to nausea she denies any associated vomiting. She had been using some ondansetron for that with relief but currently has run out of that. She denies any abdominal pain, signs of jaundice, nor unintentional weight loss. Aside from the occasional rectal bleeding she denies any other signs of bleeding such as melena. She denies any use of aspirin or NSAIDs. In September of 2023 she had a MRI of the pelvis which was unremarkable and specifically describes a normal lower GI tract. Labs earlier this month revealed a completely normal CBC, chemistries and renal function, and LFTs. She had a CT scan of the abdomen and pelvis just this past February which was unremarkable other than some mild sigmoid diverticulosis. Examination Category Sub-Category Detail Notes Category Not es General Examination GENERAL APPEARANCE: pleasant , well nourished, well developed, in no acute distress HEAD: EYES: sclera non-icteric EARS: NOSE: THROAT: NECK/THYROID: no cervical lymphade nopathy, neck supple HEART: S1, S2 normal CHEST: LUNGS: clear to auscultatio n bilaterally ABDOMEN: normal bowel sounds, no guarding or rigidity, no guarding or rigidity, no masses palpable, soft, nontender, nondistended NEUROLOGIC: alert and oriented SKIN: nonjaundiced, no spi handy angiomata EXTREMITIES: no edema PERIPHERAL PULSES: BACK: BREASTS: MUSCULOSKELETAL: MALE GENITOURINARY: LYMPH NODES: RECTAL EXAM: FEMALE GENITOURINARY: ORAL CAVITY: mucosa moist
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
[2024-07-07 08:32] VITALS: BP 121/66; PULSE 86; RESP 16; TEMP 36.7; O2SAT 98; BMI 44.5
[2024-07-07] MEDS: Lactated Ringers 1,000 ML 100 ML IVCONT (08:49)
[2024-07-07 08:57] LABS: Glucose, Whole Blood 106 mg/dL (60-115)
[2024-07-07 10:40] VITALS: BP 104/52; PULSE 92; RESP 28; TEMP 36.5; O2SAT 97
--- NOTE | 2024-07-07 10:45 | P.BOP_ITS ---
Brief Operative Note Date of Service: 07/07/24 Pre-op diagnosis: Screening Post-op diagnosis: other (Colon polyp) Procedure: Colonoscopy to the cecum and TI with bx/removal of polyp Surgeon: Anirudh Lino MD Anesthesia: MAC Was an Fork Lift Truck Operator used for this Procedure?: No Estimated blood loss (mL): 2.0 Pathology: other (A. Polyp at 60cm) Condition: stable Disposition: PACU
[2024-07-07 10:55] VITALS: BP 126/69; PULSE 85; RESP 20; TEMP 36.5; O2SAT 100
--- NOTE | 2024-07-07 11:13 | OP_ITS ---
DATE OF SERVICE: 07/07/2024 SURGEON: Anirudh Lino MD INDICATIONS: The patient presents for evaluation of colorectal cancer screening, personal history of colon polyps, and occasional hematochezia. Full consent obtained from her for this, including risks of bleeding and perforation. PREOPERATIVE DIAGNOSIS: POSTOPERATIVE DIAGNOSIS: PROCEDURE PERFORMED: Colonoscopy to the cecum and terminal ileum with biopsy and removal of polyp. ESTIMATED BLOOD LOSS: COMPLICATIONS: ANESTHESIA: Medication used; monitored anesthesia care. ASSISTANTS: SPECIMENS: PREOPERATIVE DIAGNOSES: Colorectal cancer screening, personal history of colon polyps, and occasional hematochezia. POSTOPERATIVE DIAGNOSES: Colorectal cancer screening, personal history of colon polyps, and occasional hematochezia, small colon polyp, mild diverticulosis, and internal hemorrhoids. DESCRIPTION OF PROCEDURE: The patient was placed in the left lateral decubitus position. The digital rectal exam revealed no abnormalities. The Olympus videopediatric colonoscope was entered into the rectum and advanced easily to the cecum. Once in the cecum, I did identify normal-appearing cecal pouch with appendiceal orifice and a normal-appearing ileocecal valve. The terminal ileum was cannulated and appeared normal. The scope withdrawn back in the colon. The entire cecum and ileocecal valve appeared normal, including the appendiceal orifice. The scope was slowly withdrawn assessing all mucosal surfaces carefully. Preparation was excellent. At 60 cm, there was a flat approximately 3 or 4 mm polyp, which was biopsied and completely removed with cold biopsy forceps. I did not visualize any other polyps, colitis, or angiodysplasia. There were occasional diverticula noted in the sigmoid colon. Previously placed submucosal ink miles were noted at approximately 20-30 cm in the sigmoid colon. There was no sign of any residual polyp in that area. In the rectum, scope was retroflexed visualizing internal hemorrhoids, but no other pathology. The rectal mucosa appeared normal. The scope was straightened and withdrawn from the patient. She tolerated the procedure well and was returned to the recovery area in stable condition. IMPRESSION: 1. Small colon polyp. 2. Diverticulosis. 3. Internal hemorrhoids. PLAN: The results of the pathology will be checked. I would recommend a repeat colonoscopy in 3 years for further surveillance. She will otherwise see me on a p.r.n. basis. MD SUDHIR Rowe/ADONIS / [id number]
== END 2024-07-07 11:16 | disposition home or self-care (01) ==
PROVIDERS: PCP Internal Medicine; Visit Provider Internal Medicine
PROC: 0DJD8ZZ Inspection of Lower Intestinal Tract, Via Natural or Artificial Opening Endoscopic (ICD-10-PCS; CPT 45378; principal; 2024-07-07 09:30)
DX: Z12.11 Encounter for screening for malignant neoplasm of colon (principal); D12.4 Benign neoplasm of descending colon; K57.30 Diverticulosis of large intestine without perforation or abscess without bleeding; K64.8 Other hemorrhoids; Z86.0101 Personal history of adenomatous and serrated colon polyps; Z80.0 Family history of malignant neoplasm of digestive organs; E11.9 Type 2 diabetes mellitus without complications; E78.00 Pure hypercholesterolemia, unspecified; K21.9 Gastro-esophageal reflux disease without esophagitis; J45.909 Unspecified asthma, uncomplicated; G47.33 Obstructive sleep apnea (adult) (pediatric); Z99.89 Dependence on other enabling machines and devices; Z79.84 Long term (current) use of oral hypoglycemic drugs; Z79.899 Other long term (current) drug therapy
CPT/HCPCS: 45380; 82947; 88305; J1596; J2003; J2704

== ENCOUNTER 2024-08-04 08:24 | Outpatient (REF) | payer OTHER, SELFPAY ==
[2024-08-04 08:52] LABS: MANUAL DIFF FLAG NO
[2024-08-04 09:40] LABS: Basophils Absolute Auto 0.1 X10*3/uL (0.0-0.2); Basophils Percent Auto 0.7 % (0-2); Eosinophils Absolute Auto 0.2 X10*3/uL (0.0-0.4); Eosinophils Percent Auto 2.9 % (0-4); Hematocrit 42.6 % (37.0-47.0); Hemoglobin 13.7 g/dl (12.0-16.0); Imm Gran Abs Auto 0.03 X10*3/uL (0.00-0.03); Imm Gran Pct Auto 0.4 % (0.0-0.4); Lymphocytes Absolute Auto 2.2 X10*3/uL (1.2-4.9); Lymphocytes Percent Auto 26.6 % (20-40); Mean Corpuscular HGB Conc 32.2 g/dl (31.0-35.0); Mean Corpuscular Hemoglobin 29.8 pg (27.0-33.0); Mean Corpuscular Volume 92.8 fL (80.0-98.0); Mean Platelet Volume 11.5 fL (9.4-12.3); Monocytes Absolute Auto 0.8 X10*3/uL (0.1-1.2); Monocytes Percent Auto 9.7 % (2-11); Neutrophils Absolute Auto 4.9 x10*3/uL (2.0-8.3); Neutrophils Percent Auto 59.7 % (45-73); Platelet Count 298 X10*3/uL (160-400); Red Blood Count 4.59 X10*6/uL (4.20-5.50); White Blood Count 8.2 X10*3/uL (4.8-10.8)
[2024-08-04 09:47] LABS: Appearance Urine Clear; Color Urine Yellow; Estimated Average Glucose 120 mg/dL; Glucose Urine UA Negative (Negative); Hemoglobin A1c % 5.8 % (<6.0); Leukocyte Esterase Urine Trace (Negative); Nitrite Urine Negative (Negative); Specific Gravity - Urine >= 1.030 (1.005-1.025); UMIC TRIGGER UACC YES; Urine Blood Negative (Negative); Urine Ketones Trace mg/dL (Negative); Urine Protein Negative (Neg-Trace)
[2024-08-04 10:02] LABS: Bacteria Urine None Seen (None Seen); Calcium Oxalate Crystals Urine Present; Hyaline Casts Urine 0-2 /LPF (0-2); RBC Urine 0-2 /HPF (0-2); Squamous Epithelial Cell Urine 0-2 /HPF (0-2); WBC Urine 0-5 /HPF (0-5)
[2024-08-04 10:27] LABS: Alanine Aminotransferase 30 U/L (0-31); Alkaline Phosphatase 152 U/L (39-117); Anion Gap 9 (12-20); Aspartate Amino Transferase 22 U/L (5-31); Bilirubin Total 0.4 mg/dL (0.0-1.0); Blood Urea Nitrogen 13 mg/dL (9-16); Calcium 10.6 mg/dL (8.4-10.2); Carbon Dioxide 31 mmol/L (22-29); Chloride 107 mmol/L (96-108); Cholesterol 170 mg/dL (<200); Estimated Glomerular Filt Rate > 60; Glucose Fasting 116 mg/dL (60-99); HDL Cholesterol 47 mg/dL (>40); LDL Cholesterol Calculated 100 mg/dL (<100); Potassium 3.9 mmol/L (3.3-5.1); Sodium 143 mmol/L (135-145); Total Protein 7.1 g/dL (6.5-8.0); Triglycerides 118 mg/dL (<150)
[2024-08-04 10:49] LABS: TSH reflex Free T4 2.66 uIU/mL (0.32-4.0); Vitamin D 25-OH Total 68.6 ng/mL (>30)
[2024-08-04 10:52] LABS: Folate 10.9 ng/mL (> or = 4.0); Vitamin B12 644 pg/mL (200-900)
[2024-08-04 11:05] LABS: Creatinine Urine 156.93 mg/dL; Microalbum/Creatinine Ratio Ur 6.3 ug/mg cr (<30)
== END 2024-08-04 08:25 | disposition home or self-care (01) ==
LOC: HO.LAB 08:24
PROVIDERS: PCP Internal Medicine; Visit Provider Internal Medicine
DX: D64.9 Anemia, unspecified (principal); E78.00 Pure hypercholesterolemia, unspecified; E55.9 Vitamin D deficiency, unspecified; E11.9 Type 2 diabetes mellitus without complications; E53.8 Deficiency of other specified B group vitamins
CPT/HCPCS: 36415; 80053; 80061; 81001; 82043; 82306; 82570; 82607; 82746; 83036; 84443; 85025

== ENCOUNTER 2024-09-27 09:25 | Outpatient (REF) | payer OTHER, SELFPAY | END 2024-09-27 09:26 | disposition home or self-care (01) | LOC: HO.MAMMO 09:25 | DX: Z12.31 Encounter for screening mammogram for malignant neoplasm of breast (principal) | CPT/HCPCS: 77063; 77067 ==

== ENCOUNTER → 2024-09-27 09:45 | Outpatient (BNV) | payer OTHER, SELFPAY | PROVIDERS: Visit Provider Radiology Body Imaging | DX: Z12.31 Encounter for screening mammogram for malignant neoplasm of breast (principal) | CPT/HCPCS: 77063; 77067 ==

== ENCOUNTER 2024-09-30 09:31 | Outpatient (REF) | payer OTHER, SELFPAY ==
[2024-10-04 17:27] LABS: Anti Nuclear Antibody Screen NEGATIVE (NEGATIVE)
== END 2024-09-30 09:32 | disposition home or self-care (01) ==
LOC: HO.LAB 09:31
PROVIDERS: Visit Provider Student in an Organized Health Care Education/Training Program
DX: Z01.84 Encounter for antibody response examination (principal); M77.52 Other enthesopathy of left foot and ankle
CPT/HCPCS: 36415; 85652; 86038; 86431

== ENCOUNTER 2024-10-05 13:22 | Outpatient (AMB) | payer OTHER, SELFPAY ==
[2024-10-05 13:38] VITALS: BP 122/80; PULSE 68; O2SAT 97; BMI 45.7
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
== END 2024-10-05 14:10 | disposition home or self-care (01) ==
LOC: HO.HPS 13:23
PROVIDERS: Visit Provider Internal Medicine
DX: J45.41 Moderate persistent asthma with (acute) exacerbation (principal); E66.01 Morbid (severe) obesity due to excess calories; Z68.43 Body mass index [BMI] 50.0-59.9, adult; J98.4 Other disorders of lung; G47.33 Obstructive sleep apnea (adult) (pediatric)
CPT/HCPCS: 99213

== ENCOUNTER → 2024-10-05 13:22 | Outpatient (BNVA) | payer OTHER, SELFPAY | PROVIDERS: Visit Provider Internal Medicine | DX: G47.33 Obstructive sleep apnea (adult) (pediatric) (principal); E66.01 Morbid (severe) obesity due to excess calories; Z99.89 Dependence on other enabling machines and devices; J45.41 Moderate persistent asthma with (acute) exacerbation; J98.4 Other disorders of lung | CPT/HCPCS: 99212 ==

== ENCOUNTER 2024-11-17 14:28 | Outpatient (AMB) | payer OTHER, SELFPAY ==
[2024-11-17 14:36] VITALS: BP 128/68; PULSE 78; BMI 46.3
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
== END 2024-11-17 15:04 | disposition home or self-care (01) ==
PROVIDERS: Visit Provider Internal Medicine
DX: R00.2 Palpitations (principal); R00.0 Tachycardia, unspecified; E66.01 Morbid (severe) obesity due to excess calories; Z68.43 Body mass index [BMI] 50.0-59.9, adult; G47.33 Obstructive sleep apnea (adult) (pediatric)
CPT/HCPCS: 93010; 99214

== ENCOUNTER → 2024-11-17 14:28 | Outpatient (BNVA) | payer OTHER, SELFPAY | PROVIDERS: Visit Provider Internal Medicine | DX: R00.2 Palpitations (principal); R00.0 Tachycardia, unspecified; G47.33 Obstructive sleep apnea (adult) (pediatric); E66.01 Morbid (severe) obesity due to excess calories; Z68.42 Body mass index [BMI] 45.0-49.9, adult | CPT/HCPCS: 93005; 99212 ==

== ENCOUNTER 2024-11-18 14:59 | Outpatient (AMB) | payer OTHER, SELFPAY ==
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
[2024-11-18 15:04] VITALS: BP 130/70; PULSE 102; O2SAT 99; BMI 46.5
== END 2024-11-18 15:34 | disposition home or self-care (01) ==
LOC: HO.HPS 15:00
PROVIDERS: Visit Provider Internal Medicine
DX: J45.41 Moderate persistent asthma with (acute) exacerbation (principal); J20.9 Acute bronchitis, unspecified; J98.4 Other disorders of lung; R05.9 Cough, unspecified
CPT/HCPCS: 99213

== ENCOUNTER → 2024-11-18 14:59 | Outpatient (BNVA) | payer OTHER, SELFPAY | PROVIDERS: Visit Provider Internal Medicine | DX: J45.41 Moderate persistent asthma with (acute) exacerbation (principal); J20.9 Acute bronchitis, unspecified; J98.4 Other disorders of lung; R05.9 Cough, unspecified | CPT/HCPCS: 99212 ==

== ENCOUNTER 2024-12-09 10:27 | Outpatient (AMB) | payer OTHER, SELFPAY ==
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
[2024-12-09 10:31] VITALS: BP 126/78; PULSE 84; TEMP 36.3; O2SAT 97; BMI 46.6
== END 2024-12-09 11:22 | disposition home or self-care (01) ==
LOC: HO.HMCH 10:28
DX: E11.65 Type 2 diabetes mellitus with hyperglycemia (principal); E66.01 Morbid (severe) obesity due to excess calories; Z68.43 Body mass index [BMI] 50.0-59.9, adult; F41.9 Anxiety disorder, unspecified; I10 Essential (primary) hypertension; E78.00 Pure hypercholesterolemia, unspecified; K21.9 Gastro-esophageal reflux disease without esophagitis; J45.41 Moderate persistent asthma with (acute) exacerbation; I83.813 Varicose veins of bilateral lower extremities with pain; R21 Rash and other nonspecific skin eruption; M89.8X9 Other specified disorders of bone, unspecified site; E21.3 Hyperparathyroidism, unspecified

== ENCOUNTER 2024-12-09 10:27 | Outpatient (REF) | payer OTHER, SELFPAY ==
[2024-12-09 11:44] LABS: MANUAL DIFF FLAG NO
[2024-12-09 11:59] LABS: Hematocrit 42.6 % (37.0-47.0); Hemoglobin 13.6 g/dl (12.0-16.0); Imm Gran Abs Auto 0.01 X10*3/uL (0.00-0.03); Imm Gran Pct Auto 0.1 % (0.0-0.4); Lymphocytes Absolute Auto 2.0 X10*3/uL (1.2-4.9); Mean Corpuscular HGB Conc 31.9 g/dl (31.0-35.0); Mean Corpuscular Hemoglobin 30.2 pg (27.0-33.0); Mean Corpuscular Volume 94.7 fL (80.0-98.0); NRBC Abs Auto 0.000 X10*3/uL (0.0-0.012); NRBC Pct Auto 0.0 /100WBC (0.0-0.2); Platelet Count 275 X10*3/uL (160-400); Red Blood Count 4.50 X10*6/uL (4.20-5.50); White Blood Count 7.3 X10*3/uL (4.8-10.8)
[2024-12-09 12:30] LABS: Alanine Aminotransferase 29 U/L (0-31); Albumin Level 3.9 g/dL (3.5-5.0); Alkaline Phosphatase 124 U/L (39-117); Anion Gap 9 (12-20); Aspartate Amino Transferase 22 U/L (5-31); Blood Urea Nitrogen 11 mg/dL (9-16); Calcium 10.7 mg/dL (8.4-10.2); Carbon Dioxide 29 mmol/L (22-29); Chloride 109 mmol/L (96-108); Cholesterol 154 mg/dL (<200); Estimated Glomerular Filt Rate > 60; HDL Cholesterol 42 mg/dL (>40); Potassium 4.2 mmol/L (3.3-5.1); Sodium 143 mmol/L (135-145); Total Protein 6.8 g/dL (6.5-8.0); Triglycerides 76 mg/dL (<150)
[2024-12-09 12:54] LABS: Folate 12.0 ng/mL (> or = 4.0); Vitamin B12 1202 pg/mL (200-900)
== END 2024-12-09 10:28 | disposition home or self-care (01) ==
LOC: HO.LAB 10:27
DX: Z00.00 Encounter for general adult medical examination without abnormal findings (principal); F41.9 Anxiety disorder, unspecified; I10 Essential (primary) hypertension; E78.00 Pure hypercholesterolemia, unspecified; E11.65 Type 2 diabetes mellitus with hyperglycemia; E66.01 Morbid (severe) obesity due to excess calories; Z68.43 Body mass index [BMI] 50.0-59.9, adult; K21.9 Gastro-esophageal reflux disease without esophagitis; J45.41 Moderate persistent asthma with (acute) exacerbation; R21 Rash and other nonspecific skin eruption; I83.813 Varicose veins of bilateral lower extremities with pain; E21.3 Hyperparathyroidism, unspecified; M89.8X9 Other specified disorders of bone, unspecified site; E55.9 Vitamin D deficiency, unspecified; E53.8 Deficiency of other specified B group vitamins; N92.0 Excessive and frequent menstruation with regular cycle
CPT/HCPCS: 36415; 80053; 80061; 82306; 82607; 82746; 83036; 85025; 99212

== ENCOUNTER 2025-01-24 10:22 | Outpatient (REF) | payer OTHER, SELFPAY ==
[2025-01-24 12:08] LABS: Appearance Urine Clear; Glucose Urine UA Negative (Negative); PH 6.5 (5.0-9.0); Specific Gravity - Urine 1.025 (1.005-1.025); UMIC TRIGGER UACC YES
[2025-01-24 12:26] LABS: UACC Culture Trigger YES
== END 2025-01-24 10:23 | disposition home or self-care (01) ==
LOC: HO.LAB 10:22
DX: R35.89 Other polyuria (principal); R30.0 Dysuria
CPT/HCPCS: 81001; 81003; 87086

== ENCOUNTER 2025-02-09 10:44 | Emergency (ER) | payer OTHER, SELFPAY ==
--- NOTE | ~2025-02-09 | XR_ITS ---
EXAMINATION: XR CHEST 1 VIEW HISTORY: Pneumonia? COMPARISON: Comparison is made with the prior examination dated 04/30/2023. FINDINGS: A single PA view of the chest is submitted. The lungs are expanded and clear. There is no pleural effusion, pneumothorax, or pulmonary vascular congestion. The heart is normal in size. There is degenerative disc disease of the spine. XR/XR chest 1V IMPRESSION: No acute cardiopulmonary abnormality. Electronically signed by: Anirudh Durham MD 02/09/2025 11:47 AM EST
--- NOTE | ~2025-02-09 | XR_ITS ---
EXAMINATION: XR SHOULDER, LEFT CLINICAL INFORMATION: left shoulder pain COMPARISON: None available. TECHNIQUE: Three views of the left shoulder. FINDINGS: No visible acute fracture, dislocation or suspicious bony lesion. Glenohumeral and acromioclavicular alignment is anatomic with normal joint space. No abnormal soft tissue calcifications. XR/XR shoulder LT min 2V IMPRESSION: No acute osseous findings Electronically signed by: Pradeep He MD 02/09/2025 11:45 AM APOORVA
[2025-02-09 11:10] VITALS: BP 157/87; PULSE 95; RESP 20; TEMP 36.3; O2SAT 98; BMI 45.8
--- NOTE | 2025-02-09 11:17 | ECG_ITS ---
Test Reason : epigastric pain and left arm pain Blood Pressure : */* mmHG Vent. Rate : 88 BPM Atrial Rate : 88 BPM P-R Int : 158 ms QRS Dur : 86 ms QT Int : 332 ms P-R-T Axes : 47 28 19 degrees QTcB Int : 401 ms Normal sinus rhythm Normal ECG When compared with ECG of 05-Feb-2023 07:59, No significant change was found Referred By: Blas Dougherty Electronically Signed By: JIL PHILLIPS
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
[2025-02-09 11:53] LABS: MANUAL DIFF FLAG NO
[2025-02-09 11:57] LABS: Hematocrit 42.8 % (37.0-47.0); Hemoglobin 13.8 g/dl (12.0-16.0); Imm Gran Abs Auto 0.02 X10*3/uL (0.00-0.03); Imm Gran Pct Auto 0.2 % (0.0-0.4); Lymphocytes Absolute Auto 1.8 X10*3/uL (1.2-4.9); Mean Corpuscular HGB Conc 32.2 g/dl (31.0-35.0); Mean Corpuscular Hemoglobin 29.7 pg (27.0-33.0); Mean Corpuscular Volume 92.0 fL (80.0-98.0); NRBC Abs Auto 0.000 X10*3/uL (0.0-0.012); NRBC Pct Auto 0.0 /100WBC (0.0-0.2); Platelet Count 282 X10*3/uL (160-400); Red Blood Count 4.65 X10*6/uL (4.20-5.50); White Blood Count 8.6 X10*3/uL (4.8-10.8)
[2025-02-09 12:03] LABS: INTERNATIONAL NORM RATIO 0.9 (0.9-1.1); Prothrombin Time 11.2 SEC (11.2-13.5)
[2025-02-09 12:06] LABS: Partial Thromboplastin Time 29.0 SEC (26.7-34.1)
[2025-02-09 12:41] LABS: Alanine Aminotransferase 27 U/L (0-31); Albumin Level 4.1 g/dL (3.5-5.0); Alkaline Phosphatase 138 U/L (39-117); Anion Gap 5 (12-20); Aspartate Amino Transferase 19 U/L (5-31); Blood Urea Nitrogen 11 mg/dL (9-16); Calcium 11.1 mg/dL (8.4-10.2); Carbon Dioxide 31 mmol/L (22-29); Chloride 108 mmol/L (96-108); Creatinine Clr Calc Pharmacy 96.2; Estimated Glomerular Filt Rate > 60; Lipase 33 U/L (8-78); Potassium 4.2 mmol/L (3.3-5.1); Sodium 140 mmol/L (135-145); Total Protein 7.0 g/dL (6.5-8.0)
[2025-02-09 12:44] LABS: NT Pro B Type Natriuretic Pept 46.9 pg/mL (<300)
[2025-02-09 12:47] LABS: Troponin-I High Sensitivity < 2.7 ng/L (<3.5-17.0)
[2025-02-09 16:02] LABS: Troponin-I High Sensitivity 3.0 ng/L (<3.5-17.0)
--- NOTE | 2025-02-09 17:17 | PC.NURSE ---
pt given apple juice, cheese stick and crackers. medicated per MAY for 5/10 epigastric pain. plan for Lyft home.
[2025-02-09 17:22] VITALS: BP 144/83; PULSE 86; RESP 16; TEMP 36.7; O2SAT 95
== END 2025-02-09 17:26 | disposition home or self-care (01) ==
PROVIDERS: Physician Assistant; Emergency Provider Emergency Medicine
DX: R07.89 Other chest pain (principal); R10.13 Epigastric pain; M79.602 Pain in left arm; M25.512 Pain in left shoulder; E11.9 Type 2 diabetes mellitus without complications
CPT/HCPCS: 36415; 71045; 73030; 80053; 80061; 83690; 83880; 84484; 84702; 85025; 85610; 85730; 93005; 99283; 99284

== ENCOUNTER → 2025-02-09 11:17 | Outpatient (BNV) | payer OTHER, SELFPAY | PROVIDERS: Visit Provider Radiology Diagnostic Ultrasound | DX: M25.512 Pain in left shoulder (principal); Z03.89 Encounter for observation for other suspected diseases and conditions ruled out | CPT/HCPCS: 71045; 73030 ==

== ENCOUNTER → 2025-02-09 11:17 | Outpatient (BNV) | payer OTHER, SELFPAY | PROVIDERS: Emergency Provider Emergency Medicine; Visit Provider Internal Medicine | DX: R10.13 Epigastric pain (principal); M79.602 Pain in left arm | CPT/HCPCS: 93010 ==

== ENCOUNTER 2025-03-01 10:23 | Outpatient (REF) | payer OTHER, SELFPAY ==
--- NOTE | ~2025-03-01 | MM_ITS ---
EXAMINATION: DXA BONE DENSITY EXTREMITY HISTORY: Hyperparathyroidism, bone pain TECHNIQUE: [employer] Dual energy absorptiometry (DEXA) of the lumbar spine, total left hip, femoral neck, and distal radius was performed. COMPARISON: There are no prior studies for comparison. FINDINGS: The bone mineral density of the lumbar spine is 1.044 g/cm2, corresponding to a T-score of -1.1, and a Z-score of -1.7. This is indicative of osteopenia. The bone mineral density of the left total hip is 1.040 g/cm2, corresponding to a T-score of 0.3, and a Z-score of 0.0. This is indicative of normal bone mineral density. The bone mineral density of the left femoral neck is 0.842 g/cm2, corresponding to a T-score of -1.4, and a Z-score of -1.3. This is indicative of osteopenia. The bone mineral density of the distal radius is 0.860 g/cm2, corresponding to a T-score of -0.2, and a Z-score of 0.0. This is indicative of normal bone mineral density. FRACTURE RISK: The FRAX index suggests a risk of major osteoporotic fracture of 2.4%, and of hip fracture 0.2%. MM/XR DEXA appendicular skeleton IMPRESSION: Based on bone mineral density, and according to World Health Organization (WHO) criteria, the diagnosis is consistent with osteopenia. Statistically, 68% of repeat scans fall within 1 SD (+/- 0.010 g/cm2 for AP spine L1-L4) and 1 SD (+/- 0.012 g/cm2 for femur total) FRAX is a trademark of the [employer] [place] [facility] [employer], a World Health Organization (WHO) Collaborating Center. Electronically signed by: Anirudh Durham MD 03/01/2025 11:27 AM [facility]
== END 2025-03-01 10:24 | disposition home or self-care (01) ==
LOC: HO.MAMMO 10:23
DX: E21.3 Hyperparathyroidism, unspecified (principal); M89.8X9 Other specified disorders of bone, unspecified site
CPT/HCPCS: 77081

== ENCOUNTER → 2025-03-01 11:00 | Outpatient (BNV) | payer OTHER, SELFPAY | PROVIDERS: Visit Provider Radiology Diagnostic Radiology | DX: E28.39 Other primary ovarian failure (principal) | CPT/HCPCS: 77081 ==